=== PATIENT | male | born 1955 | race Two or more races ===

== ENCOUNTER → 2016-09-08 | Outpatient (REF) | payer BC ==
[2016-09-08 14:18] LABS: MEAN CORPUSCULAR HEMOGLOBIN 32.4 pg (27.0-33.0); MEAN CORPUSCULAR HGB CONC 33.7 g/dl (32.0-36.5); MEAN CORPUSCULAR VOLUME 96.1 fl (80.0-96.0); RED CELL DISTRIBUTION WIDTH 12.4 % (11.5-14.5); WHITE BLOOD COUNT 8.4 K/mm3 (4.0-10.0)
[2016-09-08 14:24] LABS: ANION GAP 8 MEQ/L (8-16); BLOOD UREA NITROGEN 20 MG/DL (7-18); CALCIUM LEVEL 9.2 MG/DL (8.8-10.2); CARBON DIOXIDE LEVEL 28 MEQ/L (21-32); CHLORIDE LEVEL 107 MEQ/L (98-107); CREATININE FOR GFR 0.91 MG/DL (0.70-1.30); GLOMERULAR FILTRATION RATE > 60.0 (>49); GLUCOSE, FASTING 69 MG/DL (80-110); INR 1.06; SODIUM LEVEL 143 MEQ/L (136-145)
[2016-09-08 14:33] LABS: POTASSIUM SERUM 5.2 MEQ/L (3.5-5.1)
== END ==
LOC: M SMT 13:07
PROVIDERS: ATTEND Nurse Practitioner Women's Health
DX: Z01.818 Encounter for other preprocedural examination (principal); N20.0 Calculus of kidney

== ENCOUNTER → 2016-09-18 | Day surgery (SDC) | payer BC ==
[~2016-09-18] VITALS: Ht 177.8 cm; Wt 77.1 kg
[~2016-09-18] MED LIST: FLOM5CAP PO; KETAMINE HCL 200 MG/20 ML VIAL As Ordered ONE; LIDOCAINE 2% INJ 100 MG/5 ML SDV (FOR ANES.) As Ordered ONE; LR 1,000 ML IV SCH; MIDAZOLAM INJ 2 MG/2 ML VIAL (J2250) As Ordered ONE; ONDANSETRON 4 MG TAB (S0181) PO ONE; ONDANSETRON 4MG/2ML VIAL (J2405) IV PRN; PERC5TAB6 PO; PERCOCET 5MG/325MG TAB PO PRN; PERCOCET 5MG/325MG TAB PO SCH; PERCOCET PO; PROPOFOL 200 MG/20 ML VIAL As Ordered ONE; TAMSULOSIN 0.4 MG CAP PO SCH; fentaNYL 100 MCG/2 ML INJECTION (J3010) As Ordered ONE
--- NOTE | 2016-09-18 08:23 | REP ---
KUB, ONE VIEW: HISTORY: Renal stone. COMPARISON: CT 08/29/2016. A small amount of air is present in small and large intestine. There are no air fluid levels or dilated loops of intestine. There is no pneumoperitoneum. An 8 mm calcification is present overlying the left kidney. This corresponds to the calcification seen in the left renal pelvis in the recent CT examination. Surgical clips are present in the right abdomen. IMPRESSION: 1. Nonspecific bowel gas pattern. 2. There is an 8 mm calcification overlying the left kidney corresponding to the calcification seen in the left renal pelvis in the recent CT examination. Signed by Michel Bliss MD 09/18/2016 08:30 A
--- NOTE | 2016-09-18 09:13 | ECGEPIP ---
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 No prior tracing for comparison Electronically Signed On 09-18-2016 9:13:32 EST by Vinod Mao
[2016-09-18 10:00] VITALS: BP 121/64
--- NOTE | 2016-09-18 16:43 | RO ---
DATE OF PROCEDURE: 09/18/2016 PREOPERATIVE DIAGNOSIS: Left kidney stone. POSTOPERATIVE DIAGNOSIS: Left kidney stone. FINDINGS: 8 mm left kidney stone. PROCEDURE: Left extracorporeal shock wave lithotripsy. SURGEON: Dr. Lester Light MD CARDIAC MONITOR TECHNICIAN: None. ANESTHESIA: General. COMPLICATIONS: None. ESTIMATED BLOOD LOSS: N/A. HISTORY OF THE PRESENT ILLNESS: A 60-year-old male patient with an 8 mm renal pelvis stone. The patient has consented for a left extracorporeal shock wave lithotripsy. DESCRIPTION OF OPERATION: With the patient in the supine position under general anesthesia, after finding the stone with x-ray and ultrasound, we found a stone of 8 mm in diameter in the upper pole of the left kidney. We gave a total of 2500 shock wave lithotripsies at a power of 1 to 20. The first 100 shock wave lithotripsy was done at a power of 1 to 5, the final 100 shock waves were done at a level of 6 to 10, the following 100 shock waves were done at a level of 11 to 15 and the following 2200 shock waves were done at level of 16 to 20. There were no complications of surgery. The patient tolerated well the procedure. PLAN: The patient will go home today with Flomax and pain medication. He will followup at [facility] in 3 weeks and to assess if the stone has been pulverized or is still persistent. If it is still persistent, we will give a second session or even a third session. There were no complications during the procedure.
== END ==
LOC: M SDC 05:56
PROVIDERS: ATTEND Urology
DX: N20.0 Calculus of kidney (principal); I10 Essential (primary) hypertension; J44.9 Chronic obstructive pulmonary disease, unspecified; R06.83 Snoring; Z79.899 Other long term (current) drug therapy; Z87.891 Personal history of nicotine dependence
CPT/HCPCS: 50590; 74000; 93005; J0690; J2250; J3010

== ENCOUNTER → 2016-10-09 | Outpatient (CLI) | payer BC ==
[~2016-10-09] MED LIST changes: -KETAMINE HCL 200 MG/20 ML VIAL As Ordered ONE; -LIDOCAINE 2% INJ 100 MG/5 ML SDV (FOR ANES.) As Ordered ONE; -LR 1,000 ML IV SCH; -MIDAZOLAM INJ 2 MG/2 ML VIAL (J2250) As Ordered ONE; -ONDANSETRON 4 MG TAB (S0181) PO ONE; -ONDANSETRON 4MG/2ML VIAL (J2405) IV PRN; -PERCOCET 5MG/325MG TAB PO PRN; -PERCOCET 5MG/325MG TAB PO SCH; -PROPOFOL 200 MG/20 ML VIAL As Ordered ONE; -TAMSULOSIN 0.4 MG CAP PO SCH; -fentaNYL 100 MCG/2 ML INJECTION (J3010) As Ordered ONE
--- NOTE | 2016-10-09 12:06 | REP ---
KUB: Single view. History: Kidney stone left-sided. Comparison KUB September 18, 2016. Comparison CT study August 29, 2016. Findings: The calcific opacity previously noted in the intrarenal collecting system of the left kidney is no longer apparent. No ureteral or upper tract calculus is visible today. There is vascular calcification in the pelvis bilaterally. There are clips in the right mid abdomen. Bowel gas pattern is normal. Impression: No urinary tract calculus visible today. Signed by Kurt Lee MD 10/09/2016 01:14 P
== END ==
LOC: M SMT 08:57
PROVIDERS: ATTEND Nurse Practitioner Women's Health
DX: N20.0 Calculus of kidney (principal)

== ENCOUNTER → 2017-01-06 | Outpatient (CLI) | payer BC ==
[~2017-01-06] VITALS: Ht 177.8 cm; Wt 77.1 kg
[~2017-01-06] MED LIST changes: +IBUPOTC PO; +LIDOCAINE 2% INJ 100 MG/5 ML SDV (FOR ANES.) As Ordered ONE; +LR 1,000 ML IV SCH; +PHENYLephrine HCL 500 MCG/5 ML (100MCG/ML) SYRINGE (J2370) As Ordered ONE; +PROPOFOL 200 MG/20 ML VIAL As Ordered ONE
--- NOTE | 2017-01-06 12:02 | ROOR ---
Patient Name: Chance Solis Procedure Date: 01/06/2017 11:13 AM Date of : 1955 Age: 61 [facility] Gender: Male Note Status: Finalized Procedure: Colonoscopy Indications: High risk colon cancer surveillance: Personal history of colonic polyps, Last colonoscopy 5 years or more ago Providers: Edgar Moreno MD Referring MD: Natasha Israel MD Requesting Provider: Medicines: Monitored Anesthesia Care Complications: No immediate complications. Procedure: Pre-Anesthesia Assessment: - Prior to the procedure, a History and Physical was performed, and patient medications and allergies were reviewed. The patient is competent. The risks and benefits of the procedure and the sedation options and risks were discussed with the patient. All questions were answered and informed consent was obtained. Patient identification and proposed procedure were verified by the physician, the nurse and the anesthesiologist in the procedure room. Mental Status Examination: alert and oriented. Airway Examination: normal oropharyngeal airway and neck mobility. CV Examination: regular rate and rhythm. Prophylactic Antibiotics: The patient does not require prophylactic antibiotics. Prior Anticoagulants: The patient has taken no previous anticoagulant or antiplatelet agents. ASA Grade Assessment: I - A normal, healthy patient. After reviewing the risks and benefits, the patient was deemed in satisfactory condition to undergo the procedure. The anesthesia plan was to use monitored anesthesia care (MAC). Immediately prior to administration of medications, the patient was re-assessed for adequacy to receive sedatives. The heart rate, respiratory rate, oxygen saturations, blood pressure, adequacy of pulmonary ventilation, and response to care were monitored throughout the procedure. The physical status of the patient was re-assessed after the procedure. The was introduced through the anus and advanced to the cecum, identified by appendiceal orifice and ileocecal valve. The colonoscopy was performed without difficulty. The patient tolerated the procedure well. The quality of the bowel preparation was excellent. Findings: The perianal and digital rectal examinations were normal. A few small-mouthed diverticula were found in the sigmoid colon. Two sessile polyps were found in the descending colon. The polyps were 4 mm in size. These polyps were removed with a hot snare. Resection and retrieval were complete. A 7 mm polyp was found at 20 cm proximal to the anus. The polyp was sessile. The polyp was removed with a hot snare. Resection and retrieval were complete. There were a few small sessile polyps consistent with hyperplastic polyps. Impression: - Diverticulosis in the sigmoid colon. - Two 4 mm polyps in the descending colon, removed with a hot snare. Resected and retrieved. - One 7 mm polyp at 20 cm proximal to the anus, removed with a hot snare. Resected and retrieved. Recommendation: - Await pathology results. - Telephone endoscopist for pathology results in 10 days. - Discharge patient to home. - Resume previous diet. - Continue present medications. Edgar Moreno MD 01/06/2017 12:01:36 PM Number of Addenda: 0 Note Initiated On: 01/06/2017 11:13 AM Estimated Blood Loss: Estimated blood loss: none.
[2017-01-06 12:29] VITALS: BP 122/66
== END | disposition home or self-care (01) ==
LOC: M OPP 09:47
PROVIDERS: ATTEND Surgery
DX: Z12.11 Encounter for screening for malignant neoplasm of colon (principal); K57.30 Diverticulosis of large intestine without perforation or abscess without bleeding; D12.4 Benign neoplasm of descending colon; K63.5 Polyp of colon; M19.90 Unspecified osteoarthritis, unspecified site; J44.9 Chronic obstructive pulmonary disease, unspecified; Z87.891 Personal history of nicotine dependence
CPT/HCPCS: 45385; 88305; J2370

== ENCOUNTER → 2017-08-25 | Outpatient (CLI) | payer OTHER | LOC: M PLARAD 13:23 | DX: R91.1 Solitary pulmonary nodule (principal) | CPT/HCPCS: 78815 ==

== ENCOUNTER → 2017-09-01 | Outpatient (CLI) | payer OTHER | LOC: M CARPUL 09:41 | DX: R91.1 Solitary pulmonary nodule (principal); J44.9 Chronic obstructive pulmonary disease, unspecified ==

== ENCOUNTER → 2017-09-14 | Outpatient (CLI) | payer OTHER | LOC: M RAD 14:09 | DX: R91.1 Solitary pulmonary nodule (principal); J44.9 Chronic obstructive pulmonary disease, unspecified; J84.9 Interstitial pulmonary disease, unspecified | CPT/HCPCS: 71046 ==

== ENCOUNTER → 2017-09-15 | Outpatient (CLI) | payer OTHER | LOC: M RAD 09:50 | DX: R91.1 Solitary pulmonary nodule (principal) | CPT/HCPCS: 78598 ==

== ENCOUNTER → 2017-09-18 | Outpatient (CLI) | payer OTHER ==
[2017-09-18 11:53] LABS: ABG BASE EXCESS -2.6 (-2.0-2.0); ABG HCO3 20.2 MEQ/L (22.0-26.0); ABG O2 SATURATION 96.8 % (95.0-99.0); ABG PARTIAL PRESSURE CO2 30.7 mmHg (35.0-45.0); ABG PARTIAL PRESSURE O2 80.9 mmHg (75.0-100.0); ABG STANDARD HCO3 22.3 MEQ/L (22.0-26.0); ABG TOTAL CO2 21.2 MEQ/L (23.0-31.0); ABG pH (ARTERIAL) 7.437 UNITS (7.350-7.450)
[2017-09-18 12:39] LABS: HEMATOCRIT 48.3 % (42.0-52.0); HEMOGLOBIN 16.8 g/dl (14.0-18.0); MEAN CORPUSCULAR HEMOGLOBIN 32.8 pg (27.0-33.0); MEAN CORPUSCULAR HGB CONC 34.8 g/dl (32.0-36.5); MEAN CORPUSCULAR VOLUME 94.3 fl (80.0-96.0); PLATELET COUNT, AUTOMATED 237 10^3/uL (150-450); RED BLOOD COUNT 5.12 10^6/uL (4.30-6.10); RED CELL DISTRIBUTION WIDTH 12.6 % (11.5-14.5); WHITE BLOOD COUNT 9.9 10^3/uL (4.0-10.0)
[2017-09-18 12:49] LABS: APPEARANCE, URINE CLEAR (CLEAR); BACTERIA, URINE AUTO NEGATIVE (NEGATIVE); BILIRUBIN, URINE AUTO NEGATIVE (NEGATIVE); BLOOD, URINE BLOOD NEGATIVE (NEGATIVE); COLOR, URINE YELLOW (YELLOW); GLUCOSE, URINE (UA) AUTO NEGATIVE (NEGATIVE); KETONE, URINE AUTO NEGATIVE (NEGATIVE); LEUKOCYTE ESTERASE, URINE AUTO NEGATIVE (NEGATIVE); MUCUS, URINE SMALL (NEGATIVE); NITRITE, URINE AUTO NEGATIVE (NEGATIVE); PROTEIN, URINE AUTO NEGATIVE (NEGATIVE); RBC, URINE AUTO 2 /HPF (0-3); SPECIFIC GRAVITY URINE AUTO 1.012 (1.002-1.035); SQUAMOUS EPITHELIAL CELL UR AU 0 /HPF (0-6); UROBILINOGEN, URINE AUTO 0.2 mg/dL (0.0-2.0); WBC, URINE AUTO 0 /HPF (0-3)
[2017-09-18 13:08] LABS: INR 0.98; PROTHROMBIN TIME 13.1 SECONDS (12.4-14.5)
[2017-09-18 13:09] LABS: PARTIAL THROMBOPLASTIN TIME 31.5 SECONDS (26.8-37.9)
[2017-09-18 13:19] LABS: ANION GAP 5 MEQ/L (8-16); BLOOD UREA NITROGEN 16 MG/DL (7-18); CALCIUM LEVEL 9.3 MG/DL (8.8-10.2); CARBON DIOXIDE LEVEL 28 MEQ/L (21-32); CHLORIDE LEVEL 108 MEQ/L (98-107); CREATININE FOR GFR 0.82 MG/DL (0.70-1.30); GLOMERULAR FILTRATION RATE > 60.0 (>49); GLUCOSE, FASTING 77 MG/DL (70-100); POTASSIUM SERUM 4.6 MEQ/L (3.5-5.1); SODIUM LEVEL 141 MEQ/L (136-145)
== END ==
LOC: M ADMPAT 10:44
DX: Z01.818 Encounter for other preprocedural examination (principal); R91.1 Solitary pulmonary nodule
CPT/HCPCS: 93005

== ENCOUNTER 2017-10-05 07:25 | Inpatient (IN) | payer OTHER ==
[2017-10-05] MEDS: LR 1,000 ML IV ×2 (08:00→13:00)
[2017-10-05] MEDS ORDERED: LIDOCAINE 1% MDV 20ML VIAL SQ (08:00)
[2017-10-05] MEDS ORDERED: MIDAZOLAM INJ 2 MG/2 ML VIAL (J2250) As Ordered ×2 (08:28→09:08)
[2017-10-05] MEDS ORDERED: fentaNYL 100 MCG/2 ML INJECTION (J3010) As Ordered ×3 (08:28→12:41)
[2017-10-05] MEDS: MIDAZOLAM INJ 2 MG/2 ML VIAL (J2250) IV (08:55)
[2017-10-05] MEDS: fentaNYL 100 MCG/2 ML INJECTION (J3010) IV ×3 (08:55→12:55)
[2017-10-05] MEDS: MOM 30ML SUSPENSION UDC PO (09:00)
[2017-10-05] MEDS ORDERED: LIDOCAINE 2% INJ 100 MG/5 ML SDV (FOR ANES.) As Ordered (09:08)
[2017-10-05] MEDS ORDERED: PROPOFOL 200 MG/20 ML VIAL As Ordered (09:08)
[2017-10-05] MEDS ORDERED: ROCURONIUM BROMIDE 50 MG/5 ML VIAL As Ordered ×2 (09:08→10:07)
[2017-10-05] MEDS ORDERED: diphenhydrAMINE INJ 50MG/ML VIAL (J1200) IV (09:30)
[2017-10-05] MEDS ORDERED: NALOXONE INJ 0.4 MG/1 ML VIAL (J2310) IV (09:30)
[2017-10-05] MEDS ORDERED: WALLBOXKEY XX (09:30)
[2017-10-05] MEDS ORDERED: METOCLOPRAMIDE INJ 10MG/2ML VIAL (J2765) IV ×2 (09:30→13:00)
[2017-10-05] MEDS ORDERED: ONDANSETRON 4MG/2ML VIAL (J2405) IV ×3 (09:30→13:00)
[2017-10-05] MEDS ORDERED: EPIDURAL/PCA KEYS XX (09:30)
[2017-10-05] MEDS: CETACAINE SPRAY 5GM As Ordered (09:52)
[2017-10-05] MEDS: MUPIROCIN 2% OINT 22 GM TUBE TOP (10:00)
[2017-10-05] MEDS: BUPIVACAINE LIPOSOME/PF 1.3% 20 ML VIAL (13.3MG/ML)(EXPAREL) As Ordered (10:21)
[2017-10-05] MEDS: BUPIVACAINE HCL 0.5% 10 ML VIAL As Ordered (10:21)
[2017-10-05] MEDS ORDERED: VASOPRESSIN INJ 20 UNITS/ML VIAL As Ordered (10:49)
[2017-10-05] MEDS ORDERED: BUPIVACAINE HCL 0.5% 30 ML VIAL As Ordered (10:54)
[2017-10-05] MEDS ORDERED: ONDANSETRON 4MG/2ML VIAL (J2405) As Ordered (11:11)
[2017-10-05] MEDS ORDERED: NEOSTIGMINE 10 MG/10 ML VIAL (J2710) As Ordered (11:12)
[2017-10-05] MEDS ORDERED: GLYCOPYRROLATE INJ 0.2 MG/ML 2 ML VIAL As Ordered (11:12)
[2017-10-05] MEDS ORDERED: PHENYLephrine HCL 500 MCG/5 ML (100MCG/ML) SYRINGE (J2370) As Ordered (11:36)
[2017-10-05] MEDS ORDERED: ACETAMINOPHEN TAB 650MG DOSE (2X325MG) PO (12:15)
[2017-10-05] MEDS ORDERED: PERCOCET 5MG/325MG TAB PO ×2 (12:15→13:00)
[2017-10-05] MEDS ORDERED: LEVALBUTEROL 1.25 MG/0.5 ML CONCENTRATE NEB NEB (12:15)
[2017-10-05] MEDS ORDERED: NORCO, ANEXSIA 5/325MG TABLET (HYDROcodone/ACETAMINOPHEN) PO (12:15)
[2017-10-05 13:00] LABS: BASO # 0.1 10^3/uL (0.0-0.2); BASO % 0.5 % (0.0-1.0); EOS # 0.1 10^3/uL (0.0-0.50); EOS % 0.3 % (0.0-3.0); HEMATOCRIT 45.9 % (42.0-52.0); IMMATURE GRANULOCYTE % 0.4 % (0-3.0); LYMPH # 1.1 10^3/uL (1.5-4.5); LYMPH % 6.2 % (24.0-44.0); MEAN CORPUSCULAR HEMOGLOBIN 33.5 pg (27.0-33.0); MEAN CORPUSCULAR HGB CONC 34.9 g/dl (32.0-36.5); MEAN CORPUSCULAR VOLUME 96.2 fl (80.0-96.0); MONO # 0.6 10^3/uL (0.0-0.8); MONO % 3.4 % (0.0-5.0); NEUTROPHILS # 16.2 10^3/uL (1.8-7.7); NEUTROPHILS % 89.2 % (36.0-66.0); PLATELET COUNT, AUTOMATED 224 10^3/uL (150-450); RED BLOOD COUNT 4.77 10^6/uL (4.30-6.10); RED CELL DISTRIBUTION WIDTH 12.9 % (11.5-14.5); WHITE BLOOD COUNT 18.1 10^3/uL (4.0-10.0)
[2017-10-05 13:06] LABS: ABG BASE EXCESS -7.4 (-2.0-2.0); ABG O2 SATURATION 98.6 % (95.0-99.0); ABG PARTIAL PRESSURE CO2 41.8 mmHg (35.0-45.0); ABG PARTIAL PRESSURE O2 132.4 mmHg (75.0-100.0); ABG STANDARD HCO3 18.6 MEQ/L (22.0-26.0); ABG TOTAL CO2 20.3 MEQ/L (23.0-31.0); ABG pH (ARTERIAL) 7.276 UNITS (7.350-7.450)
[2017-10-05] MEDS: KCL 20MEQ IN D5/NS 1000ML 1,000 ML IV (13:20)
[2017-10-05] MEDS: KETOROLAC 30 MG/ML VIAL (J1885) IV ×2 (13:22→18:10)
[2017-10-05] MEDS: LEVALBUTEROL 1.25 MG/0.5 ML CONCENTRATE NEB NEB ×2 (13:22→20:43)
[2017-10-05 13:34] LABS: ANION GAP 7 MEQ/L (8-16); BLOOD UREA NITROGEN 19 MG/DL (7-18); CALCIUM LEVEL 8.8 MG/DL (8.8-10.2); CARBON DIOXIDE LEVEL 23 MEQ/L (21-32); CHLORIDE LEVEL 109 MEQ/L (98-107); CREATININE FOR GFR 0.88 MG/DL (0.70-1.30); GLOMERULAR FILTRATION RATE > 60.0 (>49); GLUCOSE, FASTING 123 MG/DL (70-100); POTASSIUM SERUM 4.5 MEQ/L (3.5-5.1); SODIUM LEVEL 139 MEQ/L (136-145)
[2017-10-05] MEDS: SODIUM CHLORIDE 0.9% 1000 ML IV (14:00)
[2017-10-05 14:38] LABS: ABG HCO3 19.8 MEQ/L (22.0-26.0); ABG O2 SATURATION 95.7 % (95.0-99.0); ABG PARTIAL PRESSURE CO2 36.4 mmHg (35.0-45.0); ABG PARTIAL PRESSURE O2 80.6 mmHg (75.0-100.0); ABG STANDARD HCO3 20.3 MEQ/L (22.0-26.0); ABG TOTAL CO2 20.9 MEQ/L (23.0-31.0); ABG pH (ARTERIAL) 7.353 UNITS (7.350-7.450)
[2017-10-05] MEDS: CEFAZOLIN SOD 1 GM in APPROPRIATE DILUENT 1 EA IV (17:19)
[2017-10-05] MEDS: FENTANYL/BUPIVACAINE/NACL BAG 250 ML EPIDURAL (17:27)
[2017-10-05] MEDS: VITAMIN D (CHOLECALCIFEROL) 400 INTERNATIONAL UNITS TAB PO (18:10)
[2017-10-05] MEDS: NS 500 ML IV (20:45)
[2017-10-05] MEDS: DOCUSATE SODIUM 100 MG CAP PO (21:58)
[2017-10-05] MEDS: HEPARIN SOD (PORCINE) 5000 UNITS/ML VIAL SC (21:59)
[2017-10-06] MEDS: KETOROLAC 30 MG/ML VIAL (J1885) IV ×4 (01:04→18:30)
[2017-10-06] MEDS: CEFAZOLIN SOD 1 GM in APPROPRIATE DILUENT 1 EA IV ×3 (01:05→17:32)
[2017-10-06] MEDS: LEVALBUTEROL 1.25 MG/0.5 ML CONCENTRATE NEB NEB ×4 (01:38→20:10)
[2017-10-06] MEDS: KCL 20MEQ IN D5/NS 1000ML 1,000 ML IV (03:12)
[2017-10-06 05:57] LABS: BASO % 0.4 % (0.0-1.0); EOS % 0.3 % (0.0-3.0); HEMATOCRIT 39.4 % (42.0-52.0); IMMATURE GRANULOCYTE % 0.3 % (0-3.0); LYMPH # 1.3 10^3/uL (1.5-4.5); LYMPH % 12.3 % (24.0-44.0); MEAN CORPUSCULAR HEMOGLOBIN 33.3 pg (27.0-33.0); MEAN CORPUSCULAR HGB CONC 34.8 g/dl (32.0-36.5); MEAN CORPUSCULAR VOLUME 95.6 fl (80.0-96.0); MONO % 9.8 % (0.0-5.0); NEUTROPHILS % 76.9 % (36.0-66.0); PLATELET COUNT, AUTOMATED 191 10^3/uL (150-450); RED BLOOD COUNT 4.12 10^6/uL (4.30-6.10); RED CELL DISTRIBUTION WIDTH 12.9 % (11.5-14.5); WHITE BLOOD COUNT 10.5 10^3/uL (4.0-10.0)
[2017-10-06 06:03] LABS: HEMOGLOBIN 13.7 g/dl (14.0-18.0)
[2017-10-06 06:08] LABS: ABG BASE EXCESS -2.1 (-2.0-2.0); ABG HCO3 21.5 MEQ/L (22.0-26.0); ABG O2 SATURATION 96.5 % (95.0-99.0); ABG PARTIAL PRESSURE CO2 33.3 mmHg (35.0-45.0); ABG PARTIAL PRESSURE O2 82.9 mmHg (75.0-100.0); ABG STANDARD HCO3 22.7 MEQ/L (22.0-26.0); ABG TOTAL CO2 22.5 MEQ/L (23.0-31.0); ABG pH (ARTERIAL) 7.427 UNITS (7.350-7.450)
[2017-10-06 06:09] LABS: ANION GAP 5 MEQ/L (8-16); BLOOD UREA NITROGEN 14 MG/DL (7-18); CALCIUM LEVEL 7.7 MG/DL (8.8-10.2); CARBON DIOXIDE LEVEL 24 MEQ/L (21-32); CHLORIDE LEVEL 110 MEQ/L (98-107); CREATININE FOR GFR 0.85 MG/DL (0.70-1.30); GLOMERULAR FILTRATION RATE > 60.0 (>49); GLUCOSE, FASTING 104 MG/DL (70-100); SODIUM LEVEL 139 MEQ/L (136-145)
[2017-10-06] MEDS: TIOTROPIUM INHALER/CAPSULE (SPIRIVA) INH (07:11)
[2017-10-06] MEDS: MOM 30ML SUSPENSION UDC PO (09:00)
[2017-10-06] MEDS: VITAMIN D (CHOLECALCIFEROL) 400 INTERNATIONAL UNITS TAB PO (09:03)
[2017-10-06] MEDS: HEPARIN SOD (PORCINE) 5000 UNITS/ML VIAL SC ×2 (09:04→21:36)
[2017-10-06] MEDS: DOCUSATE SODIUM 100 MG CAP PO ×2 (09:04→21:36)
[2017-10-06] MEDS: PANTOPRAZOLE 40MG TAB (PROTONIX) PO (09:04)
[2017-10-06] MEDS: FENTANYL/BUPIVACAINE/NACL BAG 250 ML EPIDURAL (15:03)
[2017-10-07] MEDS: LEVALBUTEROL 1.25 MG/0.5 ML CONCENTRATE NEB NEB ×4 (01:35→20:01)
[2017-10-07] MEDS: KETOROLAC 30 MG/ML VIAL (J1885) IV ×4 (01:37→18:07)
[2017-10-07] MEDS: CEFAZOLIN SOD 1 GM in APPROPRIATE DILUENT 1 EA IV ×2 (01:37→09:04)
[2017-10-07 05:36] LABS: BASO # 0.1 10^3/uL (0.0-0.2); BASO % 0.7 % (0.0-1.0); EOS # 0.2 10^3/uL (0.0-0.50); EOS % 2.2 % (0.0-3.0); HEMATOCRIT 35.9 % (42.0-52.0); HEMOGLOBIN 12.6 g/dl (14.0-18.0); IMMATURE GRANULOCYTE % 0.4 % (0-3.0); LYMPH # 1.3 10^3/uL (1.5-4.5); LYMPH % 17.9 % (24.0-44.0); MEAN CORPUSCULAR HEMOGLOBIN 33.5 pg (27.0-33.0); MEAN CORPUSCULAR HGB CONC 35.1 g/dl (32.0-36.5); MEAN CORPUSCULAR VOLUME 95.5 fl (80.0-96.0); MONO # 0.9 10^3/uL (0.0-0.8); MONO % 12.5 % (0.0-5.0); NEUTROPHILS # 4.6 10^3/uL (1.8-7.7); NEUTROPHILS % 66.3 % (36.0-66.0); PLATELET COUNT, AUTOMATED 162 10^3/uL (150-450); RED BLOOD COUNT 3.76 10^6/uL (4.30-6.10); RED CELL DISTRIBUTION WIDTH 12.7 % (11.5-14.5)
[2017-10-07 05:54] LABS: ANION GAP 6 MEQ/L (8-16); BLOOD UREA NITROGEN 14 MG/DL (7-18); CALCIUM LEVEL 8.2 MG/DL (8.8-10.2); CARBON DIOXIDE LEVEL 25 MEQ/L (21-32); CHLORIDE LEVEL 110 MEQ/L (98-107); CREATININE FOR GFR 0.79 MG/DL (0.70-1.30); GLOMERULAR FILTRATION RATE > 60.0 (>49); GLUCOSE, FASTING 96 MG/DL (70-100); POTASSIUM SERUM 3.9 MEQ/L (3.5-5.1); SODIUM LEVEL 141 MEQ/L (136-145)
[2017-10-07] MEDS: TIOTROPIUM INHALER/CAPSULE (SPIRIVA) INH (07:23)
[2017-10-07] MEDS: MOM 30ML SUSPENSION UDC PO ×2 (08:20→18:07)
[2017-10-07] MEDS: PANTOPRAZOLE 40MG TAB (PROTONIX) PO (09:04)
[2017-10-07] MEDS: HEPARIN SOD (PORCINE) 5000 UNITS/ML VIAL SC ×2 (09:04→21:03)
[2017-10-07] MEDS: DOCUSATE SODIUM 100 MG CAP PO ×2 (09:04→21:02)
[2017-10-07] MEDS: VITAMIN D (CHOLECALCIFEROL) 400 INTERNATIONAL UNITS TAB PO (11:20)
[2017-10-07] MEDS: FENTANYL/BUPIVACAINE/NACL BAG 250 ML EPIDURAL (15:32)
[2017-10-08] MEDS: KETOROLAC 30 MG/ML VIAL (J1885) IV ×5 (01:13→23:51)
[2017-10-08] MEDS: LEVALBUTEROL 1.25 MG/0.5 ML CONCENTRATE NEB NEB ×4 (01:20→20:23)
[2017-10-08 05:34] LABS: BASO % 0.5 % (0.0-1.0); EOS # 0.3 10^3/uL (0.0-0.50); EOS % 3.9 % (0.0-3.0); HEMATOCRIT 35.4 % (42.0-52.0); HEMOGLOBIN 12.2 g/dl (14.0-18.0); IMMATURE GRANULOCYTE % 0.4 % (0-3.0); LYMPH # 1.2 10^3/uL (1.5-4.5); LYMPH % 15.9 % (24.0-44.0); MEAN CORPUSCULAR HEMOGLOBIN 32.5 pg (27.0-33.0); MEAN CORPUSCULAR HGB CONC 34.5 g/dl (32.0-36.5); MEAN CORPUSCULAR VOLUME 94.4 fl (80.0-96.0); MONO # 0.9 10^3/uL (0.0-0.8); NEUTROPHILS % 67.3 % (36.0-66.0); PLATELET COUNT, AUTOMATED 178 10^3/uL (150-450); RED BLOOD COUNT 3.75 10^6/uL (4.30-6.10); RED CELL DISTRIBUTION WIDTH 12.5 % (11.5-14.5); WHITE BLOOD COUNT 7.4 10^3/uL (4.0-10.0)
[2017-10-08 05:58] LABS: ANION GAP 6 MEQ/L (8-16); BLOOD UREA NITROGEN 15 MG/DL (7-18); CALCIUM LEVEL 7.8 MG/DL (8.8-10.2); CARBON DIOXIDE LEVEL 27 MEQ/L (21-32); CHLORIDE LEVEL 108 MEQ/L (98-107); CREATININE FOR GFR 0.78 MG/DL (0.70-1.30); GLOMERULAR FILTRATION RATE > 60.0 (>49); GLUCOSE, FASTING 89 MG/DL (70-100); POTASSIUM SERUM 3.7 MEQ/L (3.5-5.1); SODIUM LEVEL 141 MEQ/L (136-145)
[2017-10-08] MEDS: TIOTROPIUM INHALER/CAPSULE (SPIRIVA) INH (07:13)
[2017-10-08] MEDS: MOM 30ML SUSPENSION UDC PO (08:53)
[2017-10-08] MEDS: DOCUSATE SODIUM 100 MG CAP PO ×2 (08:53→20:49)
[2017-10-08] MEDS: PANTOPRAZOLE 40MG TAB (PROTONIX) PO (08:53)
[2017-10-08] MEDS: VITAMIN D (CHOLECALCIFEROL) 400 INTERNATIONAL UNITS TAB PO (08:53)
[2017-10-08] MEDS: HEPARIN SOD (PORCINE) 5000 UNITS/ML VIAL SC ×2 (09:29→20:49)
[2017-10-08] MEDS: PERCOCET 5MG/325MG TAB PO ×2 (09:31→17:46)
[2017-10-08] MEDS: BISACODYL 10 MG SUPP PR (10:33)
[2017-10-09] MEDS: LEVALBUTEROL 1.25 MG/0.5 ML CONCENTRATE NEB NEB ×2 (02:00→06:59)
[2017-10-09] MEDS: PERCOCET 5MG/325MG TAB PO ×2 (04:17→12:20)
[2017-10-09 05:15] LABS: BASO # 0.1 10^3/uL (0.0-0.2); BASO % 0.6 % (0.0-1.0); EOS # 0.3 10^3/uL (0.0-0.50); HEMATOCRIT 36.6 % (42.0-52.0); HEMOGLOBIN 12.8 g/dl (14.0-18.0); IMMATURE GRANULOCYTE % 0.4 % (0-3.0); LYMPH # 0.9 10^3/uL (1.5-4.5); LYMPH % 9.9 % (24.0-44.0); MEAN CORPUSCULAR HEMOGLOBIN 33.2 pg (27.0-33.0); MEAN CORPUSCULAR VOLUME 94.8 fl (80.0-96.0); MONO # 1.2 10^3/uL (0.0-0.8); MONO % 13.3 % (0.0-5.0); NEUTROPHILS # 6.6 10^3/uL (1.8-7.7); NEUTROPHILS % 72.8 % (36.0-66.0); PLATELET COUNT, AUTOMATED 208 10^3/uL (150-450); RED BLOOD COUNT 3.86 10^6/uL (4.30-6.10); RED CELL DISTRIBUTION WIDTH 12.6 % (11.5-14.5)
[2017-10-09 05:28] LABS: ANION GAP 3 MEQ/L (8-16); BLOOD UREA NITROGEN 13 MG/DL (7-18); CALCIUM LEVEL 8.5 MG/DL (8.8-10.2); CARBON DIOXIDE LEVEL 28 MEQ/L (21-32); CHLORIDE LEVEL 109 MEQ/L (98-107); CREATININE FOR GFR 0.77 MG/DL (0.70-1.30); GLOMERULAR FILTRATION RATE > 60.0 (>49); GLUCOSE, FASTING 91 MG/DL (70-100); POTASSIUM SERUM 4.1 MEQ/L (3.5-5.1); SODIUM LEVEL 140 MEQ/L (136-145)
[2017-10-09] MEDS: KETOROLAC 30 MG/ML VIAL (J1885) IV (06:15)
[2017-10-09] MEDS: MOM 30ML SUSPENSION UDC PO (06:19)
[2017-10-09] MEDS: TIOTROPIUM INHALER/CAPSULE (SPIRIVA) INH (06:59)
[2017-10-09] MEDS: PANTOPRAZOLE 40MG TAB (PROTONIX) PO (08:42)
[2017-10-09] MEDS: DOCUSATE SODIUM 100 MG CAP PO (08:42)
[2017-10-09] MEDS: VITAMIN D (CHOLECALCIFEROL) 400 INTERNATIONAL UNITS TAB PO (08:42)
[2017-10-09] MEDS: BISACODYL 10 MG SUPP PR (08:42)
[2017-10-09] MEDS: HEPARIN SOD (PORCINE) 5000 UNITS/ML VIAL SC (10:35)
[2017-10-10 00:06] LABS: QUANTIFERON GOLD TB Negative (Negative); TB Test (QFT) Antigen 0.02 IU/mL (.); TB Test (QFT) Mitogen >10.00 IU/mL (.); TB Test (QFT) Nil 0.02 IU/mL (.)
== END 2017-10-09 12:30 | disposition home or self-care (01) | DRG 120 ==
LOC: M OR 07:25 → M PCU 14:59
PROC: 0BBC0ZX Excision of Right Upper Lung Lobe, Open Approach, Diagnostic (ICD-10-PCS; principal; 2017-10-05 09:30)
PROC: 0B948ZZ Drainage of Right Upper Lobe Bronchus, Via Natural or Artificial Opening Endoscopic (ICD-10-PCS; 2017-10-05 09:30)
DX: J84.10 Pulmonary fibrosis, unspecified (principal); J44.9 Chronic obstructive pulmonary disease, unspecified; E78.00 Pure hypercholesterolemia, unspecified; Z87.891 Personal history of nicotine dependence; Z79.1 Long term (current) use of non-steroidal anti-inflammatories (NSAID); Z79.899 Other long term (current) drug therapy

== ENCOUNTER → 2017-10-15 | Outpatient (CLI) | payer OTHER | LOC: M SMT 08:10 | DX: R91.1 Solitary pulmonary nodule (principal) | CPT/HCPCS: 71046 ==

== ENCOUNTER → 2017-11-03 | Outpatient (CLI) | payer OTHER ==
[~2017-11-03] MED LIST changes: -FLOM5CAP PO; -IBUPOTC PO; +ISOVUE-370 76% 100ML VIAL (Q9967) As Ordered; -LIDOCAINE 2% INJ 100 MG/5 ML SDV (FOR ANES.) As Ordered ONE; -LR 1,000 ML IV SCH; -PERC5TAB6 PO; -PERCOCET PO; -PHENYLephrine HCL 500 MCG/5 ML (100MCG/ML) SYRINGE (J2370) As Ordered ONE; -PROPOFOL 200 MG/20 ML VIAL As Ordered ONE
== END ==
LOC: M RAD 10:54
DX: R06.02 Shortness of breath (principal)
CPT/HCPCS: Q9967

== ENCOUNTER → 2017-11-23 | Outpatient (CLI) | payer OTHER | LOC: M SMT 08:16 | DX: R91.1 Solitary pulmonary nodule (principal); Z98.890 Other specified postprocedural states | CPT/HCPCS: 71046 ==

== ENCOUNTER → 2018-03-09 | Outpatient (CLI) | payer OTHER ==
[2018-03-09 12:55] LABS: BASO # 0.1 10^3/uL (0.0-0.2); BASO % 1.2 % (0.0-1.0); EOS # 0.2 10^3/uL (0.0-0.50); EOS % 2.4 % (0.0-3.0); HEMATOCRIT 45.3 % (42.0-52.0); HEMOGLOBIN 16.1 g/dl (13.5-17.5); IMMATURE GRANULOCYTE % 0.3 % (0-3.0); LYMPH # 1.4 10^3/uL (1.5-4.5); LYMPH % 20.7 % (24.0-44.0); MEAN CORPUSCULAR HEMOGLOBIN 32.5 pg (27.0-33.0); MEAN CORPUSCULAR HGB CONC 35.5 g/dl (32.0-36.5); MEAN CORPUSCULAR VOLUME 91.3 fl (80.0-96.0); MONO # 0.7 10^3/uL (0.0-0.8); MONO % 10.2 % (0.0-5.0); NEUTROPHILS # 4.4 10^3/uL (1.8-7.7); NEUTROPHILS % 65.2 % (36.0-66.0); PLATELET COUNT, AUTOMATED 225 10^3/uL (150-450); RED BLOOD COUNT 4.96 10^6/uL (4.30-6.10); RED CELL DISTRIBUTION WIDTH 13.5 % (11.5-14.5); WHITE BLOOD COUNT 6.7 10^3/uL (4.0-10.0)
[2018-03-09 13:33] LABS: ALBUMIN 3.9 GM/DL (3.2-5.2); ALBUMIN/GLOBULIN RATIO 1.11 (1.00-1.93); ALKALINE PHOSPHATASE 94 U/L (45-117); ALT/SGPT 23 U/L (12-78); ANION GAP 8 MEQ/L (8-16); AST/SGOT 16 U/L (7-37); BILIRUBIN,TOTAL 1.3 MG/DL (0.2-1.0); BLOOD UREA NITROGEN 11 MG/DL (7-18); CALCIUM LEVEL 9.2 MG/DL (8.8-10.2); CARBON DIOXIDE LEVEL 25 MEQ/L (21-32); CHLORIDE LEVEL 110 MEQ/L (98-107); CHOLESTEROL LEVEL 169 MG/DL (<200); CHOLESTEROL RISK RATIO 3.017 (<5); CREATININE FOR GFR 1.01 MG/DL (0.70-1.30); GLOMERULAR FILTRATION RATE > 60.0 (>49); GLUCOSE, FASTING 95 MG/DL (70-100); HDL CHOLESTEROL 56 MG/DL (>40); LDL CHOLESTEROL 95.4 MG/DL (<100); NON-HDL-C 113 MG/DL; POTASSIUM SERUM 4.6 MEQ/L (3.5-5.1); SODIUM LEVEL 143 MEQ/L (136-145); TOTAL PROTEIN 7.4 GM/DL (6.4-8.2); TRIGLYCERIDES LEVEL 88 MG/DL (<150)
== END ==
LOC: M WUC 09:33
DX: Z00.00 Encounter for general adult medical examination without abnormal findings (principal)
CPT/HCPCS: 80053

== ENCOUNTER → 2018-07-01 | Outpatient (REF) | payer OTHER | LOC: M LAB REF 17:24 | DX: D22.5 Melanocytic nevi of trunk (principal); L85.8 Other specified epidermal thickening | CPT/HCPCS: 88305 ==

== ENCOUNTER → 2019-05-03 | Outpatient (CLI) | payer MEDICARE ==
[~2019-05-03] MED LIST changes: +ELIQ5TAB PO; +FLOM0.4C39 PO; +IBUPOTC PO; -ISOVUE-370 76% 100ML VIAL (Q9967) As Ordered; +LEVO500T3 PO; +PERC5TAB12 PO; +PERCOCET PO; +PROAAER10 INH; +SPIR12.9 INH; +VITA-110 PO; +VITA-144 PO
--- NOTE | 2019-05-03 13:49 | REP ---
The CT of the chest without IV contrast: Comparisons are the radionuclide PET scan dated 08/25/[address] dated 11/03/2017. On the comparison PET scan there was a hypermetabolic lung nodule medially in the apex of the right upper lobe. On the 11/03/[address] this nodule had been resected and there is a surgical staple line medially in the right upper lobe apex. Additionally there are multiple bilateral pulmonary emboli. The study today is insensitive for evaluation of pulmonary emboli in the absence of IV contrast. There is a surgical staple line medially in the apex of the right upper lobe. There is no evidence of tumor recurrence. In addition, there is linear stranding extending from the lateral pleural surface in the right upper lobe, eight packs inferomedially to the right hilus, not present previously, possibly parenchymal scarring. No nodularity is identified. There are no nodules or masses otherwise. There are no infiltrates or pleural effusions. There are numerous bulla replacing the lung parenchyma bilaterally. There is no mediastinal or axillary lymphadenopathy. The study is insensitive for hilar lymphadenopathy in the absence of IV contrast. The thoracic aorta is unremarkable except for occasional calcified atheroma. Cardiac size is normal. There is no pericardial effusion. Upper abdomen: On the radionuclide PET scan dated 08/25/2088. On the chest CT of 11/03/2017 there was a right adrenal hypodense nodule. This is only partially imaged on the study today. The left adrenal demonstrates "fullness" but is only partially imaged. This fullness was also present on the comparison studies. The visualized areas of the liver, gallbladder, pancreas and spleen are unremarkable. Impression: The there is a surgical staple line in the upper lobe of the right lung medially where a lung nodule had previously been resected. There is no evidence of tumor recurrence. There is now linear stranding extending from the lateral pleura in the right upper lobe toward the right hilus, not present previously, likely parenchymal scarring. No nodularity is associated with this linear stranding. There are no new lung nodules or masses. There are no infiltrates or pleural effusions. There is no adenopathy, however the study is insensitive for evaluation of the becky in the absence of IV contrast. There are numerous bulla replacing the lung parenchyma bilaterally. There is curvilinear parenchymal scarring in the left lower lobe. The patient has a known right adrenal nodule. It is only partially imaged on the current study. There is left adrenal fullness, only partially imaged on the current study. This fullness was also present on prior studies. Electronically Signed by Neal Carpenter MD 05/03/2019 01:41 P
== END ==
LOC: M RAD 10:24
PROVIDERS: ATTEND Internal Medicine Pulmonary Disease
DX: R91.8 Other nonspecific abnormal finding of lung field (principal)

== ENCOUNTER → 2019-07-04 | Outpatient (REF) | payer MEDICARE, OTHER | LOC: M LAB REF 18:55 | PROVIDERS: ATTEND Dermatology | DX: D22.5 Melanocytic nevi of trunk (principal); D22.61 Melanocytic nevi of right upper limb, including shoulder; L57.8 Other skin changes due to chronic exposure to nonionizing radiation ==

== ENCOUNTER → 2020-01-25 | Outpatient (CLI) | payer MEDICARE ==
[2020-01-25 13:41] LABS: ALBUMIN 3.7 GM/DL (3.2-5.2); ALT/SGPT 20 U/L (12-78); BILIRUBIN,TOTAL 0.8 MG/DL (0.2-1.0); BLOOD UREA NITROGEN 19 MG/DL (7-18); CALCIUM LEVEL 8.8 MG/DL (8.8-10.2); CARBON DIOXIDE LEVEL 24 MEQ/L (21-32); CHLORIDE LEVEL 112 MEQ/L (98-107); CHOLESTEROL LEVEL 180 MG/DL (<200); CREATININE FOR GFR 1.04 MG/DL (0.70-1.30); GLOMERULAR FILTRATION RATE > 60.0 (>49); GLUCOSE, FASTING 101 MG/DL (70-100); HDL CHOLESTEROL 44 MG/DL (>40); LDL CHOLESTEROL 121 MG/DL (<100); NON-HDL-C 136 MG/DL; POTASSIUM SERUM 4.1 MEQ/L (3.5-5.1); SODIUM LEVEL 142 MEQ/L (136-145); TOTAL PROTEIN 6.9 GM/DL (6.4-8.2); TRIGLYCERIDES LEVEL 73 MG/DL (<150)
[2020-01-25 13:42] LABS: BASO # 0.1 10^3/uL (0.0-0.2); BASO % 0.9 % (0.0-1.0); EOS # 0.1 10^3/uL (0.0-0.5); EOS % 1.6 % (0.0-3.0); HEMATOCRIT 45.3 % (42.0-52.0); LYMPH # 1.3 10^3/uL (1.5-5.0); LYMPH % 18.1 % (24.0-44.0); MEAN CORPUSCULAR HGB CONC 35.3 g/dl (32.0-36.5); MEAN CORPUSCULAR VOLUME 96.2 fl (80.0-96.0); MONO # 0.8 10^3/uL (0.0-0.8); MONO % 11.1 % (0.0-5.0); NEUTROPHILS # 4.8 10^3/uL (1.5-8.5); PLATELET COUNT, AUTOMATED 219 10^3/uL (150-450); RED BLOOD COUNT 4.71 10^6/uL (4.30-6.10)
== END ==
LOC: M WUC 08:49
PROVIDERS: ATTEND Physician Assistant
DX: Z00.00 Encounter for general adult medical examination without abnormal findings (principal)

== ENCOUNTER → 2020-05-09 | Outpatient (CLI) | payer MEDICARE ==
[~2020-05-09] MED LIST changes: +CEFU50TA PO; +DOXY100T PO
--- NOTE | 2020-05-14 09:59 | REP ---
CT CHEST WITHOUT CONTRAST HISTORY: Other nonspecific abnormal finding of lung field. COMPARISON: Chest CT studies from 05/03/2019 and 11/03/2017. PET CT study 08/25/2017. CT FINDINGS: The patient is status post right thoracotomy and resection of right upper lobe pulmonary nodule. There are fibrotic changes in the right upper lobe and a suture line is seen superiorly and medially. There are fairly advanced emphysematous changes again noted. Bibasilar linear fibrotic changes are visible. There is no evidence of pleural effusion or pericardial effusion. Vascular calcification is noted. No mediastinal mass or adenopathy is seen. No hilar adenopathy is observed. Stable benign adrenal adenoma is noted on the right. Some stable fullness in the left adrenal gland is seen. These are unchanged. There is an area of pleura-based opacity in the right posterior lung gutter 2.3 cm in greatest diameter. This was not apparent on the 05/03/2019 prior study. There is some adjacent infiltrate superior to this and these changes could be inflammatory. There is mild pleural thickening on the right. There is a pleural- based nodule in the left lower lobe 9 mm in diameter. This was present on 05/03/2019, but is a little larger. Previously, it measured 6 mm. No other nodular density is seen. There is a granulomatous calcification in the right upper lobe anteriorly. Stable perifissural nodule is seen in the minor fissure. IMPRESSION: There are two nodular opacities of concern. A new 2.3 cm somewhat nodular peripheral density is seen in the posterior lung gutter on the right question inflammatory change. In addition, there is a posterior pleural-based 9 mm nodule in the left lower lobe, which is somewhat larger than on the 05/03/2019 study. Evidence of advanced chronic obstructive pulmonary disease (COPD). Postoperative changes on the right. MTDD
== END ==
LOC: M RAD 12:41
PROVIDERS: ATTEND Internal Medicine Pulmonary Disease
DX: R91.8 Other nonspecific abnormal finding of lung field (principal)

== ENCOUNTER 2020-05-18 11:02 | Inpatient (IN) | payer MEDICARE ==
[~2020-05-18] VITALS: Ht 177.8 cm; Wt 72.7 kg
[~2020-05-18 11:02] MED LIST changes: -CEFU50TA PO; -DOXY100T PO
[2020-05-18 12:02] LABS: VENOUS BASE EXCESS -1.9 (-2.0-2.0); VENOUS HCO3 20.3 MEQ/L (23.0-27.0); VENOUS O2 SATURATION 98.9 % (60.0-80.0); VENOUS PARTIAL PRESSURE CO2 28.1 mmHg (38.0-50.0); VENOUS PH 7.476 UNITS (7.330-7.430); VENOUS STANDARD HCO3 22.9 MEQ/L; VENOUS TOTAL CO2 21.1 MEQ/L (24.0-28.0)
[2020-05-18 12:15] LABS: BASO # 0.1 10^3/uL (0.0-0.2); BASO % 0.4 % (0.0-1.0); EOS % 0.2 % (0.0-3.0); HEMATOCRIT 37.4 % (42.0-52.0); HEMOGLOBIN 13.1 g/dl (13.5-17.5); LYMPH # 0.3 10^3/uL (1.5-5.0); LYMPH % 2.6 % (24.0-44.0); MEAN CORPUSCULAR HEMOGLOBIN 32.7 pg (27.0-33.0); MEAN CORPUSCULAR VOLUME 93.3 fl (80.0-96.0); MONO # 1.2 10^3/uL (0.0-0.8); MONO % 9.4 % (0.0-5.0); NEUTROPHILS # 11.5 10^3/uL (1.5-8.5); NEUTROPHILS % 86.7 % (36.0-66.0); PLATELET COUNT, AUTOMATED 344 10^3/uL (150-450); RED BLOOD COUNT 4.01 10^6/uL (4.30-6.10); WHITE BLOOD COUNT 13.3 10^3/uL (4.0-10.0)
[2020-05-18 12:28] LABS: INR 1.13; PROTHROMBIN TIME 14.7 SECONDS (12.5-14.3)
--- NOTE | 2020-05-18 12:37 | REPVR ---
PROCEDURE INFORMATION: Exam: XR Chest, 1 View Exam date and time: 05/18/2020 12:18 PM Age: 64 years old Clinical indication: Shortness of breath; Additional info: Dyspnea/cough TECHNIQUE: Imaging protocol: XR of the chest Views: 1 view. COMPARISON: CT Chest without contrast 05/09/2020 12:58 PM FINDINGS: Limitations: Multiple EKG leads are superimposed on the chest. Lungs: The lungs are hyperinflated, consistent with underlying small airways disease. Subsegmental atelectasis is noted at the bases. There are prominent Alix B lines suggesting interstitial edema. Pleural space: There is a small right pleural fluid collection present. Heart/Mediastinum: See "Soft tissues" finding. Bones/joints: Unremarkable. Soft tissues: An opacity of the right chest wall adjacent to the 4th rib shadow is related to chronic scarring and visible on previous box liner image and CT images. There is also evidence of surgery centrally at the right mediastinal margin.There is nonspecific consolidation in the right lung base, consistent with atelectasis or pneumonia. IMPRESSION: 1. There is a small right pleural fluid collection present. 2. There are prominent Alix B lines suggesting interstitial edema. 3. An opacity of the right chest wall adjacent to the 4th rib shadow is related to chronic scarring and visible on previous box liner image and CT images. There is also evidence of surgery centrally at the right mediastinal margin.There is nonspecific consolidation in the right lung base, consistent with atelectasis or pneumonia. Electronically signed by: Gautam Argueta On 05/18/2020 12:37:24 PM
[2020-05-18 12:43] LABS: ALBUMIN 2.3 GM/DL (3.2-5.2); BILIRUBIN,DIRECT 0.9 MG/DL (0.0-0.2); BILIRUBIN,TOTAL 1.5 MG/DL (0.2-1.0); THYROID STIMULATING HORMONE 0.48 uIU/ML (0.358-3.740)
[2020-05-18] MEDS ORDERED: AZITHROMYCIN INJ 500 MG, VIAL MATE ADAPTER 1 EACH in D5W 250 ML IV ONE (13:15)
[2020-05-18] MEDS ORDERED: cefTRIAXone SOD 1 GM in D5W MINI-BAG PLUS 50 ML IV ONE (13:15)
[2020-05-18] MEDS ORDERED: FUROSEMIDE 20MG/2ML VIAL (J1940) IV ONE (13:30)
[2020-05-18] MEDS ORDERED: methylPREDNISolone 125MG 2ML VIAL IV ONE (13:45)
[2020-05-18] MEDS ORDERED: IPRATROPIUM 0.5MG/ALBUTEROL 2.5MG INH SOL UD 3ML (DUONEB) NEB ONE (13:45)
[2020-05-18] MEDS ORDERED: ALBUTEROL 90 MCG/ACT 8GM HFA INHALER INH PRN (14:15)
[2020-05-18] MEDS ORDERED: ACETAMINOPHEN TAB 650MG DOSE (2X325MG) PO PRN (14:15)
[2020-05-18] MEDS: cefTRIAXone SOD 2 GM in D5W MINI-BAG PLUS 50 ML IV SCH (14:15)
[2020-05-18] MEDS: DOXYCYCLINE HYCLATE 100 MG in D5W MINI-BAG PLUS 100 ML IV SCH (15:15)
[2020-05-18 15:45] VITALS: BP 148/96
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
[2020-05-18 22:00] VITALS: BP 107/72
[2020-05-19] MEDS: DOXYCYCLINE HYCLATE 100 MG in D5W MINI-BAG PLUS 100 ML IV SCH ×2 (02:42→14:01)
[2020-05-19 06:00] VITALS: BP 123/66
[2020-05-19] MEDS: TIOTROPIUM INHALER/CAPSULE (SPIRIVA) INH SCH (07:30)
--- NOTE | 2020-05-19 07:45 | ECGEPIP ---
[facility] - ED Test Date: 2020-05-18 Pat Name: MICHAEL VILLAREAL Department: Room: - Gender: Male [employer]: : 1955 Requested By: Susi Han Order Number: [id number] Reading MD: Cliff Rossi Measurements Intervals [place] Rate: 105 P: 75 AL: 167 QRS: 32 QRSD: 85 T: 49 QT: 314 QTc: 417 Interpretive Statements SINUS TACHYCARDIA Low QRS complex voltage in the limb leads Delayed anterior R wave progression Similar to tracing done 09-18-16 Electronically Signed on 05-19-2020 7:45:08 EDT by Cliff Rossi
[2020-05-19 08:02] LABS: BLOOD UREA NITROGEN 30 MG/DL (7-18); CALCIUM LEVEL 9.1 MG/DL (8.8-10.2); CARBON DIOXIDE LEVEL 23 MEQ/L (21-32); CHLORIDE LEVEL 110 MEQ/L (98-107); CREATININE FOR GFR 0.74 MG/DL (0.70-1.30); GLOMERULAR FILTRATION RATE > 60.0 (>49); GLUCOSE, FASTING 151 MG/DL (70-100); MAGNESIUM LEVEL 1.9 MG/DL (1.8-2.4); POTASSIUM SERUM 3.7 MEQ/L (3.5-5.1); SODIUM LEVEL 141 MEQ/L (136-145)
[2020-05-19 08:07] LABS: HEMATOCRIT 38.5 % (42.0-52.0); MEAN CORPUSCULAR HEMOGLOBIN 32.2 pg (27.0-33.0); MEAN CORPUSCULAR HGB CONC 33.8 g/dl (32.0-36.5); MEAN CORPUSCULAR VOLUME 95.3 fl (80.0-96.0); PLATELET COUNT, AUTOMATED 388 10^3/uL (150-450); RED BLOOD COUNT 4.04 10^6/uL (4.30-6.10); WHITE BLOOD COUNT 20.3 10^3/uL (4.0-10.0)
[2020-05-19] MEDS: guaiFENesin ER 600 MG TAB PO SCH ×2 (09:55→21:06)
[2020-05-19] MEDS: FUROSEMIDE 40 MG TAB PO SCH (09:55)
[2020-05-19] MEDS: ENOXAPARIN 40MG/0.4ML SYRINGE (J1650 PER 10MG) SC SCH (09:56)
--- NOTE | 2020-05-19 13:00 | IPNPDOC ---
Text Note Date of Service The patient was seen on 05/19/20. NOTE Subjective: -Cough persists, however now back on room air -Feels better Objective: General: Alert, No Acute Distress Eye: PERRLA, Conjunctiva & lids normal, EOMI, anicteric ENT: Atraumatic, Mucous membr. moist/pink, Pharynx Normal Neck: Supple Chest : Normal air movement, Rhonchi, diminished R base, no lina crackles, no wheezing Heart: Rate Normal, Regular Rhythm, Normal S1, Normal S2, systolic murmur Abdomen: Normal bowel sounds, soft, NTND Extremities: Normal pulses, WWP, no edema Skin: Nl turgor and temperature, no rashes or breakdown Neuro: Normal Speech, Cranial Nerves 3-12 NL, nonfocal grossly Psych: Alert and Oriented x 3 Laboratory Data WBC 20.3 (after steroids in ED) hgb 13 platelets 388 Cr 0.74 Microbiology 05/18/20 Respiratory Virus Panel (PCR) ([facility]) - Final, Complete - negative 05/18/20 Blood Culture, NGTD 05/18/20 Blood Culture, NGTD Assessment: 64 yo man snf smoker who has recently cut down, with COPD, 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 Patel in the outpatient setting who recently presented to clinic with cough and SOB and diagnosed with CAP and Dr. Patel had placed him on a quinolone but did not improve now being admitted for CAP for IV antibiotics having failed outpatient therapy. CAP: SOB, cough, hypoxemia, CXR with RLL opacity and leukocytosis -ceftriaxone/doxy, day 2 -respiratory panel was negative -MRSA negative -sputum cx if he expectorates -incentive spirometry -continue home metered dose inhalers -hold off on steroids after ED's solumedrol -f/u legionella and strep pneumo antigens -supplemental oxygen, with goal saturation >88% -add guaifenesin for cough Hypoxemic respiratory failure: 2/2 ongoing CAP and CHF: resolved. now back on room air Newly noted mild CHF: Elevated proBNP, CXR with interstitial edema, crackles on initial ED examination -EKG was per baseline and non ischemic -Troponin was negative -s/p lasix 20 IV -continue lasix 40 PO daily -strict I/Os -daily weight Nicotine addiction: -has cut down DVT ppx: lovenox Dispo: inpatient, med/surg VS,Fishbone, I+O VS, Fishbone, I+O Laboratory Tests 05/18/20 11:52 05/19/20 07:09 Vital Signs Date Time Temp Pulse Resp B/P (MAP) Pulse Ox O2 Delivery O2 Flow Rate FiO2 05/19/20 06:00 98.4 75 20 123/66 (85) 93 Room Air I&O- Last 24 Hours up to 6 AM 05/19/20 06:00 Intake Total 1585 ml Output Total 700 ml Balance 885 ml DEBBY WATSON MD May 19, 2020 09:11
[2020-05-19 14:00] VITALS: BP 128/62
[2020-05-19] MEDS: cefTRIAXone SOD 2 GM in D5W MINI-BAG PLUS 50 ML IV SCH (14:01)
[2020-05-19 22:00] VITALS: BP 134/71
[2020-05-20] MEDS: DOXYCYCLINE HYCLATE 100 MG in D5W MINI-BAG PLUS 100 ML IV SCH (03:54)
[2020-05-20 06:00] VITALS: BP 138/85
[2020-05-20 07:21] LABS: HEMATOCRIT 39.7 % (42.0-52.0); HEMOGLOBIN 13.5 g/dl (13.5-17.5); MEAN CORPUSCULAR HEMOGLOBIN 32.6 pg (27.0-33.0); MEAN CORPUSCULAR VOLUME 95.9 fl (80.0-96.0); PLATELET COUNT, AUTOMATED 427 10^3/uL (150-450); RED BLOOD COUNT 4.14 10^6/uL (4.30-6.10); WHITE BLOOD COUNT 11.9 10^3/uL (4.0-10.0)
[2020-05-20] MEDS: TIOTROPIUM INHALER/CAPSULE (SPIRIVA) INH SCH (07:24)
[2020-05-20 07:41] LABS: BLOOD UREA NITROGEN 32 MG/DL (7-18); CALCIUM LEVEL 8.7 MG/DL (8.8-10.2); CARBON DIOXIDE LEVEL 24 MEQ/L (21-32); CHLORIDE LEVEL 111 MEQ/L (98-107); CREATININE FOR GFR 0.75 MG/DL (0.70-1.30); GLOMERULAR FILTRATION RATE > 60.0 (>49); GLUCOSE, FASTING 91 MG/DL (70-100); POTASSIUM SERUM 3.7 MEQ/L (3.5-5.1); SODIUM LEVEL 141 MEQ/L (136-145)
[2020-05-20] MEDS ORDERED: FLUBLOK(EGG FREE)(QUAD)INFLUENZA VACC 0.5ML SYRINGE 18YRS & OLDER IM ONE (09:00)
[2020-05-20] MEDS: FUROSEMIDE 40 MG TAB PO SCH (09:05)
[2020-05-20] MEDS: DOXYCYCLINE HYCLATE 100MG TABLET PO SCH ×2 (09:05→20:45)
[2020-05-20] MEDS: guaiFENesin ER 600 MG TAB PO SCH ×2 (09:05→20:45)
[2020-05-20] MEDS: ENOXAPARIN 40MG/0.4ML SYRINGE (J1650 PER 10MG) SC SCH (09:08)
--- NOTE | 2020-05-20 10:33 | IPNPDOC ---
Text Note Date of Service The patient was seen on 05/20/20. NOTE Subjective: -Feels much better, cough is better, remains dry -Now on room air and breathing comfortably Objective: General: Alert, No Acute Distress Eye: PERRLA, Conjunctiva & lids normal, EOMI, anicteric ENT: Atraumatic, Mucous membr. moist/pink, Pharynx Normal Neck: Supple Chest : Normal air movement, Rhonchi, diminished R base, no lina crackles, no wheezing Heart: Rate Normal, Regular Rhythm, Normal S1, Normal S2, systolic murmur Abdomen: Normal bowel sounds, soft, NTND Extremities: Normal pulses, WWP, no edema Skin: Nl turgor and temperature, no rashes or breakdown Neuro: Normal Speech, Cranial Nerves 3-12 NL, nonfocal grossly Psych: Alert and Oriented x 3 Laboratory Data WBC 11.9 hgb 135 platelets 427 Cr 0.75 Microbiology 05/18/20 Respiratory Virus Panel (PCR) ([facility]) - Final, Complete - negative 05/18/20 Blood Culture, NGTD 05/18/20 Blood Culture, NGTD Assessment: 64 yo man jail smoker who has recently cut down, with COPD, 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 Patel in the outpatient setting who recently presented to clinic with cough and SOB and diagnosed with CAP and Dr. Patel had placed him on a quinolone but did not improve now being admitted for CAP for IV antibiotics having failed outpatient therapy. CAP: SOB, cough, hypoxemia, CXR with RLL opacity and leukocytosis -DC IV ceftriaxone/doxy and switch to ceftin/doxy PO. Day 3 of abx -respiratory panel was negative -MRSA negative -sputum cx if he expectorates -incentive spirometry -continue home metered dose inhalers -hold off on steroids after ED's solumedrol -f/u legionella and strep pneumo antigens -supplemental oxygen, with goal saturation >88% -guaifenesin for cough Hypoxemic respiratory failure: 2/2 ongoing CAP and CHF: resolved. now back on room air Newly noted mild CHF: Elevated proBNP, CXR with interstitial edema, crackles on initial ED examination -EKG was per baseline and non ischemic -Troponin was negative -s/p lasix 20 IV -continue lasix 40 PO daily -strict I/Os -daily weight Nicotine addiction: -has cut down DVT ppx: lovenox Dispo: inpatient, med/surg. Likely DC home tomorrow after PT home safety eval and ambulatory saturation. Plan will be to complete a course of ceftin/doxy. VS,Fishbone, I+O VS, Fishbone, I+O Laboratory Tests 05/20/20 06:59 Vital Signs Date Time Temp Pulse Resp B/P (MAP) Pulse Ox O2 Delivery O2 Flow Rate FiO2 05/20/20 06:00 98.1 90 18 138/85 (102) 92 Room Air 05/19/20 06:00 I&O- Last 24 Hours up to 6 AM 05/20/20 06:00 Intake Total 1920 ml Output Total 1100 ml Balance 820 ml DEBBY WATSON MD May 20, 2020 08:38
[2020-05-20] MEDS: CEFUROXIME 500 MG TAB PO SCH ×2 (11:11→20:44)
[2020-05-20 14:00] VITALS: BP 128/67
[2020-05-20 22:00] VITALS: BP 144/73
[2020-05-21 05:52] LABS: HEMATOCRIT 40.5 % (42.0-52.0); HEMOGLOBIN 13.9 g/dl (13.5-17.5); MEAN CORPUSCULAR HEMOGLOBIN 32.8 pg (27.0-33.0); MEAN CORPUSCULAR HGB CONC 34.3 g/dl (32.0-36.5); MEAN CORPUSCULAR VOLUME 95.5 fl (80.0-96.0); PLATELET COUNT, AUTOMATED 434 10^3/uL (150-450); RED BLOOD COUNT 4.24 10^6/uL (4.30-6.10); WHITE BLOOD COUNT 11.2 10^3/uL (4.0-10.0)
[2020-05-21 06:00] VITALS: BP 111/60
[2020-05-21 06:21] LABS: BLOOD UREA NITROGEN 26 MG/DL (7-18); CALCIUM LEVEL 8.5 MG/DL (8.8-10.2); CARBON DIOXIDE LEVEL 25 MEQ/L (21-32); CHLORIDE LEVEL 110 MEQ/L (98-107); CREATININE FOR GFR 0.74 MG/DL (0.70-1.30); GLOMERULAR FILTRATION RATE > 60.0 (>49); GLUCOSE, FASTING 97 MG/DL (70-100); POTASSIUM SERUM 4.2 MEQ/L (3.5-5.1); SODIUM LEVEL 141 MEQ/L (136-145)
[2020-05-21] MEDS: TIOTROPIUM INHALER/CAPSULE (SPIRIVA) INH SCH (07:07)
[2020-05-21] MEDS: ENOXAPARIN 40MG/0.4ML SYRINGE (J1650 PER 10MG) SC SCH (09:16)
[2020-05-21] MEDS: guaiFENesin ER 600 MG TAB PO SCH (09:17)
[2020-05-21] MEDS: FUROSEMIDE 40 MG TAB PO SCH (09:17)
[2020-05-21] MEDS: CEFUROXIME 500 MG TAB PO SCH (09:18)
[2020-05-21] MEDS: DOXYCYCLINE HYCLATE 100MG TABLET PO SCH (09:18)
[2020-05-21] MEDS ORDERED: DOXY100T PO (09:56)
[2020-05-21] MEDS ORDERED: CEFU50TA PO (09:56)
--- NOTE | 2020-05-21 13:02 | DS ---
DATE OF ADMISSION: 05/18/2020 DATE OF DISCHARGE: 05/21/2020 PRINCIPAL DIAGNOSIS: Community-acquired pneumonia. SECONDARY DIAGNOSES: * Mild congestive heart failure. * Hypoxemic respiratory failure requiring supplemental oxygen. * Nicotine abuse. PRIMARY CARE PROVIDER: Dr. Natasha Israel. HISTORY OF PRESENT ILLNESS: Chance Solis was admitted with acute community- acquired pneumonia. Details are in the History and Physical from admission. HOSPITAL COURSE: The patient was admitted to a medical bed, treated with intravenous (IV) Rocephin and doxycycline, and he responded well to this. He had some Alix B lines on his chest x-ray for which he was given oral diuresis with furosemide 40 mg daily. On the day of discharge, he feels ready to go home. He denies any chest pain or shortness of breath. He has walked in the hallway without any difficulty. His O2 saturation on room air is 93% at rest. I am still waiting to hear back what with exertional it was, and I will dictate an addendum if it was 88% or lower; essentially, he would require some exertional supplemental oxygen. DISCHARGE PHYSICAL EXAMINATION: GENERAL APPEARANCE: On the day of discharge, he is resting comfortably in no distress. Alert, conversant, and in no distress. VITAL SIGNS: Blood pressure 112/62, pulse 86, respiratory rate 18, O2 saturation 93%, afebrile 97.9 degrees. NECK: No jugular venous distention (JVD). LUNGS: Entirely clear. HEART: Regular rhythm. ABDOMEN: Soft and nontender. EXTREMITIES: No peripheral edema. LABORATORY DATA: Sodium 141, potassium 4.2, BUN 26, creatinine 0.7, glucose 97. White count 11.2, hemoglobin 13.9, platelets 434,000. The rapid urine for Legionella and strep pneumo that was ordered three days ago is still pending. Sputum cultures were negative. Blood cultures were negative. Respiratory panel was negative. DISPOSITION: The patient is discharged home in improved and stable condition. He will follow-up with Dr. Natasha Israel in a week. His activity is as tolerated. DISCHARGE MEDICATIONS: * Albuterol 2 puffs q. 4 hours p.r.n. * Spiriva 1 inhalation daily. * Ceftin 500 mg b.i.d. for 5 days. * Doxycycline 100 mg b.i.d. for 5 days. Stopping the furosemide as it does not look like he is in much congestive heart failure and there are no signs of this on exam. KARELY
[2020-05-21 14:08] LABS: BODY FLUID CULTURE Not indicated. (.); LEGIONELLA ANTIGEN URINE Negative (Negative); ORGANISM ID Not indicated. (.); SPECIMEN SOURCE Urine (.); URINE STREP PNEUMONIAE ANTIGEN Negative (Negative)
== END 2020-05-21 14:20 | disposition home or self-care (01) | DRG 193 ==
LOC: EDBD 11:02 → M ED 11:02 → M ED INP 14:09 → ENRESERV 14:28 → M MS5PR 15:41
PROVIDERS: ADMIT Internal Medicine; ATTEND Family Medicine
DX: J18.9 Pneumonia, unspecified organism (principal); J96.91 Respiratory failure, unspecified with hypoxia; J44.0 Chronic obstructive pulmonary disease with (acute) lower respiratory infection; J90 Pleural effusion, not elsewhere classified; I50.9 Heart failure, unspecified; F17.200 Nicotine dependence, unspecified, uncomplicated; Z90.2 Acquired absence of lung [part of]; Z86.711 Personal history of pulmonary embolism; Z98.49 Cataract extraction status, unspecified eye; Z90.49 Acquired absence of other specified parts of digestive tract; Z79.899 Other long term (current) drug therapy; Z20.828 Contact with and (suspected) exposure to other viral communicable diseases

== ENCOUNTER → 2020-07-18 | Outpatient (CLI) | payer MEDICARE ==
[~2020-07-18] MED LIST changes: +CEFU50TA PO; +DOXY100T PO
--- NOTE | 2020-07-18 14:08 | REP ---
INDICATION: ABNORMAL FINDING OF LUNG FIELD. COMPARISON: Comparison CT studies May 09, 2020 and May 03, 2019.. TECHNIQUE: Helical scanning is acquired. 3 mm axial images are generated. Coronal and sagittal MPR and coronal MIP images are generated. FINDINGS: The previously noted pleural-based nodular opacity in the left lower lobe is again seen measuring 7 mm today and, 8.6 mm previously. This is essentially unchanged from most recent study of May 09, 2020. There is now a large opacity in the posterior aspect of the right lower lobe consistent with an area of consolidation. There are inspissated endobronchial secretions in the right lower lobe and some bilateral lower lobe bronchiectasis is present. There is a small amount of right pleural fluid and there is visceral and parietal pleural thickening adjacent to the fluid in the right base consistent with proteinaceous etiology. There are emphysematous changes as before. There is right apical pleuroparenchymal fibrosis which is unchanged. No new pulmonary nodule is seen. Vascular calcification is noted. No hilar or mediastinal adenopathy is appreciated. Low-density thickening of both adrenal glands is seen unchanged from remote prior CT study of November 03, 2017 and consistent with adrenal hyperplasia. There are granulomatous calcifications in the liver. There are stable lymph nodes in the epicardial fat anterior to the cardiac silhouette. IMPRESSION: Progressive infiltrate like opacity right lower lobe with adjacent pleural effusion. There is somewhat nodular visceral and parietal pleural thickening in the pleural fluid collection indicating a proteinaceous see etiology. Stable left lower lobe pulmonary nodule. Evidence of COPD unchanged. <Electronically signed by Jesse Lee > 07/18/20 [id number]
== END ==
LOC: M RAD 10:56
PROVIDERS: ATTEND Internal Medicine Pulmonary Disease
DX: R91.8 Other nonspecific abnormal finding of lung field (principal); J44.9 Chronic obstructive pulmonary disease, unspecified

== ENCOUNTER → 2020-07-26 | Outpatient (REF) | payer MEDICARE ==
[2020-07-26 14:03] LABS: PLATELET COUNT, AUTOMATED 342 10^3/uL (150-450)
[2020-07-26 14:13] LABS: INR 0.95; PROTHROMBIN TIME 12.9 SECONDS (12.5-14.3)
[2020-07-26 14:14] LABS: PARTIAL THROMBOPLASTIN TIME 32.8 SECONDS (24.2-38.5)
== END ==
LOC: M LAB REF 13:27
PROVIDERS: ATTEND Internal Medicine Pulmonary Disease
DX: R91.8 Other nonspecific abnormal finding of lung field (principal)

== ENCOUNTER → 2020-08-20 | Outpatient (CLI) | payer MEDICARE ==
[~2020-08-20] MED LIST changes: +AMOX500T2 PO; +D31000TA2 PO; +SODIUM BICARBONATE 8.4% INJ 50MEQ 50 ML VIAL As Ordered ONE
[2020-08-20 10:15] VITALS: BP 139/66
[2020-08-20 10:52] LABS: BASO # 0.1 10^3/uL (0.0-0.2); BASO % 0.7 % (0.0-1.0); EOS # 0.1 10^3/uL (0.0-0.5); EOS % 0.5 % (0.0-3.0); HEMATOCRIT 43.3 % (42.0-52.0); HEMOGLOBIN 14.9 g/dl (13.5-17.5); LYMPH # 0.8 10^3/uL (1.5-5.0); LYMPH % 8.1 % (24.0-44.0); MEAN CORPUSCULAR HEMOGLOBIN 32.4 pg (27.0-33.0); MEAN CORPUSCULAR HGB CONC 34.4 g/dl (32.0-36.5); MEAN CORPUSCULAR VOLUME 94.1 fl (80.0-96.0); MONO % 9.7 % (0.0-5.0); NEUTROPHILS # 8.2 10^3/uL (1.5-8.5); NEUTROPHILS % 80.3 % (36.0-66.0); PLATELET COUNT, AUTOMATED 285 10^3/uL (150-450); WHITE BLOOD COUNT 10.2 10^3/uL (4.0-10.0)
[2020-08-20 11:20] LABS: ALBUMIN 3.1 GM/DL (3.2-5.2); ALT/SGPT 31 U/L (12-78); BILIRUBIN,TOTAL 0.6 MG/DL (0.2-1.0); BLOOD UREA NITROGEN 17 MG/DL (7-18); CALCIUM LEVEL 9.7 MG/DL (8.8-10.2); CARBON DIOXIDE LEVEL 23 MEQ/L (21-32); CHLORIDE LEVEL 109 MEQ/L (98-107); CREATININE FOR GFR 0.85 MG/DL (0.70-1.30); GLOMERULAR FILTRATION RATE > 60.0 (>49); GLUCOSE, FASTING 103 MG/DL (70-100); LDH LACTATE DEHYDROGENASE 107 U/L (87-241); POTASSIUM SERUM 4.1 MEQ/L (3.5-5.1); SODIUM LEVEL 139 MEQ/L (136-145); TOTAL PROTEIN 7.3 GM/DL (6.4-8.2)
--- NOTE | 2020-08-21 09:27 | REP ---
INDICATION: PLEURAL EFFUSION. COMPARISON: CT chest 07/18/2020. TECHNIQUE: Real-time sonographic evaluation of posteroinferior right pleural space performed prior to a scheduled ultrasound-guided drainage of pleural fluid collection. FINDINGS: An oval area of complex fluid is identified which is measuring smaller than the CT exam, 3.1 x 0.9 x 0.9 cm. Measurements on the CT exam were 6.7 x 2.2 cm and therefore the fluid collection appears to have decreased in size. IMPRESSION: Decreased size of complex fluid collection in the right posteroinferior pleural space, as discussed above. We consulted with Dr. Patel. Ultrasound-guided drainage is canceled at this time. <Electronically signed by Neal De La Cruz > 08/21/20 0918
== END ==
LOC: M IRPRO 09:31
PROVIDERS: ATTEND Internal Medicine Pulmonary Disease
DX: J90 Pleural effusion, not elsewhere classified (principal); Z53.8 Procedure and treatment not carried out for other reasons

== ENCOUNTER → 2020-08-23 | Outpatient (CLI) | payer MEDICARE ==
[~2020-08-23] MED LIST changes: -SODIUM BICARBONATE 8.4% INJ 50MEQ 50 ML VIAL As Ordered ONE
--- NOTE | 2020-08-23 18:11 | REP ---
INDICATION: ABN FINDINGS OF LUNG FEILD PLEURAL EFFUSION EMPH. Panlobular emphysema. COMPARISON: Comparison is made with prior CT studies from July 18, 2020 and May 09, 2020. Chest CT from May 03, 2019 also reviewed. [address] study is also reviewed.. TECHNIQUE: Helical scanning is acquired. 3 mm axial images are generated. Coronal and sagittal MPR and coronal MIP images are generated. FINDINGS: The previously noted pleural based left lower lobe nodule is again seen 7 mm in greatest diameter unchanged from prior studies. It measured 7 mm on the November 03, 2017 study. The previously noted oval-shaped pleural-based masslike opacity in the right lower lobe is again seen. This is new compared to the May 09, 2020 study. Its morphologic appearance suggests the possibility of rounded atelectasis. There is adjacent visceral and parietal pleural thickening and irregularly shaped low-density fluid collection apparently in the pleural space. The thickness of the parenchymal density component of the right lower lobe lesion has increased 2 2.9 cm in anteroposterior span from 1.7 cm July 18, 2020. The pleural fluid component is felt to be unchanged in overall size. The parenchymal component as a more oval rounded configuration. No hilar or mediastinal mass or adenopathy is observed. I note that CT study from November 03, 2017 was positive for pulmonary embolism. No other new pulmonary nodule or mass lesion is apparent. There are extensive emphysematous changes. Pleuroparenchymal scarring is seen in the right lung apex unchanged. IMPRESSION: Evolving a pleural based masslike area of consolidation in the right lower lobe with adjacent loculated complex thick-walled pleural fluid collection. Differential possibilities include spiral atelectasis, pulmonary infarction (Alvarado's hump), pneumonia with parapneumonic pleural fluid collection, and neoplasm. There is a stable pleural based 7 mm nodule in the left lower lobe. Bronchiectasis and inspissated endobronchial secretions are again noted in the lower lobes. <Electronically signed by Jesse Lee > 08/23/20 [id number]
== END ==
LOC: M RAD 17:30
PROVIDERS: ATTEND Internal Medicine Pulmonary Disease
DX: J90 Pleural effusion, not elsewhere classified (principal); R91.8 Other nonspecific abnormal finding of lung field; J43.1 Panlobular emphysema

== ENCOUNTER → 2020-09-03 | Outpatient (REF) | payer MEDICARE ==
[~2020-09-03] MED LIST changes: -AMOX500T2 PO; -D31000TA2 PO
[2020-09-03 18:09] LABS: PLATELET COUNT, AUTOMATED 312 10^3/uL (150-450)
[2020-09-03 18:21] LABS: INR 0.97; PARTIAL THROMBOPLASTIN TIME 34.6 SECONDS (24.2-38.5); PROTHROMBIN TIME 13.1 SECONDS (12.5-14.3)
== END ==
LOC: M LAB REF 16:48
PROVIDERS: ATTEND Internal Medicine Pulmonary Disease
DX: R91.8 Other nonspecific abnormal finding of lung field (principal); Z79.01 Long term (current) use of anticoagulants

== ENCOUNTER → 2020-09-06 | Outpatient (CLI) | payer MEDICARE ==
[~2020-09-06] MED LIST changes: +AMOX500T2 PO; +CALC200T15 PO; +D31000TA2 PO; +LIDOCAINE 1% MDV 20ML VIAL As Ordered ONE; +PANT40TA29 PO; +PRED10TA2 PO
[2020-09-06 11:33] LABS: BASO # 0.1 10^3/uL (0.0-0.2); BASO % 0.6 % (0.0-1.0); EOS % 0.3 % (0.0-3.0); HEMATOCRIT 46.4 % (42.0-52.0); HEMOGLOBIN 15.4 g/dl (13.5-17.5); LYMPH # 1.1 10^3/uL (1.5-5.0); LYMPH % 10.6 % (24.0-44.0); MEAN CORPUSCULAR HEMOGLOBIN 32.2 pg (27.0-33.0); MEAN CORPUSCULAR HGB CONC 33.2 g/dl (32.0-36.5); MEAN CORPUSCULAR VOLUME 97.1 fl (80.0-96.0); MONO # 1.3 10^3/uL (0.0-0.8); MONO % 12.9 % (0.0-5.0); NEUTROPHILS # 7.6 10^3/uL (1.5-8.5); NEUTROPHILS % 75.3 % (36.0-66.0); PLATELET COUNT, AUTOMATED 237 10^3/uL (150-450); RED BLOOD COUNT 4.78 10^6/uL (4.30-6.10)
[2020-09-06 11:53] LABS: WHITE BLOOD COUNT 10.2 10^3/uL (4.0-10.0)
[2020-09-06 12:08] LABS: ALBUMIN 3.5 GM/DL (3.2-5.2); ALT/SGPT 19 U/L (12-78); BILIRUBIN,TOTAL 0.8 MG/DL (0.2-1.0); BLOOD UREA NITROGEN 21 MG/DL (7-18); CARBON DIOXIDE LEVEL 24 MEQ/L (21-32); CHLORIDE LEVEL 110 MEQ/L (98-107); CREATININE FOR GFR 0.95 MG/DL (0.70-1.30); GLOMERULAR FILTRATION RATE > 60.0 (>49); GLUCOSE, FASTING 96 MG/DL (70-100); LDH LACTATE DEHYDROGENASE 120 U/L (87-241); SODIUM LEVEL 142 MEQ/L (136-145); TOTAL PROTEIN 7.6 GM/DL (6.4-8.2)
[2020-09-06 12:28] LABS: APPEARANCE, BODY FLUID CLOTTED (CLEAR); PLEURAL FL COLOR RED (COLORLESS); SOURCE, BODY FLUID PLEURAL
[2020-09-06 12:29] LABS: SOURCE, BODY FLUID pH PLEURAL
--- NOTE | 2020-09-06 12:44 | REP ---
INDICATION: POST RIGHT THORA, 2 VIEW. COMPARISON: Comparison chest x-ray May 18, 2020.. TECHNIQUE: PA and lateral views of the chest. FINDINGS: There is slight blunting of the right lateral pleural angle and there is blunting and increased density in the posterior aspect of the right chest on lateral radiograph. This was the target of today's CT guided biopsy. There is no evidence of pneumothorax. There is a healing fracture of the right posterolateral 6th rib. Heart is not enlarged. Left lung is unchanged and clear. IMPRESSION: There is no evidence of pneumothorax or other complication. <Electronically signed by Jesse Lee > 09/06/20 [id number]
[2020-09-06 14:04] LABS: AMYLASE, BODY FLUID 42 U/L (NOT ESTABLISHED); LDH, BODY FLUID 40415 U/L (NOT ESTABLISHED); SOURCE, BODY FLUID AMYLASE PLEURAL; SOURCE, BODY FLUID GLUCOSE PLEURAL; SOURCE, BODY FLUID LDH PLEURAL; SOURCE, BODY FLUID TOT PROTEIN PLEURAL; TOTAL PROTEIN, BODY FLUID 5.2 G/DL (NOT ESTABLISHED)
[2020-09-06 14:25] VITALS: BP 112/55
--- NOTE | 2020-09-06 16:57 | REP ---
INDICATION: OTHER NON SPECIFIC ABNORMAL FINDINGS OF LUNG FIELD. COMPARISON: None. TECHNIQUE: The procedure was performed under the direct supervision of Dr. Lee. The patient has a history of an evolving pleural base mass like area of consolidation in the right lower lobe with adjacent loculated complex thick-walled pleural fluid collection seen on a previous CT scan dated 08/23/2020. The risks and benefits of the procedure were explained to the patient and informed consent was obtained. The right lower lobe lung mass was localized using CT guidance. The skin was prepped and draped in a sterile fashion. 1% lidocaine was used as a local anesthetic. Using CT guidance a 19/20 gauge coaxial needle biopsy system was inserted and advanced into the mass. Five core biopsy samples were obtained. 15 cc of thick red colored fluid was also withdrawn. All samples were sent to the lab for analysis. The patient tolerated the procedure well and there were no immediate complications. After the appropriate amount to monitor convalescence the patient was discharged from the department. FINDINGS: None IMPRESSION: Technically successful CT-guided right lower lobe lung biopsy. <Electronically signed by Ant Overton > 09/06/20 1602 <Electronically signed by Jesse Lee > 09/06/20 [id number]
== END ==
LOC: M IRPRO 10:21
PROVIDERS: ATTEND Internal Medicine Pulmonary Disease
DX: J90 Pleural effusion, not elsewhere classified (principal); R91.8 Other nonspecific abnormal finding of lung field

== ENCOUNTER → 2020-09-10 | Outpatient (CLI) | payer MEDICARE ==
[~2020-09-10] MED LIST changes: -CALC200T15 PO; -LIDOCAINE 1% MDV 20ML VIAL As Ordered ONE; -PANT40TA29 PO; -PRED10TA2 PO
--- NOTE | 2020-09-10 13:49 | REP ---
INDICATION: PANLOBULAR EMPHYSEMA COMPARISON: 05/18/2020 TECHNIQUE: PA and lateral. FINDINGS: Right hilar and right lower lobe opacity noted. Underlying COPD/emphysematous changes are appreciated. The cardiac silhouette is normal. No effusion. No pneumothorax. Skeletal structures intact. IMPRESSION: Right perihilar/right lower lobe opacity suggesting consolidation and/or mass. <Electronically signed by Izaiah Bassett > 09/10/20 [id number]
== END ==
LOC: M RAD 13:16
PROVIDERS: ATTEND Nurse Practitioner Family
DX: R91.8 Other nonspecific abnormal finding of lung field (principal); J43.1 Panlobular emphysema

== ENCOUNTER 2020-09-12 14:31 | Inpatient (IN) | payer MEDICARE ==
[~2020-09-12] VITALS: Ht 177.8 cm; Wt 65.2 kg
[~2020-09-12 14:31] MED LIST changes: -AMOX500T2 PO; -D31000TA2 PO
[2020-09-12] MEDS ORDERED: AMOX500T2 PO (14:42)
--- OUTSIDE RECORDS SUMMARY | 2020-09-12 16:21 | CCD | Continuity of Care Document ---
Author Organization Unknown Address Unknown Phone Unavailable Care Team Providers Care Parole Director Name Role Phone [facility] - Dermatology AUTM [phone] [facility] [place] - Urology [facility] [phone] Chaitanya Suárez MD [facility] [phone] [facility] [phone] Problems Active Problems Provider Date Benign essential hypertension Natasha Israel M.D. Onset : 01/15/2012 Social History Type Date Description Comments Sex Unknown Tobacco Use Start: Unknown End: Unknown Current Cigarette Sm oker Packs Daily 1 Tobacco Use Start: Unknown Never Smoked Cigars Tobacco Use Start: Unknown Never Smoked A Pipe Tobacco Use Start: Unknown Never Used Smokeless Tobacco ETOH Use Denies alcohol use Recreational Drug Use Denies Drug Use Tobacco Use Start: Unknown End: Patient is a former smoker Smoking Status Reviewed: 07/25/20 Patient is a former smoker Exercise Type/Frequency Exercises sporadically Seat Belt/Car Seat Always uses seat belt Allergies, Adverse Reactions, Alerts Active Allergies Reaction Severity Comments Date Bactrim 04/04/2015 Inactive Allergies NKDA 12/04/2003 Medications Active Medications SIG Qnty Indications Ordering Provide r Date Spiriva Respimat 2.5mcg/Act Aeroso l inhale 2 spray(s) by mouth once daily 4units Natasha Israel M.D. 07/28/2018 Proair HFA 108(90Base) mcg/Act Aer osol 2 puffs every 4 hours as needed as needed for cough or sob 8.500gm Natasha Israel M.D. Vitamin D-3 1000Unit Capsules 1 by mouth every day Unknown History Medications Ceftin 500mg Tablets 1 by mouth twice a day x 5 days Unknown 05/21/2020 - Doxycycline Hyclate 100mg Tablets 1 tab by mouth twice a day for 5 days Unknown - 05/26/2020 Immunizations CPT Code Status Date Vaccine Lot # [id number] Given 05/20/2020 Influenza Virus Vaccine, Quadrivalent,age 3 and up,multidose vial [id number] Given 10/25/2019 Pneumococcal Vaccine [id number] 75916 Given 05/11/2019 Influenza Virus Vaccine, Quadrivalent,age 3 and up,multidose vial 05764 Given 10/06/2018 Prevnar 13 For Adults [id number] 04945 Given 06/22/2018 Influenza Virus, quadravalent, preservative free,age 3 and up [id number] 62763 Given 08/30/2017 Influenza Virus Vaccine, Quadrivalent,age 3 and up,multidose vial 47825 Given 04/30/2015 Influenza Vaccination 40697 Given 04/30/2015 Influenza Vaccination [id number] 04321 Given 03/28/2015 Adacel 11 Yrs or older [id number] Vital Signs Date Vital Result Comment 07/25/2020 11:53am BP Systolic 153 mmHg BP Diastolic 85 mmHg BP Systolic Recheck 149 mmHg recheck BP Diastolic Recheck 85 mmHg recheck Heart Rate 88 /min Body Temperature 97.3 F Respiratory Rate 18 /min Height 70 inches 5'10" Weight 153.38 lb O2 % BldC Oximetry 98 % Peak Expiratory Flow Rate 505 Estimated Peak Flow Rate [place] Body Weight 166 lb BMI (Body Mass Index) 22.0 kg/m2 05/29/2020 9:01am BP Systolic 150 mmHg BP Diastolic 82 mmHg BP Systolic Recheck 124 mmHg BP Diastolic Recheck 81 mmHg Heart Rate 111 /min Body Temperature 96.6 F Respiratory Rate 20 /min Height 70 inches 5'10" Weight 150.12 lb O2 % BldC Oximetry 97 % Peak Expiratory Flow Rate 505 Estimated Peak Flow Rate [place] Body Weight 166 lb BMI (Body Mass Index) 21.5 kg/m2 Results Test Acquired Date Facility Test Result H/L Range Note Cell Count Pleural Fluid 09/06/2020 [facility] [place] [address] [phone] Source, Body Fluid PLEURAL Normal Pleural FL Color RED Normal Colorless Appearance, Body Fluid CLOTTED Normal Clear WBC Body Fluid TNP /uL Normal 0-10 1 RBC Body Fluid TNP 10 Normal <2 2 TP Body Fluid 09/06/2020 [place] [address] [phone] Total Protein, Body Fluid 5.2 g/dL Normal Not Es tablished Source, Body Fluid Tot Protein PLEURAL Normal LDH Body Fluid 09/06/2020 Patient Service [place] [id number] [phone] LDH, Body Fluid 51390 U/L Normal Not Established Source, Body Fluid LDH PLEURAL Normal Glucose Body Fluid 09/06/2020 [place] [address] [phone] Glucose, Body Fluid 18 mg/dL Normal Not Establis hed Source, Body Fluid Glucose PLEURAL Normal Amylase Body Fluid 09/06/2020 [place] [address] [phone] Amylase, Body Fluid 42 U/L Normal Not Establis hed Source, Body Fluid Amylase PLEURAL Normal PH, Body Fluid 09/06/2020 Patient Service [place] [id number] [phone] PH Body Fluid TNP units Normal Not Established 3 Source, Body Fluid pH PLEURAL Normal Laboratory test finding 09/06/2020 [place] [address] [phone] Amylase Body Fluid <pending> Body Fluid Culture And GS (SEE NOTE) Normal 4 Anaerobic Culture (SEE NOTE) 5 CBC With Differential 09/06/2020 [place] [address] [phone] White Blood Count 10.2 10 High 4.0-10.0 6 Red Blood Count 4.78 10 Normal 4.30-6.10 Hemoglobin 15.4 g/dL Normal 13.5-17.5 Hematocrit 46.4 % Normal 42.0-52.0 Mean Corpuscular Volume 97.1 fl High 80.0-96.0 Mean Corpuscular Hemoglobin 32.2 pg Normal 27.0-33.0 Mean Corpuscular HGB Conc 33.2 g/dL Normal 32.0-36.5 Red Cell Distribution Width 13.0 % Normal 11.5-14.5 Platelet Count, Automated 237 10 Normal 150-450 Neutrophils % 75.3 % High 36.0-66.0 Lymph % 10.6 % Low 24.0-44.0 [place] % 12.9 % High 0.0-5.0 Eos % 0.3 % Normal 0.0-3.0 Baso % 0.6 % Normal 0.0-1.0 Immature Granulocyte % 0.3 % Normal 0-3.0 Nucleated Red Blood Cell % 0.0 % Normal 0-0 Neutrophils # 7.6 10 Normal 1.5-8.5 Lymph # 1.1 10 Low 1.5-5.0 [place] # 1.3 10 High 0.0-0.8 Eos # 0.0 10 Normal 0.0-0.5 Baso # 0.1 10 Normal 0.0-0.2 Comprehensive Metabolic Profil 09/06/2020 Patient [place] [id number] [phone] Glucose, Fasting 96 mg/dL Normal 70-100 Blood Urea Nitrogen 21 mg/dL High 7-18 Creatinine For GFR 0.95 mg/dL Normal 0.70-1.30 Glomerular Filtration Rate > 60.0 Normal >49 7 Sodium Level 142 mEq/L Normal 136-145 Potassium Serum 4.0 mEq/L Normal 3.5-5.1 Chloride Level 110 mEq/L High 98-107 Carbon Dioxide Level 24 mEq/L Normal 21-32 Anion Gap 8 mEq/L Normal 8-16 Calcium Level 10.0 mg/dL Normal 8.8-10.2 Ast/Sgot 7 U/L Normal 7-37 Alt/SGPT 19 U/L Normal 12-78 Alkaline Phosphatase 78 U/L Normal 45-117 Bilirubin,Total 0.8 mg/dL Normal 0.2-1.0 Total Protein 7.6 GM/DL Normal 6.4-8.2 Albumin 3.5 GM/DL Normal 3.2-5.2 Albumin/Globulin Ratio 0.9 Normal Laboratory test finding 09/06/2020 [place] [address] [phone] LDH Lactate Dehydrogenase 120 U/L Normal 87-241 8 Laboratory test finding 08/20/2020 [place] [address] [phone] LDH Lactate Dehydrogenase 107 U/L Normal 87-241 9 Comprehensive Metabolic Profil 08/20/2020 [place] [address] [phone] Glucose, Fasting 103 mg/dL High 70-100 Blood Urea Nitrogen 17 mg/dL Normal 7-18 Creatinine For GFR 0.85 mg/dL Normal 0.70-1.30 Glomerular Filtration Rate > 60.0 Normal >49 1 0 Sodium Level 139 mEq/L Normal 136-145 Potassium Serum 4.1 mEq/L Normal 3.5-5.1 Chloride Level 109 mEq/L High 98-107 Carbon Dioxide Level 23 mEq/L Normal 21-32 Anion Gap 7 mEq/L Low 8-16 Calcium Level 9.7 mg/dL Normal 8.8-10.2 Ast/Sgot 11 U/L Normal 7-37 Alt/SGPT 31 U/L Normal 12-78 Alkaline Phosphatase 78 U/L Normal 45-117 Bilirubin,Total 0.6 mg/dL Normal 0.2-1.0 Total Protein 7.3 GM/DL Normal 6.4-8.2 Albumin 3.1 GM/DL Low 3.2-5.2 Albumin/Globulin Ratio 0.7 Normal CBC With Differential 08/20/2020 [place] [address] [phone] White Blood Count 10.2 10 High 4.0-10.0 Red Blood Count 4.60 10 Normal 4.30-6.10 Hemoglobin 14.9 g/dL Normal 13.5-17.5 Hematocrit 43.3 % Normal 42.0-52.0 Mean Corpuscular Volume 94.1 fl Normal 80.0-96.0 Mean Corpuscular Hemoglobin 32.4 pg Normal 27.0-33.0 Mean Corpuscular HGB Conc 34.4 g/dL Normal 32.0-36.5 Red Cell Distribution Width 12.7 % Normal 11.5-14.5 Platelet Count, Automated 285 10 Normal 150-450 Neutrophils % 80.3 % High 36.0-66.0 Lymph % 8.1 % Low 24.0-44.0 [place] % 9.7 % High 0.0-5.0 Eos % 0.5 % Normal 0.0-3.0 Baso % 0.7 % Normal 0.0-1.0 Immature Granulocyte % 0.7 % Normal 0-3.0 Nucleated Red Blood Cell % 0.0 % Normal 0-0 Neutrophils # 8.2 10 Normal 1.5-8.5 Lymph # 0.8 10 Low 1.5-5.0 [place] # 1.0 10 High 0.0-0.8 Eos # 0.1 10 Normal 0.0-0.5 Baso # 0.1 10 Normal 0.0-0.2 Istat Chem8+ Panel 05/18/2020 [place] [address] [phone] iSTAT HCT 65.0 % High 38.0-51.0 iSTAT Glucose 154 mg/dL High 70-105 iSTAT Sodium 140 mEq/L Normal 136-145 iSTAT Potassium 3.4 mEq/L Low 3.5-5.1 iSTAT CA++ 5.0 mg/dL Normal 4.5-5.3 iSTAT Chloride 104 mEq/L Normal 98-109 iSTAT Co2 19.0 MM/L Low 23.0-27.0 iSTAT BUN 24 mg/dL Normal 8-26 iSTAT Creatinine 0.6 mg/dL Normal 0.6-1.3 Laboratory test finding 05/18/2020 [place] [address] [phone] iSTAT Troponin 0.00 NG/ML Normal 0.00-0.08 Laboratory test finding 05/18/2020 [place] [address] [phone] iSTAT Lactate 1.04 Normal 0.4-2.0 Venous Blood Gas 05/18/2020 [place] [address] [phone] Venous PH 7.476 units High 7.330-7.430 Venous Partial Pressure Co2 28.1 mmHg Low 38.0-50.0 Venous Partial Pressure O2 140.0 mmHg High 30.0-50.0 Venous Total Co2 21.1 mEq/L Low 24.0-28.0 Venous Hco3 20.3 mEq/L Low 23.0-27.0 Venous Base Excess -1.9 Normal -2.0-2.0 Venous Standard Hco3 22.9 mEq/L Normal Venous O2 Saturation 98.9 % High 60.0-80.0 CBC With Differential 05/18/2020 [place] [address] [phone] White Blood Count 13.3 10 High 4.0-10.0 Red Blood Count 4.01 10 Low 4.30-6.10 Hemoglobin 13.1 g/dL Low 13.5-17.5 Hematocrit 37.4 % Low 42.0-52.0 Mean Corpuscular Volume 93.3 fl Normal 80.0-96.0 Mean Corpuscular Hemoglobin 32.7 pg Normal 27.0-33.0 Mean Corpuscular HGB Conc 35.0 g/dL Normal 32.0-36.5 Red Cell Distribution Width 12.4 % Normal 11.5-14.5 Platelet Count, Automated 344 10 Normal 150-450 Neutrophils % 86.7 % High 36.0-66.0 Lymph % 2.6 % Low 24.0-44.0 [place] % 9.4 % High 0.0-5.0 Eos % 0.2 % Normal 0.0-3.0 Baso % 0.4 % Normal 0.0-1.0 Immature Granulocyte % 0.7 % Normal 0-3.0 Nucleated Red Blood Cell % 0.0 % Normal 0-0 Neutrophils # 11.5 10 High 1.5-8.5 Lymph # 0.3 10 Low 1.5-5.0 [place] # 1.2 10 High 0.0-0.8 Eos # 0.0 10 Normal 0.0-0.5 Baso # 0.1 10 Normal 0.0-0.2 Prothrombin Time/Inr 05/18/[address] [facility] [place] [address] [phone] Prothrombin Time 14.7 seconds High 12.5-14.3 Inr 1.13 Normal 11 Liver Profile 05/18/2020 Patient Service [facility] [place] [address] [phone] Ast/Sgot 24 U/L Normal 7-37 Alt/SGPT 35 U/L Normal 12-78 Alkaline Phosphatase 105 U/L Normal 45-117 Bilirubin,Total 1.5 mg/dL High 0.2-1.0 Bilirubin,Direct 0.9 mg/dL High 0.0-0.2 Total Protein 6.0 GM/DL Low 6.4-8.2 Albumin 2.3 GM/DL Low 3.2-5.2 Albumin/Globulin Ratio 0.6 Normal Laboratory test finding 05/18/2020 Patient Service [place], [place] [id number] [phone] NT-Pro BNP 612 pg/mL High <125 Thyroid Stimulating Hormone 0.480 uIU/ML Normal 0.358-3.740 Venous Blood Gas 05/18/2020 [place] [address] [phone] Venous PH 7.476 units High 7.330-7.430 Venous Partial Pressure Co2 28.1 mmHg Low 38.0-50.0 Venous Partial Pressure O2 140.0 mmHg High 30.0-50.0 Venous Total Co2 21.1 mEq/L Low 24.0-28.0 Venous Hco3 20.3 mEq/L Low 23.0-27.0 Venous Base Excess -1.9 Normal -2.0-2.0 Venous Standard Hco3 22.9 mEq/L Normal Venous O2 Saturation 98.9 % High 60.0-80.0 1 CLOTTED, UNABLE TO PERFORM T ESTING 2 CLOTTED, UNABLE TO PERFORM T ESTING 3 CLOTTED, UNABLE TO PERFORM T ESTING 4 MANY WBCS MANY RBCS FEW GRAM POSITIVE COCCI IN PAIRS AND CHAINS 5 Comments: RIGHT PLEURAL EFFU SILVIANO By: RENETTA DOE Time: 1047 Description if other: RIGHT PLEURAL EFFUSION By: RENETTA DOE Time: 1046 6 A Pathologist review of this differential can help in the evaluation of a differential diagnosis. Please order a Pathologist Review (PERISM) if deemed necessary. Results are subject to change if a Pathologist Review is performed. 7 Units are mL/min/1.73 m2 Chronic Kidney Disease Staging per NKF: Stage I & II GFR >=60 Normal to Mildly Decreased Stage III GFR 30-59 Moderately Decreased Stage IV GFR 15-29 Severely Decreased Stage V GFR <15 Very Little GFR Left ESRD GFR <15 on MAPPING TECHNICIAN 8 By: BRISA Cintron Time: 1037 By: BRISA S Time: 1038 By: BRISA Cintron Time: 1037 By: BRISA S Time: 1038 9 By: CINDY Yang Time: 853 By: CINDY Yang Time: 853 10 Units are mL/min/1.73 m2 Chronic Kidney Disease Staging per NKF: Stage I & II GFR >=60 Normal to Mildly Decreased Stage III GFR 30-59 Moderately Decreased Stage IV GFR 15-29 Severely Decreased Stage V GFR <15 Very Little GFR Left ESRD GFR <15 on MAPPING TECHNICIAN 11 THERAPUTIC HUMAN INR VALUES INDICATIONS NORMAL RANGES PROPHYLAXIS/TREATMENT OF: VENOUS THROMBOSIS 2.0-3.0 PULMONARY EMBOLISM 2.0-3.0 PREVENTION OF SYSTEMIC EMBOLISM FROM: TISSUE HEART VALVES 2.0-3.0 ACUTE MYOCARDIAL INFARCTION 2.0-3.0 VALVULAR HEART DISEASE 2.0-3.0 ATRIAL FIBRILLATION 2.0-3.0 MECHANICAL VALVES(HIGH RISK) 2.5-3.5 RECURRENT MYOCARDIAL INFARCTION 2.5-3.5 Procedures Description No Information Available Medical Devices Description No Information Available Encounters Type Date Location Provider Dx Diagnosis Office Visit 07/25/2020 11:45a Main Office Natasha Israel M.D. R 03.0 Elevated blood-pressure reading, w/o diagnosis of htn J44.9 Chronic obstructive pulmonar y disease, unspecified Z13.89 Encounter for screening for other disorder Office Visit 05/29/2020 9:00a Main Office Natasha Israel M.D. J 44.9 Chronic obstructive pulmonary disease, unspecified J18.9 Pneumonia, unspecified organ ism Assessments Date Code Description Provider 07/25/2020 R03.0 Elevated blood-pressure reading, without diagnosis of hypert Natasha Israel M.D. 07/25/2020 J44.9 Chronic obstructive pulmonary di sease, unspecified Natasha Israel M.D. 07/25/2020 Z13.89 Encounter for screening for othe r disorder Natasha Israel M.D. 05/29/2020 J44.9 Chronic obstructive pulmonary di sease, unspecified Natasha Israel M.D. 05/29/2020 J18.9 Pneumonia, unspecified organism Natasha Israel M.D. Plan of Treatment Future Appointment(s):* 10/23/2020 11:00 am - Natasha Israel M.D. at Main Office 07/25/2020 - Natasha Israel M.D.* R03.0 Elevated blood-pressure reading, without diagnosis of hypert * J44.9 Chronic obstructive pulmonary disease, unspecified* Comments:* I spoke with patients automobile damage appraiser, Dr. Patel. He is going to make sure an f/u appt is arranged. Right now no changes. * Follow up:* 3-4 months * Z13.89 Encounter for screening for other disorder Goals 07/25/2020 - Natasha Israel M.D.* R03.0 Elevated blood-pressure reading, without diagnosis of hypert* Your blood pressure is elevated. Focus on a reduced calorie, lower sodium diet as well as increased exercise and weight loss to improve blood pressure readings. Functional Status Functional Condition Comment Date Status Bifocal glasses Active Independent with all ADL's Activ e Independent with all IADL's Acti ve Hearing Aid in both ears Active Mental Status Mental Condition Comment Date Status None Active Referrals Description No Information Available
--- OUTSIDE RECORDS SUMMARY | 2020-09-12 16:21 | CCD | Continuity of Care Document ---
Author Author Chance PATEL MD Organization Unknown Address [address] [address] Phone [phone] Care Team Providers Care Roof Fixer Name Role Phone Natasha Israel M.D. AUTM [phone] Radiology/Procedure AUTM Unavailable Problems Active Problems Provider Date Screening for malignant neoplasm of colon SHIRA Bonilla Onset: 12/11/2016 Dyspnea Luz Asher, A.N.P. Onset: 11/03/2017 Social History Type Date Description Comments Sex Unknown Cigarette Use Pack Years - 38 ETOH Use Denies alcohol use Recreational Drug Use Denies Drug Use Tobacco Use Start: Unknown End: Unknown Patient is a former smoker QUIT 2015 hx: [id number] started at age 16 Smoking Status Reviewed: 08/29/20 Patient is a former smoker QU IT 2015 hx: [id number] started at age 16 Allergies, Adverse Reactions, Alerts Description No Known Drug Allergies Medications Active Medications SIG Qnty Indications Ordering Provide r Date Proair HFA 108(90Base) mcg/Act Aer osol 2 puffs four times a day as needed 8.500units R06.02 Luz Asher, A. N.P. 11/03/2017 Spiriva Respimat 2.5mcg/Act Aeroso l 2 puffs every day 4units Lucio Patel MD 01/07/2017 Vitamin D (Cholecalciferol) 1000Unit Capsules 1tab po qd Unknown History Medications Cefuroxime Axetil 500mg Tablets 1 by mouth twice a day 20tabs Lucio Patel MD 08/15/2020 - 08/25/2020 Cefuroxime Axetil 500mg Tablets 1 by mouth twice a day 20tabs Lucio Patel MD 07/26/2020 - 08/05/2020 Levofloxacin 500mg Tablets 1 by mouth every day 10tabs Lucio Patel MD 05/14/2020 - 06/26/2020 Immunizations CPT Code Status Date Vaccine Lot # [id number] Given 05/11/2019 Afluria, Quadrivalent, 0.5ml , [facility]# [id number] Vital Signs Date Vital Result Comment 08/29/2020 11:25am BP Systolic 140 mmHg BP Diastolic 80 mmHg Heart Rate 80 /min O2 % BldC Oximetry 97 % Room Air Height 70 inches 5'10" Weight 151.00 lb BMI (Body Mass Index) 21.7 kg/m2 [place] Body Weight 166 lb Weight 68.494 kg BSA (Body Surface Area) 1.85 m2 07/26/2020 10:56am BP Systolic 140 mmHg BP Diastolic 90 mmHg Heart Rate 111 /min O2 % BldC Oximetry 96 % Body Temperature 96.0 F Height 70 inches 5'10" Weight 152.00 lb BMI (Body Mass Index) 21.8 kg/m2 [place] Body Weight 166 lb Weight 68.947 kg BSA (Body Surface Area) 1.86 m2 Results Test Acquired Date Facility Test Result H/L Range Note CBC With Differential 09/06/2020 [facility] Main Lab [address] [place] [address] [phone] White Blood Count 10.2 10 High 4.0-10.0 1 Red Blood Count 4.78 10 Normal 4.30-6.10 [...] 36.0-66.0 Lymph % 10.6 % Low 24.0-44.0 [place] % 12.9 % High 0.0-5.0 Eos % 0.3 % Normal 0.0-3.0 Baso % 0.6 % Normal 0.0-1.0 Immature Granulocyte % 0.3 % Normal 0-3.0 Nucleated Red Blood Cell % 0.0 % Normal 0-0 Neutrophils # 7.6 10 Normal 1.5-8.5 Lymph # 1.1 10 Low 1.5-5.0 [place] # 1.3 10 High 0.0-0.8 Eos # 0.0 10 Normal 0.0-0.5 Baso # 0.1 10 Normal 0.0-0.2 Comprehensive Metabolic Profil 09/06/2020 [facility] Main Lab [address] [place], [place] [id number] [phone] Glucose, Fasting 96 mg/dL Normal 70-100 Blood Urea Nitrogen 21 mg/dL High 7-18 Creatinine For GFR 0.95 mg/dL Normal 0.70-1.30 Glomerular Filtration Rate > 60.0 Normal >49 2 Sodium Level 142 mEq/L Normal 136-145 Potassium [...] Ratio 0.9 Normal Laboratory test finding 09/06/2020 [facility] Main Lab [address] [place], [place] [id number] [phone] LDH Lactate Dehydrogenase 120 U/L Normal 87-241 3 Coag Panel For Procedures 09/03/2020 [facility] Main Lab [address] [place] [address] [phone] Platelet Count, Automated 312 10 Normal 150-45 0 Prothrombin Time/Inr 09/03/2020 [facility] enter Main Lab [address] [place] [address] [phone] Prothrombin Time 13.1 seconds Normal 12.5-14.3 Inr 0.97 Normal 4 Partial Thromboplastin Time 34.6 seconds Normal 24.2-38.5 CBC With Differential 08/20/2020 [facility] Main Lab [address] [place] [address] [phone] White Blood Count 10.2 10 High 4.0-10.0 [...] 36.0-66.0 Lymph % 8.1 % Low 24.0-44.0 [place] % 9.7 % High 0.0-5.0 Eos % 0.5 % Normal 0.0-3.0 Baso % 0.7 % Normal 0.0-1.0 Immature Granulocyte % 0.7 % Normal 0-3.0 Nucleated Red Blood Cell % 0.0 % Normal 0-0 Neutrophils # 8.2 10 Normal 1.5-8.5 Lymph # 0.8 10 Low 1.5-5.0 [place] # 1.0 10 High 0.0-0.8 Eos # 0.1 10 Normal 0.0-0.5 Baso # 0.1 10 Normal 0.0-0.2 Comprehensive Metabolic Profil 08/20/2020 [facility] Main Lab [address] [place] [address] [phone] Glucose, Fasting 103 mg/dL High 70-100 Blood Urea Nitrogen 17 mg/dL Normal 7-18 Creatinine For GFR 0.85 mg/dL Normal 0.70-1.30 Glomerular Filtration Rate > 60.0 Normal >49 5 Sodium Level 139 mEq/L Normal 136-145 Potassium [...] GM/DL Low 3.2-5.2 Albumin/Globulin Ratio 0.7 Normal Laboratory test finding 08/20/2020 [facility] Main Lab [address] [place], [place] [id number] [phone] LDH Lactate Dehydrogenase 107 U/L Normal 87-241 6 Coag Panel For Procedures 07/26/2020 [facility] Main Lab [address] [place] [address] [phone] Platelet Count, Automated 342 10 Normal 150-45 0 Partial Thromboplastin Time <pending> Prothrombin Time/Inr 07/26/2020 [facility] enter Main Lab [address] [place] [address] [phone] Prothrombin Time 12.9 seconds Normal 12.5-14.3 Inr 0.95 Normal 7 Partial Thromboplastin Time 32.8 seconds Normal 24.2-38.5 1 A Pathologist review of this differential can help in the evaluation of a differential diagnosis. Please order a Pathologist Review (PERISM) if deemed necessary. Results are subject to change if a Pathologist Review is performed. 2 Units are mL/min/1.73 m2 Chronic Kidney Disease Staging per NKF: Stage I & II GFR >=60 Normal to Mildly Decreased Stage III GFR 30-59 Moderately Decreased Stage IV GFR 15-29 Severely Decreased Stage V GFR <15 Very Little GFR Left ESRD GFR <15 on DROP FORGER 3 By: BRISA Cintron Time: 1037 By: BRISA S Time: 1038 By: BRISA S Time: 1037 By: BRISA S Time: 1038 4 THERAPUTIC HUMAN INR VALUES INDICATIONS NORMAL RANGES PROPHYLAXIS/TREATMENT OF: VENOUS THROMBOSIS 2.0-3.0 PULMONARY EMBOLISM 2.0-3.0 PREVENTION OF SYSTEMIC EMBOLISM FROM: TISSUE HEART VALVES 2.0-3.0 ACUTE MYOCARDIAL INFARCTION 2.0-3.0 VALVULAR HEART DISEASE 2.0-3.0 ATRIAL FIBRILLATION 2.0-3.0 MECHANICAL VALVES(HIGH RISK) 2.5-3.5 RECURRENT MYOCARDIAL INFARCTION 2.5-3.5 5 Units are mL/min/1.73 m2 Chronic Kidney Disease Staging per NKF: Stage I & II GFR >=60 Normal to Mildly Decreased Stage III GFR 30-59 Moderately Decreased Stage IV GFR 15-29 Severely Decreased Stage V GFR <15 Very Little GFR Left ESRD GFR <15 on DROP FORGER 6 By: CINDY Yang Time: 853 By: CINDY Yang Time: 853 7 THERAPUTIC HUMAN INR VALUES INDICATIONS NORMAL RANGES PROPHYLAXIS/TREATMENT OF: VENOUS THROMBOSIS 2.0-3.0 PULMONARY EMBOLISM 2.0-3.0 PREVENTION OF SYSTEMIC EMBOLISM FROM: TISSUE HEART VALVES 2.0-3.0 ACUTE MYOCARDIAL INFARCTION 2.0-3.0 VALVULAR HEART DISEASE 2.0-3.0 ATRIAL FIBRILLATION 2.0-3.0 MECHANICAL VALVES(HIGH RISK) 2.5-3.5 RECURRENT MYOCARDIAL INFARCTION 2.5-3.5 Procedures Date Code Description Status 07/26/2020 94573 Inhaler Teaching Completed 06/26/2020 03427 Spirometry Completed Medical Devices Description No Information Available Encounters Type Date Location Provider Dx Diagnosis Office Visit 08/29/2020 11:30a [facility] Kelly Patel MD R91.8 Other nonspecific abnormal finding of aba coyle J43.1 Panlobular emphysema Z87.891 Personal history of nicotine dependence Office Visit 07/26/2020 11:30a [facility] Kelly Patel MD R91.8 Other nonspecific abnormal finding of aba coyle J43.1 Panlobular emphysema Z87.891 Personal history of nicotine dependence J90 Pleural effusion, not elsewh ere classified Office Visit 06/26/2020 1:45p [facility] Kelly Patel MD R91.8 Other nonspecific abnormal finding of aba ng J43.1 Panlobular emphysema Z87.891 Personal history of nicotine dependence Assessments Date Code Description Provider 09/03/2020 J43.1 Panlobular emphysema Lucio lawrence MD 09/03/2020 R91.8 Other nonspecific abnormal findi ng of lung field Lucio Patel MD 08/29/2020 R91.8 Other nonspecific abnormal findi ng of lung field Lucio Patel MD 08/29/2020 J43.1 Panlobular emphysema Lucio lawrence MD 08/29/2020 Z87.891 Personal history of nicotine dep endence Lucio Patel MD 07/26/2020 R91.8 Other nonspecific abnormal findi ng of lung field Lucio Patel MD 07/26/2020 J43.1 Panlobular emphysema Lucio lawrence MD 07/26/2020 Z87.891 Personal history of nicotine dep endence Lucio Patel MD 07/26/2020 J90 Pleural effusion, not elsewhere classified Lucio Patel MD 06/26/2020 R91.8 Other nonspecific abnormal findi ng of lung field Lucio Patel MD 06/26/2020 J43.1 Panlobular emphysema Lucio lawrence MD 06/26/2020 Z87.891 Personal history of nicotine dep alvina Patel MD 05/18/2020 J43.1 Panlobular emphysema Lucio lawrence MD 05/18/2020 R91.8 Other nonspecific abnormal findi ng of lung field Lucio Patel MD 05/18/2020 R09.02 Hypoxemia Lucio Patel MD Plan of Treatment Future Appointment(s):* 09/12/2020 2:00 pm - Lucio Patel MD at [facility] * 10/24/2020 1:30 pm - Lucio Patel MD at [facility] 06/26/2020 - Lucio Patel MD* R91.8 Other nonspecific abnormal finding of lung field * J43.1 Panlobular emphysema * Z87.891 Personal history of nicotine dependence * * New Labs:* FVL/[place], Scheduled: 10/24/20 * Comments:* ~ In view of the above, he is to continue current regimen. He is up to date on medications. He is up to date on immunizations. ~ We should repeat his CT scan in mid-July, as he will be, at least, 8 weeks out with palliated treatment. I will call the results of it.~ If he is doing well and has no other new issues, I will see him in return in a minimum of 4 months from now with spirometry, oximetry and flow volume loop for his emphysema. We await his return. * Follow up:* CT mid Jul....will call results 4 months with fvl Functional Status Description No Information Available Mental Status Description No Information Available Referrals Refer to Dr Reason for Referral Status Appt Date Radiology/Procedure 24598 Created Radiology/Procedure 82391 Closed Radiology/Procedure 26500 Closed Radiology/Procedure no site selection required approved [id number] C losed Radiology/Procedure 59216 CHT CHEST NO CONTRAST- [id number] VALID 04/30/20-10/27/20 Closed
--- OUTSIDE RECORDS SUMMARY | 2020-09-12 16:21 | CCD | Continuity of Care Document ---
Author Author Chance PATEL MD Organization Unknown Address [address] [address] Phone [phone] Care Team Providers Care Garnett Room Worker Name Role Phone Natasha Israel M.D. AUTM [phone] Radiology/Procedure AUTM Unavailable Problems Active Problems Provider Date Screening for malignant neoplasm of colon SHIRA Bonilla Onset: 12/11/2016 Dyspnea Luz Asher, A.N.P. Onset: 11/03/2017 Social History Type Date Description Comments Sex Unknown Cigarette Use Pack Years - 38 ETOH Use Denies alcohol use Recreational Drug Use Denies Drug Use Tobacco Use Start: Unknown End: Unknown Patient is a former smoker QUIT 2015 hx: [id number] started at age 16 Smoking Status Reviewed: 08/29/20 Patient is a former smoker QU IT 2015 hx: [id number] started at age 16 Allergies, Adverse Reactions, [...] CPT Code Status Date Vaccine Lot # [id number] Given 05/11/2019 Afluria, Quadrivalent, 0.5ml , [facility]# [id number] Vital Signs Date Vital Result Comment 08/29/2020 11:25am BP Systolic 140 mmHg BP Diastolic 80 mmHg Heart Rate 80 /min O2 % BldC Oximetry 97 % Room Air Height 70 inches 5'10" Weight 151.00 lb BMI (Body Mass Index) 21.7 kg/m2 [place] Body Weight 166 lb Weight 68.494 kg BSA (Body Surface Area) 1.85 m2 07/26/2020 10:56am BP Systolic 140 mmHg BP Diastolic 90 mmHg Heart Rate 111 /min O2 % BldC Oximetry 96 % Body Temperature 96.0 F Height 70 inches 5'10" Weight 152.00 lb BMI (Body Mass Index) 21.8 kg/m2 [place] Body Weight 166 lb Weight 68.947 kg BSA (Body Surface Area) 1.86 m2 Results Test Acquired Date Facility Test Result H/L Range Note Coag Panel For Procedures 09/03/2020 [facility] Main Lab [address] [place] [address] [phone] Platelet Count, Automated <pending> Partial Thromboplastin Time <pending> CBC With Differential 08/20/2020 [facility] Main Lab [address] [place], [place] [address] [phone] White Blood Count 10.2 10 High 4.0-10.0 [...] 36.0-66.0 Lymph % 8.1 % Low 24.0-44.0 [place] % 9.7 % High 0.0-5.0 Eos % 0.5 % Normal 0.0-3.0 Baso % 0.7 % Normal 0.0-1.0 Immature Granulocyte % 0.7 % Normal 0-3.0 Nucleated Red Blood Cell % 0.0 % Normal 0-0 Neutrophils # 8.2 10 Normal 1.5-8.5 Lymph # 0.8 10 Low 1.5-5.0 [place] # 1.0 10 High 0.0-0.8 Eos # 0.1 10 Normal 0.0-0.5 Baso # 0.1 10 Normal 0.0-0.2 Comprehensive Metabolic Profil 08/20/2020 [facility] Main Lab [address] [place] [address] [phone] Glucose, Fasting 103 mg/dL High 70-100 Blood Urea Nitrogen 17 mg/dL Normal 7-18 Creatinine For GFR 0.85 mg/dL Normal 0.70-1.30 Glomerular Filtration Rate > 60.0 Normal >49 1 Sodium Level 139 mEq/L Normal 136-145 Potassium [...] Ratio 0.7 Normal Laboratory test finding 08/20/2020 [facility] Main Lab [address] [place] [address] [phone] LDH Lactate Dehydrogenase 107 U/L Normal 87-241 2 Coag Panel For Procedures 07/26/2020 [facility] Main Lab [address] [place] [address] [phone] Platelet Count, Automated 342 10 Normal 150-45 0 Partial Thromboplastin Time <pending> Prothrombin Time/Inr 07/26/2020 [facility] Lab [address] [place] [address] [phone] Prothrombin Time 12.9 seconds Normal 12.5-14.3 Inr 0.95 Normal 3 Partial Thromboplastin Time 32.8 seconds Normal 24.2-38.5 1 Units are mL/min/1.73 m2 Chronic Kidney Disease Staging per NKF: Stage I & II GFR >=60 Normal to Mildly Decreased Stage III GFR 30-59 Moderately Decreased Stage IV GFR 15-29 Severely Decreased Stage V GFR <15 Very Little GFR Left ESRD GFR <15 on REFRIGERATOR CRATER 2 By: CINDY Yang Time: 853 By: CINDY Yang Time: 853 3 THERAPUTIC HUMAN INR VALUES INDICATIONS NORMAL RANGES PROPHYLAXIS/TREATMENT OF: VENOUS THROMBOSIS 2.0-3.0 PULMONARY EMBOLISM 2.0-3.0 PREVENTION OF SYSTEMIC EMBOLISM FROM: TISSUE HEART VALVES 2.0-3.0 ACUTE MYOCARDIAL INFARCTION 2.0-3.0 VALVULAR HEART DISEASE 2.0-3.0 ATRIAL FIBRILLATION 2.0-3.0 MECHANICAL VALVES(HIGH RISK) 2.5-3.5 RECURRENT MYOCARDIAL INFARCTION 2.5-3.5 Procedures Date Code Description Status 08/29/2020 30941 Computed Tomography Radiological Supervision And Interpretation Completed 07/26/2020 81938 Inhaler Teaching Completed 06/26/2020 08735 Spirometry Completed Medical Devices Description No Information Available Encounters Type Date Location Provider Dx Diagnosis Office Visit 08/29/2020 11:30a [facility] Kelly Patel MD R91.8 Other nonspecific abnormal finding of aba juani field J43.1 Panlobular emphysema Z87.891 Personal history of nicotine dependence Office Visit 07/26/2020 11:30a [facility] Kelly Patel MD R91.8 Other nonspecific abnormal finding of aba ng field J43.1 Panlobular emphysema Z87.891 Personal history of nicotine dependence J90 Pleural effusion, not elsewh ere classified Office Visit 06/26/2020 1:45p [facility] Kelly Patel MD R91.8 Other nonspecific abnormal finding of aba ng J43.1 Panlobular emphysema Z87.891 Personal history of nicotine dependence Assessments Date Code Description Provider 08/29/2020 R91.8 Other nonspecific abnormal findi ng [...] 06/26/2020 Z87.891 Personal history of nicotine dep endence Lucio Patel MD 05/18/2020 J43.1 Panlobular emphysema Lucio lawrence MD 05/18/2020 R91.8 Other nonspecific abnormal findi ng of lung field Lucio Patel MD 05/18/2020 R09.02 Hypoxemia Lucio Patel MD Plan of Treatment Future Appointment(s):* 09/06/2020 11:30 am - Lucio Patel MD at [facility] * 10/24/2020 1:30 pm - Lucio Patel MD at [facility]Th[facility]acic 06/26/2020 - Lucio Patel MD* R91.8 Other nonspecific abnormal finding of lung field * J43.1 Panlobular emphysema * Z87.891 Personal history of nicotine dependence * * New Labs:* FVL/[place], Scheduled: 10/24/20 * Comments:* ~ In view [...] Description No Information Available Referrals Refer to Reason for Referral Status Appt Date Radiology/Procedure 52296 Created Radiology/Procedure 09663 Closed Radiology/Procedure 81375 Closed Radiology/Procedure no site selection required approved [id number] C losed Radiology/Procedure 06212 CHT CHEST NO CONTRAST- [id number] VALID 04/30/20-10/27/20 Closed
--- OUTSIDE RECORDS SUMMARY | 2020-09-12 16:21 | CCD | Continuity of Care Document ---
Author Organization Unknown Address Unknown Phone Unavailable Care Team Providers Care Ware Finisher Name Role Phone [facility] - Dermatology AUTM [phone] [facility] [place] - Urology AUTM [phone] Chaitanya Suárez MD AUTM [phone] [facility] AUTM [phone] Problems Active Problems Provider Date Benign essential [...] CPT Code Status Date Vaccine Lot # [id number] Given 05/20/2020 Influenza Virus Vaccine, Quadrivalent,age 3 and up,multidose vial 38323 Given 10/25/2019 Pneumococcal Vaccine [id number] 65605 Given 05/11/2019 Influenza Virus Vaccine, Quadrivalent,age 3 and up,multidose vial 79035 Given 10/06/2018 Prevnar 13 For Adults [id number] 01613 Given 06/22/2018 Influenza Virus, quadravalent, preservative free,age 3 and up [id number] 92845 Given 08/30/2017 Influenza Virus Vaccine, Quadrivalent,age 3 and up,multidose vial 20302 Given 04/30/2015 Influenza Vaccination 49745 Given 04/30/2015 Influenza Vaccination [id number] 85498 Given 03/28/2015 Adacel 11 Yrs or older [...] Flow Rate 505 Estimated Peak Flow Rate [place] Body Weight 166 lb BMI (Body Mass [...] Flow Rate 505 Estimated Peak Flow Rate [place] Body Weight 166 lb BMI (Body Mass Index) 21.5 kg/m2 Results Test Acquired Date Facility Test Result H/L Range Note CBC With Differential 08/20/2020 [facility] [place] [address] [phone] White Blood Count 10.2 10 High 4.0-10.0 [...] 36.0-66.0 Lymph % 8.1 % Low 24.0-44.0 [place] % 9.7 % High 0.0-5.0 Eos % 0.5 % Normal 0.0-3.0 Baso % 0.7 % Normal 0.0-1.0 Immature Granulocyte % 0.7 % Normal 0-3.0 Nucleated Red Blood Cell % 0.0 % Normal 0-0 Neutrophils # 8.2 10 Normal 1.5-8.5 Lymph # 0.8 10 Low 1.5-5.0 [place] # 1.0 10 High 0.0-0.8 Eos # 0.1 10 Normal 0.0-0.5 Baso # 0.1 10 Normal 0.0-0.2 Comprehensive Metabolic Profil 08/20/2020 [address] [place] [id number] [phone] Glucose, Fasting 103 mg/dL High 70-100 Blood [...] Ratio 0.7 Normal Laboratory test finding 08/20/2020 [facility] [place] [address] [phone] LDH Lactate Dehydrogenase 107 U/L Normal 87-241 2 Istat Chem8+ Panel 05/18/2020 [place] [address] [phone] iSTAT HCT 65.0 % High 38.0-51.0 iSTAT Glucose 154 mg/dL High 70-105 iSTAT Sodium 140 mEq/L Normal 136-145 iSTAT Potassium 3.4 mEq/L Low 3.5-5.1 iSTAT CA++ 5.0 mg/dL Normal 4.5-5.3 iSTAT Chloride 104 mEq/L Normal 98-109 iSTAT Co2 19.0 MM/L Low 23.0-27.0 iSTAT BUN 24 mg/dL Normal 8-26 iSTAT Creatinine 0.6 mg/dL Normal 0.6-1.3 Laboratory test finding 05/18/2020 [facility] [place] [address] [phone] iSTAT Troponin 0.00 NG/ML Normal 0.00-0.08 Laboratory test finding 05/18/2020 [place] [address] [phone] iSTAT Lactate 1.04 Normal 0.4-2.0 Venous Blood Gas 05/18/2020 [place] [address] [phone] Venous PH 7.476 units High 7.330-7.430 Venous Partial Pressure Co2 28.1 mmHg Low 38.0-50.0 Venous Partial Pressure O2 140.0 mmHg High 30.0-50.0 Venous Total Co2 21.1 mEq/L Low 24.0-28.0 Venous Hco3 20.3 mEq/L Low 23.0-27.0 Venous Base Excess -1.9 Normal -2.0-2.0 Venous Standard Hco3 22.9 mEq/L Normal Venous O2 Saturation 98.9 % High 60.0-80.0 CBC With Differential 05/18/2020 [facility] [place] [address] [phone] White Blood Count 13.3 10 High 4.0-10.0 [...] 36.0-66.0 Lymph % 2.6 % Low 24.0-44.0 [place] % 9.4 % High 0.0-5.0 Eos % 0.2 % Normal 0.0-3.0 Baso % 0.4 % Normal 0.0-1.0 Immature Granulocyte % 0.7 % Normal 0-3.0 Nucleated Red Blood Cell % 0.0 % Normal 0-0 Neutrophils # 11.5 10 High 1.5-8.5 Lymph # 0.3 10 Low 1.5-5.0 [place] # 1.2 10 High 0.0-0.8 Eos # 0.0 10 Normal 0.0-0.5 Baso # 0.1 10 Normal 0.0-0.2 Prothrombin Time/Inr 05/18/[address] [facility] [place] [address] [phone] Prothrombin Time 14.7 seconds High 12.5-14.3 Inr 1.13 Normal 3 Liver Profile 05/18/2020 Patient [facility] [place] [address] [phone] Ast/Sgot 24 U/L Normal 7-37 Alt/SGPT 35 U/L Normal 12-78 Alkaline Phosphatase 105 U/L Normal 45-117 Bilirubin,Total 1.5 mg/dL High 0.2-1.0 Bilirubin,Direct 0.9 mg/dL High 0.0-0.2 Total Protein 6.0 GM/DL Low 6.4-8.2 Albumin 2.3 GM/DL Low 3.2-5.2 Albumin/Globulin Ratio 0.6 Normal Laboratory test finding 05/18/2020 [facility] [place], [place] [id number] [phone] NT-Pro BNP 612 pg/mL High <125 Thyroid Stimulating Hormone 0.480 uIU/ML Normal 0.358-3.740 Venous Blood Gas 05/18/2020 [place] [address] [phone] Venous PH 7.476 units High 7.330-7.430 Venous Partial Pressure Co2 28.1 mmHg Low 38.0-50.0 Venous Partial Pressure O2 140.0 mmHg High 30.0-50.0 Venous Total Co2 21.1 mEq/L Low 24.0-28.0 Venous Hco3 20.3 mEq/L Low 23.0-27.0 Venous Base Excess -1.9 Normal -2.0-2.0 Venous Standard Hco3 22.9 mEq/L Normal Venous O2 Saturation 98.9 % High 60.0-80.0 1 Units are mL/min/1.73 m2 Chronic Kidney Disease Staging per NKF: Stage I & II GFR >=60 Normal to Mildly Decreased Stage III GFR 30-59 Moderately Decreased Stage IV GFR 15-29 Severely Decreased Stage V GFR <15 Very Little GFR Left ESRD GFR <15 on ONLINE ADVERTISING DIRECTOR 2 By: CINDY Yang Time: 08 By: CINDY Yang Time: 853 3 THERAPUTIC [...] Chronic obstructive pulmonary di sease, unspecified Natasha Isarel M.D. 05/29/2020 J18.9 Pneumonia, unspecified organism Natasha Israel M.D. Plan of Treatment Future Appointment(s):* 10/23/2020 11:00 am - Natasha Israel M.D. at Main Office 07/25/2020 - Natasha Israel M.D.* R03.0 Elevated blood-pressure reading, without diagnosis of hypert * J44.9 Chronic obstructive pulmonary disease, unspecified* Comments:* I spoke with patients correctional case records supervisor, Dr. Patel. He is going to make [...]
--- OUTSIDE RECORDS SUMMARY | 2020-09-12 16:21 | CCD | Continuity of Care Document ---
Author Author Chance PATEL MD Organization Unknown Address [address] [address] Phone [phone] Care Team Providers Care Golf Starter And Ranger Name Role Phone Natasha Israel M.D. AUTM [phone] Radiology/Procedure AUTM Unavailable Problems Active Problems Provider Date Screening for malignant neoplasm of colon SHIRA Bonilla Onset: 12/11/2016 Dyspnea Luz Asher, A.N.P. Onset: 11/03/2017 Social History Type Date Description Comments Sex Unknown Cigarette Use Pack Years - 38 ETOH Use Denies alcohol use Recreational Drug Use Denies Drug Use Tobacco Use Start: Unknown End: Unknown Patient is a former smoker QUIT 2015 hx: [id number] started at age 16 Smoking Status Reviewed: 08/29/20 Patient is a former smoker QU IT 2015 hx: [id number] started at age 16 Allergies, Adverse Reactions, [...] CPT Code Status Date Vaccine Lot # [id number] Given 05/11/2019 Afluria, Quadrivalent, 0.5ml , [facility]# [id number] Vital Signs Date Vital Result Comment 08/29/2020 11:25am BP Systolic 140 mmHg BP Diastolic 80 mmHg Heart Rate 80 /min O2 % BldC Oximetry 97 % Room Air Height 70 inches 5'10" Weight 151.00 lb BMI (Body Mass Index) 21.7 kg/m2 [place] Body Weight 166 lb Weight 68.494 kg BSA (Body Surface Area) 1.85 m2 07/26/2020 10:56am BP Systolic 140 mmHg BP Diastolic 90 mmHg Heart Rate 111 /min O2 % BldC Oximetry 96 % Body Temperature 96.0 F Height 70 inches 5'10" Weight 152.00 lb BMI (Body Mass Index) 21.8 kg/m2 [place] Body Weight 166 lb Weight 68.947 kg BSA (Body Surface Area) 1.86 m2 Results Test Acquired Date Facility Test Result H/L Range Note Coag Panel For Procedures 09/03/2020 [facility] Main Lab [address] [place], [place] [id number] [phone] Platelet Count, Automated 312 10 Normal 150-45 0 Prothrombin Time/Inr 09/03/2020 [facility] enter Main Lab [address] [place], [place] [id number] [phone] Prothrombin Time 13.1 seconds Normal 12.5-14.3 Inr 0.97 Normal 1 Partial Thromboplastin Time 34.6 seconds Normal 24.2-38.5 CBC With Differential 08/20/2020 [facility] Main Lab [address] [place], [place] [id number] [phone] White Blood Count 10.2 10 High 4.0-10.0 [...] 36.0-66.0 Lymph % 8.1 % Low 24.0-44.0 [place] % 9.7 % High 0.0-5.0 Eos % 0.5 % Normal 0.0-3.0 Baso % 0.7 % Normal 0.0-1.0 Immature Granulocyte % 0.7 % Normal 0-3.0 Nucleated Red Blood Cell % 0.0 % Normal 0-0 Neutrophils # 8.2 10 Normal 1.5-8.5 Lymph # 0.8 10 Low 1.5-5.0 [place] # 1.0 10 High 0.0-0.8 Eos # 0.1 10 Normal 0.0-0.5 Baso # 0.1 10 Normal 0.0-0.2 Comprehensive Metabolic Profil 08/20/2020 [facility] Main Lab [address] [place] [id number] [phone] Glucose, Fasting 103 mg/dL High 70-100 Blood Urea Nitrogen 17 mg/dL Normal 7-18 Creatinine For GFR 0.85 mg/dL Normal 0.70-1.30 Glomerular Filtration Rate > 60.0 Normal >49 2 Sodium Level 139 mEq/L Normal 136-145 Potassium [...] Ratio 0.7 Normal Laboratory test finding 08/20/2020 [facility] Main Lab [address] [place] [address] [phone] LDH Lactate Dehydrogenase 107 U/L Normal 87-241 3 Coag Panel For Procedures 07/26/2020 [facility] Main Lab [address] [place] [address] [phone] Platelet Count, Automated 342 10 Normal 150-45 0 Partial Thromboplastin Time <pending> Prothrombin Time/Inr 07/26/2020 [facility] enter Main Lab [address] [place] [address] [phone] Prothrombin Time 12.9 seconds Normal 12.5-14.3 Inr 0.95 Normal 4 Partial Thromboplastin Time 32.8 seconds Normal 24.2-38.5 1 THERAPUTIC HUMAN INR VALUES INDICATIONS NORMAL RANGES PROPHYLAXIS/TREATMENT OF: VENOUS THROMBOSIS 2.0-3.0 PULMONARY EMBOLISM 2.0-3.0 PREVENTION OF SYSTEMIC EMBOLISM FROM: TISSUE HEART VALVES 2.0-3.0 ACUTE MYOCARDIAL INFARCTION 2.0-3.0 VALVULAR HEART DISEASE 2.0-3.0 ATRIAL FIBRILLATION 2.0-3.0 MECHANICAL VALVES(HIGH RISK) 2.5-3.5 RECURRENT MYOCARDIAL INFARCTION 2.5-3.5 2 Units are mL/min/1.73 m2 Chronic Kidney Disease Staging per NKF: Stage I & II GFR >=60 Normal to Mildly Decreased Stage III GFR 30-59 Moderately Decreased Stage IV GFR 15-29 Severely Decreased Stage V GFR <15 Very Little GFR Left ESRD GFR <15 on SANDWICH HAND 3 By: CINDY Yang Time: 0854 By: CINDY Yang Time: 0854 4 THERAPUTIC HUMAN INR VALUES INDICATIONS NORMAL RANGES PROPHYLAXIS/TREATMENT OF: VENOUS THROMBOSIS 2.0-3.0 PULMONARY EMBOLISM 2.0-3.0 PREVENTION OF SYSTEMIC EMBOLISM FROM: TISSUE HEART VALVES 2.0-3.0 ACUTE MYOCARDIAL INFARCTION 2.0-3.0 VALVULAR HEART DISEASE 2.0-3.0 ATRIAL FIBRILLATION 2.0-3.0 MECHANICAL VALVES(HIGH RISK) 2.5-3.5 RECURRENT MYOCARDIAL INFARCTION 2.5-3.5 Procedures Date Code Description Status 07/26/2020 04812 Inhaler Teaching Completed 06/26/2020 13655 Spirometry Completed Medical Devices Description No Information Available Encounters Type Date Location Provider Dx Diagnosis Office Visit 08/29/2020 11:30a [facility] Kelly Patel MD R91.8 Other nonspecific abnormal finding of aba ng field J43.1 Panlobular emphysema Z87.891 Personal history of nicotine dependence Office Visit 07/26/2020 11:30a [facility] Kelly Patel MD R91.8 Other nonspecific abnormal finding of aba ng field J43.1 Panlobular emphysema Z87.891 Personal history of nicotine dependence J90 Pleural effusion, not elsewh ere classified Office Visit 06/26/2020 1:45p [facility] Kelly Patel MD R91.8 Other nonspecific [...] 2:00 pm - Lucio Patel MD at [facility] * 09/06/2020 11:30 am - Lucio Patel MD at [facility] * 10/24/2020 1:30 pm - Lucio Patel MD at [facility] 06/26/2020 - Lucio Patel MD* R91.8 Other nonspecific abnormal finding of lung field * J43.1 Panlobular emphysema * Z87.891 Personal history of nicotine dependence * * New Labs:* FVL/[place] Level, Scheduled: 10/24/20 * Comments:* ~ In view [...] Reason for Referral Status Appt Date Radiology/Procedure 25016 Created Radiology/Procedure 42839 Closed Radiology/Procedure 04376 Closed Radiology/Procedure no site selection required approved [id number] C losed Radiology/Procedure 79900 CHT CHEST NO CONTRAST- [id number] VALID 04/30/20-10/27/20 Closed
--- OUTSIDE RECORDS SUMMARY | 2020-09-12 16:21 | CCD | Continuity of Care Document ---
Author Organization Unknown Address Unknown Phone Unavailable Care Team Providers Care Etcher [employer]ed [employer]ards Name Role Phone [facility] - Dermatology AUTM [phone] [facility] Urology AUTM Chaitanya Suárez MD AUTM [phone] [facility] AUTM [phone] Problems Active Problems Provider Date Benign essential [...] CPT Code Status Date Vaccine Lot # [id number] Given 05/20/2020 Influenza Virus Vaccine, Quadrivalent,age 3 and up,multidose vial 36797 Given 10/25/2019 Pneumococcal Vaccine [id number] 97231 Given 05/11/2019 Influenza Virus Vaccine, Quadrivalent,age 3 and up,multidose vial 59960 Given 10/06/2018 Prevnar 13 For Adults [id number] 13743 Given 06/22/2018 Influenza Virus, quadravalent, preservative free,age 3 and up [id number] 48144 Given 08/30/2017 Influenza Virus Vaccine, Quadrivalent,age 3 and up,multidose vial 43064 Given 04/30/2015 Influenza Vaccination 24576 Given 04/30/2015 Influenza Vaccination [id number] 21262 Given 03/28/2015 Adacel 11 Yrs or older [...] Flow Rate 505 Estimated Peak Flow Rate [place] Body Weight 166 lb BMI (Body Mass [...] Flow Rate 505 Estimated Peak Flow Rate [place] Body Weight 166 lb BMI (Body Mass Index) 21.5 kg/m2 Results Test Acquired Date Facility Test Result H/L Range Note Cell Count Pleural Fluid 09/06/2020 [place] [address] [phone] Source, Body Fluid PLEURAL Normal Pleural FL Color RED Normal Colorless Appearance, Body Fluid CLOTTED Normal Clear WBC Body Fluid TNP /uL Normal 0-10 1 RBC Body Fluid TNP 10 Normal <2 2 TP Body Fluid 09/06/2020 [place] [address] [phone] Total Protein, Body Fluid 5.2 g/dL Normal Not Es tablished Source, Body Fluid Tot Protein PLEURAL Normal LDH Body Fluid 09/06/2020 Patient Service [place] [id number] [phone] LDH, Body Fluid 34876 U/L Normal Not Established Source, Body Fluid LDH PLEURAL Normal Glucose Body Fluid 09/06/2020 [place] [address] [phone] Glucose, Body Fluid 18 mg/dL Normal Not Establis hed Source, Body Fluid Glucose PLEURAL Normal Amylase Body Fluid 09/06/2020 [place] [address] [phone] Amylase, Body Fluid 42 U/L Normal Not Establis hed Source, Body Fluid Amylase PLEURAL Normal PH, Body Fluid 09/06/2020 Patient Service [place] [id number] [phone] PH Body Fluid TNP units Normal Not Established 3 Source, Body Fluid pH PLEURAL Normal Body Fluid Culture And GS 09/06/2020 [place] [address] [phone] Gram Stain (SEE NOTE) Normal 4 Body Fluid Culture FULL REPORT IN L <SEE NOTE> Normal 5 Laboratory test finding 09/06/2020 [place] [address] [phone] Anaerobic Culture <SEE NOTE> 6 CBC With Differential 09/06/2020 [place] [address] [phone] White Blood Count 10.2 10 High 4.0-10.0 7 Red Blood Count 4.78 10 Normal 4.30-6.10 [...] 36.0-66.0 Lymph % 10.6 % Low 24.0-44.0 [place] % 12.9 % High 0.0-5.0 Eos % 0.3 % Normal 0.0-3.0 Baso % 0.6 % Normal 0.0-1.0 Immature Granulocyte % 0.3 % Normal 0-3.0 Nucleated Red Blood Cell % 0.0 % Normal 0-0 Neutrophils # 7.6 10 Normal 1.5-8.5 Lymph # 1.1 10 Low 1.5-5.0 [place] # 1.3 10 High 0.0-0.8 Eos # 0.0 10 Normal 0.0-0.5 Baso # 0.1 10 Normal 0.0-0.2 Comprehensive Metabolic Profil 09/06/2020 [address] [place] [id number] [phone] Glucose, Fasting 96 mg/dL Normal 70-100 Blood Urea Nitrogen 21 mg/dL High 7-18 Creatinine For GFR 0.95 mg/dL Normal 0.70-1.30 Glomerular Filtration Rate > 60.0 Normal >49 8 Sodium Level 142 mEq/L Normal 136-145 Potassium [...] Normal Laboratory test finding 09/06/2020 [place] [address] [phone] LDH Lactate Dehydrogenase 120 U/L Normal 87-241 9 Laboratory test finding 08/20/2020 [place] [address] [phone] LDH Lactate Dehydrogenase 107 U/L Normal 87-241 10 Comprehensive Metabolic Profil 08/20/2020 [place] [address] [phone] Glucose, Fasting 103 mg/dL High 70-100 Blood Urea Nitrogen 17 mg/dL Normal 7-18 Creatinine For GFR 0.85 mg/dL Normal 0.70-1.30 Glomerular Filtration Rate > 60.0 Normal >49 1 1 Sodium Level 139 mEq/L Normal 136-145 [...] Normal CBC With Differential 08/20/2020 [place] [address] [phone] White Blood Count 10.2 10 High 4.0-10.0 [...] 36.0-66.0 Lymph % 8.1 % Low 24.0-44.0 [place] % 9.7 % High 0.0-5.0 Eos % 0.5 % Normal 0.0-3.0 Baso % 0.7 % Normal 0.0-1.0 Immature Granulocyte % 0.7 % Normal 0-3.0 Nucleated Red Blood Cell % 0.0 % Normal 0-0 Neutrophils # 8.2 10 Normal 1.5-8.5 Lymph # 0.8 10 Low 1.5-5.0 [place] # 1.0 10 High 0.0-0.8 Eos # 0.1 10 Normal 0.0-0.5 Baso # 0.1 10 Normal 0.0-0.2 Istat Chem8+ Panel 05/18/2020 [place] [address] [phone] iSTAT HCT 65.0 % High 38.0-51.0 iSTAT Glucose 154 mg/dL High 70-105 iSTAT Sodium 140 mEq/L Normal 136-145 iSTAT Potassium 3.4 mEq/L Low 3.5-5.1 iSTAT CA++ 5.0 mg/dL Normal 4.5-5.3 iSTAT Chloride 104 mEq/L Normal 98-109 iSTAT Co2 19.0 MM/L Low 23.0-27.0 iSTAT BUN 24 mg/dL Normal 8-26 iSTAT Creatinine 0.6 mg/dL Normal 0.6-1.3 Laboratory test finding 05/18/2020 [place] [address] [phone] iSTAT Troponin 0.00 NG/ML Normal 0.00-0.08 Laboratory test finding 05/18/2020 [place] [address] [phone] iSTAT Lactate 1.04 Normal 0.4-2.0 Venous Blood Gas 05/18/2020 [place] [address] [phone] Venous PH 7.476 units High 7.330-7.430 Venous Partial Pressure Co2 28.1 mmHg Low 38.0-50.0 Venous Partial Pressure O2 140.0 mmHg High 30.0-50.0 Venous Total Co2 21.1 mEq/L Low 24.0-28.0 Venous Hco3 20.3 mEq/L Low 23.0-27.0 Venous Base Excess -1.9 Normal -2.0-2.0 Venous Standard Hco3 22.9 mEq/L Normal Venous O2 Saturation 98.9 % High 60.0-80.0 CBC With Differential 05/18/2020 Patient Service Ce [facility]ter [facility] [place] [address] [phone] White Blood Count 13.3 10 High 4.0-10.0 [...] 36.0-66.0 Lymph % 2.6 % Low 24.0-44.0 [place] % 9.4 % High 0.0-5.0 Eos % 0.2 % Normal 0.0-3.0 Baso % 0.4 % Normal 0.0-1.0 Immature Granulocyte % 0.7 % Normal 0-3.0 Nucleated Red Blood Cell % 0.0 % Normal 0-0 Neutrophils # 11.5 10 High 1.5-8.5 Lymph # 0.3 10 Low 1.5-5.0 [place] # 1.2 10 High 0.0-0.8 Eos # 0.0 10 Normal 0.0-0.5 Baso # 0.1 10 Normal 0.0-0.2 Prothrombin Time/Inr 05/18/[address] [place] [address] [phone] Prothrombin Time 14.7 seconds High 12.5-14.3 Inr 1.13 Normal 12 Liver Profile 05/18/2020 Patient Service [place], [place] [id number] [phone] Ast/Sgot 24 U/L Normal 7-37 Alt/SGPT 35 U/L Normal 12-78 Alkaline Phosphatase 105 U/L Normal 45-117 Bilirubin,Total 1.5 mg/dL High 0.2-1.0 Bilirubin,Direct 0.9 mg/dL High 0.0-0.2 Total Protein 6.0 GM/DL Low 6.4-8.2 Albumin 2.3 GM/DL Low 3.2-5.2 Albumin/Globulin Ratio 0.6 Normal Laboratory test finding 05/18/2020 Patient Service [place], [place] [id number] [phone] NT-Pro BNP 612 pg/mL High <125 Thyroid Stimulating Hormone 0.480 uIU/ML Normal 0.358-3.740 Venous Blood Gas 05/18/2020 Patient Service [place], [place] [address] [phone] Venous PH 7.476 units High 7.330-7.430 Venous [...] POSITIVE COCCI IN PAIRS AND CHAINS 5 FULL REPORT IN LAB NOTES (eC W and Medent). ORGANISM 1: STREP CONSTELLATUS SPP PHARYNG QUANTITY OF GROWTH HEAVY ORGANISM 1: STREP CONSTELLATUS SPP PHARYNG STREP CONSTELLATUS SPP PHARYNG: REACTION TETRACYCLINE PO 250 mg qid 0.5 S PENICILLIN G IV 1 mu q6H 0.5 I PENICILLIN G IV 1 mu q6h 0.5 I PENICILLIN G PO 250mg q6h fasting 0.5 I AMPICILLIN IV 500mg q6h <=0.25 S AMPICILLIN PO 500mg q6h fasting <=0.25 S ERYTHROMYCIN IV 500mg q6h <=0.12 S ERYTHROMYCIN PO 500mg q6h <=0.12 S CLINDAMYCIN IV 600mg q6h 0.5 I CLINDAMYCIN PO 150mg q6h 0.5 I LEVOFLOXACIN IV 500mg qd 0.5 S LEVOFLOXACIN PO 250mg qd 0.5 S LEVOFLOXACIN PO 500mg qd 0.5 S VANCOMYCIN IV 500mg q8h 0.5 S MOXIFLOXACIN (AVELOX) IV 400MG QD 0.12 S MOXIFLOXACIN (AVELOX) PO 400MG QD 0.12 S CEFTRIAXONE IV 1gm q24h <=0.12 S CEFOTAXIME IV 1gm q8h <=0.12 S 6 If anaerobic or aerobic growth is detected within the next 7-21 days, an addendum will follow. . . FULL REPORT IN LAB NOTES (eCW and [facility]). NO GROWTH ANAEROBICALLY 7 A Pathologist review of this differential can help in the evaluation of a differential diagnosis. Please order a Pathologist Review (PERISM) if deemed necessary. Results are subject to change if a Pathologist Review is performed. 8 Units are mL/min/1.73 m2 Chronic Kidney Disease Staging per NKF: Stage I & II GFR >=60 Normal to Mildly Decreased Stage III GFR 30-59 Moderately Decreased Stage IV GFR 15-29 Severely Decreased Stage V GFR <15 Very Little GFR Left ESRD GFR <15 on MEDICAL DIRECTOR/HEAD TEAM PHYSICIAN 9 By: BRISA Cintron Time: 1037 By: BRISA Cintron Time: 1037 By: BRISA Cintron Time: 1036 By: BRISA Cintron Time: 1037 10 By: CINDY Yang Time: 853 By: CINDY Yang Time: 853 11 Units are mL/min/1.73 m2 Chronic Kidney Disease Staging per NKF: Stage I & II GFR >=60 Normal to Mildly Decreased Stage III GFR 30-59 Moderately Decreased Stage IV GFR 15-29 Severely Decreased Stage V GFR <15 Very Little GFR Left ESRD GFR <15 on MEDICAL DIRECTOR/HEAD TEAM PHYSICIAN 12 THERAPUTIC HUMAN INR VALUES INDICATIONS NORMAL RANGES [...] disease, unspecified* Comments:* I spoke with patients chief operating engineer, Dr. Patel. He is going to make [...]
--- OUTSIDE RECORDS SUMMARY | 2020-09-12 16:22 | CCD ---
Author Author [facility] Organization [facility] Address Unknown Phone Unavailable Care Team Providers Care Cooking Casing And Drying Supervisor Name Role Phone Ruthy Israel MD Unavailable Unavailable Jhonatan, Ruthy Kaur MD Unavailable Unavailable Jhonatan, Ruthy Kaur MD Unavailable Unavailable Jhonatan, Ruthy Kaur MD Unavailable Unavailable Jhonatan, Ruthy Kaur MD Unavailable Unavailable Jhonatan, Ruthy Kaur MD Unavailable Unavailable Jhonatan, Ruthy Kaur MD Unavailable Unavailable Jhonatan, Ruthy Kaur MD Unavailable Unavailable Jhonatan, Ruthy Kaur MD Unavailable Unavailable Jhonatan, Ruthy Kaur MD Unavailable Unavailable Jhonatan, Ruthy Kaur MD Unavailable Unavailable Jhonatan, Ruthy Kaur MD Unavailable Unavailable Jhonatan, Ruthy Kaur MD Unavailable Unavailable Jhonatan, Ruthy Kaur MD Unavailable Unavailable Jhonatan, Ruthy Kaur MD Unavailable Unavailable Jhonatan, Ruthy Kaur MD Unavailable Unavailable Jhonatan, Ruthy Kaur MD Unavailable Unavailable Jhonatan, Ruthy Kaur MD Unavailable Unavailable Jhonatan, Ruthy Kaur MD Unavailable Unavailable Jhonatan, Ruthy Kaur MD Unavailable Unavailable Jhonatan, Ruthy Kaur MD Unavailable Unavailable Jhonatan, Ruthy Kaur MD Unavailable Unavailable Jhonatan, Ruthy Kaur MD Unavailable Unavailable Jhonatan, Ruthy Kaur MD Unavailable Unavailable Jhonatan, Ruthy Kaur MD Unavailable Unavailable Jhonatan, Ruthy Kaur MD Unavailable Unavailable Jhonatan, Ruthy Kaur MD Unavailable Unavailable Jhonatan, Ruthy Kaur MD Unavailable Unavailable Jhonatan, Ruthy Kaur MD Unavailable Unavailable Jhonatan, Ruthy Kaur MD Unavailable Unavailable Jhonatan, Ruthy Kaur MD Unavailable Unavailable Jhonatan, Ruthy Kaur MD Unavailable Unavailable Jhonatan, Ruthy Kaur MD Unavailable Unavailable Jhonatan, Ruthy Kaur MD Unavailable Unavailable Jhonatan, Ruthy Kaur MD Unavailable Unavailable Jhonatan, Ruthy Kaur MD Unavailable Unavailable Jhonatan, Ruthy Kaur MD Unavailable Unavailable Jhonatan, Ruthy Kaur MD Unavailable Unavailable Jhonatan, Ruthy Kaur MD Unavailable Unavailable Jhonatan, Ruthy Kaur MD Unavailable Unavailable Jhonatan, Ruthy Kaur MD Unavailable Unavailable Jhonatan, Ruthy Kaur MD Unavailable Unavailable Jhonatan, Ruthy Kaur MD Unavailable Unavailable Jhonatan, Ruthy Kaur MD Unavailable Unavailable Jhonatan, Ruthy Kaur MD Unavailable Unavailable Jhonatan, Ruthy Kaur MD Unavailable Unavailable Jhonatan, Ruthy Kaur MD Unavailable Unavailable Jhonatan, Ruthy Kaur MD Unavailable Unavailable Jhonatan, Ruthy Kaur MD Unavailable Unavailable Jhonatan, Ruthy Kaur MD Unavailable Unavailable Jhonatan, Ruthy Kaur MD Unavailable Unavailable Jhonatan, Ruthy Kaur MD Unavailable Unavailable Jhonatan, Ruthy Kaur MD Unavailable Unavailable Jhonatan, Ruthy Kaur MD Unavailable Unavailable Jhonatan, Ruthy Kaur MD Unavailable Unavailable Jhonatan, Ruthy Kaur MD Unavailable Unavailable Jhonatan, Ruthy Kaur MD Unavailable Unavailable Jhonatan, Ruthy Kaur MD Unavailable Unavailable Jhonatan, Ruthy Kaur MD Unavailable Unavailable Jhonatan, Ruthy Kaur MD Unavailable Unavailable Jhonatan, Ruthy Kaur MD Unavailable Unavailable Jhonatan, Ruthy Kaur MD Unavailable Unavailable Jhonatan, Ruthy Kaur MD Unavailable Unavailable Jhonatan, Ruthy Kaur MD Unavailable Unavailable Jhonatan, Ruthy Kaur MD Unavailable Unavailable Jhonatan, Ruthy Kaur MD Unavailable Unavailable Jhonatan, Ruthy Kaur MD Unavailable Unavailable Jhonatan, Ruthy Kaur MD Unavailable Unavailable Jhonatan, Ruthy Kaur MD Unavailable Unavailable Jhonatan, Ruthy Kaur MD Unavailable Unavailable Jhonatan, Ruthy Kaur MD Unavailable Unavailable Jhonatan, Ruthy Kaur MD Unavailable Unavailable Jhonatan, Ruthy Kaur MD Unavailable Unavailable Jhonatan, Ruthy Kaur MD Unavailable Unavailable Jhonatan, Ruthy Kaur MD Unavailable Unavailable Scordo, M Tiffany PA Unavailable Unavailable Scordo, M Tiffany PA Unavailable Unavailable Scordo, M Tiffany PA Unavailable Unavailable Scordo, M Tiffany PA Unavailable Unavailable Scordo, M Tiffany PA Unavailable Unavailable Scordo, M Tiffany PA Unavailable Unavailable Scordo, M Tiffany PA Unavailable Unavailable Scordo, M Tiffany PA Unavailable Unavailable Scordo, M Tiffany PA Unavailable Unavailable Scordo, M Tiffany PA Unavailable Unavailable Scordo, M Tiffany PA Unavailable Unavailable Scordo, M Tiffany PA Unavailable Unavailable Scordo, M Tiffany PA Unavailable Unavailable Scordo, M Tiffany PA Unavailable Unavailable Scordo, M Tiffany PA Unavailable Unavailable Scordo, M Tiffany PA Unavailable Unavailable Scordo, M Tiffany PA Unavailable Unavailable Scordo, M Tiffany PA Unavailable Unavailable Scordo, M Tiffany PA Unavailable Unavailable Scordo, M Tiffany PA Unavailable Unavailable Scordo, M Tiffany PA Unavailable Unavailable Scordo, M Tiffany PA Unavailable Unavailable Scordo, M Tiffany PA Unavailable Unavailable Scordo, M Tiffany PA Unavailable Unavailable Scordo, M Tiffany PA Unavailable Unavailable Scordo, M Tiffany PA Unavailable Unavailable Scordo, M Tiffany PA Unavailable Unavailable Scordo, M Tiffany PA Unavailable Unavailable Scordo, M Tiffany PA Unavailable Unavailable Scordo, M Tiffany PA Unavailable Unavailable Scordo, M Tiffany PA Unavailable Unavailable Scordo, M Tiffany PA Unavailable Unavailable Scordo, M Tiffany PA Unavailable Unavailable Scordo, M Tiffany PA Unavailable Unavailable Scordo, M Tiffany PA Unavailable Unavailable Scordo, M Tiffany PA Unavailable Unavailable Scordo, M Tiffany PA Unavailable Unavailable Scordo, M Tiffany PA Unavailable Unavailable Scordo, M Tiffany PA Unavailable Unavailable Scordo, M Tiffany PA Unavailable Unavailable Scordo, M Tiffany PA Unavailable Unavailable Scordo, M Tiffany PA Unavailable Unavailable Steven Rosales Unavailable Unavailable Chance Patel MD Unavailable Unavailable Chance Patel MD Unavailable Unavailable Chance Patel MD Unavailable Unavailable Chance Patel MD Unavailable Unavailable Chance Patel MD Unavailable Unavailable Chance Patel MD Unavailable Unavailable Chance Patel MD Unavailable Unavailable Chance Patel MD Unavailable Unavailable Chance Patel MD Unavailable Unavailable Chance Patel MD Unavailable Unavailable Chance Patel MD Unavailable Unavailable Chance Patel MD Unavailable Unavailable Chance Patel MD Unavailable Unavailable Chance Patel MD Unavailable Unavailable Chance Patel MD Unavailable Unavailable Chance Patel MD Unavailable Unavailable Chance Patel MD Unavailable Unavailable Chance Patel MD Unavailable Unavailable Chance Patel MD Unavailable Unavailable Chance Patel MD Unavailable Unavailable Chance Patel MD Unavailable Unavailable Chance Patel MD Unavailable Unavailable Chance Patel MD Unavailable Unavailable Chance Patel MD Unavailable Unavailable Chance Patel MD Unavailable Unavailable Chance Patel MD Unavailable Unavailable Chance Patel MD Unavailable Unavailable Chance Patel MD Unavailable Unavailable Chance Patel MD Unavailable Unavailable Chance Patel MD Unavailable Unavailable Chance Patel MD Unavailable Unavailable Chance Patel MD Unavailable Unavailable Chance Patel MD Unavailable Unavailable Chance Patel MD Unavailable Unavailable Patel, Chance Valdes MD Unavailable Unavailable Patel, Chance Valdes MD Unavailable Unavailable Patel, Chance Valdes MD Unavailable Unavailable Patel, Chance Valdes MD Unavailable Unavailable Patel, Chance Valdes MD Unavailable Unavailable Patel, Chance Valdes MD Unavailable Unavailable Patel, Chance Valdes MD Unavailable Unavailable Patel, Chance Valdes MD Unavailable Unavailable Patel, Chance Valdes MD Unavailable Unavailable Patel, Chance Valdes MD Unavailable Unavailable Patel, Chance Valdes MD Unavailable Unavailable Patel, Chance Valdes MD Unavailable Unavailable Patel, Chance Valdes MD Unavailable Unavailable Patel, Chance Valdes MD Unavailable Unavailable Patel, Chance Valdes MD Unavailable Unavailable Patel, Chance Valdes MD Unavailable Unavailable Patel, Chance Valdes MD Unavailable Unavailable Re-disclosure Warning The records that you are about to access may contain information from federally-assisted alcohol or drug abuse programs. If such information is present, then the following federally mandated warning applies: This information has been disclosed to you from records protected by federal confidentiality rules (42 CFR part 2). The federal rules prohibit you from making any further disclosure of this information unless further disclosure is expressly permitted by the written consent of the person to whom it pertains or as otherwise permitted by 42 CFR part 2. A general authorization for the release of medical or other information is NOT sufficient for this purpose. The Federal rules restrict any use of the information to criminally investigate or prosecute any alcohol or drug abuse patient.The records that you are about to access may contain highly sensitive health information, the redisclosure of which is protected by Article 27-F of the [facility] Public Health law. If you continue you may have access to information: Regarding HIV / AIDS; Provided by facilities licensed or operated by the [facility] Office of Mental Health; or Provided by the [facility] Office for People With Developmental Disabilities. If such information is present, then the following [facility] mandated warning applies: This information has been disclosed to you from confidential records which are protected by state law. State law prohibits you from making any further disclosure of this information without the specific written consent of the person to whom it pertains, or as otherwise permitted by law. Any unauthorized further disclosure in violation of state law may result in a fine or residential sentence or both. A general authorization for the release of medical or other information is NOT sufficient authorization for further disc losure. Family History Family Member Name Family Member Gender Family Member Status Date o f Status Description Data Source(s) Unknown Unknown Problem [facility] ([facility]) Unknown Unknown Problem [facility] ([facility] Unknown Male Problem [facility] ([facility] Unknown Unknown Encounters Encounter Providers Location Date Indications Data Source(s ) Outpatient Referrer: Jose A Rosales 09/11/2020 08:51:0 0 AM EST Solitary pulmonary nodule [facility] Solitary pulmonary nodule Office Visit Attender: Lucio Dawkins/[place]/Curt/R eindl 08/29/2020 10:30:00 AM EST [facility] Outpatient Attender: Lucio Dawkins/Basil/Curt/R eindl 07/26/2020 10:30:00 AM EST [facility] Outpatient Attender: Natasha Israel MD Main Office 07/25/2020 10:45:0 0 AM EST [facility] ([facility] [address] [place] [address] 07/04/2020 12:00:00 AM EST eCW1 ([facility]) Office Visit Attender: Lucio Dawkins/Basil/Curt/R eindl 06/26/2020 12:45:00 PM EST MED[facility] ([facility], ) Outpatient Attender: Natasha Israel MD Main Office 05/29/2020 09:00:0 0 AM EDT [facility] ([facility] Outpatient Attender: Tiffany AGUIRRE Main Office 01/24/2020 09:40:00 AM EDT [facility] ([facility] Immunizations Vaccine Date Status Description Data Source(s) New in 2012. IIV4 05/20/2020 09:00:00 AM EDT completed [facility] ([facility] pneumococcal polysaccharide PPV23 10/25/2019 07:16:00 AM EDT comple robert [facility] ([facility] Medications Medication Brand Name Start Date Product Form Dose Route Admi nistrative Instructions Pharmacy Instructions Status Indications Reaction Description Data Source(s) Cefuroxime 500 MG Oral Tablet Cefuroxime Axetil 08/15/2020 12:00:00 A M EST ORAL completed [facility] ([facility]) Cefuroxime 500 MG Oral Tablet Cefuroxime Axetil 07/26/2020 12:00:00 A M EST ORAL completed [facility] ([facility]) doxycycline hyclate 100 MG Oral Tablet Doxycycline Hyclate 1 12:00:00 AM EDT ORAL completed [facility] ([facility] Cefuroxime 500 MG Oral Tablet [Ceftin] Ceftin 05/21/2020 12:00:00 AM EDT ORAL completed [facility] ([facility] Levofloxacin 500 MG Oral Tablet Levofloxacin 05/14/2020 12:00:00 AM E DT ORAL completed [facility] ([facility]) Insurance Providers Payer name Policy type / Coverage type Policy ID Covered alliance party ID Covered alliance party's relationship to cruz Policy Cruz Plan Information MEDICARE BLUE PPO 306 [id number] SP [id number] [employer] MEDICARE BLUE PPO G [id number] Self [id number] [employer] MEDICARE BLUE PPO G [id number] Self [id number] [employer] BS B [id number] S [id number] MEDICARE [id number] SP [id number] [facility] [id number] SP [id number] MEDICARE BLUE PPO 306 [id number] SP [id number] MEDICARE BLUE PPO [id number] SP [id number] BCBS Medicare Commercial [id number] Self [id number] [facility] Health Maintenance Organization (HMO) [id number] Self [id number] Medicare Blue Ppo Commercial [id number] Self [id number] BCBS Medicare Commercial [id number] Self [id number] ANSI-Commercial [id number] ANSI-Not a Secondary Insurance [id number] ANSI-Commercial [id number] ANSI-Not a Secondary Insurance [id number] [facility] [id number] SP [id number] ANSI-Commercial [id number] ANSI-Not a Secondary Insurance [id number] [facility] Health Care Commercial [id number] Self [id number] [facility] Health Care Commercial [id number] Self [id number] [facility] Health Care Commercial [id number] Self [id number] [facility] Health Maintenance Organization (HMO) [id number] Self [id number] [facility] C[facility] [id number] SP [id number] [facility] O [id number] S [id number] [facility] Health Care Commercial [id number] Self [id number] [facility] HE[facility] CARE [id number] SP [id number] [facility] Health Care Commercial [id number] Self [id number] [facility] [id number] Self [id number] [facility] Health Maintenance Organization (HMO) [id number] Self [id number] [facility] [id number] SP [id number] [facility] [id number] SP [id number] [employer]BS [place] PPO [id number] [id number] SP [id number] [facility] HE[facility] CARE O [id number] S [id number] BLUE CROSS [id number] S [id number] [employer] BCBS B [id number] S [id number] [employer] BS Of [facility] Health Maintenance Organization ([facility]) Self [employer] EXCELLUS BCBS B [id number] S [id number] BCBS [place] PPO 302/307 [id number] SP [id number] [employer] BS Of [facility] ([facility] Self [employer] O UNAVAILABLE UNAVAILA BLE [employer] BC/BS Of [place] [facility] Part B Self BC/[employer] [place] Commercial Self [place]BS [place] PPO 302/[phone] [id number] SP [id number] Problems, Conditions, and Diagnoses Code Display Name Description Problem Type Effective Dates Data Source(s) L57.0 [id number] Actinic keratoses Problem 07/25/2019 12:00:0 0 AM EST eCW1 ([facility]) R91.1 Solitary pulmonary nodule Solitary pulmonary nodule Di agnosis 09/11/2020 08:51:00 AM EST [facility] Surgeries/Procedures Procedure Description Date Indications Data Source(s) CT GUIDANCE NEEDLE PLACEMENT 08/29/2020 12:00:00 AM ES T [facility] ([facility], ) DEMO&/EVAL OF PT UTILIZ AERSL GEN/NEB/INHLR/IPPB 07/26 12:00:00 AM EST [facility] ([facility], ) Spirometry 06/26/2020 12:00:00 AM EST M EDENT ([facility], ) Results ID Date Data Source [id number] 09/06/2020 11:50:00 AM EST [facility] ([facility] Name Value Range Interpretation Code Description Data Aydee rce(s) Supporting Document(s) Bacteria identified in Unspecified specimen by Anaerob e culture Laboratory test result [facility] ([facility] If anaerobic or aerobic growth is detected within the next 7-21 days, an addendum will follow. . . FULL REPORT IN LAB NOTES (eCW and Medent). NO GROWTH ANAEROBICALLY ID Date Data Source [id number] 09/06/2020 11:50:00 AM EST [facility] ([facility] Name Value Range Interpretation Code Description Data Aydee rce(s) Supporting Document(s) Gram Stain Laboratory test result [facility] ([facility] MANY WBCS MANY RBCS FEW GRAM POSITIVE COCCI IN PAIRS AND CHAINS Body Fluid Culture Laboratory test result [facility] ([facility] <content>FULL REPORT IN LAB NOTES (eCW a nd Medent).</content>
<content></content>
<content>ORGANISM 1: STREP CONSTELLATUS SPP PHARYNG</content>
<content></content>
<content>QUANTITY OF GROWTH HEAVY</content>
<content></content>
<content></content>
<content>ORG ANISM 1: STREP CONSTELLATUS SPP PHARYNG</content>
<content></content>
<content>STREP CONSTELLATUS SPP PHARYNG: REACTION</content>
<content>TETRACYCLINE PO 250 mg qid 0.5 S</content>
<content> PENICILLIN G IV 1 mu q6H 0.5 I</content>
<content>PENICILLIN G IV 1 mu q6h 0.5 I</content>
<content>PENICILLIN G PO 250mg q6h fasting 0.5 I</content>
<content>AMPICILLIN IV 500mg q6h <=0.25 S</content>
<content>AMPICILLIN PO 500mg q6h fasting <=0.25 S</content>
<content>ERYTHROMYCIN IV 500mg q6h <=0.12 S</content>
<content>ERYTHROMYCIN PO 500mg q6h <=0.12 S</content>
<content>CLINDAMYCIN IV 600mg q6h 0.5 I</content>
<content>CLINDAMYCIN PO 150mg q6h 0.5 I</content>
<content>LEVOFLOXACIN IV 500mg qd 0.5 S</content>
<content>LEVOFLOXACIN PO 250mg qd 0.5 S</content>
<content>LEVOFLOXACIN PO 500mg qd 0.5 S</content>
<content>VANCOMYCIN IV 500mg q8h 0.5 S</content>
<content>MOXIFLOXACIN (AVELOX) IV 400MG QD 0.12 S</content>
<content> MOXIFLOXACIN (AVELOX) PO 400MG QD 0.12 S</content>
<content>CEFTRIAXONE IV 1gm q24h <=0.12 S</content>
<content>CEFOTAXIME IV 1gm q8h <=0.12 S</content>
<content></content> ID Date Data Source [id number] 09/06/2020 11:50:00 AM EST [facility] ([facility] Name Value Range Interpretation Code Description Data Aydee rce(s) Supporting Document(s) PH Body Fluid Laboratory test result [facility] ([facility] CLOTTED, UNABLE TO PERFORM TESTING Source, Body Fluid pH Laboratory test result [facility] ([facility] ID Date Data Source [id number] 09/06/2020 11:50:00 AM EST [facility] ([facility] Name Value Range Interpretation Code Description Data Aydee rce(s) Supporting Document(s) Amylase, Body Fluid 42 U/L [facility] ([facility] Source, Body Fluid Amylase Laboratory test result [facility] ([facility] ID Date Data Source [id number] 09/06/2020 11:50:00 AM EST [facility] ([facility] Name Value Range Interpretation Code Description Data Aydee rce(s) Supporting Document(s) Source, Body Fluid Glucose Laboratory test result [facility] ([facility] Glucose, Body Fluid 18 mg/dL [facility] ([facility] ID Date Data Source [id number] 09/06/2020 11:50:00 AM EST [facility] ([facility] Name Value Range Interpretation Code Description Data Aydee rce(s) Supporting Document(s) Source, Body Fluid LDH Laboratory test result [facility] ([facility] LDH, Body Fluid 79953 U/L [facility] ([facility] ID Date Data Source [id number] 09/06/2020 11:50:00 AM EST [facility] ([facility] Name Value Range Interpretation Code Description [facility] Document([facility] Source, Body Fluid Tot Protein Laboratory test result [facility] ([facility] Total Protein, Body Fluid 5.2 g/dL MEDE NT ([facility] ID Date Data Source [id number] 09/06/2020 11:50:00 AM EST [facility] ([facility] Name Value Range Interpretation Code Description Data [facility] Supporting Document(s) Source, Body Fluid Laboratory test result [facility] ([facility] Appearance, Body Fluid Laboratory test result [facility] ([facility] Pleural FL Color Laboratory test result [facility] ([facility] WBC Body Fluid Laboratory test result 0-10 [facility] ([facility] CLOTTED, UNABLE TO PERFORM TESTING RBC Body Fluid Laboratory test result [facility] ([facility] CLOTTED, UNABLE TO PERFORM TESTING ID Date Data Source [id number] 09/06/2020 11:50:00 AM EST [facility] ([facility] Name Value Range Interpretation Code Description Data [facility] Supporting Document(s) Amylase [Enzymatic activity/volume] in Body fluid Laboratory test res ult [facility] ([facility] Laboratory test finding (navigational concept) Laboratory test result [facility] ([facility] MANY WBCS MANY RBCS FEW GRAM POSITIVE COCCI IN PAIRS AND CHAINS Bacteria identified in Unspecified specimen by Anaerob e culture Laboratory test result [facility] ([facility] Comments: RIGHT PLEURAL EFFUSION By: RENETTA DOE Time: 1047 Description if other: RIGHT PLEURAL EFFUSION By: RENETTA DOE Time: 1046 ID Date Data Source [id number] 09/06/2020 11:10:00 AM EST [facility] ([facility] Name Value Range Interpretation Code Description Data Aydee rce(s) Supporting Document(s) Lactate dehydrogenase [Enzymatic activit y/volume] in Serum or Plasma by Lactate to pyruvate reaction 120 U/L 87-241 [facility] ([facility] By: BRISA Cintron Time: 1037 By: BRISA Cintron Time: 1038 By: BRISA Cintron Time: 1037 By: BRISA Cintron Time: 1038 ID Date Data Source [id number] 09/06/2020 11:10:00 AM EST [facility] ([facility] Name Value Range Interpretation Code Description Data Aydee rce(s) Supporting Document(s) Blood Urea Nitrogen 21 mg/dL 7-18 [facility] ([facility] Glucose, Fasting 96 mg/dL 70-100 [facility] ([facility] Creatinine For GFR 0.95 mg/dL 0.70-1.30 [facility] ([facility] Glomerular Filtration Rate Laboratory test result [facility] ([facility] <content>Units are mL/min/1.73 m2</content>
<content></content>
<content>Chronic Kidney Disease Staging per NKF:</content>
<content></content>
<content>Stage I & II GFR >=60 Normal to Mildly Decreased</content>
<content>Stage III GFR 30-59 Moderately Decreased</content>
<content>Stage IV GFR 15-29 Severely Decreased</content>
<content>Stage V GFR <15 Very Little GFR Left</content>
<content>ESRD GFR <15 on LENS MAKER</content>
<content></content> Chloride Level 110 meq/L 98-107 [facility] ([facility] Sodium Level 142 meq/L 136-145 [facility] ([facility] Potassium Serum 4.0 meq/L 3.5-5.1 [facility] ([facility] Anion Gap 8 meq/L 8-16 [facility] ([facility] Calcium Level 10.0 mg/dL 8.8-10.2 [facility] ([facility] Carbon Dioxide Level 24 meq/L 21-32 [facility] ([facility] Ast/Sgot 7 U/L 7-37 [facility] ([facility] Alt/SGPT 19 U/L 12-78 [facility] ([facility] Bilirubin,Total 0.8 mg/dL 0.2-1.0 [facility] ([facility] Alkaline Phosphatase 78 U/L 45-117 [facility] ([facility] Albumin/Globulin Ratio 0.9 [facility] ([facility] Albumin 3.5 GM/DL 3.2-5.2 [facility] ([facility] Total Protein 7.6 GM/DL 6.4-8.2 [facility] ([facility] ID Date Data Source [id number] 09/06/2020 11:10:00 AM EST [facility] ([facility] Name Value Range Interpretation Code Description Data Aydee rce(s) Supporting Document(s) White Blood Count 10.2 10 4.0-10.0 [facility] ([facility] A Pathologist review of this differentia l can help in the evaluation of a differential diagnosis. Please order a Pathologist Review (PERISM) if deemed necessary. Results are subject to change if a Pathologist Review is performed. Red Blood Count 4.78 10 4.30-6.10 [facility] ([facility] Hemoglobin 15.4 g/dL 13.5-17.5 [facility] ([facility] Mean Corpuscular Volume 97.1 fl 80.0-96.0 M [facility] ([facility] Hematocrit 46.4 % 42.0-52.0 [facility] ([facility] Mean Corpuscular Hemoglobin 32.2 pg 27.0-33.0 [facility] ([facility] Red Cell Distribution Width 13.0 % 11.5-14.5 [facility] ([facility] Mean Corpuscular HGB Conc 33.2 g/dL 32.0-36.5 [facility] ([facility] Platelet Count, Automated 237 10 150-450 [facility] ([facility] Lymph % 10.6 % 24.0-44.0 [facility] ([facility] Neutrophils % 75.3 % 36.0-66.0 [facility] ([facility] Wise % 12.9 % 0.0-5.0 [facility] ([facility] Eos % 0.3 % 0.0-3.0 [facility] ([facility] Immature Granulocyte % 0.3 % 0-3.0 [facility] ([facility] Baso % 0.6 % 0.0-1.0 [facility] ([facility] Neutrophils # 7.6 10 1.5-8.5 [facility] ([facility] Nucleated Red Blood Cell % 0.0 % 0-0 [facility] ([facility] Lymph # 1.1 10 1.5-5.0 [facility] ([facility] Eos # 0.0 10 0.0-0.5 [facility] ([facility] Wise # 1.3 10 0.0-0.8 [facility] ([facility] Baso # 0.1 10 0.0-0.2 [facility] ([facility] ID Date Data Source [id number] 09/06/2020 11:10:00 AM EST [facility] ([facility]) Name Value Range Interpretation Code Description Data Aydee rce(s) Supporting Document(s) Lactate dehydrogenase [Enzymatic activity/volume] in Serum o r Plasma 120 U/L 87-241 Normal (applies to non-numeric results) [facility] ([facility]) By: BRISA Cintron Time: 1037 By: BRISA Cintron Time: 1038 By: BRISA Cintron Time: 1037 By: BRISA Cintron Time: 1038 ID Date Data Source [id number] 09/06/2020 11:10:00 AM EST [facility] ([facility]) Name Value Range Interpretation Code Description Data Aydee rce(s) Supporting Document(s) Glucose, Fasting 96 mg/dL 70-100 Normal (applies to non-numeric results) [facility] ([facility]) Blood Urea Nitrogen 21 mg/dL 7-18 Above high normal [facility] ([facility], ) Glomerular Filtration Rate Laboratory test result Normal (applies to non- numeric results) [facility]) <content>Units are mL/min/1.73 m2</content>
<content></content>
<content>Chronic Kidney Disease Staging per [facility]:</content>
<content></content>
<content>Stage I & II GFR >=60 Normal to Mildly Decreased</content>
<content>Stage III GFR 30-59 Moderately Decreased</content>
<content>Stage IV GFR 15-29 Severely Decreased</content>
<content>Stage V GFR <15 Very Little GFR Left</content>
<content>ESRD GFR <15 on LENS MAKER</content>
<content></content> Creatinine For GFR 0.95 mg/dL 0.70-1.30 Normal (applies to non -numeric results) [facility] ([facility], ) Sodium Level 142 meq/L 136-145 Normal (applies to non-numeric res ults) [facility] ([facility]) Chloride Level 110 meq/L 98-107 Above high normal [facility] ([facility], ) Potassium Serum 4.0 meq/L 3.5-5.1 Normal (applies to non-numeric results) [facility] ([facility]) Calcium Level 10.0 mg/dL 8.8-10.2 Normal (applies to non-numeric re sults) [facility] ([facility]) Anion Gap 8 meq/L 8-16 Normal (applies to non-numeric resul ts) [facility] ([facility]) Carbon Dioxide Level 24 meq/L 21-32 Normal (applies to non-num arlene results) [facility] ([facility]) Ast/Sgot 7 U/L 7-37 Normal (applies to non-numeric resul ts) [facility]) Alkaline Phosphatase 78 U/L 45-117 Normal (applies to non-num arlene results) [facility] ([facility]) Alt/SGPT 19 U/L 12-78 Normal (applies to non-numeric resul ts) [facility] ([facility], ) Bilirubin,Total 0.8 mg/dL 0.2-1.0 Normal (applies to non-numeric results) [facility]) Total Protein 7.6 GM/DL 6.4-8.2 Normal (applies to non-numeric re sults) [facility]) Albumin/Globulin Ratio 0.9 Normal (applies to non-n umeric results) [facility]) Albumin 3.5 GM/DL 3.2-5.2 Normal (applies to non-numeric resul ts) [facility]) ID Date Data Source [id number] 09/06/2020 11:10:00 AM EST [facility] ([facility]) Name Value Range Interpretation Code Description Data Aydee rce(s) Supporting Document(s) Red Blood Count 4.78 10 4.30-6.10 Normal (applies to non-numeric results) [facility] ([facility], ) White Blood Count 10.2 10 4.0-10.0 Above high normal [facility] ([facility]) A Pathologist review of this differentia l can help in the evaluation of a differential diagnosis. Please order a Pathologist Review (PERISM) if deemed necessary. Results are subject to change if a Pathologist Review is performed. Hemoglobin 15.4 g/dL 13.5-17.5 Normal (applies to non-numeric resul ts) [facility] ([facility], ) Hematocrit 46.4 % 42.0-52.0 Normal (applies to non-numeric resul ts) [facility]) Mean Corpuscular Volume 97.1 fl 80.0-96.0 Above high normal [facility]) Mean Corpuscular HGB Conc 33.2 g/dL 32.0-36.5 Normal (applies to non-numeric results) [facility]) Mean Corpuscular Hemoglobin 32.2 pg 27.0-33.0 Norm al (applies to non-numeric results) [facility]) Red Cell Distribution Width 13.0 % 11.5-14.5 Norm al (applies to non-numeric results) [facility] ([facility]) Platelet Count, Automated 237 10 150-450 Normal (applies to non-numeric results) [facility] ([facility]) Neutrophils % 75.3 % 36.0-66.0 Above high normal [facility] ([facility]) Lymph % 10.6 % 24.0-44.0 Below low normal [facility] ( [facility]) Wise % 12.9 % 0.0-5.0 Above high normal [facility] ([facility]) Eos % 0.3 % 0.0-3.0 Normal (applies to non-numeric resul ts) [facility] ([facility]) Baso % 0.6 % 0.0-1.0 Normal (applies to non-numeric resul ts) [facility] ([facility]) Immature Granulocyte % 0.3 % 0-3.0 Normal (applies to non-n umeric results) [facility] ([facility]) Nucleated Red Blood Cell % 0.0 % 0-0 Normal (applies to n on-numeric results) [facility] ([facility]) Neutrophils # 7.6 10 1.5-8.5 Normal (applies to non-numeric re sults) [facility] ([facility]) Lymph # 1.1 10 1.5-5.0 Below low normal [facility] ( [facility]) Eos # 0.0 10 0.0-0.5 Normal (applies to non-numeric resul ts) [facility] ([facility]) Wise # 1.3 10 0.0-0.8 Above high normal [facility] ([facility]) Baso # 0.1 10 0.0-0.2 Normal (applies to non-numeric resul ts) [facility] ([facility]) ID Date Data Source [id number] 09/03/2020 09:29:00 AM EST [facility] ([facility]) Name Value Range Interpretation Code Description Data Aydee rce(s) Supporting Document(s) Prothrombin Time 13.1 s 12.5-14.3 Normal (applies to non-numeric results) [facility] ([facility]) Partial Thromboplastin Time 34.6 s 24.2-38.5 Norm al (applies to non-numeric results) [facility] ([facility]) Inr 0.97 Normal (applies to non-numeric resul ts) [facility] ([facility]) THERAPUTIC HUMAN INR VALUES INDICATIONS NORMAL RANGES PROPHYLAXIS/TREATMENT OF: VENOUS THROMBOSIS 2.0-3.0 PULMONARY EMBOLISM 2.0-3.0 PREVENTION OF SYSTEMIC EMBOLISM FROM: TISSUE HEART VALVES 2.0-3.0 ACUTE MYOCARDIAL INFARCTION 2.0-3.0 VALVULAR HEART DISEASE 2.0-3.0 ATRIAL FIBRILLATION 2.0-3.0 MECHANICAL VALVES(HIGH RISK) 2.5-3.5 RECURRENT MYOCARDIAL INFARCTION 2.5-3.5 ID Date Data Source [id number] 09/03/2020 09:29:00 AM EST [facility] ([facility]) Name Value Range Interpretation Code Description Data Aydee rce(s) Supporting Document(s) aPTT in Platelet poor plasma by Coagulation assay Laboratory test res ult [facility] ([facility]) Platelets [#/volume] in Blood by Automated count 312 10 150-450 Normal (applies to non-numeric results) [facility] ([facility]) ID Date Data Source [id number] 08/20/2020 10:35:00 AM EST [facility] ([facility] Name Value Range Interpretation Code Description Data Aydee rce(s) Supporting Document(s) Red Blood Count 4.60 10 4.30-6.10 [facility] ([facility] Hemoglobin 14.9 g/dL 13.5-17.5 [facility] ([facility] White Blood Count 10.2 10 4.0-10.0 [facility] ([facility] Mean Corpuscular Volume 94.1 fl 80.0-96.0 M [facility] ([facility] Hematocrit 43.3 % 42.0-52.0 [facility] ([facility] Mean Corpuscular Hemoglobin 32.4 pg 27.0-33.0 [facility] ([facility] Red Cell Distribution Width 12.7 % 11.5-14.5 [facility] ([facility] Platelet Count, Automated 285 10 150-450 [facility] ([facility] Mean Corpuscular HGB Conc 34.4 g/dL 32.0-36.5 [facility] ([facility] Lymph % 8.1 % 24.0-44.0 [facility] ([facility] Neutrophils % 80.3 % 36.0-66.0 [facility] ([facility] Wise % 9.7 % 0.0-5.0 [facility] ([facility] Eos % 0.5 % 0.0-3.0 [facility] ([facility] Baso % 0.7 % 0.0-1.0 [facility] ([facility] Immature Granulocyte % 0.7 % 0-3.0 [facility] ([facility] Neutrophils # 8.2 10 1.5-8.5 [facility] ([facility] Nucleated Red Blood Cell % 0.0 % 0-0 [facility] ([facility] Lymph # 0.8 10 1.5-5.0 [facility] ([facility] Wise # 1.0 10 0.0-0.8 [facility] ([facility] Eos # 0.1 10 0.0-0.5 [facility] ([facility] Baso # 0.1 10 0.0-0.2 [facility] ([facility] ID Date Data Source [id number] 08/20/2020 10:35:00 AM EST [facility] ([facility] Name Value Range Interpretation Code Description Data Aydee rce(s) Supporting Document(s) Creatinine For GFR 0.85 mg/dL 0.70-1.30 [facility] ([facility] Blood Urea Nitrogen 17 mg/dL 7-18 [facility] ([facility] Glucose, Fasting 103 mg/dL 70-100 [facility] ([facility] Sodium Level 139 meq/L 136-145 [facility] ([facility] Glomerular Filtration Rate Laboratory test result [facility] ([facility] <content>Units are mL/min/1.73 m2</content>
<content></content>
<content>Chronic Kidney Disease Staging per [facility]:</content>
<content></content>
<content>Stage I & II GFR >=60 Normal to Mildly Decreased</content>
<content>Stage III GFR 30- 59 Moderately Decreased</content>
<content>Stage IV GFR 15-29 Severely Decreased</content>
<content>Stage V GFR <15 Very Little GFR Left</content>
<content>ESRD GFR <15 on LENS MAKER</content>
<content></content> Carbon Dioxide Level 23 meq/L 21-32 [facility] ([facility] Anion Gap 7 meq/L 8-16 [facility] ([facility] Chloride Level 109 meq/L 98-107 [facility] ([facility] Potassium Serum 4.1 meq/L 3.5-5.1 [facility] ([facility] Calcium Level 9.7 mg/dL 8.8-10.2 [facility] ([facility] Ast/Sgot 11 U/L 7-37 [facility] ([facility] Alkaline Phosphatase 78 U/L 45-117 [facility] ([facility] Bilirubin,Total 0.6 mg/dL 0.2-1.0 [facility] ([facility] Alt/SGPT 31 U/L 12-78 [facility] ([facility] Total Protein 7.3 GM/DL 6.4-8.2 [facility] ([facility] Albumin/Globulin Ratio 0.7 [facility] ([facility] Albumin 3.1 GM/DL 3.2-5.2 [facility] ([facility] ID Date Data Source [id number] 08/20/2020 10:35:00 AM EST [facility] ([facility] Name Value Range Interpretation Code Description Data Aydee rce(s) Supporting Document(s) Lactate dehydrogenase [Enzymatic activit y/volume] in Serum or Plasma by Lactate to pyruvate reaction 107 U/L 87-241 [facility] ([facility] By: CINDY Yang Time: 0854 By: CINDY Yang Time: 08 ID Date Data Source [id number] 08/20/2020 10:35:00 AM EST [facility] ([facility], ) Name Value Range Interpretation Code Description Data Aydee rce(s) Supporting Document(s) Lactate dehydrogenase [Enzymatic activity/volume] in Serum o r Plasma 107 U/L 87-241 Normal (applies to non-numeric results) [facility]) By: CINDY Yang Time: 853 By: CINDY Yang Time: 853 ID Date Data Source [id number] 08/20/2020 10:35:00 AM EST [facility] ([facility]) Name Value Range Interpretation Code Description Data Aydee rce(s) Supporting Document(s) Glucose, Fasting 103 mg/dL 70-100 Above high normal [facility] Blood Urea Nitrogen 17 mg/dL 7-18 Normal (applies to non-nume rama results) [facility] ([facility]) Sodium Level 139 meq/L 136-145 Normal (applies to non-numeric res ults) [facility]) Creatinine For GFR 0.85 mg/dL 0.70-1.30 Normal (applies to non -numeric results) [facility] ([facility]) Glomerular Filtration Rate Laboratory test result Normal (applies to non- numeric results) [facility]) <content>Units are mL/min/1.73 m2</content>
<content></content>
<content>Chronic Kidney Disease Staging per [facility]:</content>
<content></content>
<content>Stage I & II GFR >=60 Normal to Mildly Decreased</content>
<content>Stage III GFR 30-59 Moderately Decreased</content>
<content>Stage IV GFR 15-29 Severely Decreased</content>
<content>Stage V GFR <15 Very Little GFR Left</content>
<content>ESRD GFR <15 on LENS MAKER</content>
<content></content> Potassium Serum 4.1 meq/L 3.5-5.1 Normal (applies to non-numeric results) [facility] ([facility]) Chloride Level 109 meq/L 98-107 Above high normal [facility] ([facility]) Carbon Dioxide Level 23 meq/L 21-32 Normal (applies to non-num arlene results) [facility] ([facility]) Calcium Level 9.7 mg/dL 8.8-10.2 Normal (applies to non-numeric re sults) [facility] ([facility]) Anion Gap 7 meq/L 8-16 Below low normal [facility] ( [facility]) Alt/SGPT 31 U/L 12-78 Normal (applies to non-numeric resul ts) [facility] Ast/Sgot 11 U/L 7-37 Normal (applies to non-numeric resul ts) [facility] ([facility]) Alkaline Phosphatase 78 U/L 45-117 Normal (applies to non-num arlene results) [facility] ([facility]) Bilirubin,Total 0.6 mg/dL 0.2-1.0 Normal (applies to non-numeric results) [facility]) Total Protein 7.3 GM/DL 6.4-8.2 Normal (applies to non-numeric re sults) [facility] ([facility]) Albumin 3.1 GM/DL 3.2-5.2 Below low normal [facility] ( [facility]) Albumin/Globulin Ratio 0.7 Normal (applies to non-n umeric results) [facility]) ID Date Data Source [id number] 08/20/2020 10:35:00 AM EST [facility] ([facility]) Name Value Range Interpretation Code Description Data Aydee rce(s) Supporting Document(s) White Blood Count 10.2 10 4.0-10.0 Above high normal [facility] ([facility]) Hemoglobin 14.9 g/dL 13.5-17.5 Normal (applies to non-numeric resul ts) [facility] ([facility]) Hematocrit 43.3 % 42.0-52.0 Normal (applies to non-numeric resul ts) [facility]) Red Blood Count 4.60 10 4.30-6.10 Normal (applies to non-numeric results) [facility]) Mean Corpuscular Volume 94.1 fl 80.0-96.0 Normal ( applies to non-numeric results) [facility]) Mean Corpuscular Hemoglobin 32.4 pg 27.0-33.0 Norm al (applies to non-numeric results) [facility] ([facility]) Red Cell Distribution Width 12.7 % 11.5-14.5 Norm al (applies to non-numeric results) [facility] ([facility]) Mean Corpuscular HGB Conc 34.4 g/dL 32.0-36.5 Normal (applies to non-numeric results) [facility] ([facility]) Platelet Count, Automated 285 10 150-450 Normal (applies to non-numeric results) [facility] ([facility]) Lymph % 8.1 % 24.0-44.0 Below low normal [facility] ( [facility]) Neutrophils % 80.3 % 36.0-66.0 Above high normal [facility] ([facility]) Eos % 0.5 % 0.0-3.0 Normal (applies to non-numeric resul ts) [facility] ([facility]) Wise % 9.7 % 0.0-5.0 Above high normal [facility] ([facility]) Baso % 0.7 % 0.0-1.0 Normal (applies to non-numeric resul ts) [facility] Immature Granulocyte % 0.7 % 0-3.0 Normal (applies to non-n umeric results) [facility] ([facility]) Lymph # 0.8 10 1.5-5.0 Below low normal [facility] ( [facility]) Nucleated Red Blood Cell % 0.0 % 0-0 Normal (applies to n on-numeric results) [facility] Neutrophils # 8.2 10 1.5-8.5 Normal (applies to non-numeric re sults) [facility] ([facility]) Baso # 0.1 10 0.0-0.2 Normal (applies to non-numeric resul ts) [facility]) Eos # 0.1 10 0.0-0.5 Normal (applies to non-numeric resul ts) [facility]) Wise # 1.0 10 0.0-0.8 Above high normal [facility] ([facility]) ID Date Data Source [id number] 07/26/2020 11:25:00 AM EST [facility] ([facility]) Name Value Range Interpretation Code Description Data Aydee rce(s) Supporting Document(s) Prothrombin Time 12.9 s 12.5-14.3 Normal (applies to non-numeric results) [facility] ([facility]) Inr 0.95 Normal (applies to non-numeric resul ts) [facility] ([facility]) THERAPUTIC HUMAN INR VALUES INDICATIONS NORMAL RANGES PROPHYLAXIS/TREATMENT OF: VENOUS THROMBOSIS 2.0-3.0 PULMONARY EMBOLISM 2.0-3.0 PREVENTION OF SYSTEMIC EMBOLISM FROM: TISSUE HEART VALVES 2.0-3.0 ACUTE MYOCARDIAL INFARCTION 2.0-3.0 VALVULAR HEART DISEASE 2.0-3.0 ATRIAL FIBRILLATION 2.0-3.0 MECHANICAL VALVES(HIGH RISK) 2.5-3.5 RECURRENT MYOCARDIAL INFARCTION 2.5-3.5 Partial Thromboplastin Time 32.8 s 24.2-38.5 Norm al (applies to non-numeric results) [facility] ([facility]) ID Date Data Source [id number] 07/26/2020 11:25:00 AM EST [facility] ([facility]) Name Value Range Interpretation Code Description Data Aydee rce(s) Supporting Document(s) Platelets [#/volume] in Blood by Automated count 342 10 150-450 Normal (applies to non-numeric results) [facility] ([facility]) aPTT in Platelet poor plasma by Coagulation assay Laboratory test res ult [facility]) ID Date Data Source [id number] 05/18/2020 12:19:00 PM EDT [facility] Name Value Range Interpretation Code Description Data Aydee rce(s) Supporting Document(s) Laboratory test finding (navigational concept) 154 mg/dL 70-105 [facility] ([facility] Laboratory test finding (navigational concept) 140 meq/L 136-145 [facility] ([facility] Laboratory test finding (navigational concept) 65.0 % 38.0-51.0 [facility] ([facility] Laboratory test finding (navigational concept) 104 meq/L 98-109 [facility] ([facility] Laboratory test finding (navigational concept) 3.4 meq/L 3.5-5.1 [facility] ([facility] Laboratory test finding (navigational concept) 5.0 mg/dL 4.5-5.3 [facility] ([facility] Laboratory test finding (navigational concept) 19.0 MM/L 23.0-27.0 [facility] ([facility] Laboratory test finding (navigational concept) 0.6 mg/dL 0.6-1.3 [facility] ([facility] Laboratory test finding (navigational concept) 24 mg/dL 8-26 [facility] ([facility] ID Date Data Source [id number] 05/18/2020 12:05:00 PM EDT [facility] ([facility] Name Value Range Interpretation Code Description Data Aydee rce(s) Supporting Document(s) Troponin I.cardiac [Mass/volume] in Serum or Plasma 0.00 ng/mL 0.00-0 .08 [facility] ([facility] ID Date Data Source [id number] 05/18/2020 11:55:00 AM EDT [facility] ([facility] Name Value Range Interpretation Code Description Data Aydee rce(s) Supporting Document(s) Laboratory test finding (navigational concept) 1.04 0.4-2.0 [facility] ([facility] ID Date Data Source [id number] 05/18/2020 11:52:00 AM EDT [facility] ([facility] Name Value Range Interpretation Code Description Data Aydee rce(s) Supporting Document(s) Thyrotropin [Units/volume] in Serum or Plasma 0.480 uIU/ML 0.358-3.74 0 [facility] ([facility] Natriuretic peptide.B prohormone N-Terminal [Mass/volu me] in Serum or Plasma 612 pg/mL [facility] ID Date Data Source [id number] 05/18/2020 11:52:00 AM EDT [facility] ([facility] Name Value Range Interpretation Code Description Data Aydee rce(s) Supporting Document(s) Ast/Sgot 24 U/L 7-37 [facility] ([facility] Bilirubin,Total 1.5 mg/dL 0.2-1.0 [facility] ([facility] Alkaline Phosphatase 105 U/L 45-117 [facility] ([facility] Alt/SGPT 35 U/L 12-78 [facility] ([facility] Total Protein 6.0 GM/DL 6.4-8.2 [facility] ([facility] Bilirubin,Direct 0.9 mg/dL 0.0-0.2 [facility] ([facility] Albumin 2.3 GM/DL 3.2-5.2 [facility] ([facility] Albumin/Globulin Ratio 0.6 [facility] ([facility] ID Date Data Source [id number] 05/18/2020 11:52:00 AM EDT [facility] ([facility] Name Value Range Interpretation Code Description Data Aydee rce(s) Supporting Document(s) Inr 1.13 [facility] ([facility] THERAPUTIC HUMAN INR VALUES INDICATIONS NORMAL RANGES PROPHYLAXIS/TREATMENT OF: VENOUS THROMBOSIS 2.0-3.0 PULMONARY EMBOLISM 2.0-3.0 PREVENTION OF SYSTEMIC EMBOLISM FROM: TISSUE HEART VALVES 2.0-3.0 ACUTE MYOCARDIAL INFARCTION 2.0-3.0 VALVULAR HEART DISEASE 2.0-3.0 ATRIAL FIBRILLATION 2.0-3.0 MECHANICAL VALVES(HIGH RISK) 2.5-3.5 RECURRENT MYOCARDIAL INFARCTION 2.5-3.5 Prothrombin Time 14.7 s 12.5-14.3 [facility] ([facility] M[facility] ID Date Data Source [id number] 05/18/2020 11:52:00 AM EDT [facility] ([facility] Name Value Range Interpretation Code Description Data Aydee rce(s) Supporting Document(s) White Blood Count 13.3 10 4.0-10.0 [facility] ([facility]ureen Israel [facility] Red Blood Count 4.01 10 4.30-6.10 [facility] ([facility] Hematocrit 37.4 % 42.0-52.0 [facility] (Natasha pritchard [facility] Mean Corpuscular Hemoglobin 32.7 pg 27.0-33.0 [facility] ([facility] Mean Corpuscular Volume 93.3 fl 80.0-96.0 M EDENT ([facility] Hemoglobin 13.1 g/dL 13.5-17.5 [facility] (Natasha pritchard [facility] Mean Corpuscular HGB Conc 35.0 g/dL 32.0-36.5 [facility] ([facility] Red Cell Distribution Width 12.4 % 11.5-14.5 [facility] ([facility] Lymph % 2.6 % 24.0-44.0 [facility] (Natasha hodges [facility] Platelet Count, Automated 344 10 150-450 [facility] ([facility] Neutrophils % 86.7 % 36.0-66.0 [facility] ([facility] Wise % 9.4 % 0.0-5.0 [facility] (Natasha hodges [facility] Immature Granulocyte % 0.7 % 0-3.0 [facility] ([facility] Eos % 0.2 % 0.0-3.0 [facility] ([facility]odges [facility] Baso % 0.4 % 0.0-1.0 [facility] (Natasha hodges [facility] Nucleated Red Blood Cell % 0.0 % 0-0 MED ENT ([facility] Neutrophils # 11.5 10 1.5-8.5 [facility] ([facility] Lymph # 0.3 10 1.5-5.0 [facility] (Natasha hodges [facility] Wise # 1.2 10 0.0-0.8 [facility] (Nat[facility] hodges [facility] Baso # 0.1 10 0.0-0.2 [facility] (Nat[facility] hodges [facility] Eos # 0.0 10 0.0-0.5 [facility] ([facility]odges [facility] ID Date Data Source [id number] 05/18/2020 11:52:00 AM EDT [facility] ([facility] Name Value Range Interpretation Code Description Data Aydee rce(s) Supporting Document(s) Venous Partial Pressure Co2 28.1 mmHg 38.0-50.0 [facility] ([facility] Venous PH 7.476 units 7.330-7.430 [facility] ([facility] Venous Hco3 20.3 meq/L 23.0-27.0 [facility] ([facility] Venous Total Co2 21.1 meq/L 24.0-28.0 [facility] ( [facility] Venous Partial Pressure O2 140.0 mmHg 30.0-50.0 [facility] ([facility] Venous O2 Saturation 98.9 % 60.0-80.0 MEDE NT ([facility] Venous Standard Hco3 22.9 meq/L [facility] ( [facility] Venous Base Excess -1.9 [facility] (Bryan [facility] ID Date Data Source [id number] 05/18/2020 11:37:00 AM EDT [facility] ([facility] Name Value Range Interpretation Code Description Data Aydee rce(s) Supporting Document(s) Venous PH 7.476 units 7.330-7.430 [facility] ([facility] Venous Partial Pressure Co2 28.1 mmHg 38.0-50.0 [facility] ([facility] Venous Partial Pressure O2 140.0 mmHg 30.0-50.0 [facility] ([facility] Venous Total Co2 21.1 meq/L 24.0-28.0 [facility] ( [facility] Venous Base Excess -1.9 [facility] (Bryan [facility] Venous Standard Hco3 22.9 meq/L [facility] ( [facility] Venous Hco3 20.3 meq/L 23.0-27.0 [facility] ([facility] Venous O2 Saturation 98.9 % 60.0-80.0 MEDE NT ([facility] ID Date Data Source [id number] 01/25/2020 08:51:00 AM EDT [facility] ([facility] Name Value Range Interpretation Code Description Data Aydee rce(s) Supporting Document(s) HDL Cholesterol 44 mg/dL [facility] ([facility] Cholesterol Level 180 mg/dL [facility] ([facility]ureen [facility] Triglycerides Level 73 mg/dL [facility] (Jhony [facility] Non-HDL-C 136 mg/dL [facility] (Natasha hodges [facility] LDL Cholesterol 121 mg/dL [facility] ([facility] Cholesterol Risk Ratio 4.090 [facility] ([facility] ID Date Data Source [id number] 01/25/2020 08:51:00 AM EDT [facility] ([facility] Name Value Range Interpretation Code Description Data Aydee e(s) Supporting Document(s) Glucose, Fasting 101 mg/dL 70-100 [facility] ([facility] Creatinine For GFR 1.04 mg/dL 0.70-1.30 [facility] ([facility] Blood Urea Nitrogen 19 mg/dL 7-18 [facility] (Jhony [facility] Glomerular Filtration Rate Laboratory test result [facility] ([facility] <content>Units are mL/min/1.73 m2</content>
<content></content>
<content>Chronic Kidney Disease Staging per NK[facility]:</content>
<content></content>
<content>Stage I & II GFR >=60 Normal to Mildly Decreased</content>
<content>Stage III GFR 30- 59 Moderately Decreased</content>
<content>Stage IV GFR 15-29 Severely Decreased</content>
<content>Stage V GFR <15 Very Little GFR Left</content>
<content>ESRD GFR <15 on LENS MAKER</content>
<content></content> Sodium Level 142 meq/L 136-145 [facility] ([facility] Carbon Dioxide Level 24 meq/L 21-32 [facility] (Charla [facility] Chloride Level 112 meq/L 98-107 [facility] ([facility] Potassium Serum 4.1 meq/L 3.5-5.1 [facility] ([facility] Ast/Sgot 12 U/L 7-37 [facility] (Natasha hodges [facility] Calcium Level 8.8 mg/dL 8.8-10.2 [facility] ([facility] Anion Gap 6 meq/L 8-16 [facility] (Natasha hodges [facility] Alkaline Phosphatase 72 U/L 45-117 [facility] (Charla Israel [facility] Alt/SGPT 20 U/L 12-78 [facility] (Natasha hodges [facility] Albumin 3.7 GM/DL 3.2-5.2 [facility] (Natasha hodges [facility] Bilirubin,Total 0.8 mg/dL 0.2-1.0 [facility] ([facility] Total Protein 6.9 GM/DL 6.4-8.2 [facility] ([facility] Albumin/Globulin Ratio 1.2 [facility] ([facility] ID Date Data Source [id number] 01/25/2020 08:51:00 AM EDT [facility] ([facility] Name Value Range Interpretation Code Description Data Aydee rce(s) Supporting Document(s) White Blood Count 7.0 10 4.0-10.0 [facility] ([facility]ureen Israel [facility] Hemoglobin 16.0 g/dL 13.5-17.5 [facility] (Natasha pritchard [facility] Red Blood Count 4.71 10 4.30-6.10 [facility] ([facility] Hematocrit 45.3 % 42.0-52.0 [facility] (Natasha pritchard [facility] Mean Corpuscular Hemoglobin 34.0 pg 27.0-33.0 [facility] ([facility] Mean Corpuscular Volume 96.2 fl 80.0-96.0 M EDENT (Nat[facility] Israel [facility] Red Cell Distribution Width 12.7 % 11.5-14.5 [facility] ([facility] Mean Corpuscular HGB Conc 35.3 g/dL 32.0-36.5 [facility] ([facility] Lymph % 18.1 % 24.0-44.0 [facility] (Natasha hodges [facility] Platelet Count, Automated 219 10 150-450 [facility] ([facility] Neutrophils % 68.0 % 36.0-66.0 [facility] ([facility] Baso % 0.9 % 0.0-1.0 [facility] (Natasha hodges [facility] Eos % 1.6 % 0.0-3.0 [facility] (Natasha hodges [facility] Wise % 11.1 % 0.0-5.0 [facility] (Natasha hodges [facility] Nucleated Red Blood Cell % 0.0 % 0-0 MED ENT ([facility] Immature Granulocyte % 0.3 % 0-3.0 [facility] ([facility] Wise # 0.8 10 0.0-0.8 [facility] (Natasha hodges [facility] Neutrophils # 4.8 10 1.5-8.5 [facility] ([facility] Lymph # 1.3 10 1.5-5.0 [facility] (Natasha hodges [facility] Eos # 0.1 10 0.0-0.5 [facility] (Natasha hodges [facility] Baso # 0.1 10 0.0-0.2 [facility] (Natasha hodges [facility] Procedure Social History Code Duration Value Status Description Data Source(s ) Smoking 08/29/2020 12:00:00 AM EST Patient is a former smoker completed Patient is a former smoker [facility] ([facility]) Smoking 07/25/2020 12:00:00 AM EST - 05/03/2016 12:00:00 AM EDT Patient is a former smoker completed Patient is a former smoker [facility] ([facility] Vital Signs ID Date Data Source UNK Name Value Range Interpretation Code Description Data Source(s) Body surface area Derived from formula 1.85 m2 1.85 m2 [facility] ([facility]) Body weight 68.494 kg 68.494 kg [facility] ([facility]) [place] body weight 166 [lb_av] 166 [lb_av] [facility] T ([facility]) Body mass index (BMI) [Ratio] 21.7 kg/m2 21.7 k g/m2 [facility] ([facility]) Body weight 151.00 [lb_av] 151.00 [lb_av] [facility] T ([facility]) Body height 70 [in_i] 70 [in_i] [facility] ([facility]) 5'10" Oxygen saturation in Arterial blood by Pulse oximetry 97 % 97 % [facility] ([facility]) Room Air Heart rate 80 /min 80 /min [facility] ([facility]) Diastolic blood pressure 80 mm[Hg] 80 mm[Hg] [facility] ([facility]) Systolic blood pressure 140 mm[Hg] 140 mm[Hg] [facility] ([facility]) Body surface area Derived from formula 1.86 m2 1.86 m2 [facility] ([facility]) Body weight 68.947 kg 68.947 kg [facility] ([facility]) [place] body weight 166 [lb_av] 166 [lb_av] [facility] Body mass index (BMI) [Ratio] 21.8 kg/m2 21.8 k g/m2 [facility] ([facility]) Body weight 152.00 [lb_av] 152.00 [lb_av] [facility] Body height 70 [in_i] 70 [in_i] [facility] ([facility]) 5'10" Body temperature 96.0 [degF] 96.0 [degF] [facility] ([facility]) Oxygen saturation in Arterial blood by Pulse oximetry 96 % 96 % [facility] ([facility]) Heart rate 111 /min 111 /min [facility] ([facility]) Diastolic blood pressure 90 mm[Hg] 90 mm[Hg] [facility] ([facility]) Systolic blood pressure 140 mm[Hg] 140 mm[Hg] [facility] ([facility]) Body mass index (BMI) [Ratio] 22.0 kg/m2 22.0 k g/m2 [facility] ([facility] [place] body weight 166 [lb_av] 166 [lb_av] [facility] T ([facility] Oxygen saturation in Arterial blood by Pulse oximetry 98 % 98 % [facility] ([facility] Body weight 153.38 [lb_av] 153.38 [lb_av] [facility] T ([facility] Body height 70 [in_i] 70 [in_i] [facility] ([facility] 5'10" Respiratory rate 18 /min 18 /min [facility] ( [facility] Body temperature 97.3 [degF] 97.3 [degF] [facility] ([facility] Heart rate 88 /min 88 /min [facility] ([facility] Diastolic blood pressure 85 mm[Hg] 85 mm[Hg] [facility] ([facility] recheck Systolic blood pressure 149 mm[Hg] 149 mm[Hg] M EDENT ([facility] recheck Diastolic blood pressure 85 mm[Hg] 85 mm[Hg] [facility] ([facility] Systolic blood pressure 153 mm[Hg] 153 mm[Hg] M EDENT ([facility] Body surface area Derived from formula 1.86 m2 1.86 m2 [facility] Body weight 68.947 kg 68.947 kg [facility] ([facility]) [place] body weight 166 [lb_av] 166 [lb_av] [facility] T ([facility]) Body mass index (BMI) [Ratio] 21.8 kg/m2 21.8 k g/m2 [facility] ([facility]) Body weight 152.00 [lb_av] 152.00 [lb_av] MED[facility] T ([facility]) Body height 70 [in_i] 70 [in_i] [facility] ([facility], ) 5'10" Oxygen saturation in Arterial blood by Pulse oximetry 94 % 94 % [facility] ([facility], ) Room Air Heart rate 94 /min 94 /min [facility] ([facility]) Diastolic blood pressure 80 mm[Hg] 80 mm[Hg] [facility] Systolic blood pressure 136 mm[Hg] 136 mm[Hg] [facility] Body mass index (BMI) [Ratio] 21.5 kg/m2 21.5 k g/m2 [facility] ([facility] [place] body weight 166 [lb_av] 166 [lb_av] [facility] Oxygen saturation in Arterial blood by Pulse oximetry 97 % 97 % [facility] ([facility] Body weight 150.12 [lb_av] 150.12 [lb_av] MED[facility] T ([facility] Body height 70 [in_i] 70 [in_i] [facility] ([facility] 5'10" Respiratory rate 20 /min 20 /min [facility] ( [facility] Body temperature 96.6 [degF] 96.6 [degF] [facility] ([facility] Heart rate 111 /min 111 /min [facility] ([facility] Diastolic blood pressure 81 mm[Hg] 81 mm[Hg] [facility] Systolic blood pressure 124 mm[Hg] 124 mm[Hg] [facility] ([facility] Diastolic blood pressure 82 mm[Hg] 82 mm[Hg] [facility] ([facility] Systolic blood pressure 150 mm[Hg] 150 mm[Hg] [facility] ([facility] Oxygen saturation in Arterial blood by Pulse oximetry 97 % 97 % [facility] ([facility] Body weight 159.19 [lb_av] 159.19 [lb_av] [facility] T ([facility] Respiratory rate 16 /min 16 /min [facility] ( [facility] Body temperature 95.5 [degF] 95.5 [degF] [facility] ([facility] Heart rate 81 /min 81 /min [facility] ([facility] Diastolic blood pressure 89 mm[Hg] 89 mm[Hg] [facility] ([facility] Systolic blood pressure 149 mm[Hg] 149 mm[Hg] M EDENT ([facility] Diastolic blood pressure 82 mm[Hg] 82 mm[Hg] [facility] ([facility] Systolic blood pressure 143 mm[Hg] 143 mm[Hg] M EDENT ([facility] Body temperature 97.6 [degF] 97.6 [degF] [facility] ([facility]
--- OUTSIDE RECORDS SUMMARY | 2020-09-12 16:22 | CCD | Continuity of Care Document ---
Author Author Chance HAYWOOD M.D. Organization Unknown Address [address] [place] [address] Phone [phone] Care Team Providers Care Base Loader Name Role Phone [facility] - Dermatology AUTM [phone] [facility] [place] - Urology AUTM Chaitanya Suárez MD AUTM [phone] [facility]monary Disease [facility] [phone] Problems Active Problems Provider Date Benign essential hypertension Natasha Haywood M.D. Onset : 01/15/2012 Social History Type [...] spray(s) by mouth once daily 4units Natasha Haywood M.D. 07/28/2018 Proair HFA 108(90Base) mcg/Act Aer osol 2 puffs every 4 hours as needed as needed for cough or sob 8.500gm Natasha Haywood M.D. Vitamin D-3 1000Unit Capsules 1 by mouth every day Unknown History Medications Ceftin 500mg Tablets 1 by mouth twice a day x 5 days Unknown 05/21/2020 - Doxycycline Hyclate 100mg Tablets 1 tab by mouth twice a day for 5 days Unknown - 05/26/2020 Immunizations CPT Code Status Date Vaccine Lot # [id number] Given 05/20/2020 Influenza Virus Vaccine, Quadrivalent,age 3 and up,multidose vial 23087 Given 10/25/2019 Pneumococcal Vaccine [id number] 13840 Given 05/11/2019 Influenza Virus Vaccine, Quadrivalent,age 3 and up,multidose vial 19380 Given 10/06/2018 Prevnar 13 For Adults [id number] 35340 Given 06/22/2018 Influenza Virus, quadravalent, preservative free,age 3 and up [id number] [id number] Given 08/30/2017 Influenza Virus Vaccine, Quadrivalent,age 3 and up,multidose vial 05974 Given 04/30/2015 Influenza Vaccination 94041 Given 04/30/2015 Influenza Vaccination [id number] 85227 Given 03/28/2015 Adacel 11 Yrs or older [...] Flow Rate 505 Estimated Peak Flow Rate [place] Body Weight 166 lb BMI (Body Mass [...] Flow Rate 505 Estimated Peak Flow Rate [place] Body Weight 166 lb BMI (Body Mass Index) 21.5 kg/m2 Results Test Acquired Date Facility Test Result H/L Range Note Istat Chem8+ Panel 05/18/[facility] [place], [place] [id number] [phone] iSTAT HCT 65.0 % High 38.0-51.0 iSTAT Glucose 154 mg/dL High 70-105 i[facility] Sodium 140 mEq/L Normal 136-145 [facility] Potassium 3.4 mEq/L Low 3.5-5.1 iSTAT CA++ 5.0 mg/dL Normal 4.5-5.3 [facility] Chloride 104 mEq/L Normal 98-109 i[facility] Co2 19.0 MM/L Low 23.0-27.0 iSTAT BUN 24 mg/dL Normal 8-26 iSTAT Creatinine 0.6 mg/dL Normal 0.6-1.3 Laboratory test finding 05/18/2020 [place] [address] [phone] iSTAT Troponin 0.00 NG/ML Normal 0.00-0.08 Laboratory test finding 05/18/2020 [place] [address] [phone] iSTAT Lactate 1.04 Normal 0.4-2.0 Venous Blood Gas 05/18/2020 [place] [address] [phone] Venous PH 7.476 units High 7.330-7.430 Venous Partial Pressure Co2 28.1 mmHg Low 38.0-50.0 Venous Partial Pressure O2 140.0 mmHg High 30.0-50.0 Venous Total Co2 21.1 mEq/L Low 24.0-28.0 Venous Hco3 20.3 mEq/L Low 23.0-27.0 Venous Base Excess -1.9 Normal -2.0-2.0 Venous Standard Hco3 22.9 mEq/L Normal Venous O2 Saturation 98.9 % High 60.0-80.0 CBC With Differential 05/18/2020 [place] [address] [phone] White Blood Count 13.3 10 High 4.0-10.0 [...] 36.0-66.0 Lymph % 2.6 % Low 24.0-44.0 [place] % 9.4 % High 0.0-5.0 Eos % 0.2 % Normal 0.0-3.0 Baso % 0.4 % Normal 0.0-1.0 Immature Granulocyte % 0.7 % Normal 0-3.0 Nucleated Red Blood Cell % 0.0 % Normal 0-0 Neutrophils # 11.5 10 High 1.5-8.5 Lymph # 0.3 10 Low 1.5-5.0 [place] # 1.2 10 High 0.0-0.8 Eos # 0.0 10 Normal 0.0-0.5 Baso # 0.1 10 Normal 0.0-0.2 Prothrombin Time/Inr 05/18/2020 [place] [address] [phone] Prothrombin Time 14.7 seconds High 12.5-14.3 Inr 1.13 Normal 1 Liver Profile 05/18/2020 Patient Service [facility] [place] [address] [phone] Ast/Sgot 24 U/L Normal 7-37 Alt/SGPT 35 U/L Normal 12-78 Alkaline Phosphatase 105 U/L Normal 45-117 Bilirubin,Total 1.5 mg/dL High 0.2-1.0 Bilirubin,Direct 0.9 mg/dL High 0.0-0.2 Total Protein 6.0 GM/DL Low 6.4-8.2 Albumin 2.3 GM/DL Low 3.2-5.2 Albumin/Globulin Ratio 0.6 Normal Laboratory test finding 05/18/2020 [place] [address] [phone] NT-Pro BNP 612 pg/mL High <125 Thyroid Stimulating Hormone 0.480 uIU/ML Normal 0.358-3.740 Venous Blood Gas 05/18/2020 [facility] [place] [id number] [phone] Venous PH 7.476 units High 7.330-7.430 Venous Partial Pressure Co2 28.1 mmHg Low 38.0-50.0 Venous Partial Pressure O2 140.0 mmHg High 30.0-50.0 Venous Total Co2 21.1 mEq/L Low 24.0-28.0 Venous Hco3 20.3 mEq/L Low 23.0-27.0 Venous Base Excess -1.9 Normal -2.0-2.0 Venous Standard Hco3 22.9 mEq/L Normal Venous O2 Saturation 98.9 % High 60.0-80.0 1 THERAPUTIC HUMAN INR VALUES INDICATIONS NORMAL [...] Office Visit 07/25/2020 11:45a Main Office Natasha Haywood M.D. R 03.0 Elevated blood-pressure reading, w/o diagnosis of htn J44.9 Chronic obstructive pulmonar y disease, unspecified Z13.89 Encounter for screening for other disorder Office Visit 05/29/2020 9:00a Main Office Natasha Haywood M.D. J 44.9 Chronic obstructive pulmonary disease, unspecified J18.9 Pneumonia, unspecified organ ism Assessments Date Code Description Provider 07/25/2020 R03.0 Elevated blood-pressure reading, without diagnosis of hypert Natasha Haywood M.D. 07/25/2020 J44.9 Chronic obstructive pulmonary di sease, unspecified Natasha Haywood M.D. 07/25/2020 Z13.89 Encounter for screening for othe r disorder Natasha Haywood M.D. 05/29/2020 J44.9 Chronic obstructive pulmonary di sease, unspecified Natasha Haywood M.D. 05/29/2020 J18.9 Pneumonia, unspecified organism Natasha Haywood M.D. Plan of Treatment Future Appointment(s):* 10/23/2020 11:00 am - Natasha Haywood M.D. at Main Office 07/25/2020 - Natasha Haywood M.D.* R03.0 Elevated blood-pressure reading, without diagnosis of hypert * J44.9 Chronic obstructive pulmonary disease, unspecified* Comments:* I spoke with patients training and development manager, Dr. Patel. He is going to make sure an f/u appt is arranged. Right now no changes. * Follow up:* 3-4 months * Z13.89 Encounter for screening for other disorder Goals 07/25/2020 - Natasha Haywood M.D.* R03.0 Elevated blood-pressure reading, without diagnosis [...]
--- OUTSIDE RECORDS SUMMARY | 2020-09-12 16:22 | CCD | Continuity of Care Document ---
Author Author Chance PATEL MD Organization Unknown Address [address] [address] Phone [phone] Care Team Providers Care Customer Servicer Name Role Phone Natasha Israel M.D. AUTM [phone] Radiology/Procedure AUTM Unavailable Problems Active Problems Provider Date Screening for malignant neoplasm of colon SHIRA Bonilla Onset: 12/11/2016 Dyspnea Luz Asher, A.N.P. Onset: 11/03/2017 Social History Type Date Description Comments Sex Unknown Cigarette Use Pack Years - 38 ETOH Use Denies alcohol use Recreational Drug Use Denies Drug Use Tobacco Use Start: Unknown End: Unknown Patient is a former smoker QUIT 2015 hx: [id number] started at age 16 Smoking Status Reviewed: 07/26/20 Patient is a former smoker QU IT 2015 hx: [id number] started at age 16 Allergies, Adverse Reactions, Alerts Description No Known Drug Allergies Medications Active Medications SIG Qnty Indications Ordering Provide r Date Cefuroxime Axetil 500mg Tablets 1 by mouth twice a day 20tabs Lucio Patel MD 07/26/2020 Proair HFA 108(90Base) mcg/Act Aer osol 2 puffs four times a day as needed 8.500units R06.02 Luz Asher, A. N.P. 11/03/2017 Spiriva Respimat 2.5mcg/Act Aeroso l 2 puffs every day 4units Lucio Patel MD 01/07/2017 Vitamin D (Cholecalciferol) 1000Unit Capsules 1tab po qd Unknown History Medications Levofloxacin 500mg Tablets 1 by mouth every day 10tabs Lucio Patel MD 05/14/2020 - 06/26/2020 Immunizations CPT Code Status Date Vaccine Lot # [id number] Given 05/11/2019 Afluria, Quadrivalent, 0.5ml , [facility]# [id number] Vital Signs Date Vital Result Comment 07/26/2020 10:56am BP Systolic 140 mmHg BP Diastolic 90 mmHg Heart Rate 111 /min O2 % BldC Oximetry 96 % Body Temperature 96.0 F Height 70 inches 5'10" Weight 152.00 lb BMI (Body Mass Index) 21.8 kg/m2 [place] Body Weight 166 lb Weight 68.947 kg BSA (Body Surface Area) 1.86 m2 06/26/2020 1:50pm BP Systolic 136 mmHg BP Diastolic 80 mmHg Heart Rate 94 /min O2 % BldC Oximetry 94 % Room Air Height 70 inches 5'10" Weight 152.00 lb BMI (Body Mass Index) 21.8 kg/m2 [place] Body Weight 166 lb Weight 68.947 kg BSA (Body Surface Area) 1.86 m2 Results Description No Information Available Procedures Date Code Description Status 06/26/2020 79089 Spirometry Completed Medical Devices Description No Information Available Encounters Description No Information Available Assessments Date Code Description Provider 07/26/2020 R91.8 Other nonspecific abnormal findi ng [...] Patel MD Plan of Treatment Future Appointment(s):* 10/24/2020 1:30 pm - Lucio Patel MD at [facility] Pulmonary/Thoracic 07/26/2020 - Lucio Patel MD* R91.8 Other nonspecific abnormal finding of lung field * J43.1 Panlobular emphysema * Z87.891 Personal history of nicotine dependence * J90 Pleural effusion, not elsewhere classified * * New Labs:* Coag Panel For Procedures, Ordered: 07/26/20 * Follow up:* f/u after results available Functional Status Description No Information Available Mental Status Description No Information Available Referrals Refer to Reason for Referral Status Appt Date Radiology/Procedure no site selection required approved [id number] C losed Radiology/Procedure 61674 CHT CHEST NO CONTRAST- [id number] VALID 04/30/20-10/27/20 Closed
--- OUTSIDE RECORDS SUMMARY | 2020-09-12 16:22 | CCD | Continuity of Care Document ---
Author Author Chance ISRAEL M.D. Organization Unknown Address [address] [place] [address] Phone [phone] Care Team Providers Care Fire Control Officer Name Role Phone [facility] - Dermatology AUTM [phone] [facility] - Urology AUTM Chaitanya Suárez MD [facility] [phone] [facility] - Pulmonary Disease [facility] [phone] Problems Active Problems Provider Date Benign essential [...] CPT Code Status Date Vaccine Lot # [id number] Given 05/20/2020 Influenza Virus Vaccine, Quadrivalent,age 3 and up,multidose vial [id number] Given 10/25/2019 Pneumococcal Vaccine [id number] 33716 Given 05/11/2019 Influenza Virus Vaccine, Quadrivalent,age 3 and up,multidose vial 97528 Given 10/06/2018 Prevnar 13 For Adults [id number] 46096 Given 06/22/2018 Influenza Virus, quadravalent, preservative free,age 3 and up [id number] 84515 Given 08/30/2017 Influenza Virus Vaccine, Quadrivalent,age 3 and up,multidose vial 02581 Given 04/30/2015 Influenza Vaccination [id number] Given 04/30/2015 Influenza Vaccination [id number] 99950 Given 03/28/2015 Adacel 11 Yrs or older [...] Flow Rate 505 Estimated Peak Flow Rate [place] Body Weight 166 lb BMI (Body Mass [...] Flow Rate 505 Estimated Peak Flow Rate [place] Body Weight 166 lb BMI (Body Mass Index) 21.5 kg/m2 Results Test Acquired Date Facility Test Result H/L Range Note Istat Chem8+ Panel 05/18/[facility] [place] [id number] [phone] iSTAT HCT 65.0 % High 38.0-51.0 iSTAT Glucose 154 mg/dL High 70-105 iSTAT Sodium 140 mEq/L Normal 136-145 iSTAT Potassium 3.4 mEq/L Low 3.5-5.1 iSTAT CA++ 5.0 mg/dL Normal 4.5-5.3 i[facility] Chloride 104 mEq/L Normal 98-109 iSTAT Co2 19.0 MM/L Low 23.0-27.0 iSTAT BUN 24 mg/dL Normal 8-26 iSTAT Creatinine 0.6 mg/dL Normal 0.6-1.3 Laboratory test finding 05/18/2020 [place] [address] [phone] iSTAT Troponin 0.00 NG/ML Normal 0.00-0.08 Laboratory test finding 05/18/2020 [facility] [place] [address] [phone] iSTAT Lactate 1.04 Normal 0.4-2.0 Venous Blood Gas 05/18/2020 [place] [address] [phone] Venous PH 7.476 units High 7.330-7.430 Venous Partial Pressure Co2 28.1 mmHg Low 38.0-50.0 Venous Partial Pressure O2 140.0 mmHg High 30.0-50.0 Venous Total Co2 21.1 mEq/L Low 24.0-28.0 Venous Hco3 20.3 mEq/L Low 23.0-27.0 Venous Base Excess -1.9 Normal -2.0-2.0 Venous Standard Hco3 22.9 mEq/L Normal Venous O2 Saturation 98.9 % High 60.0-80.0 CBC With Differential 05/18/2020 [place] [address] [phone] White Blood Count 13.3 10 High 4.0-10.0 [...] 36.0-66.0 Lymph % 2.6 % Low 24.0-44.0 [place] % 9.4 % High 0.0-5.0 Eos % 0.2 % Normal 0.0-3.0 Baso % 0.4 % Normal 0.0-1.0 Immature Granulocyte % 0.7 % Normal 0-3.0 Nucleated Red Blood Cell % 0.0 % Normal 0-0 Neutrophils # 11.5 10 High 1.5-8.5 Lymph # 0.3 10 Low 1.5-5.0 [place] # 1.2 10 High 0.0-0.8 Eos # 0.0 10 Normal 0.0-0.5 Baso # 0.1 10 Normal 0.0-0.2 Prothrombin Time/Inr 05/18/2020 [place] [address] [phone] Prothrombin Time 14.7 seconds High 12.5-14.3 Inr 1.13 Normal 1 Liver Profile 05/18/2020 [place] [address] [phone] Ast/Sgot 24 U/L Normal 7-37 Alt/SGPT 35 U/L Normal 12-78 Alkaline Phosphatase 105 U/L Normal 45-117 Bilirubin,Total 1.5 mg/dL High 0.2-1.0 Bilirubin,Direct 0.9 mg/dL High 0.0-0.2 Total Protein 6.0 GM/DL Low 6.4-8.2 Albumin 2.3 GM/DL Low 3.2-5.2 Albumin/Globulin Ratio 0.6 Normal Laboratory test finding 05/18/2020 [place] [address] [phone] NT-Pro BNP 612 pg/mL High <125 Thyroid Stimulating Hormone 0.480 uIU/ML Normal 0.358-3.740 Venous Blood Gas 05/18/2020 [facility] [address] [phone] Venous PH 7.476 units High 7.330-7.430 Venous Partial Pressure Co2 28.1 mmHg Low 38.0-50.0 Venous Partial Pressure O2 140.0 mmHg High 30.0-50.0 Venous Total Co2 21.1 mEq/L Low 24.0-28.0 Venous Hco3 20.3 mEq/L Low 23.0-27.0 Venous Base Excess -1.9 Normal -2.0-2.0 Venous Standard Hco3 22.9 mEq/L Normal Venous O2 Saturation 98.9 % High 60.0-80.0 CBC With Differential 01/25/2020 [facility] [phone] White Blood Count 7.0 10 Normal 4.0-10.0 Red Blood Count 4.71 10 Normal 4.30-6.10 Hemoglobin 16.0 g/dL Normal 13.5-17.5 Hematocrit 45.3 % Normal 42.0-52.0 Mean Corpuscular Volume 96.2 fl High 80.0-96.0 Mean Corpuscular Hemoglobin 34.0 pg High 27.0-33.0 Mean Corpuscular HGB Conc 35.3 g/dL Normal 32.0-36.5 Red Cell Distribution Width 12.7 % Normal 11.5-14.5 Platelet Count, Automated 219 10 Normal 150-450 Neutrophils % 68.0 % High 36.0-66.0 Lymph % 18.1 % Low 24.0-44.0 [place] % 11.1 % High 0.0-5.0 Eos % 1.6 % Normal 0.0-3.0 Baso % 0.9 % Normal 0.0-1.0 Immature Granulocyte % 0.3 % Normal 0-3.0 Nucleated Red Blood Cell % 0.0 % Normal 0-0 Neutrophils # 4.8 10 Normal 1.5-8.5 Lymph # 1.3 10 Low 1.5-5.0 [place] # 0.8 10 Normal 0.0-0.8 Eos # 0.1 10 Normal 0.0-0.5 Baso # 0.1 10 Normal 0.0-0.2 Comprehensive Metabolic Profil 01/25/2020 [facility] [phone] Glucose, Fasting 101 mg/dL High 70-100 Blood Urea Nitrogen 19 mg/dL High 7-18 Creatinine For GFR 1.04 mg/dL Normal 0.70-1.30 Glomerular Filtration Rate > 60.0 Normal >49 2 Sodium Level 142 mEq/L Normal 136-145 Potassium Serum 4.1 mEq/L Normal 3.5-5.1 Chloride Level 112 mEq/L High 98-107 Carbon Dioxide Level 24 mEq/L Normal 21-32 Anion Gap 6 mEq/L Low 8-16 Calcium Level 8.8 mg/dL Normal 8.8-10.2 Ast/Sgot 12 U/L Normal 7-37 Alt/SGPT 20 U/L Normal 12-78 Alkaline Phosphatase 72 U/L Normal 45-117 Bilirubin,Total 0.8 mg/dL Normal 0.2-1.0 Total Protein 6.9 GM/DL Normal 6.4-8.2 Albumin 3.7 GM/DL Normal 3.2-5.2 Albumin/Globulin Ratio 1.2 Normal Lipid Panel 01/25/2020 [facility]ter [phone] Triglycerides Level 73 mg/dL Normal <150 Cholesterol Level 180 mg/dL Normal <200 HDL Cholesterol 44 mg/dL Normal >40 LDL Cholesterol 121 mg/dL High <100 Non-HDL-C 136 mg/dL Normal Cholesterol Risk Ratio 4.090 Normal <5 1 THERAPUTIC HUMAN INR VALUES INDICATIONS NORMAL [...] Little GFR Left ESRD GFR <15 on LINE TENDER [employer] Procedures Description No Information Available Medical Devices Description No Information Available Encounters Type Date Location Provider Dx Diagnosis Office Visit 05/29/2020 9:00a Main Office Natasha Israel M.D. J 44.9 Chronic obstructive pulmonary disease, unspecified J18.9 Pneumonia, unspecified organ ism Assessments Date Code Description Provider 07/25/2020 R03.0 Elevated blood-pressure reading, without diagnosis of hypert Natasha Israel M.D. 07/25/2020 J44.9 Chronic obstructive pulmonary di sease, unspecified Natasha Israel M.D. 05/29/2020 J44.9 Chronic obstructive pulmonary di sease, unspecified Natasha Israel M.D. 05/29/2020 J18.9 Pneumonia, unspecified organism Natasha Israel M.D. Plan of Treatment 07/25/2020 - Natasha Israel M.D.* R03.0 Elevated blood-pressure reading, without diagnosis of hypert * J44.9 Chronic obstructive pulmonary disease, unspecified* Follow up:* 3-4 months Functional Status Functional Condition Comment Date Status Bifocal glasses Active Independent with all ADL's Activ e Independent with all IADL's Acti ve Hearing Aid in both ears Active Mental Status Mental Condition Comment Date Status None Active Referrals Description No Information Available
--- OUTSIDE RECORDS SUMMARY | 2020-09-12 16:25 | CCD ---
Author Author [facility] Organization [facility] Address Unknown Phone Unavailable Care Team Providers Care Doctor Chiropractic Name Role Phone Ruthy Israel MD Unavailable [...] Unavailable Jhonatan, Ruthy Kaur MD Unavailable Unavailable Jhoantan, Ruthy Kaur MD Unavailable Unavailable Jhonatan, Ruthy [...] Unavailable Jhonatan, Ruthy Kaur MD Unavailable Unavailable Johnatan, Ruthy Kaur MD Unavailable Unavailable Jhonatan, Ruthy [...] Ruthy Kaur MD Unavailable Unavailable Jhonatan, Ruthy Karu MD Unavailable Unavailable Jhonatan, Ruthy Kaur MD [...] Unavailable Chance Patel MD Unavailable Unavailable Chance Patle MD Unavailable Unavailable Chance Patel MD Unavailable [...] is protected by Article 27-F of the [facility] Public Health law. If you continue you may have access to information: Regarding HIV / AIDS; Provided by facilities licensed or operated by the [facility] Office of Mental Health; or Provided by the [facility] Office for People With Developmental Disabilities. If such information is present, then the following [facility] mandated warning applies: This information has been [...] law may result in a fine or senior living sentence or both. A general authorization for the release of medical or other information is NOT sufficient authorization for further disc losure. Family History Family Member Name Family Member Gender Family Member Status Date o f Status Description Data Source(s) Unknown Unknown Problem [facility] ([facility]) Unknown Unknown Problem [facility] ([facility] Unknown Male Problem [facility] ([facility] Unknown Unknown Encounters Encounter Providers Location Date Indications Data Source(s ) Outpatient Referrer: Jose A Rosales 09/11/2020 08:51:0 0 AM EST Solitary pulmonary nodule [facility] Solitary pulmonary nodule Office Visit Attender: Lucio Dawkins/[place]/Curt/R eindl 08/29/2020 10:30:00 AM EST [facility] ([facility] Outpatient Attender: Lucio Dawkins/[place]/Curt/R eindl 07/26/2020 10:30:00 AM EST [facility] ([facility] Outpatient Attender: Natasha Israel MD Main Office 07/25/2020 10:45:0 0 AM EST [facility] ([facility] [address] [place] [address] 07/04/2020 12:00:00 AM EST eCW1 ([facility]) Office Visit Attender: Lucio Dawkins/[place]/Curt/R eindl 06/26/2020 12:45:00 PM EST MEDENT ([facility], ) Outpatient Attender: Natasha Israel [...] 12:00:00 A M EST ORAL completed MEDENT ([facility]) Cefuroxime 500 MG Oral Tablet Cefuroxime Axetil 07/26/2020 12:00:00 A M EST ORAL completed MED[facility] ([facility]) doxycycline hyclate 100 MG Oral Tablet Doxycycline Hyclate 1 12:00:00 AM EDT ORAL completed [facility] ([facility] Cefuroxime 500 MG Oral Tablet [Ceftin] Ceftin 05/21/2020 12:00:00 AM EDT ORAL completed [facility] ([facility] Levofloxacin 500 MG Oral Tablet Levofloxacin 05/14/2020 12:00:00 AM E DT ORAL completed MEDENT ([facility]) Insurance Providers Payer name Policy type / Coverage type Policy ID Covered democrat ID Covered democrat's relationship to cruz Policy Cruz Plan Information MEDICARE BLUE PPO [id number] SP [id number] [employer] MEDICARE BLUE PPO G [id number] Self [id number] [employer] MEDICARE BLUE PPO G [id number] Self [id number] EXCELLUS BS B [id number] S [id number] MEDICARE [id number] SP [id number] [facility] [id number] SP [id number] MEDICARE BLUE PPO 306 [id number] SP [id number] MEDICARE BLUE PPO 306 [id number] SP [id number] BCBS Medicare Commercial [id number] Self [id number] [facility] Health Maintenance Organization (HMO) [id number] Self [id number] Medicare Blue Ppo Commercial [id number] Self [id number] BCBS Medicare Commercial [id number] Self [id number] ANSI-Commercial [id number] ANSI-Not a Secondary Insurance [id number] ANSI-Commercial [id number] ANSI-Not a Secondary Insurance [id number] [facility] [id number] SP [id number] ANSI-Commercial [id number] ANSI-Not a Secondary Insurance [id number] [facility] Health Care Commercial [id number] Self [id number] [facility] Health Care Commercial [id number] Self [id number] [facility] Health Care Commercial [id number] Self [id number] [facility] Health Maintenance Organization (HMO) [id number] Self [id number] [facility] HE[facility] CARE [id number] SP [id number] [facility] O [id number] S [id number] [facility] Health Care Commercial [id number] Self [id number] [facility] [id number] SP [id number] [facility] Health Care Commercial [id number] Self [id number] [facility] [id number] Self [id number] [facility] Health Maintenance Organization (HMO) [id number] Self [id number] [facility] [id number] SP [id number] [facility] [id number] SP [id number] BCBS [place] PPO 302/307 [id number] SP [id number] [facility] O [id number] S [id number] BLUE CROSS [id number] S [id number] [employer] BCBS B [id number] S [id number] [employer] BS Of [facility] Health Maintenance Organization ([facility] Self [employer] EXCELLUS BCBS B [id number] S [id number] BCBS [place] PPO 302/307 [id number] SP [id number] [employer] Se l[employer] BS Of [facility] ([facility] Self [employer] [place] [employer] [place] [employer] [place] [employer] [place] [employer] [place] [employer] [place] [employer] O UNAVAILABLE UNAVAILA BLE [employer] l[employer] BC/BS Of [place] [facility] Part B Self BC/BS Of [place] Commercial Self BCBS [place] PPO 302/307 [id number] SP [id number] Problems, Conditions, and Diagnoses Code Display Name Description Problem Type Effective Dates Data Source(s) L57.0 [id number] Actinic keratoses Problem 07/25/2019 12:00:0 0 AM EST eCW1 ([facility]) R91.1 Solitary pulmonary nodule Solitary pulmonary nodule Di agnosis 09/11/2020 08:51:00 AM EST [facility] Surgeries/Procedures Procedure Description Date Indications Data Source(s) CT GUIDANCE NEEDLE PLACEMENT 08/29/2020 12:00:00 AM ES T MEDENT ([facility], ) DEMO&/EVAL OF PT UTILIZ AERSL GEN/NEB/INHLR/IPPB 07/26 12:00:00 AM EST MED[facility] ([facility], ) Spirometry 06/26/2020 12:00:00 AM EST M EDENT ([facility], ) Results ID Date Data Source [id number] 09/06/2020 11:50:00 AM EST MEDENT (Natasha Israel [...] NO GROWTH ANAEROBICALLY ID Date Data Source [id number] 09/06/2020 11:50:00 AM EST MEDENT (Natasha Israel [...] <=0.12 S</content>
<content></content> ID Date Data Source [id number] 09/06/2020 11:50:00 AM EST [facility] ([facility] Name Value Range Interpretation Code Description Data Aydee rce(s) Supporting Document(s) PH Body Fluid Laboratory test result [facility] ([facility] CLOTTED, UNABLE TO PERFORM TESTING Source, Body Fluid pH Laboratory test result [facility] ([facility] ID Date Data Source [id number] 09/06/2020 11:50:00 AM EST [facility] ([facility] Name Value Range Interpretation Code Description Data Aydee rce(s) Supporting Document(s) Amylase, Body Fluid 42 U/L [facility] ([facility] Source, Body Fluid Amylase Laboratory test result [facility] ([facility] ID Date Data Source [id number] 09/06/2020 11:50:00 AM EST [facility] ([facility] Name Value Range Interpretation Code Description Data Aydee rce(s) Supporting Document(s) Source, Body Fluid Glucose Laboratory test result [facility] ([facility] Glucose, Body Fluid 18 mg/dL [facility] ([facility] ID Date Data Source [id number] 09/06/2020 11:50:00 AM EST [facility] ([facility] Name Value Range Interpretation Code Description Data Aydee rce(s) Supporting Document(s) Source, Body Fluid LDH Laboratory test result [facility] ([facility] LDH, Body Fluid 54273 U/L [facility] ([facility] ID Date Data Source [id number] 09/06/2020 11:50:00 AM EST [facility] ([facility] Name Value Range Interpretation Code Description Data [facility] Supporting Document(s) Source, Body Fluid Tot Protein Laboratory test result [facility] ([facility] Total Protein, Body Fluid 5.2 g/dL MEDE NT ([facility] ID Date Data Source [id number] 09/06/2020 11:50:00 AM EST [facility] ([facility] Name Value Range Interpretation Code Description Data [facility] Supporting Document(s) Source, Body Fluid Laboratory [...] TO PERFORM TESTING ID Date Data Source [id number] 09/06/2020 11:50:00 AM EST [facility] ([facility] Name Value Range Interpretation Code Description Data [facility] Supporting Document(s) Amylase [Enzymatic activity/volume] in [...] DOE Time: 1046 ID Date Data Source [id number] 09/06/2020 11:10:00 AM EST MEDENT (Natasha Israel [...] Cintron Time: 1038 ID Date Data Source [id number] 09/06/2020 11:10:00 AM EST MEDENT (Natasha Israel [...] Little GFR Left</content>
<content>ESRD GFR <15 on PRINT GRAPHIC DESIGNER</content>
<content></content> Chloride Level 110 meq/L 98-107 MEDENT [...] [facility] ID Date Data Source [id number] 09/06/2020 11:10:00 AM EST MEDENT (Natasha Israel [...] % 36.0-66.0 [facility] ([facility] Loíza % 12.9 % 0.0-5.0 MEDENT (Natasha hodges [...] 10 0.0-0.5 [facility] ([facility] Lo[place]za # 1.3 10 0.0-0.8 [facility] ([facility] Baso # 0.1 10 0.0-0.2 [facility] ([facility] ID Date Data Source [id number] 09/06/2020 11:10:00 AM EST MEDENT ([facility]) Name Value Range Interpretation Code Description Data Aydee rce(s) Supporting Document(s) Lactate dehydrogenase [Enzymatic activity/volume] in Serum o r Plasma 120 U/L 87-241 Normal (applies to non-numeric results) MED[facility] ([facility]) By: BRISA Cintron Time: 1037 By: BRISA Cintron Time: 1038 By: BRISA Cintron Time: 1037 By: BRISA Cintron Time: 1038 ID Date Data Source [id number] 09/06/2020 11:10:00 AM EST MEDENT ([facility]) Name Value Range Interpretation Code Description Data Aydee rce(s) Supporting Document(s) Glucose, Fasting 96 mg/dL 70-100 Normal (applies to non-numeric results) [facility] ([facility]) Blood Urea Nitrogen 21 mg/dL 7-18 Above high normal MED[facility] ([facility], ) Glomerular Filtration Rate Laboratory test result Normal (applies to non- numeric results) [facility]) <content>Units are mL/min/1.73 m2</content>
<content></content>
<content>Chronic Kidney Disease Staging per NKF:</content>
<content></content>
<content>Stage I & II GFR >=60 Normal to Mildly Decreased</content>
<content>Stage III GFR 30-59 Moderately Decreased</content>
<content>Stage IV GFR 15-29 Severely Decreased</content>
<content>Stage V GFR <15 Very Little GFR Left</content>
<content>ESRD GFR <15 on PRINT GRAPHIC DESIGNER</content>
<content></content> Creatinine For GFR 0.95 mg/dL 0.70-1.30 Normal (applies to non -numeric results) [facility] ([facility], ) Sodium Level 142 meq/L 136-145 Normal (applies to non-numeric res ults) [facility] ([facility]) Chloride Level 110 meq/L 98-107 Above high normal MED ENT ([facility], ) Potassium Serum 4.0 meq/L 3.5-5.1 Normal (applies to non-numeric results) [facility] ([facility]) Calcium Level 10.0 mg/dL 8.8-10.2 Normal (applies to non-numeric re sults) [facility] ([facility]) Anion Gap 8 meq/L 8-16 Normal (applies to non-numeric resul ts) [facility] ([facility]) Carbon Dioxide Level 24 meq/L 21-32 Normal (applies to non-num arlene results) [facility] ([facility]) Ast/Sgot 7 U/L 7-37 Normal (applies to non-numeric resul ts) [facility]) Alkaline Phosphatase 78 U/L 45-117 Normal (applies to non-num arlene results) [facility] ([facility]) Alt/SGPT 19 U/L 12-78 Normal (applies to non-numeric resul ts) [facility] ([facility], ) Bilirubin,Total 0.8 mg/dL 0.2-1.0 Normal (applies to non-numeric results) [facility]) Total Protein 7.6 GM/DL 6.4-8.2 Normal (applies to non-numeric re sults) [facility]) Albumin/Globulin Ratio 0.9 Normal (applies to non-n umeric results) [facility]) Albumin 3.5 GM/DL 3.2-5.2 Normal (applies to non-numeric resul ts) [facility]) ID Date Data Source [id number] 09/06/2020 11:10:00 AM EST [facility] ([facility]) Name Value Range Interpretation Code Description Data Aydee rce(s) Supporting Document(s) Red Blood Count 4.78 10 4.30-6.10 Normal (applies to non-numeric results) [facility] ([facility], ) White Blood Count 10.2 10 4.0-10.0 Above high normal [facility] ([facility]) A Pathologist review of this differentia l can help in the evaluation of a differential diagnosis. Please order a Pathologist Review (PERISM) if deemed necessary. Results are subject to change if a Pathologist Review is performed. Hemoglobin 15.4 g/dL 13.5-17.5 Normal (applies to non-numeric resul ts) [facility] ([facility], ) Hematocrit 46.4 % 42.0-52.0 Normal (applies to non-numeric resul ts) [facility]) Mean Corpuscular Volume 97.1 fl 80.0-96.0 Above high normal [facility]) Mean Corpuscular HGB Conc 33.2 g/dL 32.0-36.5 Normal (applies to non-numeric results) [facility]) Mean Corpuscular Hemoglobin 32.2 pg 27.0-33.0 Norm al (applies to non-numeric results) [facility]) Red Cell Distribution Width 13.0 % 11.5-14.5 Norm al (applies to non-numeric results) [facility] ([facility]) Platelet Count, Automated 237 10 150-450 Normal (applies to non-numeric results) [facility] ([facility]) Neutrophils % 75.3 % 36.0-66.0 Above high normal MEDE NT ([facility]) Lymph % 10.6 % 24.0-44.0 Below low normal [facility] ( [facility]) Loíza % 12.9 % 0.0-5.0 Above high normal [facility] ([facility]) Eos % 0.3 % 0.0-3.0 Normal (applies to non-numeric resul ts) [facility] ([facility]) Baso % 0.6 % 0.0-1.0 Normal (applies to non-numeric resul ts) [facility] ([facility]) Immature Granulocyte % 0.3 % 0-3.0 Normal (applies to non-n umeric results) [facility] ([facility]) Nucleated Red Blood Cell % 0.0 % 0-0 Normal (applies to n on-numeric results) [facility] ([facility]) Neutrophils # 7.6 10 1.5-8.5 Normal (applies to non-numeric re sults) [facility] ([facility]) Lymph # 1.1 10 1.5-5.0 Below low normal [facility] ( [facility]) Eos # 0.0 10 0.0-0.5 Normal (applies to non-numeric resul ts) [facility] ([facility]) Loíza # 1.3 10 0.0-0.8 Above high normal [facility] ([facility]) Baso # 0.1 10 0.0-0.2 Normal (applies to non-numeric resul ts) [facility] ([facility]) ID Date Data Source [id number] 09/03/2020 09:29:00 AM EST MEDENT ([facility]) Name Value Range Interpretation Code Description Data Aydee rce(s) Supporting Document(s) Prothrombin Time 13.1 s 12.5-14.3 Normal (applies to non-numeric results) [facility] ([facility]) Partial Thromboplastin Time 34.6 s 24.2-38.5 Norm al (applies to non-numeric results) [facility] ([facility]) Inr 0.97 Normal (applies to non-numeric resul ts) [facility] ([facility]) THERAPUTIC HUMAN INR VALUES INDICATIONS NORMAL RANGES PROPHYLAXIS/TREATMENT OF: VENOUS THROMBOSIS 2.0-3.0 PULMONARY EMBOLISM 2.0-3.0 PREVENTION OF SYSTEMIC EMBOLISM FROM: TISSUE HEART VALVES 2.0-3.0 ACUTE MYOCARDIAL INFARCTION 2.0-3.0 VALVULAR HEART DISEASE 2.0-3.0 ATRIAL FIBRILLATION 2.0-3.0 MECHANICAL VALVES(HIGH RISK) 2.5-3.5 RECURRENT MYOCARDIAL INFARCTION 2.5-3.5 ID Date Data Source [id number] 09/03/2020 09:29:00 AM EST [facility] ([facility]) Name Value Range Interpretation Code Description Data Aydee rce(s) Supporting Document(s) aPTT in Platelet poor plasma by Coagulation assay Laboratory test res ult [facility] ([facility]) Platelets [#/volume] in Blood by Automated count 312 10 150-450 Normal (applies to non-numeric results) [facility] ([facility]) ID Date Data Source [id number] 08/20/2020 10:35:00 AM EST MEDENT (Natasha Israel [...] % 36.0-66.0 [facility] ([facility] Lo[place]za % 9.7 % 0.0-5.0 MEDENT (Natasha hodges [...] 10 1.5-5.0 [facility] ([facility] Loíza # 1.0 10 0.0-0.8 [facility] ([facility] Eos # 0.1 10 0.0-0.5 [facility] ([facility] Baso # 0.1 10 0.0-0.2 [facility] ([facility] ID Date Data Source [id number] 08/20/2020 10:35:00 AM EST MEDENT (Natasha Israel [...] Little GFR Left</content>
<content>ESRD GFR <15 on PRINT GRAPHIC DESIGNER</content>
<content></content> Carbon Dioxide Level 23 meq/L 21-32 [facility] ([facility] Anion Gap 7 meq/L 8-16 [facility] ([facility] Chloride Level 109 meq/L 98-107 [facility] ([facility] Potassium Serum 4.1 meq/L [...] [facility] ID Date Data Source [id number] 08/20/2020 10:35:00 AM EST [facility] ([facility] Name Value Range Interpretation Code Description Data Aydee rce(s) Supporting Document(s) Lactate dehydrogenase [Enzymatic activit y/volume] in Serum or Plasma by Lactate to pyruvate reaction 107 U/L 87-241 [facility] ([facility] By: CINDY Yang Time: 0854 By: CINDY Yang Time: 08 ID Date Data Source [id number] 08/20/2020 10:35:00 AM EST MEDENT ([facility], ) Name Value Range Interpretation Code Description Data Aydee rce(s) Supporting Document(s) Lactate dehydrogenase [Enzymatic activity/volume] in Serum o r Plasma 107 U/L 87-241 Normal (applies to non-numeric results) [facility]) By: CINDY Yang Time: 853 By: CINDY Yang Time: 853 ID Date Data Source [id number] 08/20/2020 10:35:00 AM EST [facility] ([facility]) Name Value Range Interpretation Code Description Data Aydee rce(s) Supporting Document(s) Glucose, Fasting 103 mg/dL 70-100 Above high normal [facility] Blood Urea Nitrogen 17 mg/dL 7-18 Normal (applies to non-nume rama results) [facility] ([facility]) Sodium Level 139 meq/L 136-145 Normal (applies to non-numeric res ults) [facility]) Creatinine For GFR 0.85 mg/dL 0.70-1.30 Normal (applies to non -numeric results) [facility] ([facility]) Glomerular Filtration Rate Laboratory test result Normal (applies to non- numeric results) [facility]) <content>Units are mL/min/1.73 m2</content>
<content></content>
<content>Chronic Kidney Disease Staging per NKF:</content>
<content></content>
<content>Stage I & II GFR >=60 Normal to Mildly Decreased</content>
<content>Stage III GFR 30-59 Moderately Decreased</content>
<content>Stage IV GFR 15-29 Severely Decreased</content>
<content>Stage V GFR <15 Very Little GFR Left</content>
<content>ESRD GFR <15 on PRINT GRAPHIC DESIGNER</content>
<content></content> Potassium Serum 4.1 meq/L 3.5-5.1 Normal (applies to non-numeric results) [facility] ([facility]) Chloride Level 109 meq/L 98-107 Above high normal MED E[facility] ([facility]) Carbon Dioxide Level 23 meq/L 21-32 Normal (applies to non-num arlene results) [facility] ([facility]) Calcium Level 9.7 mg/dL 8.8-10.2 Normal (applies to non-numeric re sults) [facility] ([facility]) Anion Gap 7 meq/L 8-16 Below low normal [facility] ( [facility]) Alt/SGPT 31 U/L 12-78 Normal (applies to non-numeric resul ts) [facility] Ast/Sgot 11 U/L 7-37 Normal (applies to non-numeric resul ts) [facility] ([facility]) Alkaline Phosphatase 78 U/L 45-117 Normal (applies to non-num arlene results) [facility] ([facility]) Bilirubin,Total 0.6 mg/dL 0.2-1.0 Normal (applies to non-numeric results) [facility]) Total Protein 7.3 GM/DL 6.4-8.2 Normal (applies to non-numeric re sults) [facility] ([facility]) Albumin 3.1 GM/DL 3.2-5.2 Below low normal [facility] ( [facility]) Albumin/Globulin Ratio 0.7 Normal (applies to non-n umeric results) [facility]) ID Date Data Source [id number] 08/20/2020 10:35:00 AM EST [facility] ([facility]) Name Value Range Interpretation Code Description Data Aydee rce(s) Supporting Document(s) White Blood Count 10.2 10 4.0-10.0 Above high normal [facility] ([facility]) Hemoglobin 14.9 g/dL 13.5-17.5 Normal (applies to non-numeric resul ts) [facility] ([facility]) Hematocrit 43.3 % 42.0-52.0 Normal (applies to non-numeric resul ts) [facility]) Red Blood Count 4.60 10 4.30-6.10 Normal (applies to non-numeric results) [facility]) Mean Corpuscular Volume 94.1 fl 80.0-96.0 Normal ( applies to non-numeric results) [facility]) Mean Corpuscular Hemoglobin 32.4 pg 27.0-33.0 Norm al (applies to non-numeric results) [facility] ([facility]) Red Cell Distribution Width 12.7 % 11.5-14.5 Norm al (applies to non-numeric results) [facility] [facility] Mean Corpuscular HGB Conc 34.4 g/dL 32.0-36.5 Normal (applies to non-numeric results) [facility] ([facility]) Platelet Count, Automated 285 10 150-450 Normal (applies to non-numeric results) [facility] ([facility]) Lymph % 8.1 % 24.0-44.0 Below low normal [facility] ( [facility]) Neutrophils % 80.3 % 36.0-66.0 Above high normal [facility] ([facility]) Eos % 0.5 % 0.0-3.0 Normal (applies to non-numeric resul ts) [facility] ([facility]) [place] % 9.7 % 0.0-5.0 Above high normal [facility] ([facility]) Baso % 0.7 % 0.0-1.0 Normal (applies to non-numeric resul ts) [facility] Immature Granulocyte % 0.7 % 0-3.0 Normal (applies to non-n umeric results) [facility] ([facility]) Lymph # 0.8 10 1.5-5.0 Below low normal [facility] ( [facility]) Nucleated Red Blood Cell % 0.0 % 0-0 Normal (applies to n on-numeric results) [facility] Neutrophils # 8.2 10 1.5-8.5 Normal (applies to non-numeric re sults) [facility] ([facility]) Baso # 0.1 10 0.0-0.2 Normal (applies to non-numeric resul ts) [facility]) Eos # 0.1 10 0.0-0.5 Normal (applies to non-numeric resul ts) [facility]) Loí[place] # 1.0 10 0.0-0.8 Above high normal [facility] ([facility]) ID Date Data Source [id number] 07/26/2020 11:25:00 AM EST [facility] ([facility]) Name Value Range Interpretation Code Description Data Aydee rce(s) Supporting Document(s) Prothrombin Time 12.9 s 12.5-14.3 Normal (applies to non-numeric results) [facility] ([facility]) Inr 0.95 Normal (applies to non-numeric resul ts) [facility] ([facility]) THERAPUTIC HUMAN INR VALUES INDICATIONS NORMAL RANGES PROPHYLAXIS/TREATMENT OF: VENOUS THROMBOSIS 2.0-3.0 PULMONARY EMBOLISM 2.0-3.0 PREVENTION OF SYSTEMIC EMBOLISM FROM: TISSUE HEART VALVES 2.0-3.0 ACUTE MYOCARDIAL INFARCTION 2.0-3.0 VALVULAR HEART DISEASE 2.0-3.0 ATRIAL FIBRILLATION 2.0-3.0 MECHANICAL VALVES(HIGH RISK) 2.5-3.5 RECURRENT MYOCARDIAL INFARCTION 2.5-3.5 Partial Thromboplastin Time 32.8 s 24.2-38.5 Norm al (applies to non-numeric results) [facility] ([facility]) ID Date Data Source [id number] 07/26/2020 11:25:00 AM EST [facility] ([facility]) Name Value Range Interpretation Code Description Data Aydee rce(s) Supporting Document(s) Platelets [#/volume] in Blood by Automated count 342 10 150-450 Normal (applies to non-numeric results) [facility] ([facility]) aPTT in Platelet poor plasma by Coagulation assay Laboratory test res [facility]) ID Date Data Source [id number] 05/18/2020 12:19:00 PM EDT [facility] ID Date Data Source [id number] 05/18/2020 12:05:00 PM EDT [facility] ([facility] Name Value Range Interpretation Code Description Data Aydee rce(s) Supporting Document(s) Troponin I.cardiac [Mass/volume] in Serum or Plasma 0.00 ng/mL 0.00-0 .08 [facility] ([facility] ID Date Data Source [id number] 05/18/2020 11:55:00 AM EDT [facility] ([facility] Name Value Range Interpretation Code Description Data Aydee rce(s) Supporting Document(s) Laboratory test finding (navigational concept) 1.04 0.4-2.0 [facility] ([facility] ID Date Data Source [id number] 05/18/2020 11:52:00 AM EDT [facility] ([facility] Name Value Range Interpretation Code Description Data Aydee rce(s) Supporting Document(s) Thyrotropin [Units/volume] in Serum or Plasma 0.480 uIU/ML 0.358-3.74 0 [facility] ([facility] Natriuretic peptide.B prohormone N-Terminal [Mass/volu me] in Serum or Plasma 612 pg/mL [facility] ID Date Data Source [id number] 05/18/2020 11:52:00 AM EDT [facility] ([facility] [...] [facility] ID Date Data Source [id number] 05/18/2020 11:52:00 AM EDT [facility] ([facility] [...] [facility] ID Date Data Source [id number] 05/18/2020 11:52:00 AM EDT [facility] ([facility] [...] % 36.0-66.0 [facility] ([facility] [place] % 9.4 % 0.0-5.0 [facility] ([facility] [...] 10 1.5-5.0 [facility] ([facility] Loíza # 1.2 10 0.0-0.8 [facility] ([facility] Baso # 0.1 10 0.0-0.2 [facility] ([facility] Eos # 0.0 10 0.0-0.5 [facility] ([facility] ID Date Data Source [id number] 05/18/2020 11:52:00 AM EDT [facility] ([facility] [...] [facility] ID Date Data Source [id number] 05/18/2020 11:37:00 AM EDT [facility] ([facility] [...] [facility] ID Date Data Source [id number] 01/25/2020 08:51:00 AM EDT [facility] ([facility] [...] [facility] ID Date Data Source [id number] 01/25/2020 08:51:00 AM EDT [facility] ([facility] [...] Little GFR Left</content>
<content>ESRD GFR <15 on [employer]</content>
<content></content> Sodium Level 142 meq/L 136-145 [facility] [...] [facility] ID Date Data Source [id number] 01/25/2020 08:51:00 AM EDT [facility] ([facility] [...] % 0.0-3.0 [facility] ([facility] Lo[place] % 11.1 % 0.0-5.0 [facility] ([facility] Nucleated Red Blood Cell % 0.0 % 0-0 [facility] ([facility] Immature Granulocyte % 0.3 % 0-3.0 [facility] ([facility] Loíza # 0.8 10 0.0-0.8 [facility] ([facility] [...] completed Patient is a former smoker [facility] ([facility]) Smoking 07/25/2020 12:00:00 AM EST - 05/03/2016 12:00:00 AM EDT Patient is a former smoker completed Patient is a former smoker [facility] ([facility] Vital Signs ID Date Data Source [id number] Name Value Range Interpretation Code Description Data Source(s) Body surface area Derived from formula 1.85 m2 1.85 m2 [facility] ([facility]) Body weight 68.494 kg 68.494 kg [facility] ([facility]) [place] body weight 166 [lb_av] 166 [lb_av] [facility] ([facility]) Body mass index (BMI) [Ratio] 21.7 kg/m2 21.7 k g/m2 [facility] ([facility]) Body weight 151.00 [lb_av] 151.00 [lb_av] [facility] ([facility]) Body height 70 [in_i] 70 [in_i] [facility] ([facility]) 5'10" Oxygen saturation in Arterial blood by Pulse oximetry 97 % 97 % [facility] ([facility]) Room Air Heart rate 80 /min 80 /min [facility] ([facility]) Diastolic blood pressure 80 mm[Hg] 80 mm[Hg] [facility] ([facility]) Systolic blood pressure 140 mm[Hg] 140 mm[Hg] [facility] ([facility]) Body surface area Derived from formula 1.86 m2 1.86 m2 [facility] ([facility]) Body weight 68.947 kg 68.947 kg [facility] ([facility]) [place] body weight 166 [lb_av] 166 [lb_av] [facility] Body mass index (BMI) [Ratio] 21.8 kg/m2 21.8 k g/m2 [facility] ([facility]) Body weight 152.00 [lb_av] 152.00 [lb_av] [facility] Body height 70 [in_i] 70 [in_i] [facility] ([facility]) 5'10" Body temperature 96.0 [degF] 96.0 [degF] [facility] ([facility]) Oxygen saturation in Arterial blood by Pulse oximetry 96 % 96 % [facility] ([facility]) Heart rate 111 /min 111 /min [facility] ([facility]) Diastolic blood pressure 90 mm[Hg] 90 mm[Hg] [facility] ([facility]) Systolic blood pressure 140 mm[Hg] 140 mm[Hg] [facility] ([facility]) Body mass index (BMI) [Ratio] 22.0 kg/m2 22.0 k g/m2 [facility] ([facility] [place] body weight 166 [lb_av] 166 [lb_av] [facility] [...] m2 1.86 m2 [facility] ) Body weight 68.947 kg 68.947 kg [facility] ([facility]) [place] body weight 166 [lb_av] 166 [lb_av] [facility] ([facility]) Body mass index (BMI) [Ratio] 21.8 kg/m2 21.8 k g/m2 [facility] ([facility]) Body weight 152.00 [lb_av] 152.00 [lb_av] [facility] ([facility]) Body height 70 [in_i] 70 [in_i] [facility] ([facility], ) 5'10" Oxygen saturation in Arterial blood by Pulse oximetry 94 % 94 % [facility] ([facility], ) Room Air Heart rate 94 /min 94 /min [facility] ([facility]) Diastolic blood pressure 80 mm[Hg] 80 mm[Hg] [facility] Systolic blood pressure 136 mm[Hg] 136 mm[Hg] [facility] Body mass index (BMI) [Ratio] 21.5 kg/m2 21.5 k g/m2 [facility] ([facility] [place] body weight 166 [lb_av] 166 [lb_av] [facility] ([facility] [...] Systolic blood pressure 124 mm[Hg] 124 mm[Hg] [facility] ([facility] Diastolic blood pressure 82 mm[Hg] 82 mm[Hg] [facility] ([facility] Systolic blood pressure 150 mm[Hg] 150 mm[Hg] [facility] ([facility] Oxygen saturation in [...]
--- NOTE | 2020-09-12 17:13 | REP ---
INDICATION: DYSPNEA/COUGH/ do not delay for respiratory panel COMPARISON: Chest x-ray dated 09/10/2020. CT dated 08/23/2020 TECHNIQUE: Axial noncontrast images from the thoracic inlet to the upper abdomen with coronal and sagittal reformations. This CT examination was performed using the following dose reduction techniques: Automated exposure control, adjustment of mA and/or kv according to the patient's size, and use of iterative reconstruction technique. FINDINGS: There is a multilobulated area of masslike consolidation extending from the right infrahilar region into the right lower lobe with the largest areas measuring roughly 5.2 x 3.3 cm (new) and 6.7 x 3.4 cm (stable) along with diffuse right lower lobe interstitial prominence and thickening as well as small associated right pleural effusion. Associated endobronchial obstruction to the right lower lobe is also identified as well as mediastinal lymph nodes measuring up to approximately 13 mm short axis diameter. Diffuse underlying advanced COPD and emphysematous changes with bronchiectasis and scattered scarring noted. Tracheobronchial tree is patent. Atherosclerotic changes to the thoracic aorta and coronary arteries noted without aortic aneurysm or cardiomegaly. IMPRESSION: Increasing multilobulated masslike consolidation involving the right lower lobe now extending towards the hilum with small pleural effusion and increased interstitial thickening. Findings are most compatible with malignancy and require further investigation. <Electronically signed by Izaiah Bassett > 09/12/20 [id number]
[2020-09-12 17:33] LABS: ALBUMIN 2.5 GM/DL (3.2-5.2); ALT/SGPT 43 U/L (12-78); BILIRUBIN,DIRECT 0.1 MG/DL (0.0-0.2); BILIRUBIN,TOTAL 0.4 MG/DL (0.2-1.0); BLOOD UREA NITROGEN 30 MG/DL (7-18); CALCIUM LEVEL 8.6 MG/DL (8.8-10.2); CARBON DIOXIDE LEVEL 21 MEQ/L (21-32); CHLORIDE LEVEL 106 MEQ/L (98-107); CK-MB VALUE MASS 1.2 NG/ML (<3.6); CPK CREATINE PHOSPHOKINASE 53 U/L (39-308); CREATININE FOR GFR 0.96 MG/DL (0.70-1.30); GLOMERULAR FILTRATION RATE > 60.0 (>49); GLUCOSE, FASTING 94 MG/DL (70-100); MB/CK RELATIVE INDEX 2.26 (< OR =4); NT-PRO BNP 223 PG/ML (<125); POTASSIUM SERUM 4.2 MEQ/L (3.5-5.1); SODIUM LEVEL 136 MEQ/L (136-145); THYROID STIMULATING HORMONE 0.496 uIU/ML (0.358-3.740); THYROXINE (T4) 8.5 UG/DL (4.5-12.0); TOTAL PROTEIN 6.2 GM/DL (6.4-8.2); TROPONIN I < 0.02 NG/ML (< 0.10)
[2020-09-12 17:35] LABS: INR 1.03; PROTHROMBIN TIME 13.7 SECONDS (12.5-14.3)
[2020-09-12] MEDS ORDERED: PIPERACILLIN/TAZOBACTAM SOD 3.375 GM in D5W MINI-BAG PLUS 50 ML IV ONE (18:00)
[2020-09-12] MEDS ORDERED: D31000TA2 PO (18:05)
[2020-09-12 18:37] LABS: BASO % 0.4 % (0.0-1.0); EOS # 0.1 10^3/uL (0.0-0.5); EOS % 1.4 % (0.0-3.0); HEMATOCRIT 39.5 % (42.0-52.0); HEMOGLOBIN 13.5 g/dl (13.5-17.5); LYMPH # 0.9 10^3/uL (1.5-5.0); MEAN CORPUSCULAR HEMOGLOBIN 31.8 pg (27.0-33.0); MEAN CORPUSCULAR HGB CONC 34.2 g/dl (32.0-36.5); MEAN CORPUSCULAR VOLUME 92.9 fl (80.0-96.0); MONO # 1.2 10^3/uL (0.0-0.8); MONO % 14.4 % (0.0-5.0); NEUTROPHILS # 5.8 10^3/uL (1.5-8.5); NEUTROPHILS % 72.1 % (36.0-66.0); PLATELET COUNT, AUTOMATED 254 10^3/uL (150-450); RED BLOOD COUNT 4.25 10^6/uL (4.30-6.10)
[2020-09-12 18:53] LABS: WHITE BLOOD COUNT 8.1 10^3/uL (4.0-10.0)
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
[2020-09-12] MEDS ORDERED: ONDANSETRON 4MG/2ML VIAL IV PRN (19:30)
[2020-09-12] MEDS ORDERED: ALBUTEROL 90 MCG/ACT 8GM HFA INHALER INH PRN (19:30)
--- OUTSIDE RECORDS SUMMARY | 2020-09-12 19:35 | CCD ---
Author Author [facility] Organization [facility] Address Unknown Phone Unavailable Care Team Providers Care Asl Interpreter Name Role Phone Ruthy Israel MD Unavailable Unavailable Jhonatan, Ruthy Kaur MD Unavailable Unavailable Jhonatan, Ruthy Kaur MD Unavailable Unavailable Jhonatan, Ruthy Kaur MD Unavailable Unavailable Jhonatan, Ruthy Kaur MD Unavailable Unavailable Jhonatan, Ruthy Kaur MD Unavailable Unavailable Jhonatan, Ruthy Kaur MD Unavailable Unavailable Jhonatan, Ruthy Kaur MD Unavailable Unavailable Jhonatan, Ruthy Kaur MD Unavailable Unavailable Jhonatan, Ruthy Kaur MD Unavailable Unavailable Jhnoatan, Ruthy Kaur MD Unavailable Unavailable Jhonatan, Ruthy [...] Jhonatan, Ruthy Kaur MD Unavailable Unavailable Jhonatan, Rtuhy Kaur MD Unavailable Unavailable Jhonatan, Ruthy Kaur [...] Unavailable Chance Patel MD Unavailable Unavailable Chance aPtel MD Unavailable Unavailable Chance Patel MD Unavailable [...] is protected by Article 27-F of the [facility] Public Health law. If you continue you may have access to information: Regarding HIV / AIDS; Provided by facilities licensed or operated by the [facility] Office of Mental Health; or Provided by the [facility] Office for People With Developmental Disabilities. If such information is present, then the following [facility] mandated warning applies: This information has been [...] law may result in a fine or snf sentence or both. A general authorization for the release of medical or other information is NOT sufficient authorization for further disc losure. Family History Family Member Name Family Member Gender Family Member Status Date o f Status Description Data Source(s) Unknown Unknown Problem MED[facility] ([facility]) Unknown Unknown Problem [facility] ([facility] Unknown Male Problem [facility] ([facility] Unknown Unknown Encounters Encounter Providers Location Date Indications Data Source(s ) Outpatient Referrer: Jose A Rosales 09/11/2020 08:51:0 0 AM EST Solitary pulmonary nodule [facility] Solitary pulmonary nodule Office Visit Attender: Lucio Dawkins/[place]/Curt/R eindl 08/29/2020 10:30:00 AM EST [facility] Outpatient Attender: Lucio Dawkins/[place]/Curt/R eindl 07/26/2020 10:30:00 AM EST [facility] ([facility] Outpatient Attender: Natasha Israel MD Main Office 07/25/2020 10:45:0 0 AM EST [facility] ([facility] [address] [place] [address] 07/04/2020 12:00:00 AM EST eCW1 ([facility]) Office Visit Attender: Lucio Dawkins/[place]/Curt/R eindl 06/26/2020 12:45:00 PM EST MEDENT ([facility], ) Outpatient Attender: Natasha Israel MD [...] 12:00:00 A M EST ORAL completed MEDENT ([facility]) Cefuroxime 500 MG Oral Tablet Cefuroxime Axetil 07/26/2020 12:00:00 A M EST ORAL completed MED[facility] ([facility]) doxycycline hyclate 100 MG Oral Tablet Doxycycline Hyclate 1 12:00:00 AM EDT ORAL completed [facility] ([facility] Cefuroxime 500 MG Oral Tablet [Ceftin] Ceftin 05/21/2020 12:00:00 AM EDT ORAL completed [facility] ([facility] Levofloxacin 500 MG Oral Tablet Levofloxacin 05/14/2020 12:00:00 AM E DT ORAL completed MEDENT ([facility]) Insurance Providers Payer name Policy type / Coverage type Policy ID Covered green party ID Covered green party's relationship to cruz Policy Cruz Plan Information MEDICARE BLUE PPO 306 [id number] SP [id number] [employer]LLUS MEDICARE BLUE PPO G [id number] Self [id number] [employer]LL[employer] MEDICARE BLUE PPO G [id number] Self [id number] EXCELLUS BS B [id number] S [id number] [id number] MEDICARE [id number] SP [id number] [facility] [id number] SP [id number] MEDICARE BLUE PPO [id number] SP [id number] MEDICARE BLUE PPO 306 [id number] SP [id number] BCBS Medicare Commercial [id number] Self [id number] [facility] Health Maintenance Organization (HMO) [id number] Self [id number] Medicare Blue Ppo Commercial [id number] Self [id number] BCBS Medicare Commercial [id number] Self [id number] ANSI-Commercial [id number] ANSI-Not a Secondary Insurance [id number] ANSI-Commercial [id number] ANSI-Not a Secondary Insurance [id number] [facility] [id number] SP [id number] ANSI-Commercial [id number] ANSI-Not a Secondary Insurance [id number] [facility] Health Care Commercial [id number] Self [id number] [facility] Health Care Commercial [id number] Self [id number] [facility] Health Care Commercial [id number] Self [id number] [facility] Health Maintenance Organization (HMO) [id number] Self [id number] [facility] [id number] SP [id number] [facility] O [id number] S [id number] [facility] Health Care Commercial [id number] Self [id number] [facility] [id number] SP [id number] [facility] Health Care Commercial [id number] Self [id number] [facility] [id number] Self [id number] [facility] Health Maintenance Organization (HMO) [id number] Self [id number] [facility] [id number] SP [id number] [facility] [id number] SP [id number] [employer]BS [place] PPO 302/307 [id number] SP [id number] [facility] O [id number] S [id number] BLUE CROSS [id number] S [id number] [employer] BCBS B [id number] S [id number] [employer] BS Of [facility] Health Maintenance Organization ([facility]) Self [employer]. [employer] EXCELLUS BCBS B [id number] S [id number] [employer]BS [place] PPO 302/307 [id number] SP [id number] [employer] Compensation [employer] l[employer] BS Of [facility] ([facility]) Self [employer]. [employer] Compensation [employer] O UNAVAILABLE UNAVAILA BLE [employer] Compensation [employer] Compensation [employer] lf BC/[employer] [place] [facility] Part B Self BC/[employer] [place] Commercial Self BCBS [place] PPO 302/307 [id number] SP [id number] Problems, Conditions, and Diagnoses Code Display Name Description Problem Type Effective Dates Data Source(s) L57.0 [id number] Actinic keratoses Problem 07/25/2019 12:00:0 0 AM EST eCW1 ([facility]) R91.1 Solitary pulmonary nodule Solitary pulmonary nodule Di agnosis 09/11/2020 08:51:00 AM EST [facility] Surgeries/Procedures Procedure Description Date Indications Data Source(s) CT GUIDANCE NEEDLE PLACEMENT 08/29/2020 12:00:00 AM ES T MEDENT ([facility], ) DEMO&/EVAL OF PT UTILIZ AERSL GEN/NEB/INHLR/IPPB 07/26 12:00:00 AM EST MEDENT ([facility], ) Spirometry 06/26/2020 12:00:00 AM EST M EDENT ([facility], ) Results ID Date Data Source [id number] 09/06/2020 11:50:00 AM EST MEDENT (Natasha Israel [...] NO GROWTH ANAEROBICALLY ID Date Data Source [id number] 09/06/2020 11:50:00 AM EST [facility] ([facility] Name Value Range Interpretation Code Description Data Aydee rce(s) Supporting Document(s) Gram Stain Laboratory test result [facility] ([facility] MANY WBCS MANY RBCS FEW GRAM POSITIVE COCCI IN PAIRS AND CHAINS Body Fluid Culture Laboratory test result [facility] ([facility] <content>FULL REPORT IN LAB [...] <=0.12 S</content>
<content></content> ID Date Data Source [id number] 09/06/2020 11:50:00 AM EST [facility] ([facility] Name Value Range Interpretation Code Description Data Aydee rce(s) Supporting Document(s) PH Body Fluid Laboratory test result [facility] ([facility] CLOTTED, UNABLE TO PERFORM TESTING Source, Body Fluid pH Laboratory test result [facility] ([facility] ID Date Data Source [id number] 09/06/2020 11:50:00 AM EST [facility] ([facility] Name Value Range Interpretation Code Description Data Aydee rce(s) Supporting Document(s) Amylase, Body Fluid 42 U/L [facility] ([facility] Source, Body Fluid Amylase Laboratory test result [facility] ([facility] ID Date Data Source [id number] 09/06/2020 11:50:00 AM EST [facility] ([facility] Name Value Range Interpretation Code Description Data Aydee rce(s) Supporting Document(s) Source, Body Fluid Glucose Laboratory test result [facility] ([facility] Glucose, Body Fluid 18 mg/dL [facility] ([facility] ID Date Data Source [id number] 09/06/2020 11:50:00 AM EST [facility] ([facility] Name Value Range Interpretation Code Description Data Aydee rce(s) Supporting Document(s) Source, Body Fluid LDH Laboratory test result [facility] ([facility] LDH, Body Fluid 16628 U/L MED[facility] ([facility] ID Date Data Source [id number] 09/06/2020 11:50:00 AM EST [facility] ([facility] Name Value Range Interpretation Code Description [facility] Supporting Document(s) Source, Body Fluid Tot Protein Laboratory test result [facility] ([facility] Total Protein, Body Fluid 5.2 g/dL MEDE NT ([facility] ID Date Data Source [id number] 09/06/2020 11:50:00 AM EST [facility] ([facility] Name Value Range Interpretation Code Description Data [facility] Supporting Document(s) Source, Body Fluid Laboratory test [...] TO PERFORM TESTING ID Date Data Source [id number] 09/06/2020 11:50:00 AM EST [facility] ([facility] Name Value Range Interpretation Code Description Data [facility] Supporting Document(s) Amylase [Enzymatic activity/volume] in Body [...] DOE Time: 1046 ID Date Data Source [id number] 09/06/2020 11:10:00 AM EST MEDENT (Natasha Israel [...] Cintron Time: 1038 ID Date Data Source [id number] 09/06/2020 11:10:00 AM EST MEDENT (Natasha Israel [...] Little GFR Left</content>
<content>ESRD GFR <15 on MERCHANDISING SPECIALIST</content>
<content></content> Chloride Level 110 meq/L 98-107 MEDENT [...] [facility] ID Date Data Source [id number] 09/06/2020 11:10:00 AM EST MEDENT (Natasha Israel [...] % 36.0-66.0 [facility] ([facility] Douglas % 12.9 % 0.0-5.0 MEDENT (Natasha hodges [...] 10 0.0-0.5 [facility] ([facility] [place] # 1.3 10 0.0-0.8 [facility] ([facility] Baso # 0.1 10 0.0-0.2 MED[facility] ([facility] ID Date Data Source [id number] 09/06/2020 11:10:00 AM EST MEDENT ([facility]) Name Value Range Interpretation Code Description Data Aydee rce(s) Supporting Document(s) Lactate dehydrogenase [Enzymatic activity/volume] in Serum o r Plasma 120 U/L 87-241 Normal (applies to non-numeric results) MEDENT ([facility]) By: BRISA Cintron Time: 1037 By: BRISA Cintron Time: 1038 By: BRISA Cintron Time: 1037 By: BRISA Cintron Time: 1038 ID Date Data Source [id number] 09/06/2020 11:10:00 AM EST MEDENT ([facility]) Name Value Range Interpretation Code Description Data Aydee rce(s) Supporting Document(s) Glucose, Fasting 96 mg/dL 70-100 Normal (applies to non-numeric results) MED[facility] ([facility]) Blood Urea Nitrogen 21 mg/dL 7-18 Above high normal MEDENT ([facility], ) Glomerular Filtration Rate Laboratory test result Normal (applies to non- numeric results) [facility]) <content>Units are mL/min/1.73 m2</content>
<content></content>
<content>Chronic Kidney Disease Staging per NKF:</content>
<content></content>
<content>Stage I & II GFR >=60 Normal to Mildly Decreased</content>
<content>Stage III GFR 30-59 Moderately Decreased</content>
<content>Stage IV GFR 15-29 Severely Decreased</content>
<content>Stage V GFR <15 Very Little GFR Left</content>
<content>ESRD GFR <15 on MERCHANDISING SPECIALIST</content>
<content></content> Creatinine For GFR 0.95 mg/dL 0.70-1.30 Normal (applies to non -numeric results) [facility] ([facility], ) Sodium Level 142 meq/L 136-145 Normal (applies to non-numeric res ults) [facility] ([facility]) Chloride Level 110 meq/L 98-107 Above high normal MED ENT ([facility], ) Potassium Serum 4.0 meq/L 3.5-5.1 Normal (applies to non-numeric results) [facility] ([facility]) Calcium Level 10.0 mg/dL 8.8-10.2 Normal (applies to non-numeric re sults) [facility] ([facility]) Anion Gap 8 meq/L 8-16 Normal (applies to non-numeric resul ts) [facility] ([facility]) Carbon Dioxide Level 24 meq/L 21-32 Normal (applies to non-num arlene results) [facility] ([facility]) Ast/Sgot 7 U/L 7-37 Normal (applies to non-numeric resul ts) [facility]) Alkaline Phosphatase 78 U/L 45-117 Normal (applies to non-num arlene results) [facility] ([facility]) Alt/SGPT 19 U/L 12-78 Normal (applies to non-numeric resul ts) [facility] ([facility], ) Bilirubin,Total 0.8 mg/dL 0.2-1.0 Normal (applies to non-numeric results) [facility]) Total Protein 7.6 GM/DL 6.4-8.2 Normal (applies to non-numeric re sults) [facility]) Albumin/Globulin Ratio 0.9 Normal (applies to non-n umeric results) [facility]) Albumin 3.5 GM/DL 3.2-5.2 Normal (applies to non-numeric resul ts) [facility]) ID Date Data Source [id number] 09/06/2020 11:10:00 AM EST [facility] ([facility]) Name Value Range Interpretation Code Description Data Aydee rce(s) Supporting Document(s) Red Blood Count 4.78 10 4.30-6.10 Normal (applies to non-numeric results) [facility] ([facility], ) White Blood Count 10.2 10 4.0-10.0 Above high normal [facility] ([facility]) A Pathologist review of this differentia l can help in the evaluation of a differential diagnosis. Please order a Pathologist Review (PERISM) if deemed necessary. Results are subject to change if a Pathologist Review is performed. Hemoglobin 15.4 g/dL 13.5-17.5 Normal (applies to non-numeric resul ts) [facility] ([facility], ) Hematocrit 46.4 % 42.0-52.0 Normal (applies to non-numeric resul ts) [facility]) Mean Corpuscular Volume 97.1 fl 80.0-96.0 Above high normal [facility]) Mean Corpuscular HGB Conc 33.2 g/dL 32.0-36.5 Normal (applies to non-numeric results) [facility]) Mean Corpuscular Hemoglobin 32.2 pg 27.0-33.0 Norm al (applies to non-numeric results) [facility]) Red Cell Distribution Width 13.0 % 11.5-14.5 Norm al (applies to non-numeric results) MED[facility] ([facility]) Platelet Count, Automated 237 10 150-450 Normal (applies to non-numeric results) [facility] ([facility]) Neutrophils % 75.3 % 36.0-66.0 Above high normal MEDE NT ([facility]) Lymph % 10.6 % 24.0-44.0 Below low normal MED[facility] ( [facility]) Douglas % 12.9 % 0.0-5.0 Above high normal MED[facility] ([facility]) Eos % 0.3 % 0.0-3.0 Normal (applies to non-numeric resul ts) [facility] ([facility]) Baso % 0.6 % 0.0-1.0 Normal (applies to non-numeric resul ts) [facility] ([facility]) Immature Granulocyte % 0.3 % 0-3.0 Normal (applies to non-n umeric results) [facility] ([facility]) Nucleated Red Blood Cell % 0.0 % 0-0 Normal (applies to n on-numeric results) [facility] ([facility]) Neutrophils # 7.6 10 1.5-8.5 Normal (applies to non-numeric re sults) [facility] ([facility]) Lymph # 1.1 10 1.5-5.0 Below low normal MED[facility] ( [facility]) Eos # 0.0 10 0.0-0.5 Normal (applies to non-numeric resul ts) [facility] ([facility]) Douglas # 1.3 10 0.0-0.8 Above high normal MED[facility] ([facility]) Baso # 0.1 10 0.0-0.2 Normal (applies to non-numeric resul ts) [facility] ([facility]) ID Date Data Source [id number] 09/03/2020 09:29:00 AM EST MEDENT ([facility]) Name Value Range Interpretation Code Description Data Aydee rce(s) Supporting Document(s) Prothrombin Time 13.1 s 12.5-14.3 Normal (applies to non-numeric results) [facility] ([facility]) Partial Thromboplastin Time 34.6 s 24.2-38.5 Norm al (applies to non-numeric results) [facility] ([facility]) Inr 0.97 Normal (applies to non-numeric resul ts) [facility] ([facility]) THERAPUTIC HUMAN INR VALUES INDICATIONS NORMAL RANGES PROPHYLAXIS/TREATMENT OF: VENOUS THROMBOSIS 2.0-3.0 PULMONARY EMBOLISM 2.0-3.0 PREVENTION OF SYSTEMIC EMBOLISM FROM: TISSUE HEART VALVES 2.0-3.0 ACUTE MYOCARDIAL INFARCTION 2.0-3.0 VALVULAR HEART DISEASE 2.0-3.0 ATRIAL FIBRILLATION 2.0-3.0 MECHANICAL VALVES(HIGH RISK) 2.5-3.5 RECURRENT MYOCARDIAL INFARCTION 2.5-3.5 ID Date Data Source [id number] 09/03/2020 09:29:00 AM EST [facility] ([facility]) Name Value Range Interpretation Code Description Data Aydee rce(s) Supporting Document(s) aPTT in Platelet poor plasma by Coagulation assay Laboratory test res ult [facility] ([facility]) Platelets [#/volume] in Blood by Automated count 312 10 150-450 Normal (applies to non-numeric results) [facility] ([facility]) ID Date Data Source [id number] 08/20/2020 10:35:00 AM EST MEDENT (Natasha Israel [...] % 36.0-66.0 [facility] ([facility] Douglas % 9.7 % 0.0-5.0 MEDENT (Natasha hodges [...] 10 1.5-5.0 [facility] ([facility] [place] # 1.0 10 0.0-0.8 [facility] ([facility] Eos # 0.1 10 0.0-0.5 [facility] ([facility] Baso # 0.1 10 0.0-0.2 [facility] ([facility] ID Date Data Source [id number] 08/20/2020 10:35:00 AM EST MEDENT (Natasha Israel [...] Little GFR Left</content>
<content>ESRD GFR <15 on MERCHANDISING SPECIALIST</content>
<content></content> Carbon Dioxide Level 23 meq/L 21-32 [...] [facility] ID Date Data Source [id number] 08/20/2020 10:35:00 AM EST [facility] ([facility] Name Value Range Interpretation Code Description Data Aydee rce(s) Supporting Document(s) Lactate dehydrogenase [Enzymatic activit y/volume] in Serum or Plasma by Lactate to pyruvate reaction 107 U/L 87-241 [facility] ([facility] By: CINDY Yang Time: 0854 By: CINDY Yang Time: 08 ID Date Data Source [id number] 08/20/2020 10:35:00 AM EST MEDENT ([facility], ) Name Value Range Interpretation Code Description Data Aydee rce(s) Supporting Document(s) Lactate dehydrogenase [Enzymatic activity/volume] in Serum o r Plasma 107 U/L 87-241 Normal (applies to non-numeric results) [facility]) By: CINDY Yang Time: 853 By: CINDY Yang Time: 853 ID Date Data Source [id number] 08/20/2020 10:35:00 AM EST [facility] ([facility]) Name Value Range Interpretation Code Description Data Aydee rce(s) Supporting Document(s) Glucose, Fasting 103 mg/dL 70-100 Above high normal [facility] Blood Urea Nitrogen 17 mg/dL 7-18 Normal (applies to non-nume rama results) [facility] ([facility]) Sodium Level 139 meq/L 136-145 Normal (applies to non-numeric res ults) [facility]) Creatinine For GFR 0.85 mg/dL 0.70-1.30 Normal (applies to non -numeric results) [facility] ([facility]) Glomerular Filtration Rate Laboratory test result Normal (applies to non- numeric results) [facility]) <content>Units are mL/min/1.73 m2</content>
<content></content>
<content>Chronic Kidney Disease Staging per NKF:</content>
<content></content>
<content>Stage I & II GFR >=60 Normal to Mildly Decreased</content>
<content>Stage III GFR 30-59 Moderately Decreased</content>
<content>Stage IV GFR 15-29 Severely Decreased</content>
<content>Stage V GFR <15 Very Little GFR Left</content>
<content>ESRD GFR <15 on MERCHANDISING SPECIALIST</content>
<content></content> Potassium Serum 4.1 meq/L 3.5-5.1 Normal (applies to non-numeric results) [facility] ([facility]) Chloride Level 109 meq/L 98-107 Above high normal [facility] ([facility]) Carbon Dioxide Level 23 meq/L 21-32 Normal (applies to non-num arlene results) [facility] ([facility]) Calcium Level 9.7 mg/dL 8.8-10.2 Normal (applies to non-numeric re sults) [facility] ([facility]) Anion Gap 7 meq/L 8-16 Below low normal [facility] ( [facility]) Alt/SGPT 31 U/L 12-78 Normal (applies to non-numeric resul ts) [facility] Ast/Sgot 11 U/L 7-37 Normal (applies to non-numeric resul ts) [facility] ([facility]) Alkaline Phosphatase 78 U/L 45-117 Normal (applies to non-num arlene results) [facility] ([facility]) Bilirubin,Total 0.6 mg/dL 0.2-1.0 Normal (applies to non-numeric results) [facility]) Total Protein 7.3 GM/DL 6.4-8.2 Normal (applies to non-numeric re sults) [facility] ([facility]) Albumin 3.1 GM/DL 3.2-5.2 Below low normal [facility] ( [facility]) Albumin/Globulin Ratio 0.7 Normal (applies to non-n umeric results) [facility]) ID Date Data Source [id number] 08/20/2020 10:35:00 AM EST [facility] ([facility]) Name Value Range Interpretation Code Description Data Aydee rce(s) Supporting Document(s) White Blood Count 10.2 10 4.0-10.0 Above high normal [facility] ([facility]) Hemoglobin 14.9 g/dL 13.5-17.5 Normal (applies to non-numeric resul ts) [facility] ([facility]) Hematocrit 43.3 % 42.0-52.0 Normal (applies to non-numeric resul ts) [facility]) Red Blood Count 4.60 10 4.30-6.10 Normal (applies to non-numeric results) [facility]) Mean Corpuscular Volume 94.1 fl 80.0-96.0 Normal ( applies to non-numeric results) [facility]) Mean Corpuscular Hemoglobin 32.4 pg 27.0-33.0 Norm al (applies to non-numeric results) [facility] ([facility]) Red Cell Distribution Width 12.7 % 11.5-14.5 Norm al (applies to non-numeric results) [facility] ([facility]) Mean Corpuscular HGB Conc 34.4 g/dL 32.0-36.5 Normal (applies to non-numeric results) [facility] ([facility]) Platelet Count, Automated 285 10 150-450 Normal (applies to non-numeric results) [facility] ([facility]) Lymph % 8.1 % 24.0-44.0 Below low normal [facility] ( [facility]) Neutrophils % 80.3 % 36.0-66.0 Above high normal [facility] ([facility]) Eos % 0.5 % 0.0-3.0 Normal (applies to non-numeric resul ts) [facility] ([facility]) Douglas % 9.7 % 0.0-5.0 Above high normal [facility] ([facility]) Baso % 0.7 % 0.0-1.0 Normal (applies to non-numeric resul ts) [facility] Immature Granulocyte % 0.7 % 0-3.0 Normal (applies to non-n umeric results) [facility] ([facility]) Lymph # 0.8 10 1.5-5.0 Below low normal [facility] ( [facility]) Nucleated Red Blood Cell % 0.0 % 0-0 Normal (applies to n on-numeric results) [facility] Neutrophils # 8.2 10 1.5-8.5 Normal (applies to non-numeric re sults) [facility] ([facility]) Baso # 0.1 10 0.0-0.2 Normal (applies to non-numeric resul ts) [facility]) Eos # 0.1 10 0.0-0.5 Normal (applies to non-numeric resul ts) [facility]) Douglas # 1.0 10 0.0-0.8 Above high normal [facility] ([facility]) ID Date Data Source [id number] 07/26/2020 11:25:00 AM EST [facility] ([facility]) Name Value Range Interpretation Code Description Data Aydee rce(s) Supporting Document(s) Prothrombin Time 12.9 s 12.5-14.3 Normal (applies to non-numeric results) [facility] ([facility]) Inr 0.95 Normal (applies to non-numeric resul ts) [facility] ([facility]) THERAPUTIC HUMAN INR VALUES INDICATIONS NORMAL RANGES PROPHYLAXIS/TREATMENT OF: VENOUS THROMBOSIS 2.0-3.0 PULMONARY EMBOLISM 2.0-3.0 PREVENTION OF SYSTEMIC EMBOLISM FROM: TISSUE HEART VALVES 2.0-3.0 ACUTE MYOCARDIAL INFARCTION 2.0-3.0 VALVULAR HEART DISEASE 2.0-3.0 ATRIAL FIBRILLATION 2.0-3.0 MECHANICAL VALVES(HIGH RISK) 2.5-3.5 RECURRENT MYOCARDIAL INFARCTION 2.5-3.5 Partial Thromboplastin Time 32.8 s 24.2-38.5 Norm al (applies to non-numeric results) [facility] ([facility]) ID Date Data Source [id number] 07/26/2020 11:25:00 AM EST [facility] ([facility]) Name Value Range Interpretation Code Description Data Aydee rce(s) Supporting Document(s) Platelets [#/volume] in Blood by Automated count 342 10 150-450 Normal (applies to non-numeric results) [facility] ([facility]) aPTT in Platelet poor plasma by Coagulation assay Laboratory test res ult [facility]) ID Date Data Source [id number] 05/18/2020 12:19:00 PM EDT [facility] Name Value Range [...] [facility] ID Date Data Source [id number] 05/18/2020 12:05:00 PM EDT [facility] ([facility] Name Value Range Interpretation Code Description Data Aydee rce(s) Supporting Document(s) Troponin I.cardiac [Mass/volume] in Serum or Plasma 0.00 ng/mL 0.00-0 .08 [facility] ([facility] ID Date Data Source [id number] 05/18/2020 11:55:00 AM EDT [facility] ([facility] Name Value Range Interpretation Code Description Data Aydee rce(s) Supporting Document(s) Laboratory test finding (navigational concept) 1.04 0.4-2.0 [facility] ([facility] ID Date Data Source [id number] 05/18/2020 11:52:00 AM EDT [facility] ([facility] Name Value Range Interpretation Code Description Data Aydee rce(s) Supporting Document(s) Thyrotropin [Units/volume] in Serum or Plasma 0.480 uIU/ML 0.358-3.74 0 [facility] ([facility] Natriuretic peptide.B prohormone N-Terminal [Mass/volu me] in Serum or Plasma 612 pg/mL [facility] ID Date Data Source [id number] 05/18/2020 11:52:00 AM EDT [facility] ([facility] [...] [facility] ID Date Data Source [id number] 05/18/2020 11:52:00 AM EDT [facility] ([facility] [...] [facility] ID Date Data Source [id number] 05/18/2020 11:52:00 AM EDT [facility] ([facility] [...] % 36.0-66.0 [facility] ([facility] Douglas % 9.4 % 0.0-5.0 [facility] ([facility] [...] 10 1.5-5.0 [facility] ([facility] Douglas # 1.2 10 0.0-0.8 [facility] ([facility] Baso # 0.1 10 0.0-0.2 [facility] ([facility] Eos # 0.0 10 0.0-0.5 [facility] ([facility] ID Date Data Source [id number] 05/18/2020 11:52:00 AM EDT [facility] ([facility] [...] [facility] ID Date Data Source [id number] 05/18/2020 11:37:00 AM EDT [facility] ([facility] [...] [facility] ID Date Data Source [id number] 01/25/2020 08:51:00 AM EDT [facility] ([facility] [...] [facility] ID Date Data Source [id number] 01/25/2020 08:51:00 AM EDT [facility] ([facility] [...] Little GFR Left</content>
<content>ESRD GFR <15 on MERCHANDISING SPECIALIST</content>
<content></content> Sodium Level 142 meq/L 136-145 [facility] [...] [facility] ID Date Data Source [id number] 01/25/2020 08:51:00 AM EDT [facility] ([facility] [...] % 0.0-3.0 [facility] ([facility] Douglas % 11.1 % 0.0-5.0 [facility] ([facility] Nucleated Red Blood Cell % 0.0 % 0-0 [facility] ([facility] Immature Granulocyte % 0.3 % 0-3.0 [facility] ([facility] Douglas # 0.8 10 0.0-0.8 [facility] ([facility] [...] completed Patient is a former smoker [facility] ([facility]) Smoking 07/25/2020 12:00:00 AM EST - 05/03/2016 12:00:00 AM EDT Patient is a former smoker completed Patient is a former smoker [facility] ([facility] Vital Signs ID Date Data Source [id number] Name Value Range Interpretation Code Description Data Source(s) Body surface area Derived from formula 1.85 m2 1.85 m2 [facility] ([facility]) Body weight 68.494 kg 68.494 kg [facility] ([facility]) Dobson body weight 166 [lb_av] 166 [lb_av] [facility] ([facility]) Body mass index (BMI) [Ratio] 21.7 kg/m2 21.7 k g/m2 [facility] ([facility]) Body weight 151.00 [lb_av] 151.00 [lb_av] [facility] ([facility]) Body height 70 [in_i] 70 [in_i] [facility] ([facility]) 5'10" Oxygen saturation in Arterial blood by Pulse oximetry 97 % 97 % [facility] ([facility]) Room Air Heart rate 80 /min 80 /min [facility] ([facility]) Diastolic blood pressure 80 mm[Hg] 80 mm[Hg] [facility] ([facility]) Systolic blood pressure 140 mm[Hg] 140 mm[Hg] [facility] ([facility]) Body surface area Derived from formula 1.86 m2 1.86 m2 [facility] ([facility]) Body weight 68.947 kg 68.947 kg [facility] ([facility]) Dobson body weight 166 [lb_av] 166 [lb_av] [facility] Body mass index (BMI) [Ratio] 21.8 kg/m2 21.8 k g/m2 [facility] ([facility]) Body weight 152.00 [lb_av] 152.00 [lb_av] [facility] Body height 70 [in_i] 70 [in_i] [facility] ([facility]) 5'10" Body temperature 96.0 [degF] 96.0 [degF] [facility] ([facility]) Oxygen saturation in Arterial blood by Pulse oximetry 96 % 96 % [facility] ([facility]) Heart rate 111 /min 111 /min [facility] ([facility]) Diastolic blood pressure 90 mm[Hg] 90 mm[Hg] [facility] ([facility]) Systolic blood pressure 140 mm[Hg] 140 mm[Hg] [facility] ([facility]) Body mass index (BMI) [Ratio] 22.0 kg/m2 22.0 k g/m2 [facility] ([facility] Dobson body weight 166 [lb_av] 166 [lb_av] [facility] ([facility] Oxygen saturation in Arterial blood by Pulse oximetry 98 % 98 % [facility] ([facility] Body weight 153.38 [lb_av] 153.38 [lb_av] [facility] ([facility] Body height 70 [in_i] 70 [in_i] [facility] ([facility] 5'10" Respiratory rate 18 /min 18 /min [facility] ( [facility] Body temperature 97.3 [degF] [...] Derived from formula 1.86 m2 1.86 m2 [facility] Body weight 68.947 kg 68.947 kg [facility] ([facility]) Dobson body weight 166 [lb_av] 166 [lb_av] [facility] ([facility]) Body mass index (BMI) [Ratio] 21.8 kg/m2 21.8 k g/m2 [facility] ([facility]) Body weight 152.00 [lb_av] 152.00 [lb_av] [facility] ([facility]) Body height 70 [in_i] 70 [in_i] [facility] ([facility], ) 5'10" Oxygen saturation in Arterial blood by Pulse oximetry 94 % 94 % [facility] ([facility], ) Room Air Heart rate 94 /min 94 /min [facility] ([facility]) Diastolic blood pressure 80 mm[Hg] 80 mm[Hg] [facility] Systolic blood pressure 136 mm[Hg] 136 mm[Hg] [facility] Body mass index (BMI) [Ratio] 21.5 kg/m2 21.5 k g/m2 [facility] ([facility] Dobson body weight 166 [lb_av] 166 [lb_av] [facility] Oxygen saturation [...] Diastolic blood pressure 81 mm[Hg] 81 mm[Hg] [facility] Systolic blood pressure 124 mm[Hg] 124 mm[Hg] [facility] ([facility] Diastolic blood pressure 82 mm[Hg] 82 mm[Hg] [facility] ([facility] Systolic blood pressure 150 mm[Hg] 150 mm[Hg] [facility] ([facility] Oxygen [...]
--- NOTE | 2020-09-12 19:58 | ECGEPIP ---
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
[2020-09-12 20:00] VITALS: BP 136/79
[2020-09-12] MEDS: PIPERACILLIN/TAZOBACTAM SOD 3.375 GM in D5W MINI-BAG PLUS 50 ML IV SCH (23:20)
[2020-09-13] MEDS: PIPERACILLIN/TAZOBACTAM SOD 3.375 GM in D5W MINI-BAG PLUS 50 ML IV SCH ×3 (05:36→18:25)
[2020-09-13 06:00] VITALS: BP 123/61
[2020-09-13 06:29] LABS: BASO % 0.5 % (0.0-1.0); EOS # 0.3 10^3/uL (0.0-0.5); EOS % 3.2 % (0.0-3.0); HEMATOCRIT 40.8 % (42.0-52.0); HEMOGLOBIN 13.6 g/dl (13.5-17.5); LYMPH # 0.9 10^3/uL (1.5-5.0); LYMPH % 11.4 % (24.0-44.0); MEAN CORPUSCULAR HEMOGLOBIN 31.1 pg (27.0-33.0); MEAN CORPUSCULAR HGB CONC 33.3 g/dl (32.0-36.5); MEAN CORPUSCULAR VOLUME 93.4 fl (80.0-96.0); MONO # 1.2 10^3/uL (0.0-0.8); MONO % 15.3 % (0.0-5.0); NEUTROPHILS # 5.4 10^3/uL (1.5-8.5); NEUTROPHILS % 68.8 % (36.0-66.0); PLATELET COUNT, AUTOMATED 247 10^3/uL (150-450); RED BLOOD COUNT 4.37 10^6/uL (4.30-6.10)
[2020-09-13 06:30] LABS: WHITE BLOOD COUNT 7.8 10^3/uL (4.0-10.0)
[2020-09-13 06:53] LABS: BLOOD UREA NITROGEN 26 MG/DL (7-18); CALCIUM LEVEL 8.7 MG/DL (8.8-10.2); CARBON DIOXIDE LEVEL 24 MEQ/L (21-32); CHLORIDE LEVEL 108 MEQ/L (98-107); CREATININE FOR GFR 0.94 MG/DL (0.70-1.30); GLOMERULAR FILTRATION RATE > 60.0 (>49); GLUCOSE, FASTING 93 MG/DL (70-100); POTASSIUM SERUM 3.9 MEQ/L (3.5-5.1); SODIUM LEVEL 139 MEQ/L (136-145)
[2020-09-13] MEDS: TIOTROPIUM INHALER/CAPSULE (SPIRIVA) INH SCH (07:21)
[2020-09-13] MEDS: ENOXAPARIN 40MG/0.4ML SYRINGE (J1650 PER 10MG) SC SCH (08:53)
[2020-09-13] MEDS: IPRATROPIUM 0.5MG/ALBUTEROL 2.5MG INH SOL UD 3ML (DUONEB) NEB SCH ×3 (11:25→19:54)
--- NOTE | 2020-09-13 11:42 | IPN ---
PROGRESS NOTE DATE: 09/13/2020 SUBJECTIVE: I again attended Chance Solis today on the medical/surgical floor. He was seen in my office yesterday for worsening symptoms of pneumonia and was admitted. Maximum temperature (T-max) overnight 97.4, blood pressure in the 120s, heart rate in the 80s, respiratory rate 16-20 without accessory muscle use. White blood cell count 7.8, hemoglobin 13.6, platelet count 247,000, 16% segs, no bands. Sodium 139, potassium 2.9, chloride 108, CO2 24, BUN 26, creatinine 0.94. Cultures negative to date. Respiratory panel negative. He was able to eat this morning. He still had some diarrhea. CT scan done yesterday shows marked progression compared to a film done 10 days ago, which shows progressive lower lobe rounded infiltrates. His pleural based density mildly enlarged as well. PHYSICAL EXAMINATION: He is awake, alert and appropriate. VITAL SIGNS: Unremarkable and have been reviewed. SKIN: Normal turgor. No rashes. HEENT: Otherwise normocephalic, atraumatic. Pupils react. Neck is supple without convincing thyromegaly or adenopathy. No obvious jugular venous distention (JVD). Mucous membranes of the mouth are moist. Dentition in good repair. CHEST: Well-healed right thoracotomy scar. Hyperresonance on percussion throughout, but decreased breath sound intensity at the right base. No obvious rub today. There are some basal crackles with some egophony in the right base posteriorly. CARDIAC: Regular rate and rhythm. No murmur or gallop. Peripheral pulses palpable with no edema. ABDOMEN: Soft, nontender. Normoactive bowel sounds. No convincing palpable masses. EXTREMITIES: No cyanosis or clubbing. NEUROLOGIC: Awake, alert, and appropriate. PSYCHIATRIC: Normal affect. IMPRESSION: 1. Right lower lobe pneumonia with progression. 2. Streptococcus from pleural fluid. 3. Recent right lower lobe biopsy suggesting an inflammatory process. 4. Emphysema with advanced obstructive lung disease. 5. Previous tobacco history. 6. Resection of right upper lobe granuloma. RECOMMENDATIONS: At this point, given the progression on CT scan, it would favor an inflammatory process, but certainly, malignancy must always be entertained. We will add intravenous (IV) steroids and will increase his pulmonary toilet. I have a low threshold for repeating his CT scan and considering fiberoptic bronchoscopy and I did discuss this with him. At this point, we will proceed as outlined above. Further recommendations will be made in the progress record as new information becomes available.
--- NOTE | 2020-09-13 11:48 | IPNPDOC ---
Subjective Date Seen The patient was seen on 09/13/20. Subjective Chief Complaint/HPI Reports that he had 2 episodes of diarrhea last night, brown liquid stools. Complains of grumbling noises in the stomach, no pain or cramps. No fever or chills. SOB is unchanged. Objective Physical Examination General Exam: Positive: Alert, Cooperative, No Acute Distress, Other (cachexia. ) Eye Exam: Positive: PERRLA, Conjunctiva & lids normal, EOMI; Negative: Sclera icteric ENT Exam: Positive: Atraumatic, Mucous membr. 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 Right lower lobe empyema/ lobulated pneumonia. ?aspirations and inspissated secretions. Started on aggressive pulmonary toileting with nebs, EZ pap, chest PT, acapella. culture from fluid 09/06/20 grew Strep constallatus spp phary ; He was started on oral antibiotics but he could not tolerate it blood cultures sent started on Zosyn Appreciate pulmonary consultation Right lower lobe mass vs loculated pneumonia with parapneumonic effusion lobulated growing mass of the right lower lobe with some effusion, likely malignancy Has biopsy ans aspiration done on 09/06 Path pending COPD with emphysema with exacerbation due to large right lower lobe pneumonia/ mass spiriva, duonebs, methyl pred Diarrhea likely antibiotic related if continues will send c diff. Protein calorie malnutrition albumin of 2.5, Loss of 12 lbs over the past 3 months bitemporal wasting. Plan/VTE VTE Prophylaxis Ordered?: Yes VS, I&O, 24H, Fishbone Vital Signs/I&O Vital Signs Date Time Temp Pulse Resp B/P (MAP) Pulse Ox O2 Delivery O2 Flow Rate FiO2 09/13/20 06:00 97.4 86 20 123/61 (81) 96 09/12/20 20:00 Room Air I&O- Last 24 Hours up to 6 AM 09/13/20 06:00 Intake Total 410 ml Output Total 300 ml Balance 110 ml Laboratory Data 24H LABS Laboratory Tests 2 09/12/20 16:36: Lactic Acid Level 1.0 09/12/20 16:37: Immature Granulocyte % (Auto) 0.7, Neutrophils (%) (Auto) 72.1H, Lymphocytes (%) (Auto) 11.0L, Monocytes (%) (Auto) 14.4H, Eosinophils (%) (Auto) 1.4, Basophils (%) (Auto) 0.4, Neutrophils # (Auto) 5.8, Lymphocytes # (Auto) 0.9L, Monocytes # (Auto) 1.2H, Eosinophils # (Auto) 0.1, Basophils # (Auto) 0.0, Nucleated Red Blood Cells % (auto) 0.0, Prothrombin Time 13.7, Prothromb Time International Ratio 1.03, Anion Gap 9, Glomerular Filtration Rate > 60.0, Calcium Level 8.6L, Total Bilirubin 0.4, Direct Bilirubin 0.1, Aspartate Amino Transf (AST/SGOT) 48H, Alanine Aminotransferase (ALT/SGPT) 43, Alkaline Phosphatase 79, Total Creatine Kinase 53, Creatine Kinase MB 1.2, Creatine Kinase MB Relative Index 2.26, Troponin I < 0.02, OL-Nqb-H-Type Natriuretic Peptide 223H, Total Protein 6.2L, Albumin 2.5L, Albumin/Globulin Ratio 0.7, Thyroid Stimulating Hormone (TSH) 0.496, Thyroxine (T4) 8.5 09/13/20 05:48: Immature Granulocyte % (Auto) 0.8, Neutrophils (%) (Auto) 68.8H, Lymphocytes (%) (Auto) 11.4L, Monocytes (%) (Auto) 15.3H, Eosinophils (%) (Auto) 3.2H, Basophils (%) (Auto) 0.5, Neutrophils # (Auto) 5.4, Lymphocytes # (Auto) 0.9L, Monocytes # (Auto) 1.2H, Eosinophils # (Auto) 0.3, Basophils # (Auto) 0.0, Nucleated Red Blood Cells % (auto) 0.0, Anion Gap 7L, Glomerular Filtration Rate > 60.0, Calcium Level 8.7L CBC/BMP Laboratory Tests 09/12/20 16:37 09/13/20 05:48 Microbiology Microbiology 09/12/20 Blood Culture, Received Pending 09/12/20 Blood Culture, Received Pending 09/12/20 Respiratory Virus Panel (PCR) ([facility]) - Final, Complete YNES WARD MD Sep 13, 2020 11:48
[2020-09-13] MEDS: methylPREDNISolone 40MG 1ML VIAL IV SCH ×2 (11:52→18:25)
[2020-09-13 14:00] VITALS: BP 130/79
[2020-09-13 21:56] LABS: CLOSTRIDIUM DIFFICILE PCR NEGATIVE (NEGATIVE)
[2020-09-13 22:00] VITALS: BP 121/65
[2020-09-14] MEDS: IPRATROPIUM 0.5MG/ALBUTEROL 2.5MG INH SOL UD 3ML (DUONEB) NEB SCH ×7 (00:09→23:24)
[2020-09-14] MEDS: PIPERACILLIN/TAZOBACTAM SOD 3.375 GM in D5W MINI-BAG PLUS 50 ML IV SCH ×2 (00:26→05:15)
[2020-09-14] MEDS: methylPREDNISolone 40MG 1ML VIAL IV SCH (03:45)
[2020-09-14 06:00] VITALS: BP 122/67
[2020-09-14 06:19] LABS: BASO % 0.3 % (0.0-1.0); HEMATOCRIT 40.2 % (42.0-52.0); HEMOGLOBIN 13.5 g/dl (13.5-17.5); LYMPH # 0.5 10^3/uL (1.5-5.0); LYMPH % 6.8 % (24.0-44.0); MEAN CORPUSCULAR HEMOGLOBIN 31.5 pg (27.0-33.0); MEAN CORPUSCULAR HGB CONC 33.6 g/dl (32.0-36.5); MEAN CORPUSCULAR VOLUME 93.9 fl (80.0-96.0); MONO # 0.3 10^3/uL (0.0-0.8); MONO % 3.3 % (0.0-5.0); NEUTROPHILS # 7.1 10^3/uL (1.5-8.5); PLATELET COUNT, AUTOMATED 266 10^3/uL (150-450); RED BLOOD COUNT 4.28 10^6/uL (4.30-6.10); WHITE BLOOD COUNT 7.9 10^3/uL (4.0-10.0)
[2020-09-14 06:45] LABS: BLOOD UREA NITROGEN 30 MG/DL (7-18); CALCIUM LEVEL 8.7 MG/DL (8.8-10.2); CARBON DIOXIDE LEVEL 22 MEQ/L (21-32); CHLORIDE LEVEL 110 MEQ/L (98-107); CREATININE FOR GFR 1.13 MG/DL (0.70-1.30); GLOMERULAR FILTRATION RATE > 60.0 (>49); GLUCOSE, FASTING 181 MG/DL (70-100); POTASSIUM SERUM 3.5 MEQ/L (3.5-5.1); SODIUM LEVEL 144 MEQ/L (136-145)
[2020-09-14] MEDS: TIOTROPIUM INHALER/CAPSULE (SPIRIVA) INH SCH (07:03)
[2020-09-14] MEDS: ENOXAPARIN 40MG/0.4ML SYRINGE (J1650 PER 10MG) SC SCH (08:33)
[2020-09-14 11:24] LABS: C REACTIVE PROTEIN QUANTITATIV 7.27 MG/DL (0.00-0.30)
--- NOTE | 2020-09-14 11:34 | IPNPDOC ---
Subjective Date Seen The patient was seen on 09/14/20. Subjective Chief Complaint/HPI Patient reports he is eating better, no more vomiting, Diarrhea has slowed down though still has liquid stools, no abdominal pain or cramps. No fever. Objective Physical Examination General Exam: Positive: Alert, Cooperative, No Acute Distress, Other (cachexia. ) Eye Exam: Positive: PERRLA, Conjunctiva & lids normal, EOMI; Negative: Sclera icteric ENT Exam: Positive: Atraumatic, Mucous membr. 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 Right lower lobe Abscess S/P CT guided biopsy: culture from fluid 09/06/20 grew Strep constallatus spp phary Pathology pending. As per pulmonary it grew in size in 1 month no most likely it is infectious rather than malignant. Started on aggressive pulmonary toileting with nebs, EZ pap, chest PT, acapella. Ceftriaxone with need long course. PICC line ID has been consulted. Appreciate pulmonary consultation COPD with emphysema with exacerbation due to large right lower lobe pneumonia/ mass spiriva, duonebs, methyl pred Diarrhea likely antibiotic related c diff negative. Protein calorie malnutrition albumin of 2.5, Loss of 12 lbs over the past 3 months bitemporal wasting. Plan/VTE VTE Prophylaxis Ordered?: Yes VS, I&O, 24H, Fishbone Vital Signs/I&O Vital Signs Date Time Temp Pulse Resp B/P (MAP) Pulse Ox O2 Delivery O2 Flow Rate FiO2 09/14/20 06:00 98.1 91 20 122/67 (85) 93 09/12/20 20:00 Room Air I&O- Last 24 Hours up to 6 AM 09/14/20 06:00 Intake Total 1720 ml Output Total 600 ml Balance 1120 ml Laboratory Data 24H LABS Laboratory Tests 2 09/13/20 20:58: Clostridium difficile [id number] PRESUMPTIVE NEGATIVE, Clostridium difficile Toxin (PCR) NEGATIVE 09/14/20 05:30: Immature Granulocyte % (Auto) 0.6, Neutrophils (%) (Auto) 89.0H, Lymphocytes (%) (Auto) 6.8L, Monocytes (%) (Auto) 3.3, Eosinophils (%) (Auto) 0.0, Basophils (%) (Auto) 0.3, Neutrophils # (Auto) 7.1, Lymphocytes # (Auto) 0.5L, Monocytes # (Auto) 0.3, Eosinophils # (Auto) 0.0, Basophils # (Auto) 0.0, Nucleated Red Bl ood Cells % (auto) 0.0, Anion Gap 12, Glomerular Filtration Rate > 60.0, Calcium Level 8.7L, C-Reactive Protein, Quantitative 7.27H CBC/BMP Laboratory Tests 09/14/20 05:30 Microbiology Microbiology 09/12/20 Blood Culture - Preliminary, Resulted No growth after 24 hours . All specim... 09/12/20 Blood Culture - Preliminary, Resulted No growth after 24 hours . All specim... 09/12/20 Respiratory Virus Panel (PCR) ([facility]) - Final, Complete YNES WARD MD Sep 14, 2020 11:34
--- NOTE | 2020-09-14 11:58 | IPN ---
PULMONARY PROGRESS NOTE DATE: 09/14/2020 SUBJECTIVE: The patient states he feels significant improvement likely from the IV steroids, he has been ambulating with less shortness of breath. At home he is on Spiriva as far as inhaled therapy. He has not been on any LABA or inhaled steroids. He says he prefers to be on a single agent and does not want the risk of inhaled steroids. It does not appear that he chronically requires prednisone. It does not appear that he has bronchospastic issues. His main underlying disease is emphysema and therefore Spiriva seems adequate. On going back through his history, he has had some remote tooth abscess issues. He has had multiple fractured teeth. On review of his prior pleural fluid on 09/06/2020, showed Strep constellatus which had intermittent sensitivities to penicillin and Clindamycin but was sensitive to Levofloxacin, Vancomycin and Ceftriaxone. Since the time he has been in the hospital he has been on Zosyn and on 80 mg of Solu-Medrol. He has had no recurrent diarrhea. He is having a bowel movement once a day that is still a little bit loose. He had some diarrhea and augmented at home. PHYSICAL EXAMINATION: VITAL SIGNS: Temperature is 98, pulse is 91, respiratory rate is 20, blood pressure is 122/67, oxygen saturation is 93% on room air. GENERAL: Awake, alert and oriented. Affect and mood are appropriate. Speech is clear and non-tangential. He is able to speak full sentences without shortness of breath. HEENT: Sclera clear, nonicteric. Pupils equal and reactive to light. Mucous membranes are moist without lesions. Oropharynx is without erythema or exudate. He does have multiple tooth fractures, one missing tooth, a molar. Tongue is midline without lesion. No evidence of thrush. NECK: Supple. No tracheal deviation or mass. Trachea is midline. LYMPH: No cervical, supraclavicular or axillary adenopathy. CARDIAC: Distant S1 and S2 without audible murmur, rub or gallop. No elevated JVP. No peripheral edema. PULMONARY: Decreased breath sounds at the right base. There is some faint associated rales. No rhonchi. There is increased tactile fremitus at the right lower base. There is no dullness to percussion. ABDOMEN: Scaphoid, soft, nontender, nondistended. No discernible hepatosplenomegaly or masses. EXTREMITIES: No cyanosis, clubbing or edema. SKIN: No rashes, jaundice or bruising. MUSCULOSKELETAL: Some muscle wasting without obvious joint effusion or fracture. LABORATORY DATA: White blood cell count of 7.9, hemoglobin 13.5 with a platelet count of 266,000 with 89% neutrophilia on differential. Sodium is 144, potassium is 3.5, chloride is 110, bicarbonate of 22, BUN of 30, creatinine of 1.13 with a glucose of 181. There is no new imaging. Pleural fluid as mentioned above. IMPRESSION: 1. Right lower lobe abscess from Strep constellatus with intermittent coverage to penicillin may be why he failed Augmentin therapy. At this point in time do not think bronchoscopy is necessary. This is likely infection. Will likely need prolonged antibiotic therapy in a patient who is going to be on steroids for quinolones may not be the ideal therapy and given the fact that he had failed outpatient Augmentin would recommend placement of PICC line and switching to Ceftriaxone. I have consulted ID to help facilitate antibiotics at home. He will require follow up with chest ct to ensure resolution. 2. Emphysema, on Spiriva, will taper steroids slowly as he likely has pleuritis from the infection. 3. Hyperglycemia, mild in nature, continue to monitor while on steroids. 4. Protein malnourishment, encourage protein intake. MTDD
[2020-09-14] MEDS: methylPREDNISolone 125MG 2ML VIAL IV SCH ×2 (12:54→20:21)
[2020-09-14] MEDS: cefTRIAXone SOD 2 GM in D5W MINI-BAG PLUS 50 ML IV SCH (12:54)
[2020-09-14 14:00] VITALS: BP 141/79
[2020-09-14] MEDS ORDERED: LIDOCAINE 1% MDV 20ML VIAL As Ordered ONE (14:18)
--- NOTE | 2020-09-14 17:33 | REP ---
INDICATION: lung abscess. COMPARISON: None. TECHNIQUE: The procedure was performed under the direct supervision of Dr. Lee. The risks and benefits of the procedure were explained to the patient and informed consent was obtained. The right basilic vein was localized using ultrasound guidance. The skin was prepped and draped in a sterile fashion. 2% lidocaine was used as a local anesthetic. Using ultrasound guidance the basilic vein was cannulated and a 0.018 guidewire was inserted and advanced to the SVC using fluoroscopic guidance. The needle was removed and a 5.5 Cuban dilator and peel-away sheath was inserted over the guide wire. A 5.5 Cuban dual lumen catheter was cut to length of 43 cm. The dilator was removed and the catheter was inserted over the guide wire with the tip ending in the SVC. The peel-away sheath was removed and the catheter was flushed with heparinized saline as per Hospital protocol. The catheter was affixed to the skin and a sterile dressing was applied. The patient tolerated the procedure well and there were no immediate complications. 0.1 minute of fluoro time was utilized for this procedure. FINDINGS: None IMPRESSION: PICC line insertion right basilic vein. <Electronically signed by Ant Overton > 09/14/20 1701 <Electronically signed by Jesse Lee > 09/14/20 [id number]
[2020-09-14 22:00] VITALS: BP 137/66
[2020-09-15] MEDS: IPRATROPIUM 0.5MG/ALBUTEROL 2.5MG INH SOL UD 3ML (DUONEB) NEB SCH ×6 (03:01→23:54)
[2020-09-15] MEDS: methylPREDNISolone 125MG 2ML VIAL IV SCH ×3 (04:12→20:23)
[2020-09-15] MEDS: SODIUM CHLORIDE 0.9% INJ 10 ML SYR IV SCH ×2 (04:27→18:41)
[2020-09-15] MEDS: SODIUM CHLORIDE 0.9% INJ 10 ML SYR IV PRN ×2 (04:28→12:28)
[2020-09-15 06:00] VITALS: BP 120/73
[2020-09-15 06:15] LABS: BASO % 0.2 % (0.0-1.0); HEMATOCRIT 38.3 % (42.0-52.0); HEMOGLOBIN 12.8 g/dl (13.5-17.5); LYMPH # 0.7 10^3/uL (1.5-5.0); LYMPH % 4.3 % (24.0-44.0); MEAN CORPUSCULAR HEMOGLOBIN 31.4 pg (27.0-33.0); MEAN CORPUSCULAR HGB CONC 33.4 g/dl (32.0-36.5); MEAN CORPUSCULAR VOLUME 93.9 fl (80.0-96.0); MONO # 0.8 10^3/uL (0.0-0.8); MONO % 4.6 % (2.0-8.0); NEUTROPHILS # 15.1 10^3/uL (1.5-8.5); NEUTROPHILS % 89.6 % (36.0-66.0); PLATELET COUNT, AUTOMATED 297 10^3/uL (150-450); RED BLOOD COUNT 4.08 10^6/uL (4.30-6.10); WHITE BLOOD COUNT 16.9 10^3/uL (4.0-10.0)
[2020-09-15 06:37] LABS: BLOOD UREA NITROGEN 35 MG/DL (7-18); CALCIUM LEVEL 9.1 MG/DL (8.8-10.2); CARBON DIOXIDE LEVEL 26 MEQ/L (21-32); CHLORIDE LEVEL 109 MEQ/L (98-107); CREATININE FOR GFR 0.91 MG/DL (0.70-1.30); GLOMERULAR FILTRATION RATE > 60.0 (>49); GLUCOSE, FASTING 142 MG/DL (70-100); SODIUM LEVEL 143 MEQ/L (136-145)
[2020-09-15] MEDS: TIOTROPIUM INHALER/CAPSULE (SPIRIVA) INH SCH (07:26)
--- NOTE | 2020-09-15 10:08 | IPNPDOC ---
Subjective Date Seen The patient was seen on 09/15/20. Subjective Chief Complaint/HPI Feeling better. He reports that he walked int eh hallway the full [place]. He is eating better, his diarrhea has stopped. He has a PICC line. Objective Physical Examination General Exam: Positive: Alert, Cooperative, No Acute Distress, Other (cachexia. ) Eye Exam: Positive: PERRLA, Conjunctiva & lids normal, EOMI; Negative: Sclera icteric ENT Exam: Positive: Atraumatic, Mucous membr. 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 Right lower lobe Abscess S/P CT guided biopsy: culture from fluid 09/06/20 grew Strep constallatus spp phary Pathology pending. As per pulmonary it grew in size in 1 month no most likely it is infectious rather than malignant. Started on aggressive pulmonary toileting with nebs, EZ pap, chest PT, acapella. Ceftriaxone with need long course. PICC line ID has been consulted. Appreciate pulmonary consultation COPD with emphysema with exacerbation due to large right lower lobe pneumonia/ mass spiriva, duonebs, methyl pred Diarrhea likely antibiotic related c diff negative. Protein calorie malnutrition albumin of 2.5, Loss of 12 lbs over the past 3 months bitemporal wasting. Plan/VTE VTE Prophylaxis Ordered?: Yes VS, I&O, 24H, Fishbone Vital Signs/I&O Vital Signs Date Time Temp Pulse Resp B/P (MAP) Pulse Ox O2 Delivery O2 Flow Rate FiO2 09/15/20 06:00 97.6 102 17 120/73 (89) 94 Room Air I&O- Last 24 Hours up to 6 AM 09/15/20 05:59 Intake Total 1450 ml Output Total 700 ml Balance 750 ml Laboratory Data 24H LABS Laboratory Tests 2 09/15/20 05:34: Immature Granulocyte % (Auto) 1.3, Neutrophils (%) (Auto) 89.6H, Lymphocytes (%) (Auto) 4.3L, Monocytes (%) (Auto) 4.6, Eosinophils (%) (Auto) 0.0, Basophils (%) (Auto) 0.2, Neutrophils # (Auto) 15.1H, Lymphocytes # (Auto) 0.7L, Monocytes # (Auto) 0.8, Eosinophils # (Auto) 0.0, Basophils # (Auto) 0.0, Nucleated Red Blood Cells % (auto) 0.0, Anion Gap 8, Glomerular Filtration Rate > 60.0, Calcium Level 9.1 CBC/BMP Laboratory Tests 09/15/20 05:34 Microbiology Microbiology 09/12/20 Blood Culture - Preliminary, Resulted No Growth after 48 hours. All Specime... 09/12/20 Blood Culture - Preliminary, Resulted No Growth after 48 hours. All Specime... 09/12/20 Respiratory Virus Panel (PCR) ([facility]) - Final, Complete YNES WARD MD Sep 15, 2020 10:08
[2020-09-15] MEDS: ENOXAPARIN 40MG/0.4ML SYRINGE (J1650 PER 10MG) SC SCH (10:28)
--- NOTE | 2020-09-15 12:14 | CR ---
CONSULTATION DATE: 09/14/2020 Asked to consult by Dr. Pinon for evaluation of right lung empyema and need for outpatient intravenous (IV) antibiotics. HISTORY OF PRESENT ILLNESS: Mr. Solis is a pleasant 64-year-old gentleman with a history of chronic obstructive pulmonary disease (COPD) and tobacco abuse who was admitted on September 12 with a complaint of weakness and worsening right lung effusion with empyema. The patient has a history of pneumonia diagnosed May 18, hospitalized for 3 days, treated with doxycycline and cefuroxime. The patient was followed up closely by Dr. Patel and had multiple courses of outpatient antibiotic, mostly oral. Repeat chest CT done in July 2020 showed progressive infiltrate opacity of the right lower lobe with adjacent pleural effusion. August 20 there was a loculated fluid that was 6.7 cm. Had decreased to 3.1 cm, but on September 06 the patient had a CT-guided aspiration of his right lung that was positive for Streptococcus constellatus that was treated with Augmentin. The patient was having increasing diarrhea and vomiting on antibiotics, and he stated that he was more short of breathing with minimal exertion. He stated that in the summer he was able to garden, and now he cannot go upstairs in his house to go to the bathroom. He had intermittent fevers, especially when he was off antibiotics. He denied any pleuritic chest pain. He had a 15-pound weight loss in the past 6 months since May. The patient was admitted for thoracentesis and intravenous (IV) antibiotic. ADMISSION MEDICATIONS: - Augmentin started on September for 21 days, one tablet twice a day - vitamin D3 at 1000 units daily - Spiriva 2.5 mcg two puffs inhaled daily - albuterol as needed - ibuprofen as needed Currently patient is on: - Zosyn 3.375 grams IV every 6 hours - methylprednisolone 80 mg IV every 8 hours - albuterol Atrovent nebulizers - Spiriva one inhalation daily. ALLERGIES: No known drug allergies. LABORATORY DATA: White count 7.9, hemoglobin 13.5, hematocrit 40.2, platelets 266, 89% neutrophils, 7% lymphocytes, 3% monocytes. Sodium 144, potassium 3.5, chloride 110, bicarbonate 22, BUN 30, creatinine 1.13, glucose 181, calcium 8.7, CRP 7.27. BNP 223. Total protein 6.2, albumin 2.5. PT 13.7, INR 1.03. Clostridium (C) difficile toxin was negative on September 10. Blood cultures, two sets, on September 12 were negative. Respiratory panel was negative by multiplex [employer]. Pleural fluid culture on lung biopsy had Streptococcus constellatus species pharyngitis, intermediate to clindamycin and pencilling with [facility] of 0.5. Fine needle aspiration cell block from September 06 is still pending for cytology. Acid-fast bacillus (AFB) fungal smear and culture are all pending from pleural fluid as well. PHYSICAL EXAMINATION: He is a pleasant, thin-looking gentleman in no acute distress. Temperature is 96.5, pulse 100, respirations 20, blood pressure 141/79, oxygen saturation 96% on room air. Oropharynx is clear with no obvious abscesses or swelling. No lesions. HEART: Normal S1, S2, distant. No murmurs appreciated. LUNGS: Diminished breath sounds at the right lung fdc. Left lung: Good air entry. No wheezes, rales, or rhonchi. ABDOMEN: Soft, nontender. NO hepatosplenomegaly. BACK: No costovertebral angle (CVA) or lumbosacral tenderness. EXTREMITIES: No clubbing, cyanosis, or edema. No calf tenderness. SKIN: No rashes. No petechia. MUSCULOSKELETAL: Knees/hips: Normal range of motion. IMPRESSION: This is a 64-year-old gentleman with a history of tobacco abuse who has not done well since May 2020 with pneumonia that has developed into a lung abscess empyema. He also recalls having a dental abscess somewhere in the spring that healed spontaneously, and he has not made it to a dental office. That could have a source of infection. Case has been discussed with Dr. Pinon, who agrees on the peripherally inserted central catheter (PICC) line for home IV antibiotic, which has been ordered for today. Discontinue IV Zosyn. Switch to Rocephin 2 grams IV daily to cover for Streptococcus constellatus, which is susceptible to ceftriaxone. Consult patient and family services (PFS) for home IV antibiotic to teach patient and on administration. Monitor complete blood count (CBC), C-reactive protein (CRP), comprehensive metabolic profile (CMP), erythrocyte sedimentation rate (ESR) weekly with antibiotic.
[2020-09-15] MEDS: cefTRIAXone SOD 2 GM in D5W MINI-BAG PLUS 50 ML IV SCH (12:27)
[2020-09-15 14:00] VITALS: BP 137/76
[2020-09-15] MEDS: CALCIUM CARBONATE 500 MG CHEW U/D PO PRN (19:44)
[2020-09-15 22:00] VITALS: BP 141/67
[2020-09-16] MEDS: IPRATROPIUM 0.5MG/ALBUTEROL 2.5MG INH SOL UD 3ML (DUONEB) NEB SCH ×5 (03:56→19:20)
[2020-09-16] MEDS: methylPREDNISolone 125MG 2ML VIAL IV SCH ×3 (04:55→20:19)
[2020-09-16] MEDS: SODIUM CHLORIDE 0.9% INJ 10 ML SYR IV SCH ×2 (04:56→18:35)
[2020-09-16 06:00] VITALS: BP 144/69
[2020-09-16 06:41] LABS: BASO % 0.2 % (0.0-1.0); HEMATOCRIT 37.8 % (42.0-52.0); HEMOGLOBIN 12.9 g/dl (13.5-17.5); LYMPH # 0.5 10^3/uL (1.5-5.0); LYMPH % 4.1 % (24.0-44.0); MEAN CORPUSCULAR HEMOGLOBIN 32.4 pg (27.0-33.0); MEAN CORPUSCULAR HGB CONC 34.1 g/dl (32.0-36.5); MONO # 0.6 10^3/uL (0.0-0.8); MONO % 4.6 % (2.0-8.0); NEUTROPHILS # 11.7 10^3/uL (1.5-8.5); NEUTROPHILS % 89.9 % (36.0-66.0); PLATELET COUNT, AUTOMATED 297 10^3/uL (150-450); RED BLOOD COUNT 3.98 10^6/uL (4.30-6.10)
[2020-09-16 06:55] LABS: BLOOD UREA NITROGEN 38 MG/DL (7-18); CALCIUM LEVEL 8.7 MG/DL (8.8-10.2); CARBON DIOXIDE LEVEL 24 MEQ/L (21-32); CHLORIDE LEVEL 111 MEQ/L (98-107); CREATININE FOR GFR 0.88 MG/DL (0.70-1.30); GLOMERULAR FILTRATION RATE > 60.0 (>49); GLUCOSE, FASTING 161 MG/DL (70-100); POTASSIUM SERUM 4.4 MEQ/L (3.5-5.1); SODIUM LEVEL 143 MEQ/L (136-145)
[2020-09-16] MEDS: TIOTROPIUM INHALER/CAPSULE (SPIRIVA) INH SCH (07:15)
--- NOTE | 2020-09-16 08:50 | IPNPDOC ---
Subjective Date Seen The patient was seen on 09/16/20. Subjective Chief Complaint/HPI Patient appears cheerful. Reports diarrhea has stopped. He is eating better and feeling stronger. He reported that he walked 6 times the [place] yesterday. Objective Physical Examination General Exam: Positive: Alert, Cooperative, No Acute Distress, Other (cachexia. ) Eye Exam: Positive: PERRLA, Conjunctiva & lids normal, EOMI; Negative: Sclera icteric ENT Exam: Positive: Atraumatic, Mucous membr. 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 Right lower lobe Abscess S/P CT guided biopsy: culture from fluid 09/06/20 grew Strep constallatus spp phary Pathology pending. As per pulmonary it grew in size in 1 month no most likely it is infectious rather than malignant. Started on aggressive pulmonary toileting with nebs, EZ pap, chest PT, acapella. Ceftriaxone with need long course. PICC line Appreciate pulmonary consultation Appreciate ID consultation. COPD with emphysema with exacerbation due to large right lower lobe pneumonia/ mass spiriva, duonebs, methyl pred Diarrhea likely antibiotic related c diff negative. resolved Protein calorie malnutrition albumin of 2.5, Loss of 12 lbs over the past 3 months bitemporal wasting. Plan/VTE VTE Prophylaxis Ordered?: Yes VS, I&O, 24H, Fishbone Vital Signs/I&O Vital Signs Date Time Temp Pulse Resp B/P (MAP) Pulse Ox O2 Delivery O2 Flow Rate FiO2 09/16/20 06:00 97.1 100 19 144/69 (94) 95 Room Air I&O- Last 24 Hours up to 6 AM 09/16/20 06:00 Intake Total 2125 ml Output Total 0 ml Balance 2125 ml Laboratory Data 24H LABS Laboratory Tests 2 09/16/20 06:04: Immature Granulocyte % (Auto) 1.2, Neutrophils (%) (Auto) 89.9H, Lymphocytes (%) (Auto) 4.1L, Monocytes (%) (Auto) 4.6, Eosinophils (%) (Auto) 0.0, Basophils (%) (Auto) 0.2, Neutrophils # (Auto) 11.7H, Lymphocytes # (Auto) 0.5L, Monocytes # (Auto) 0.6, Eosinophils # (Auto) 0.0, Basophils # (Auto) 0.0, Nucleated Red Blood Cells % (auto) 0.0, Anion Gap 8, Glomerular Filtration Rate > 60.0, Calcium Level 8.7L CBC/BMP Laboratory Tests 09/16/20 06:04 Microbiology Microbiology 09/12/20 Blood Culture - Preliminary, Resulted No Growth after 72 hours. All specime... 09/12/20 Blood Culture - Preliminary, Resulted No Growth after 72 hours. All specime... 09/12/20 Respiratory Virus Panel (PCR) ([facility]) - Final, Complete YNES WARD MD Sep 16, 2020 08:50
[2020-09-16] MEDS: ENOXAPARIN 40MG/0.4ML SYRINGE (J1650 PER 10MG) SC SCH (09:13)
[2020-09-16] MEDS: cefTRIAXone SOD 2 GM in D5W MINI-BAG PLUS 50 ML IV SCH (12:08)
[2020-09-16] MEDS: SODIUM CHLORIDE 0.9% INJ 10 ML SYR IV PRN ×2 (12:09→20:19)
[2020-09-16 14:00] VITALS: BP 149/81
[2020-09-16] MEDS: CALCIUM CARBONATE 500 MG CHEW U/D PO PRN (17:13)
[2020-09-16 22:00] VITALS: BP 148/82
[2020-09-17] MEDS: methylPREDNISolone 125MG 2ML VIAL IV SCH (03:10)
[2020-09-17] MEDS: SODIUM CHLORIDE 0.9% INJ 10 ML SYR IV PRN ×2 (03:10→12:30)
[2020-09-17] MEDS: IPRATROPIUM 0.5MG/ALBUTEROL 2.5MG INH SOL UD 3ML (DUONEB) NEB SCH ×5 (03:53→15:16)
[2020-09-17] MEDS: SODIUM CHLORIDE 0.9% INJ 10 ML SYR IV SCH (05:20)
[2020-09-17 06:00] VITALS: BP 148/82
[2020-09-17 06:03] LABS: BASO % 0.3 % (0.0-1.0); HEMATOCRIT 38.9 % (42.0-52.0); LYMPH # 0.4 10^3/uL (1.5-5.0); LYMPH % 3.4 % (24.0-44.0); MEAN CORPUSCULAR HEMOGLOBIN 31.7 pg (27.0-33.0); MEAN CORPUSCULAR HGB CONC 33.4 g/dl (32.0-36.5); MEAN CORPUSCULAR VOLUME 94.9 fl (80.0-96.0); MONO # 0.4 10^3/uL (0.0-0.8); MONO % 4.2 % (2.0-8.0); NEUTROPHILS # 9.4 10^3/uL (1.5-8.5); NEUTROPHILS % 90.2 % (36.0-66.0); PLATELET COUNT, AUTOMATED 303 10^3/uL (150-450); WHITE BLOOD COUNT 10.5 10^3/uL (4.0-10.0)
[2020-09-17 06:26] LABS: BLOOD UREA NITROGEN 35 MG/DL (7-18); CARBON DIOXIDE LEVEL 24 MEQ/L (21-32); CHLORIDE LEVEL 109 MEQ/L (98-107); CREATININE FOR GFR 0.85 MG/DL (0.70-1.30); GLOMERULAR FILTRATION RATE > 60.0 (>49); GLUCOSE, FASTING 189 MG/DL (70-100); POTASSIUM SERUM 4.2 MEQ/L (3.5-5.1); SODIUM LEVEL 140 MEQ/L (136-145)
[2020-09-17] MEDS: TIOTROPIUM INHALER/CAPSULE (SPIRIVA) INH SCH (07:22)
[2020-09-17] MEDS: CALCIUM CARBONATE 500 MG CHEW U/D PO PRN (07:59)
[2020-09-17 08:00] VITALS: BP 149/83
[2020-09-17] MEDS: ENOXAPARIN 40MG/0.4ML SYRINGE (J1650 PER 10MG) SC SCH (08:58)
[2020-09-17] MEDS ORDERED: PANTOPRAZOLE 40MG TAB (PROTONIX) PO SCH (09:00)
[2020-09-17] MEDS ORDERED: CALC200T15 PO (11:32)
[2020-09-17] MEDS ORDERED: PANT40TA29 PO (11:32)
[2020-09-17] MEDS ORDERED: PRED10TA2 PO (11:32)
[2020-09-17] MEDS: cefTRIAXone SOD 2 GM in D5W MINI-BAG PLUS 50 ML IV SCH (11:37)
--- NOTE | 2020-09-17 13:03 | DS.PDOC ---
Discharge Summary General Date of Admission Sep 12, 2020 at 19:12 Date of Discharge 09/17/20 Discharge Summary PROCEDURES PERFORMED DURING STAY: PICC line insertion DISCHARGE DIAGNOSES: Right lower lobe Abscess by streptococcus COPD with Emphysema Oral antibiotic induced diarrhea Protein Calorie malnutrition COMPLICATIONS/CHIEF COMPLAINT: Copd,Rll Pneumonia. 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 Right lower lobe Abscess S/P CT guided biopsy: culture from fluid 09/06/20 grew Strep constallatus spp phary Pathology pending. As per pulmonary it grew in size in 1 month no most likely it is infectious rath er than malignant. Started on aggressive pulmonary toileting with nebs, EZ pap, chest PT, acapella. Ceftriaxone with need long course. PICC line in place. Appreciate pulmonary consultation Appreciate ID consultation. COPD with emphysema with exacerbation due to large right lower lobe pneumonia/ mass spiriva, duonebs, prednisone taper. Diarrhea likely antibiotic related c diff negative. resolved Protein calorie malnutrition albumin of 2.5, Loss of 12 lbs over the past 3 months bitemporal wasting. DISCHARGE MEDICATIONS: Please see below. ALLERGIES: Please see below. PHYSICAL EXAMINATION ON DISCHARGE: VITAL SIGNS: Please see below. General Exam: Positive: Alert, Cooperative, No Acute Distress, Other (cachexia. ) Eye Exam: Positive: PERRLA, Conjunctiva & lids normal, EOMI; Negative: Sclera icteric ENT Exam: Positive: Atraumatic, Mucous membr. moist/pink, Pharynx Normal, Other ENT (bitemporal wasting) Neck Exam: Positive: Supple; Negative: JVD, thyromegaly Chest Exam: Positive: Wheezing (present), Diminished (at the right base) Heart Exam: Positive: Rate Normal, Regular Rhythm, Normal S1, Normal S2; Negative: Murmurs, Rubs Abdomen Exam: Positive: BS Hyperactive, Soft; Negative: Tenderness, Hepatosplenomegaly Extremity Exam: Negative: Clubbing, Cyanosis, Edema LABORATORY DATA: Please see below. IMAGING: CT chest: Increasing multilobulated masslike consolidation involving the right lower lobe now extending towards the hilum with small pleural effusion and increased interstitial thickening. Findings are most compatible with malignancy and require further investigation. ACTIVITY: [As tolerated]. DIET: As tolerated DISPOSITION: Home with IV antibiotics DISCHARGE INSTRUCTIONS: Follow up Dr Patel in 2 weeks, Dr Ruano in 1 month ITEMS TO FOLLOWUP ON ON OUTPATIENT: CBC, CMP, ESR, CRP every week while on antibiotics. DISCHARGE CONDITION: [Stable]. TIME SPENT ON DISCHARGE: 35 minutes. Vital Signs/I&Os Vital Signs Date Time Temp Pulse Resp B/P (MAP) Pulse Ox O2 Delivery O2 Flow Rate FiO2 09/17/20 08:00 97.6 104 20 149/83 (105) 92 Room Air I&O- Last 24 Hours up to 6 AM 09/17/20 06:00 Intake Total 1800 ml Output Total 1150 ml Balance 650 ml Laboratory Data Labs 24H Laboratory Tests 2 09/17/20 05:36: Immature Granulocyte % (Auto) 1.9, Neutrophils (%) (Auto) 90.2H, Lymphocytes (%) (Auto) 3.4L, Monocytes (%) (Auto) 4.2, Eosinophils (%) (Auto) 0.0, Basophils (%) (Auto) 0.3, Neutrophils # (Auto) 9.4H, Lymphocytes # (Auto) 0.4L, Monocytes # (Auto) 0.4, Eosinophils # (Auto) 0.0, Basophils # (Auto) 0.0, Nucleated Red Blood Cells % (auto) 0.0, Anion Gap 7L, Glomerular Filtration Rate > 60.0, Calcium Level 9.0 CBC/BMP Laboratory Tests 09/17/20 05:36 Microbiology Microbiology 09/12/20 Blood Culture - Preliminary, Resulted No Growth after 72 hours. All specime... 09/12/20 Blood Culture - Preliminary, Resulted No Growth after 72 hours. All specime... 09/12/20 Respiratory Virus Panel (PCR) ([facility]) - Final, Complete Discharge Medications Scheduled Cholecalciferol (Vitamin D3) (Vitamin D3) 1,000 Unit Tablet, 1,000 UNITS PO QHS, (Reported) Pantoprazole Sodium (Pantoprazole Sodium) 40 Mg Tablet., 40 MG PO DAILY Prednisone (Prednisone) 10 Mg Tablet, 10 MG PO TAPER Take 4 tabs daily x 3 days, then 3 tabs daily x 3 days, then 2 tabs daily x 3 days, then 1 tab daily x 3 days and stop Tiotropium [place] (Spiriva Respimat) 2.5 Mcg/Act Spr, 2 PUFFS INH DAILY, (Reported) Scheduled PRN Albuterol Sulfate (Proair Hfa) 108 Mcg/Act Aer, 2 PUFF INH QID PRN for SHORTNESS OF BREATH, (Reported) Calcium Carbonate (Calcium Carbonate) 200 Mg Tab.chew, 1,000 MG PO Q6HP PRN for HEARTBURN Ibuprofen (Ibuprofen) 200 Mg Tab, 400 MG PO QID PRN for PAIN, (Reported) Allergies Coded Allergies: No Known Allergies (Verified , 12/30/16) YNES WARD MD Sep 17, 2020 13:03
[2020-09-17 14:00] VITALS: BP 152/84
[2020-09-17 15:49] LABS: C REACTIVE PROTEIN QUANTITATIV 0.91 MG/DL (0.00-0.30)
[2020-09-17] MEDS ORDERED: methylPREDNISolone 125MG 2ML VIAL IV SCH (16:00)
== END 2020-09-17 16:34 | disposition home or self-care (01) | DRG 178 ==
LOC: M ED 14:31 → M ED INP 19:12 → M MSPAV 19:56
PROVIDERS: ADMIT Internal Medicine Nephrology; ATTEND Internal Medicine Nephrology
PROC: 02HV33Z Insertion of Infusion Device into Superior Vena Cava, Percutaneous Approach (ICD-10-PCS; principal; 2020-09-14 14:30)
DX: J85.1 Abscess of lung with pneumonia (principal); K52.1 Toxic gastroenteritis and colitis; E46 Unspecified protein-calorie malnutrition; J96.11 Chronic respiratory failure with hypoxia; R91.8 Other nonspecific abnormal finding of lung field; J43.9 Emphysema, unspecified; T36.0X5A Adverse effect of penicillins, initial encounter; F17.200 Nicotine dependence, unspecified, uncomplicated; B95.5 Unspecified streptococcus as the cause of diseases classified elsewhere; I50.9 Heart failure, unspecified; Z98.49 Cataract extraction status, unspecified eye; Z90.2 Acquired absence of lung [part of]; Z90.49 Acquired absence of other specified parts of digestive tract; Z87.442 Personal history of urinary calculi; Z86.711 Personal history of pulmonary embolism

== ENCOUNTER → 2020-09-25 | Outpatient (REF) | payer MEDICARE ==
[~2020-09-25] MED LIST changes: +AMOX500T2 PO; +CALC200T15 PO; +D31000TA2 PO; +PANT40TA29 PO; +PRED10TA2 PO
[2020-09-25 20:21] LABS: HEMATOCRIT 44.6 % (42.0-52.0); HEMOGLOBIN 14.7 g/dl (13.5-17.5); MEAN CORPUSCULAR HEMOGLOBIN 31.5 pg (27.0-33.0); MEAN CORPUSCULAR VOLUME 95.7 fl (80.0-96.0); PLATELET COUNT, AUTOMATED 227 10^3/uL (150-450); RED BLOOD COUNT 4.66 10^6/uL (4.30-6.10); WHITE BLOOD COUNT 13.5 10^3/uL (4.0-10.0)
[2020-09-25 20:43] LABS: ALBUMIN 3.2 GM/DL (3.2-5.2); ALT/SGPT 39 U/L (12-78); BILIRUBIN,TOTAL 0.3 MG/DL (0.2-1.0); BLOOD UREA NITROGEN 27 MG/DL (7-18); C REACTIVE PROTEIN QUANTITATIV 0.53 MG/DL (0.00-0.30); CARBON DIOXIDE LEVEL 26 MEQ/L (21-32); CHLORIDE LEVEL 105 MEQ/L (98-107); CREATININE FOR GFR 0.96 MG/DL (0.70-1.30); ERYTHROCYTE SEDIMENTATION RATE 4 mm/hr (0-20); GLOMERULAR FILTRATION RATE > 60.0 (>49); GLUCOSE, FASTING 104 MG/DL (70-100); POTASSIUM SERUM 4.2 MEQ/L (3.5-5.1); SODIUM LEVEL 140 MEQ/L (136-145); TOTAL PROTEIN 6.4 GM/DL (6.4-8.2)
== END ==
LOC: M LAB REF 08:25
PROVIDERS: ATTEND Internal Medicine Nephrology
DX: J85.1 Abscess of lung with pneumonia (principal); J44.9 Chronic obstructive pulmonary disease, unspecified

== ENCOUNTER → 2020-10-02 | Outpatient (REF) | payer MEDICARE ==
[2020-10-02 19:24] LABS: HEMATOCRIT 45.3 % (42.0-52.0); HEMOGLOBIN 14.5 g/dl (13.5-17.5); MEAN CORPUSCULAR VOLUME 96.8 fl (80.0-96.0); PLATELET COUNT, AUTOMATED 139 10^3/uL (150-450); RED BLOOD COUNT 4.68 10^6/uL (4.30-6.10); WHITE BLOOD COUNT 6.6 10^3/uL (4.0-10.0)
[2020-10-02 19:46] LABS: ALBUMIN 3.1 GM/DL (3.2-5.2); ALT/SGPT 26 U/L (12-78); BILIRUBIN,TOTAL 0.4 MG/DL (0.2-1.0); BLOOD UREA NITROGEN 22 MG/DL (7-18); CALCIUM LEVEL 8.5 MG/DL (8.8-10.2); CARBON DIOXIDE LEVEL 27 MEQ/L (21-32); CHLORIDE LEVEL 107 MEQ/L (98-107); CREATININE FOR GFR 0.98 MG/DL (0.70-1.30); GLOMERULAR FILTRATION RATE > 60.0 (>49); GLUCOSE, FASTING 128 MG/DL (70-100); POTASSIUM SERUM 4.3 MEQ/L (3.5-5.1); SODIUM LEVEL 139 MEQ/L (136-145); TOTAL PROTEIN 6.3 GM/DL (6.4-8.2)
[2020-10-02 20:30] LABS: ERYTHROCYTE SEDIMENTATION RATE 16 mm/hr (0-20)
== END ==
LOC: M LAB REF 18:28
PROVIDERS: ATTEND Internal Medicine Nephrology
DX: J85.1 Abscess of lung with pneumonia (principal); J44.9 Chronic obstructive pulmonary disease, unspecified

== ENCOUNTER → 2020-10-09 | Outpatient (REF) | payer MEDICARE ==
[2020-10-09 17:56] LABS: HEMATOCRIT 43.5 % (42.0-52.0); HEMOGLOBIN 14.3 g/dl (13.5-17.5); MEAN CORPUSCULAR HEMOGLOBIN 31.4 pg (27.0-33.0); MEAN CORPUSCULAR HGB CONC 32.9 g/dl (32.0-36.5); MEAN CORPUSCULAR VOLUME 95.4 fl (80.0-96.0); PLATELET COUNT, AUTOMATED 241 10^3/uL (150-450); RED BLOOD COUNT 4.56 10^6/uL (4.30-6.10); WHITE BLOOD COUNT 5.2 10^3/uL (4.0-10.0)
[2020-10-09 18:22] LABS: ALBUMIN 3.3 GM/DL (3.2-5.2); ALT/SGPT 19 U/L (12-78); BILIRUBIN,TOTAL 0.3 MG/DL (0.2-1.0); BLOOD UREA NITROGEN 19 MG/DL (7-18); C REACTIVE PROTEIN QUANTITATIV 1.92 MG/DL (0.00-0.30); CALCIUM LEVEL 9.3 MG/DL (8.8-10.2); CARBON DIOXIDE LEVEL 26 MEQ/L (21-32); CHLORIDE LEVEL 110 MEQ/L (98-107); CREATININE FOR GFR 1.02 MG/DL (0.70-1.30); GLOMERULAR FILTRATION RATE > 60.0 (>49); GLUCOSE, FASTING 80 MG/DL (70-100); POTASSIUM SERUM 4.2 MEQ/L (3.5-5.1); SODIUM LEVEL 141 MEQ/L (136-145); TOTAL PROTEIN 6.7 GM/DL (6.4-8.2)
[2020-10-09 19:24] LABS: ERYTHROCYTE SEDIMENTATION RATE 20 mm/hr (0-20)
== END ==
LOC: M LAB REF 17:17
PROVIDERS: ATTEND Internal Medicine Nephrology
DX: J85.1 Abscess of lung with pneumonia (principal); J44.9 Chronic obstructive pulmonary disease, unspecified

== ENCOUNTER → 2020-10-15 | Outpatient (CLI) | payer MEDICARE ==
--- NOTE | 2020-10-15 11:18 | REP ---
INDICATION: EMPHASEMA LUNG COMPARISON: 09/12/2020 TECHNIQUE: Axial noncontrast images from the thoracic inlet to the upper abdomen with coronal and sagittal reformations. This CT examination was performed using the following dose reduction techniques: Automated exposure control, adjustment of mA and/or kv according to the patient's size, and use of iterative reconstruction technique. FINDINGS: Advanced chronic COPD/emphysematous changes with scattered scarring again noted and essentially unchanged. The large masslike consolidation involving the right lower lobe and associated pleural reaction on prior examination is considerably decreased in size, but still prevalent. No new areas of consolidation or mass noted. Mediastinum demonstrates atherosclerotic changes to the thoracic aorta and coronary arteries similar to prior examination without aortic aneurysm or cardiomegaly. No pericardial effusion. Nonspecific mediastinal lymph nodes measure up to approximately 9 mm short axis diameter. Osseous structures are intact. Limited upper abdomen demonstrates stable bilateral adrenal adenomas. IMPRESSION: 1. Large masslike consolidation in the right lower lobe has decreased from prior examination. Continued follow-up to resolution is warranted. 2. Stable chronic advanced COPD/emphysematous changes with scattered scarring. <Electronically signed by Izaiah Bassett > 10/15/20 1112
== END ==
LOC: M RAD 08:37
PROVIDERS: ATTEND Internal Medicine Infectious Disease
DX: J86.9 Pyothorax without fistula (principal)

== ENCOUNTER → 2020-10-16 | Outpatient (REF) | payer MEDICARE ==
[2020-10-16 19:09] LABS: HEMATOCRIT 44.5 % (42.0-52.0); HEMOGLOBIN 15.1 g/dl (13.5-17.5); MEAN CORPUSCULAR HEMOGLOBIN 32.1 pg (27.0-33.0); MEAN CORPUSCULAR HGB CONC 33.9 g/dl (32.0-36.5); MEAN CORPUSCULAR VOLUME 94.5 fl (80.0-96.0); PLATELET COUNT, AUTOMATED 229 10^3/uL (150-450); RED BLOOD COUNT 4.71 10^6/uL (4.30-6.10); WHITE BLOOD COUNT 5.3 10^3/uL (4.0-10.0)
[2020-10-16 19:35] LABS: ALBUMIN 3.6 GM/DL (3.2-5.2); ALT/SGPT 20 U/L (12-78); BILIRUBIN,TOTAL 0.3 MG/DL (0.2-1.0); BLOOD UREA NITROGEN 17 MG/DL (7-18); C REACTIVE PROTEIN QUANTITATIV 1.12 MG/DL (0.00-0.30); CARBON DIOXIDE LEVEL 27 MEQ/L (21-32); CHLORIDE LEVEL 109 MEQ/L (98-107); CREATININE FOR GFR 0.95 MG/DL (0.70-1.30); GLOMERULAR FILTRATION RATE > 60.0 (>49); GLUCOSE, FASTING 112 MG/DL (70-100); POTASSIUM SERUM 4.2 MEQ/L (3.5-5.1); SODIUM LEVEL 141 MEQ/L (136-145); TOTAL PROTEIN 6.7 GM/DL (6.4-8.2)
[2020-10-16 19:54] LABS: ERYTHROCYTE SEDIMENTATION RATE 12 mm/hr (0-20)
== END ==
LOC: M LAB REF 18:38
PROVIDERS: ATTEND Internal Medicine Nephrology
DX: J85.1 Abscess of lung with pneumonia (principal); J44.9 Chronic obstructive pulmonary disease, unspecified

== ENCOUNTER → 2020-10-22 | Outpatient (REF) | payer MEDICARE ==
[2020-10-22 18:38] LABS: HEMATOCRIT 43.6 % (42.0-52.0); HEMOGLOBIN 14.8 g/dl (13.5-17.5); MEAN CORPUSCULAR HEMOGLOBIN 32.2 pg (27.0-33.0); MEAN CORPUSCULAR HGB CONC 33.9 g/dl (32.0-36.5); MEAN CORPUSCULAR VOLUME 94.8 fl (80.0-96.0); PLATELET COUNT, AUTOMATED 236 10^3/uL (150-450); WHITE BLOOD COUNT 5.9 10^3/uL (4.0-10.0)
[2020-10-22 18:55] LABS: ALBUMIN 3.6 GM/DL (3.2-5.2); ALT/SGPT 21 U/L (12-78); BILIRUBIN,TOTAL 0.4 MG/DL (0.2-1.0); BLOOD UREA NITROGEN 21 MG/DL (7-18); C REACTIVE PROTEIN QUANTITATIV 1.27 MG/DL (0.00-0.30); CALCIUM LEVEL 9.3 MG/DL (8.8-10.2); CARBON DIOXIDE LEVEL 26 MEQ/L (21-32); CHLORIDE LEVEL 111 MEQ/L (98-107); CREATININE FOR GFR 0.96 MG/DL (0.70-1.30); GLOMERULAR FILTRATION RATE > 60.0 (>49); GLUCOSE, FASTING 92 MG/DL (70-100); POTASSIUM SERUM 4.3 MEQ/L (3.5-5.1); SODIUM LEVEL 142 MEQ/L (136-145); TOTAL PROTEIN 6.8 GM/DL (6.4-8.2)
[2020-10-22 19:59] LABS: ERYTHROCYTE SEDIMENTATION RATE 12 mm/hr (0-20)
== END ==
LOC: M LAB REF 18:17
PROVIDERS: ATTEND Internal Medicine Nephrology
DX: J85.1 Abscess of lung with pneumonia (principal); J44.9 Chronic obstructive pulmonary disease, unspecified

== ENCOUNTER → 2020-11-28 | Outpatient (CLI) | payer MEDICARE ==
--- NOTE | 2020-11-28 12:23 | REP ---
INDICATION: ABN FINDINGS OF LUNG FIELD. COMPARISON: 10/15/2020 as well as other prior exams. TECHNIQUE: CT chest performed without the use of intravenous contrast. Sagittal and coronal reconstruction images are performed. FINDINGS: Lungs: Diffuse bilateral emphysematous and fibrotic changes are again noted. There is a calcified granuloma in the right upper lobe. Opacified right lower lobe bronchioles are somewhat more aerated centrally. There is significant improvement of the right infrahilar band of consolidation adjacent to these bronchials. There is no significant change in the more peripheral posterior right lower lobe consolidation peripherally. Posterior subpleural nodular opacity in the left lower lobe is stable measuring 8 mm. Mediastinum: No gross adenopathy. There is small calcified lymph node in the right paratracheal region. [place]: No gross adenopathy. There is a small calcified lymph node in the right hilum. Axilla: No gross adenopathy. Pleura: No effusion. Heart: Not enlarged. Thoracic aorta: No aneurysm. Upper abdominal structures: Few tiny calcified granulomas are seen in the liver. There are stable bilateral adrenal adenomas.. There is a small hiatal hernia. Visualized osseous structures: There are mild degenerative changes of the spine without compression deformity.. IMPRESSION: Opacified right lower lobe bronchioles are more aerated than on the prior study. There is significant improvement of the band of consolidation in the right infrahilar region centrally. There is no significant change in the more peripheral consolidation in the posterior aspect of the right lower lobe. Otherwise stable exam as discussed above. <Electronically signed by Neal De La Cruz > 11/28/20 1225
== END ==
LOC: M RAD 11:11
PROVIDERS: ATTEND Internal Medicine Pulmonary Disease
DX: R91.8 Other nonspecific abnormal finding of lung field (principal)

== ENCOUNTER → 2021-03-04 | Outpatient (CLI) | payer MEDICARE ==
--- NOTE | 2021-03-04 10:53 | REP ---
INDICATION: ABN FINDING OF LUNG. COMPARISON: CT chest without IV contrast, 09/12/2020, 10/15/2020 and 11/29/2019. None. TECHNIQUE: Imaging protocol: Computed tomography of the chest without contrast. Contiguous axial projection images were obtained through the chest. 2D sagittal and coronal reconstructions were performed. Radiation optimization: All CT scans at this facility use at least one of these dose optimization techniques: automated exposure control; mA and/or kV adjustment per patient size (includes targeted exams where dose is matched to clinical indication); or iterative reconstruction. FINDINGS: Lower neck: The thyroid gland is normal. There is no supraclavicular lymphadenopathy. Mediastinum: There are benign calcified right paratracheal and right hilar lymph nodes. Heart/thoracic aorta: The heart size is normal. There is no pericardial effusion. There is calcific vascular disease of the thoracic aorta and coronary arteries. Upper abdomen: There is calcific vascular disease of the abdominal aorta. There are bilateral adrenal adenomas, measuring 2.1 x 2.0 cm, on the right, and 2.8 x 1.4 cm, on the left. Thoracic esophagus: There is a small hiatal hernia. Chest wall and axilla: The soft tissues of the chest wall appear normal. There is no axillary lymphadenopathy. There are no significant bony abnormalities of the chest. Lung parenchyma: There is severe upper lobe predominant centrilobular emphysema. There is stable apical pleuroparenchymal scarring, bilaterally. There is a lateral pleural-parenchymal scar in the upper lobe of the right lung. There is diffuse tubular bronchiectasis. In the basilar segments of the lower lobes of both lungs, there are a few containing mucus plugs. There is peribronchial scarring/atelectasis and residual pleural based atelectasis in the posterior basilar segment of the lower lobe of the right lung. There has been some improved aeration of the lower lobe the right lung when compared with the prior exam. There is stable linear scarring in the posterior basilar segment of the lower lobe of the left lung. There is a stable 6 x 3 mm peripheral soft tissue density nodule in the superior segment of the lower lobe of the left lung, consistent with a pleural lymph node. There is a benign calcified granuloma in the upper lobe the right lung. There are no pleural effusions. IMPRESSION: 1. Emphysema. 2. Diffuse bronchiectasis with mucous plugging in lower lobe bronchi, bilaterally. 3. There is residual peripheral airspace and peribronchial consolidation in the lower lobe of the right lung. 4. Other findings as noted, not significantly changed. <Electronically signed by Aj Ramirez > 03/04/21 [id number]
== END ==
LOC: M RAD 10:13
PROVIDERS: ATTEND Internal Medicine Pulmonary Disease
DX: R91.8 Other nonspecific abnormal finding of lung field (principal)

== ENCOUNTER → 2021-07-01 | Outpatient (CLI) | payer MEDICARE ==
[~2021-07-01] MED LIST changes: -LEVO500T3 PO; +LEVO500T4 PO
[2021-07-01 12:57] LABS: BASO # 0.1 10^3/uL (0.0-0.2); BASO % 0.6 % (0.0-1.0); EOS % 0.3 % (0.0-3.0); HEMATOCRIT 47.5 % (42.0-52.0); HEMOGLOBIN 16.3 g/dl (13.5-17.5); LYMPH # 1.2 10^3/uL (1.5-5.0); LYMPH % 12.1 % (24.0-44.0); MEAN CORPUSCULAR HEMOGLOBIN 32.7 pg (27.0-33.0); MEAN CORPUSCULAR HGB CONC 34.3 g/dl (32.0-36.5); MEAN CORPUSCULAR VOLUME 95.4 fl (80.0-96.0); MONO # 0.9 10^3/uL (0.0-0.8); MONO % 8.9 % (2.0-8.0); NEUTROPHILS # 7.9 10^3/uL (1.5-8.5); NEUTROPHILS % 77.8 % (36.0-66.0); PLATELET COUNT, AUTOMATED 246 10^3/uL (150-450); RED BLOOD COUNT 4.98 10^6/uL (4.30-6.10); WHITE BLOOD COUNT 10.1 10^3/uL (4.0-10.0)
[2021-07-01 13:24] LABS: ALBUMIN 3.8 GM/DL (3.2-5.2); ALT/SGPT 19 U/L (12-78); BILIRUBIN,TOTAL 0.8 MG/DL (0.2-1.0); BLOOD UREA NITROGEN 16 MG/DL (7-18); CALCIUM LEVEL 9.7 MG/DL (8.8-10.2); CARBON DIOXIDE LEVEL 26 MEQ/L (21-32); CHLORIDE LEVEL 109 MEQ/L (98-107); CHOLESTEROL LEVEL 184 MG/DL (<200); CHOLESTEROL RISK RATIO 3.471 (<5); CREATININE FOR GFR 1.05 MG/DL (0.70-1.30); GLOMERULAR FILTRATION RATE > 60.0 (>49); GLUCOSE, FASTING 93 MG/DL (70-100); HDL CHOLESTEROL 53 MG/DL (>40); LDL CHOLESTEROL 114 MG/DL (<100); NON-HDL-C 131 MG/DL; POTASSIUM SERUM 4.6 MEQ/L (3.5-5.1); SODIUM LEVEL 141 MEQ/L (136-145); TOTAL PROTEIN 6.8 GM/DL (6.4-8.2); TRIGLYCERIDES LEVEL 86 MG/DL (<150)
== END ==
LOC: M WUC 10:34
PROVIDERS: ATTEND Family Medicine
DX: R03.0 Elevated blood-pressure reading, without diagnosis of hypertension (principal); Z79.899 Other long term (current) drug therapy

== ENCOUNTER → 2021-09-18 | Outpatient (CLI) | payer MEDICARE | LOC: M PLAIMG 11:13 | PROVIDERS: ATTEND Internal Medicine Pulmonary Disease | DX: J47.9 Bronchiectasis, uncomplicated (principal); R91.8 Other nonspecific abnormal finding of lung field ==

== ENCOUNTER → 2022-03-24 | Outpatient (CLI) | payer MEDICARE ==
[~2022-03-24] MED LIST changes: -D31000TA2 PO; +LEVO1TAB39 PO; -LEVO500T4 PO; +VITA100093 PO
== END ==
LOC: M RAD 10:47
PROVIDERS: ATTEND Internal Medicine Pulmonary Disease
DX: R91.8 Other nonspecific abnormal finding of lung field (principal)

== ENCOUNTER → 2022-08-14 | Outpatient (CLI) | payer MEDICARE ==
[2022-08-14 10:48] LABS: BASO # 0.1 10^3/uL (0.0-0.2); BASO % 1.4 % (0.0-1.0); EOS # 0.1 10^3/uL (0.0-0.5); EOS % 1.2 % (0.0-3.0); HEMATOCRIT 48.1 % (42.0-52.0); HEMOGLOBIN 16.3 g/dl (13.5-17.5); LYMPH # 1.2 10^3/uL (1.5-5.0); LYMPH % 15.6 % (24.0-44.0); MEAN CORPUSCULAR HEMOGLOBIN 33.3 pg (27.0-33.0); MEAN CORPUSCULAR HGB CONC 33.9 g/dl (32.0-36.5); MEAN CORPUSCULAR VOLUME 98.2 fl (80.0-96.0); MONO # 0.8 10^3/uL (0.0-0.8); MONO % 10.2 % (2.0-8.0); NEUTROPHILS # 5.2 10^3/uL (1.5-8.5); NEUTROPHILS % 71.3 % (36.0-66.0); PLATELET COUNT, AUTOMATED 219 10^3/uL (150-450); WHITE BLOOD COUNT 7.4 10^3/uL (4.0-10.0)
[2022-08-14 11:15] LABS: ALBUMIN 4.1 G/DL (3.2-5.2); ALKALINE PHOSPHATASE 77 U/L (46-116); ALT/SGPT 16 U/L (7.0-40); AST/SGOT 15 U/L (<34); BILIRUBIN,TOTAL 0.9 MG/DL (0.3-1.2); BLOOD UREA NITROGEN 27 MG/DL (9-23); CALCIUM LEVEL 9.6 MG/DL (8.3-10.6); CARBON DIOXIDE LEVEL 26 MMOL/L (20-31); CHLORIDE LEVEL 108 MMOL/L (98-107); CHOLESTEROL LEVEL 174 MG/DL (<200); CHOLESTEROL RISK RATIO 3.55 (<5); CREATININE FOR GFR 1.15 MG/DL (0.70-1.30); GLOMERULAR FILTRATION RATE > 60.0 (>49); GLUCOSE, FASTING 93 MG/DL (74-106); LDL CHOLESTEROL 109.6 MG/DL (<100); NON-HDL-C 125 MG/DL; POTASSIUM SERUM 4.6 MMOL/L (3.5-5.1); SODIUM LEVEL 141 MMOL/L (136-145); TOTAL PROTEIN 6.7 G/DL (5.7-8.2); TRIGLYCERIDES LEVEL 77 MG/DL (<150)
== END ==
LOC: M WUC 09:00
PROVIDERS: ATTEND Family Medicine
DX: R03.0 Elevated blood-pressure reading, without diagnosis of hypertension (principal); E78.00 Pure hypercholesterolemia, unspecified

== ENCOUNTER → 2023-04-07 | Outpatient (CLI) | payer MEDICARE | LOC: M RAD 11:44 | PROVIDERS: ATTEND Internal Medicine Pulmonary Disease | DX: R91.8 Other nonspecific abnormal finding of lung field (principal) ==

== ENCOUNTER → 2023-04-15 | Outpatient (CLI) | payer MEDICARE ==
[2023-04-15 13:01] LABS: BASO # 0.1 10^3/uL (0.0-0.2); EOS # 0.1 10^3/uL (0.0-0.5); EOS % 0.7 % (0.0-3.0); HEMATOCRIT 46.7 % (42.0-52.0); HEMOGLOBIN 15.8 g/dl (13.5-17.5); LYMPH % 11.7 % (24.0-44.0); MEAN CORPUSCULAR HEMOGLOBIN 32.9 pg (27.0-33.0); MEAN CORPUSCULAR HGB CONC 33.8 g/dl (32.0-36.5); MEAN CORPUSCULAR VOLUME 97.3 fl (80.0-96.0); MONO # 0.8 10^3/uL (0.0-0.8); MONO % 8.5 % (2.0-8.0); NEUTROPHILS # 6.9 10^3/uL (1.5-8.5); NEUTROPHILS % 77.8 % (36.0-66.0); PLATELET COUNT, AUTOMATED 278 10^3/uL (150-450); WHITE BLOOD COUNT 8.8 10^3/uL (4.0-10.0)
[2023-04-15 13:08] LABS: ALBUMIN 3.9 G/DL (3.2-5.2); ALKALINE PHOSPHATASE 86 U/L (46-116); ALT/SGPT 18 U/L (7.0-40); AST/SGOT 9 U/L (<34); BLOOD UREA NITROGEN 17 MG/DL (9-23); CALCIUM LEVEL 9.5 MG/DL (8.3-10.6); CARBON DIOXIDE LEVEL 26 MMOL/L (20-31); CHLORIDE LEVEL 108 MMOL/L (98-107); CREATININE FOR GFR 0.96 MG/DL (0.70-1.30); GLOMERULAR FILTRATION RATE > 60.0 (>49); GLUCOSE, FASTING 101 MG/DL (74-106); POTASSIUM SERUM 4.1 MMOL/L (3.5-5.1); SODIUM LEVEL 143 MMOL/L (136-145); TOTAL PROTEIN 6.8 G/DL (5.7-8.2)
[2023-04-15 13:10] LABS: THYROID STIMULATING HORMONE 1.323 uIU/ML (0.55-4.78)
== END ==
LOC: M WUC 09:53
PROVIDERS: ATTEND Family Medicine
DX: R63.4 Abnormal weight loss (principal)

== ENCOUNTER 2023-07-23 10:17 | Day surgery (SDC) | payer MEDICARE ==
[~2023-07-23] VITALS: Ht 177.8 cm; Wt 57.7 kg
[~2023-07-23 10:17] MED LIST changes: +ALBU8.5H INH; +NS 1,000 ML IV ONE
[2023-07-23] MEDS ORDERED: propofoL 200 MG/20 ML VIAL As Ordered ONE (11:07)
[2023-07-23] MEDS ORDERED: fentaNYL 100 MCG/2 ML INJECTION As Ordered ONE (11:07)
[2023-07-23] MEDS ORDERED: PHENYLephrine 500MCG 5ML (100MCG/ML) SYRINGE As Ordered ONE ×2 (11:14→11:36)
[2023-07-23 11:47] VITALS: TEMP 96.7
[2023-07-23 12:10] VITALS: BP 134/74; O2SAT 97
== END 2023-07-23 12:25 | disposition home or self-care (01) ==
LOC: M OPP 10:17
PROVIDERS: ATTEND Surgery
DX: Z86.010 Personal history of colon polyps (principal); D12.6 Benign neoplasm of colon, unspecified; K57.30 Diverticulosis of large intestine without perforation or abscess without bleeding; K21.01 Gastro-esophageal reflux disease with esophagitis, with bleeding; K29.71 Gastritis, unspecified, with bleeding; K22.70 Barrett's esophagus without dysplasia; K31.89 Other diseases of stomach and duodenum; R63.4 Abnormal weight loss; Z87.891 Personal history of nicotine dependence; Z79.51 Long term (current) use of inhaled steroids; Z79.1 Long term (current) use of non-steroidal anti-inflammatories (NSAID)
CPT/HCPCS: 43239; 45385; 88305; J2371; J3010

== ENCOUNTER 2023-10-19 08:04 | Inpatient (IN) | payer MEDICARE ==
[~2023-10-19] VITALS: Ht 177.8 cm; Wt 56.1 kg
[~2023-10-19 08:04] MED LIST changes: -NS 1,000 ML IV ONE
[2023-10-19] MEDS ORDERED: PRED20TA PO (08:17)
[2023-10-19] MEDS ORDERED: AZIT-12 PO (08:17)
[2023-10-19 11:54] LABS: BASO % 0.4 % (0.0-1.0); HEMATOCRIT 49.9 % (42.0-52.0); HEMOGLOBIN 17.2 g/dl (13.5-17.5); LYMPH # 1.1 10^3/uL (1.5-5.0); MEAN CORPUSCULAR HEMOGLOBIN 33.6 pg (27.0-33.0); MEAN CORPUSCULAR HGB CONC 34.5 g/dl (32.0-36.5); MEAN CORPUSCULAR VOLUME 97.5 fl (80.0-96.0); MONO # 1.5 10^3/uL (0.0-0.8); MONO % 17.8 % (2.0-8.0); NEUTROPHILS # 5.6 10^3/uL (1.5-8.5); NEUTROPHILS % 68.3 % (36.0-66.0); PLATELET COUNT, AUTOMATED 217 10^3/uL (150-450); RED BLOOD COUNT 5.12 10^6/uL (4.30-6.10); WHITE BLOOD COUNT 8.1 10^3/uL (4.0-10.0)
[2023-10-19] MEDS: IPRATROPIUM 0.5MG/ALBUTEROL 2.5MG INH SOL UD 3ML (DUONEB) NEB SCH ×2 (11:57→20:32)
[2023-10-19] MEDS ORDERED: TIOT18CA INH (11:57)
[2023-10-19] MEDS ORDERED: HOME MED LIST COMPLETE! XX SCH (12:00)
[2023-10-19] MEDS ORDERED: ISOVUE-370 76% 100ML VIAL As Ordered ONE (12:38)
[2023-10-19] MEDS: NS 500 ML IV ONE (12:41)
[2023-10-19] MEDS: cefTRIAXone SOD 1 GM in D5W MINI-BAG PLUS 50 ML IV ONE (13:50)
[2023-10-19] MEDS: IPRATROPIUM 0.5MG/ALBUTEROL 2.5MG INH SOL UD 3ML (DUONEB) NEB ONE (15:37)
[2023-10-19] MEDS: methylPREDNISolone 125MG 2ML VIAL IV ONE (16:45)
[2023-10-19] MEDS ORDERED: MAALOX 30 ML SUSP *UDC PO PRN (17:20)
[2023-10-19] MEDS ORDERED: MOM 30ML SUSPENSION UDC PO PRN (17:20)
[2023-10-19] MEDS ORDERED: guaiFENesin DM *SUGAR FREE* 5ML**DIABETIC TUSSIN DM PO PRN (17:25)
[2023-10-19 18:26] LABS: BLOOD UREA NITROGEN 27 MG/DL (9-23); CARBON DIOXIDE LEVEL 25 MMOL/L (20-31); CHLORIDE LEVEL 111 MMOL/L (98-107); CREATININE FOR GFR 0.86 MG/DL (0.70-1.30); GLOMERULAR FILTRATION RATE > 60.0 (>42); GLUCOSE, FASTING 102 MG/DL (74-106); POTASSIUM SERUM 3.8 MMOL/L (3.5-5.1); SODIUM LEVEL 141 MMOL/L (136-145)
[2023-10-19 18:35] LABS: PROCALCITONIN <0.04 ng/ml
[2023-10-19] MEDS: ACETYLCYSTEINE 20% 4 ML VIAL (200MG/ML) INH SCH (20:00)
[2023-10-19] MEDS: BUDESONIDE 0.5 MG/2 ML INHALATION SUSPENSION NEB SCH (20:32)
[2023-10-19] MEDS ORDERED: OSELTAMIVIR PHOSPHATE 75 MG CAP (TAMIFLU) PO SCH (21:00)
[2023-10-19 21:11] VITALS: BP 167/91; TEMP 98.2; O2SAT 94
[2023-10-19] MEDS: OSELTAMIVIR PHOSPHATE 75 MG CAP (TAMIFLU) PO ONE (21:19)
[2023-10-19] MEDS: DOXYCYCLINE HYCLATE 100MG TABLET PO SCH (21:19)
[2023-10-19 23:35] VITALS: BP 128/74; TEMP 97.8; O2SAT 95
[2023-10-20] VITALS (13 sets, daily range): BP systolic 108–164; BP diastolic 68–90; TEMP 97.2–98.3; O2SAT 91–95
[2023-10-20 05:41] LABS: BASO % 0.2 % (0.0-1.0); LYMPH # 0.4 10^3/uL (1.5-5.0); LYMPH % 8.7 % (24.0-44.0); MEAN CORPUSCULAR HEMOGLOBIN 33.9 pg (27.0-33.0); MEAN CORPUSCULAR HGB CONC 35.2 g/dl (32.0-36.5); MEAN CORPUSCULAR VOLUME 96.2 fl (80.0-96.0); MONO # 0.3 10^3/uL (0.0-0.8); MONO % 6.7 % (2.0-8.0); NEUTROPHILS # 3.8 10^3/uL (1.5-8.5); NEUTROPHILS % 83.7 % (36.0-66.0); PLATELET COUNT, AUTOMATED 186 10^3/uL (150-450); RED BLOOD COUNT 4.43 10^6/uL (4.30-6.10); WHITE BLOOD COUNT 4.5 10^3/uL (4.0-10.0)
[2023-10-20 05:54] LABS: HEMATOCRIT 42.6 % (42.0-52.0)
[2023-10-20 06:14] LABS: BLOOD UREA NITROGEN 31 MG/DL (9-23); CALCIUM LEVEL 8.8 MG/DL (8.3-10.6); CARBON DIOXIDE LEVEL 24 MMOL/L (20-31); CHLORIDE LEVEL 108 MMOL/L (98-107); CREATININE FOR GFR 0.86 MG/DL (0.70-1.30); GLOMERULAR FILTRATION RATE > 60.0 (>42); GLUCOSE, FASTING 145 MG/DL (74-106); MAGNESIUM LEVEL 1.7 MG/DL (1.8-2.4); POTASSIUM SERUM 4.3 MMOL/L (3.5-5.1); SODIUM LEVEL 138 MMOL/L (136-145)
[2023-10-20] MEDS: MAG SULF 1GM/100ML (MAG RUN) 1 GM in IV 1 EA IV ONE (09:01)
[2023-10-20] MEDS: cefTRIAXone SOD 2 GM in D5W MINI-BAG PLUS 50 ML IV SCH (09:01)
[2023-10-20] MEDS: methylPREDNISolone 40MG 1ML VIAL IV SCH (09:02)
[2023-10-20] MEDS: ENOXAPARIN 40MG/0.4ML SYRINGE (J1650 PER 10MG) SC SCH (09:02)
[2023-10-20] MEDS: OSELTAMIVIR PHOSPHATE 30MG CAPSULE PO SCH (09:14)
[2023-10-21] VITALS (33 sets, daily range): BP systolic 92–170; BP diastolic 50–92; TEMP 97.3–98.4; O2SAT 88–98
[2023-10-21 05:43] LABS: BASO % 0.2 % (0.0-1.0); HEMATOCRIT 41.8 % (42.0-52.0); HEMOGLOBIN 14.9 g/dl (13.5-17.5); LYMPH # 0.8 10^3/uL (1.5-5.0); LYMPH % 10.3 % (24.0-44.0); MEAN CORPUSCULAR HEMOGLOBIN 33.6 pg (27.0-33.0); MEAN CORPUSCULAR HGB CONC 35.6 g/dl (32.0-36.5); MEAN CORPUSCULAR VOLUME 94.4 fl (80.0-96.0); MONO % 12.5 % (2.0-8.0); NEUTROPHILS # 6.2 10^3/uL (1.5-8.5); NEUTROPHILS % 76.4 % (36.0-66.0); PLATELET COUNT, AUTOMATED 175 10^3/uL (150-450); RED BLOOD COUNT 4.43 10^6/uL (4.30-6.10); WHITE BLOOD COUNT 8.1 10^3/uL (4.0-10.0)
[2023-10-21 06:16] LABS: BLOOD UREA NITROGEN 35 MG/DL (9-23); CALCIUM LEVEL 8.6 MG/DL (8.3-10.6); CARBON DIOXIDE LEVEL 25 MMOL/L (20-31); CHLORIDE LEVEL 112 MMOL/L (98-107); CREATININE FOR GFR 0.88 MG/DL (0.70-1.30); GLOMERULAR FILTRATION RATE > 60.0 (>42); GLUCOSE, FASTING 111 MG/DL (74-106); MAGNESIUM LEVEL 1.9 MG/DL (1.8-2.4); POTASSIUM SERUM 4.1 MMOL/L (3.5-5.1); SODIUM LEVEL 141 MMOL/L (136-145)
[2023-10-21] MEDS: METOPROLOL 5 MG/5 ML VIAL IV STA (08:02)
[2023-10-21] MEDS: METOPROLOL TART 50 MG TAB PO SCH (09:37)
[2023-10-21] MEDS: predniSONE 20 MG TAB PO SCH (09:38)
[2023-10-21] MEDS: ACETAMINOPHEN TAB 650MG DOSE (2X325MG) PO PRN (10:43)
[2023-10-21] MEDS ORDERED: ELIQ5TAB PO (11:58)
[2023-10-21 12:43] LABS: INR 1.06; PROTHROMBIN TIME 13.5 SECONDS (12.5-14.5)
[2023-10-21 12:58] LABS: ALBUMIN 2.9 G/DL (3.2-5.2); BILIRUBIN,DIRECT 0.1 MG/DL (<0.4); BILIRUBIN,TOTAL 0.3 MG/DL (0.3-1.2); TOTAL PROTEIN 5.7 G/DL (5.7-8.2)
[2023-10-21 15:08] LABS: MYCOPLASMA PNEUMONIAE IgG 172 U/mL (0-99); MYCOPLASMA PNEUMONIAE IgM <770 U/mL (0-769)
[2023-10-21] MEDS: APIXABAN 5 MG TAB (ELIQUIS) PO SCH (21:11)
[2023-10-22] VITALS (17 sets, daily range): BP systolic 128–153; BP diastolic 80–85; TEMP 97.3–98.3; O2SAT 93–98
[2023-10-22 05:52] LABS: BASO % 0.1 % (0.0-1.0); EOS % 0.1 % (0.0-3.0); HEMATOCRIT 40.4 % (42.0-52.0); HEMOGLOBIN 14.2 g/dl (13.5-17.5); LYMPH % 13.3 % (24.0-44.0); MEAN CORPUSCULAR HEMOGLOBIN 33.5 pg (27.0-33.0); MEAN CORPUSCULAR HGB CONC 35.1 g/dl (32.0-36.5); MEAN CORPUSCULAR VOLUME 95.3 fl (80.0-96.0); MONO # 0.9 10^3/uL (0.0-0.8); MONO % 11.4 % (2.0-8.0); NEUTROPHILS # 5.5 10^3/uL (1.5-8.5); NEUTROPHILS % 73.8 % (36.0-66.0); PLATELET COUNT, AUTOMATED 188 10^3/uL (150-450); RED BLOOD COUNT 4.24 10^6/uL (4.30-6.10); WHITE BLOOD COUNT 7.5 10^3/uL (4.0-10.0)
[2023-10-22 06:20] LABS: BLOOD UREA NITROGEN 41 MG/DL (9-23); CALCIUM LEVEL 8.7 MG/DL (8.3-10.6); CARBON DIOXIDE LEVEL 26 MMOL/L (20-31); CHLORIDE LEVEL 113 MMOL/L (98-107); CREATININE FOR GFR 0.98 MG/DL (0.70-1.30); GLOMERULAR FILTRATION RATE > 60.0 (>42); GLUCOSE, FASTING 90 MG/DL (74-106); MAGNESIUM LEVEL 1.7 MG/DL (1.8-2.4); SODIUM LEVEL 143 MMOL/L (136-145)
[2023-10-22] MEDS: MAG SULF 1GM/100ML (MAG RUN) 1 GM in IV 1 EA IV ONE (09:44)
[2023-10-22] MEDS ORDERED: PRED10TA2 PO (11:58)
[2023-10-22] MEDS ORDERED: DOXY100T PO (11:58)
[2023-10-22] MEDS ORDERED: LOPR1TAB6 PO (11:58)
[2023-10-22] MEDS ORDERED: OSEL30CA PO (18:18)
[2023-10-23 13:11] LABS: BODY FLUID CULTURE Not indicated. (.); LEGIONELLA ANTIGEN URINE Negative (Negative); ORGANISM ID Not indicated. (.); SPECIMEN SOURCE Urine (.); URINE STREP PNEUMONIAE ANTIGEN Negative (Negative)
== END 2023-10-22 14:54 | disposition home or self-care (01) | DRG 194 ==
LOC: M ED 08:04 → M ED INP 17:18 → ENRESERV 20:06 → M PCU 21:02
PROVIDERS: ADMIT Student in an Organized Health Care Education/Training Program; ATTEND Student in an Organized Health Care Education/Training Program
DX: J10.01 Influenza due to other identified influenza virus with the same other identified influenza virus pneumonia (principal); J44.1 Chronic obstructive pulmonary disease with (acute) exacerbation; J98.11 Atelectasis; J44.0 Chronic obstructive pulmonary disease with (acute) lower respiratory infection; K21.9 Gastro-esophageal reflux disease without esophagitis; H91.93 Unspecified hearing loss, bilateral; I48.91 Unspecified atrial fibrillation; J47.9 Bronchiectasis, uncomplicated; Z90.2 Acquired absence of lung [part of]; Z86.711 Personal history of pulmonary embolism; Z87.442 Personal history of urinary calculi; Z90.49 Acquired absence of other specified parts of digestive tract; Z79.899 Other long term (current) drug therapy

== ENCOUNTER 2023-11-07 12:33 | Observation (INO) | payer MEDICARE ==
[~2023-11-07] VITALS: Ht 177.8 cm; Wt 57.7 kg
[~2023-11-07 12:33] MED LIST changes: +AZIT-12 PO; +LOPR1TAB6 PO; +OSEL30CA PO; +PRED20TA PO; +TIOT18CA INH
[2023-11-07] MEDS: NS 1,000 ML IV ONE (13:51)
[2023-11-07 13:58] LABS: BASO % 0.5 % (0.0-1.0); EOS % 0.6 % (0.0-3.0); HEMATOCRIT 46.5 % (42.0-52.0); HEMOGLOBIN 16.1 g/dl (13.5-17.5); LYMPH # 0.4 10^3/uL (1.5-5.0); LYMPH % 6.8 % (24.0-44.0); MEAN CORPUSCULAR HEMOGLOBIN 33.9 pg (27.0-33.0); MEAN CORPUSCULAR HGB CONC 34.6 g/dl (32.0-36.5); MEAN CORPUSCULAR VOLUME 97.9 fl (80.0-96.0); MONO # 0.9 10^3/uL (0.0-0.8); MONO % 13.5 % (2.0-8.0); NEUTROPHILS # 4.9 10^3/uL (1.5-8.5); NEUTROPHILS % 77.5 % (36.0-66.0); PLATELET COUNT, AUTOMATED 172 10^3/uL (150-450); RED BLOOD COUNT 4.75 10^6/uL (4.30-6.10); WHITE BLOOD COUNT 6.3 10^3/uL (4.0-10.0)
[2023-11-07 14:11] LABS: PROTHROMBIN TIME 12.9 SECONDS (12.5-14.5)
[2023-11-07 14:24] LABS: ALBUMIN 3.1 G/DL (3.2-5.2); ALKALINE PHOSPHATASE 79 U/L (46-116); ALT/SGPT 26 U/L (7.0-40); AST/SGOT 21 U/L (<34); BILIRUBIN,DIRECT 0.3 MG/DL (<0.4); BILIRUBIN,TOTAL 1.1 MG/DL (0.3-1.2); BLOOD UREA NITROGEN 23 MG/DL (9-23); CALCIUM LEVEL 9.7 MG/DL (8.3-10.6); CARBON DIOXIDE LEVEL 27 MMOL/L (20-31); CHLORIDE LEVEL 107 MMOL/L (98-107); CK-MB VALUE MASS < 1.0 NG/ML (<3.6); CPK CREATINE PHOSPHOKINASE 31 U/L (46-171); CREATININE FOR GFR 1.22 MG/DL (0.70-1.30); GLOMERULAR FILTRATION RATE > 60.0 (>42); GLUCOSE, FASTING 101 MG/DL (74-106); MB/CK RELATIVE INDEX 3.22 (< OR =4); POTASSIUM SERUM 4.4 MMOL/L (3.5-5.1); SODIUM LEVEL 135 MMOL/L (136-145); TOTAL PROTEIN 6.1 G/DL (5.7-8.2)
[2023-11-07 14:25] LABS: FREE T4 1.33 NG/DL (0.89-1.76)
[2023-11-07 14:26] LABS: THYROID STIMULATING HORMONE 1.459 uIU/ML (0.55-4.78)
[2023-11-07] MEDS ORDERED: ISOVUE-370 76% 100ML VIAL As Ordered ONE (14:27)
[2023-11-07 14:35] LABS: PROCALCITONIN 0.04 ng/ml
[2023-11-07 15:09] LABS: CK-MB VALUE MASS < 1.0 NG/ML (<3.6)
[2023-11-07 15:12] LABS: CPK CREATINE PHOSPHOKINASE 24 U/L (46-171); MB/CK RELATIVE INDEX 4.16 (< OR =4)
[2023-11-07] MEDS ORDERED: REMDESIVIR 200 MG in NS 250 ML IV ONE (16:00)
[2023-11-07] MEDS: REMDESIVIR 200 MG in NS 250 ML IV ONE (18:35)
[2023-11-07] MEDS: dexAMETHasone 20MG/5ML VIAL IV ONE (18:35)
[2023-11-07 18:59] LABS: C REACTIVE PROTEIN QUANTITATIV 4.6 MG/DL (<1.0); MAGNESIUM LEVEL 1.8 MG/DL (1.8-2.4)
[2023-11-07 19:05] LABS: FERRITIN 381.7 NG/ML (10.5-307.3)
[2023-11-07 19:09] LABS: PROCALCITONIN 0.04 ng/ml
[2023-11-07 19:29] LABS: D-DIMER QUANT 1.55 ug/mL (<0.5); INR 1.02; PROTHROMBIN TIME 13.1 SECONDS (12.5-14.5)
[2023-11-07] MEDS ORDERED: SPIR1CAP INH (19:30)
[2023-11-07] MEDS ORDERED: VITAD1000T PO (19:30)
[2023-11-07] MEDS ORDERED: METO50TA7 PO (19:30)
[2023-11-07] MEDS ORDERED: HOME MED LIST COMPLETE! XX SCH (19:35)
[2023-11-07] MEDS: SALMETEROL DISKUS 50MCG INHALER (SEREVENT) INH SCH (20:00)
[2023-11-07] MEDS ORDERED: ACETYLCYSTEINE 10% 30ML VIAL INH SCH (20:00)
[2023-11-07] MEDS: IPRATROPIUM HFA INHALER 12.9 GRAMS (ATROVENT HFA) INH SCH (20:26)
[2023-11-07] MEDS: METOPROLOL TART 50 MG TAB PO SCH (21:16)
[2023-11-07] MEDS: APIXABAN 5 MG TAB (ELIQUIS) PO SCH (21:16)
[2023-11-07 22:18] VITALS: BP 135/78; TEMP 97.9; O2SAT 95
[2023-11-08 06:00] VITALS: BP 120/76; TEMP 97.5; O2SAT 96
[2023-11-08 07:00] LABS: HEMATOCRIT 42.2 % (42.0-52.0); HEMOGLOBIN 14.6 g/dl (13.5-17.5); MEAN CORPUSCULAR HEMOGLOBIN 33.3 pg (27.0-33.0); MEAN CORPUSCULAR HGB CONC 34.6 g/dl (32.0-36.5); MEAN CORPUSCULAR VOLUME 96.3 fl (80.0-96.0); PLATELET COUNT, AUTOMATED 167 10^3/uL (150-450); RED BLOOD COUNT 4.38 10^6/uL (4.30-6.10); WHITE BLOOD COUNT 3.3 10^3/uL (4.0-10.0)
[2023-11-08 07:25] LABS: ALBUMIN 2.7 G/DL (3.2-5.2); ALKALINE PHOSPHATASE 69 U/L (46-116); ALT/SGPT 26 U/L (7.0-40); AST/SGOT 16 U/L (<34); BILIRUBIN,TOTAL 0.7 MG/DL (0.3-1.2); BLOOD UREA NITROGEN 23 MG/DL (9-23); CALCIUM LEVEL 8.4 MG/DL (8.3-10.6); CARBON DIOXIDE LEVEL 23 MMOL/L (20-31); CHLORIDE LEVEL 107 MMOL/L (98-107); CREATININE FOR GFR 0.93 MG/DL (0.70-1.30); GLOMERULAR FILTRATION RATE > 60.0 (>42); GLUCOSE, FASTING 139 MG/DL (74-106); POTASSIUM SERUM 4.5 MMOL/L (3.5-5.1); SODIUM LEVEL 136 MMOL/L (136-145); TOTAL PROTEIN 5.6 G/DL (5.7-8.2)
[2023-11-08] MEDS: TIOTROPIUM INHALER/CAPSULE (SPIRIVA) INH SCH (07:42)
[2023-11-08 08:56] VITALS: BP 125/76
[2023-11-08 09:00] VITALS: BP 125/76; TEMP 97.7; O2SAT 96
[2023-11-08] MEDS ORDERED: ELIQ5TAB PO (11:09)
[2023-11-08] MEDS ORDERED: ELIQ2.5T PO (11:19)
[2023-11-08 11:30] VITALS: O2SAT 96
[2023-11-08 11:36] VITALS: O2SAT 90
[2023-11-08 11:37] VITALS: O2SAT 93
[2023-11-08] MEDS ORDERED: REMDESIVIR 100 MG in NS 250 ML IV SCH (20:00)
== END 2023-11-08 12:41 | disposition home or self-care (01) ==
LOC: M ED 13:07 → M ED INP 17:09 → ENRESERV 20:31 → M MSPAV 22:18
PROVIDERS: ADMIT Internal Medicine; ATTEND Internal Medicine
DX: U07.1 COVID-19 (principal); R06.02 Shortness of breath; T17.900A Unspecified foreign body in respiratory tract, part unspecified causing asphyxiation, initial encounter; Y92.098 Other place in other non-institutional residence as the place of occurrence of the external cause; J47.9 Bronchiectasis, uncomplicated; R53.1 Weakness; Z87.09 Personal history of other diseases of the respiratory system; R91.1 Solitary pulmonary nodule; J43.9 Emphysema, unspecified; J44.9 Chronic obstructive pulmonary disease, unspecified; R26.81 Unsteadiness on feet; I10 Essential (primary) hypertension; K21.9 Gastro-esophageal reflux disease without esophagitis; H91.93 Unspecified hearing loss, bilateral; I48.91 Unspecified atrial fibrillation; Z68.1 Body mass index [BMI] 19.9 or less, adult; Z90.2 Acquired absence of lung [part of]; Z86.711 Personal history of pulmonary embolism; Z87.442 Personal history of urinary calculi; Z90.89 Acquired absence of other organs; Z90.49 Acquired absence of other specified parts of digestive tract; Z79.899 Other long term (current) drug therapy; D71 Functional disorders of polymorphonuclear neutrophils
CPT/HCPCS: 36415; 71045; 71260; 80048; 80053; 80076; 82550; 82553; 82728; 83605; 83615; 83735; 83880; 84145; 84439; 84443; 84484; 85025; 85027; 85379; 85384; 85610; 85730; 86140; 87040; 87486; 87581; 87633; 87798; 93005; 93041; 94640; 94667; 94760; 96361; 96365; 96366; 96375; 97161; 99285; G0378; J0248; J1100; Q9967

== ENCOUNTER 2023-12-20 18:52 | Emergency (ER) | payer MEDICARE ==
[~2023-12-20] VITALS: Ht 177.8 cm; Wt 56.8 kg
[~2023-12-20 18:52] MED LIST changes: +ELIQ2.5T PO; +METO50TA7 PO; +SPIR1CAP INH; +VITAD1000T PO
[2023-12-20] MEDS ORDERED: ELIQ5TAB PO (19:09)
[2023-12-20] MEDS ORDERED: TIOT18CA (19:09)
[2023-12-20] MEDS ORDERED: PRED10TA2 (19:09)
[2023-12-20] MEDS ORDERED: DULC10SU2 PR (19:09)
[2023-12-20] MEDS ORDERED: BREO1INH3 (19:09)
[2023-12-20 19:25] LABS: BASO % 0.3 % (0.0-1.0); EOS % 0.1 % (0.0-3.0); HEMATOCRIT 42.5 % (42.0-52.0); LYMPH # 0.8 10^3/uL (1.5-5.0); LYMPH % 7.6 % (24.0-44.0); MEAN CORPUSCULAR HEMOGLOBIN 33.9 pg (27.0-33.0); MEAN CORPUSCULAR HGB CONC 35.3 g/dl (32.0-36.5); MEAN CORPUSCULAR VOLUME 95.9 fl (80.0-96.0); MONO # 0.9 10^3/uL (0.0-0.8); MONO % 8.4 % (2.0-8.0); NEUTROPHILS # 9.1 10^3/uL (1.5-8.5); NEUTROPHILS % 82.9 % (36.0-66.0); PLATELET COUNT, AUTOMATED 245 10^3/uL (150-450); RED BLOOD COUNT 4.43 10^6/uL (4.30-6.10)
[2023-12-20 19:38] LABS: INR 1.38; PARTIAL THROMBOPLASTIN TIME 33.7 SECONDS (24.8-34.2); PROTHROMBIN TIME 16.5 SECONDS (12.5-14.5)
[2023-12-20 19:53] LABS: LIPASE 32 U/L (12-53)
[2023-12-20 20:00] LABS: ALBUMIN 3.1 G/DL (3.2-5.2); ALKALINE PHOSPHATASE 80 U/L (46-116); ALT/SGPT 22 U/L (7.0-40); AST/SGOT 18 U/L (<34); BILIRUBIN,DIRECT 0.4 MG/DL (<0.4); BILIRUBIN,TOTAL 1.4 MG/DL (0.3-1.2); BLOOD UREA NITROGEN 34 MG/DL (9-23); CALCIUM LEVEL 9.8 MG/DL (8.3-10.6); CARBON DIOXIDE LEVEL 22 MMOL/L (20-31); CHLORIDE LEVEL 107 MMOL/L (98-107); CK-MB VALUE MASS < 1.0 NG/ML (<3.6); CPK CREATINE PHOSPHOKINASE 25 U/L (46-171); CREATININE FOR GFR 1.26 MG/DL (0.70-1.30); FREE T4 1.42 NG/DL (0.89-1.76); GLOMERULAR FILTRATION RATE > 60.0 (>42); GLUCOSE, FASTING 157 MG/DL (74-106); MAGNESIUM LEVEL 1.8 MG/DL (1.8-2.4); POTASSIUM SERUM 4.4 MMOL/L (3.5-5.1); SODIUM LEVEL 138 MMOL/L (136-145); THYROID STIMULATING HORMONE 1.073 uIU/ML (0.55-4.78); TOTAL PROTEIN 6.3 G/DL (5.7-8.2)
[2023-12-20] MEDS: DIGOXIN INJ 0.5 MG/2 ML AMP IV ONE ×2 (20:53→22:26)
[2023-12-20 20:54] LABS: CK-MB VALUE MASS < 1.0 NG/ML (<3.6)
[2023-12-20 20:57] LABS: CPK CREATINE PHOSPHOKINASE 23 U/L (46-171); MB/CK RELATIVE INDEX 4.34 (< OR =4)
[2023-12-21 00:46] VITALS: BP 156/83
[2023-12-21] MEDS ORDERED: DIGO0.123 PO (00:53)
[2023-12-21 01:15] VITALS: TEMP 97.6; O2SAT 96
== END 2023-12-21 01:35 | disposition home or self-care (01) ==
LOC: M ED 18:52
DX: I48.0 Paroxysmal atrial fibrillation (principal); R00.0 Tachycardia, unspecified; I10 Essential (primary) hypertension; J44.9 Chronic obstructive pulmonary disease, unspecified; Z79.51 Long term (current) use of inhaled steroids; Z79.52 Long term (current) use of systemic steroids; Z79.899 Other long term (current) drug therapy
CPT/HCPCS: 71045; 80048; 80076; 82550; 82553; 83690; 83735; 83880; 84439; 84443; 84484; 85025; 85610; 85730; 93005; 93041; 94760; 96374; 96375; 99285; J1160

== ENCOUNTER → 2024-01-22 | Outpatient (CLI) | payer MEDICARE ==
[~2024-01-22] MED LIST changes: +BREO1INH3; +DIGO0.123 PO; +DULC10SU2 PR; +PRED10TA2; +TIOT18CA
== END ==
LOC: M EKG 08:50
PROVIDERS: ATTEND Internal Medicine Cardiovascular Disease
DX: I48.0 Paroxysmal atrial fibrillation (principal)

== ENCOUNTER → 2024-01-25 | Outpatient (CLI) | payer MEDICARE | LOC: M PLAIMG 14:06 | PROVIDERS: ATTEND Internal Medicine Cardiovascular Disease | DX: I48.0 Paroxysmal atrial fibrillation (principal) ==

== ENCOUNTER → 2024-01-27 | Outpatient (REF) | payer MEDICARE | LOC: M LAB REF 17:02 | PROVIDERS: ATTEND Family Medicine | DX: R31.0 Gross hematuria (principal) ==

== ENCOUNTER → 2024-03-17 | Outpatient (CLI) | payer MEDICARE | LOC: M PLAIMG 10:12 | PROVIDERS: ATTEND Internal Medicine Pulmonary Disease | DX: J47.9 Bronchiectasis, uncomplicated (principal); R91.8 Other nonspecific abnormal finding of lung field ==

== ENCOUNTER → 2024-07-19 | Outpatient (CLI) | payer MEDICARE | LOC: M PLAIMG 09:17 | PROVIDERS: ATTEND Internal Medicine Pulmonary Disease | DX: J43.9 Emphysema, unspecified (principal) ==

== ENCOUNTER → 2024-08-02 | Outpatient (CLI) | payer MEDICARE ==
[2024-08-02 12:57] LABS: CALCIUM LEVEL 10.3 MG/DL (8.3-10.6); CREATININE FOR GFR 1.29 MG/DL (0.70-1.30); GLOMERULAR FILTRATION RATE 58.6 (>42); MAGNESIUM LEVEL 2.2 MG/DL (1.8-2.4)
== END ==
LOC: M WUC 10:29
PROVIDERS: ATTEND Family Medicine
DX: I48.0 Paroxysmal atrial fibrillation (principal)

== ENCOUNTER → 2024-09-06 | Outpatient (CLI) | payer MEDICARE | LOC: M EKG 09:25 | PROVIDERS: ATTEND Internal Medicine Cardiovascular Disease | DX: I48.0 Paroxysmal atrial fibrillation (principal) ==

== ENCOUNTER 2024-10-06 12:58 | Emergency (ER) | payer MEDICARE ==
[~2024-10-06] VITALS: Ht 177.8 cm; Wt 63.5 kg
[~2024-10-06 12:58] MED LIST changes: -BREO1INH3; +BREO1INH3 INH; -PRED10TA2; -TIOT18CA
[2024-10-06] MEDS ORDERED: MAGN64TASA PO (13:10)
[2024-10-06] MEDS ORDERED: NEBI10TA2 PO (13:10)
[2024-10-06 14:07] LABS: BASO # 0.1 10^3/uL (0.0-0.2); EOS % 0.1 % (0.0-3.0); HEMATOCRIT 46.6 % (42.0-52.0); HEMOGLOBIN 15.7 g/dl (13.5-17.5); LYMPH # 0.5 10^3/uL (1.5-5.0); LYMPH % 5.4 % (24.0-44.0); MEAN CORPUSCULAR HEMOGLOBIN 33.4 pg (27.0-33.0); MEAN CORPUSCULAR HGB CONC 33.7 g/dl (32.0-36.5); MEAN CORPUSCULAR VOLUME 99.1 fl (80.0-96.0); MONO # 0.3 10^3/uL (0.0-0.8); MONO % 3.6 % (2.0-8.0); NEUTROPHILS % 88.3 % (36.0-66.0); PLATELET COUNT, AUTOMATED 232 10^3/uL (150-450); WHITE BLOOD COUNT 9.1 10^3/uL (4.0-10.0)
[2024-10-06 14:19] LABS: INR 1.28; PROTHROMBIN TIME 16.2 SECONDS (12.5-14.5)
[2024-10-06 14:30] LABS: CK-MB VALUE MASS 1.3 NG/ML (<3.6)
[2024-10-06 14:32] LABS: ALBUMIN 3.5 G/DL (3.2-5.2); ALKALINE PHOSPHATASE 74 U/L (40-129); ALT/SGPT 22 U/L (7.0-40); AST/SGOT 17 U/L (<34); BILIRUBIN,DIRECT 0.3 MG/DL (<0.4); BILIRUBIN,TOTAL 1.1 MG/DL (0.3-1.2); BLOOD UREA NITROGEN 30 MG/DL (9-23); CALCIUM LEVEL 9.7 MG/DL (8.3-10.6); CARBON DIOXIDE LEVEL 26 MMOL/L (20-31); CHLORIDE LEVEL 111 MMOL/L (98-107); CREATININE FOR GFR 1.22 MG/DL (0.70-1.30); GLOMERULAR FILTRATION RATE > 60.0 (>42); GLUCOSE, FASTING 135 MG/DL (74-106); POTASSIUM SERUM 5.3 MMOL/L (3.5-5.1); SODIUM LEVEL 146 MMOL/L (136-145); TOTAL PROTEIN 6.6 G/DL (5.7-8.2)
[2024-10-06 14:33] LABS: THYROID STIMULATING HORMONE 0.618 uIU/ML (0.55-4.78)
[2024-10-06 14:47] LABS: CPK CREATINE PHOSPHOKINASE 52 U/L (46-171)
[2024-10-06] MEDS ORDERED: ISOVUE-370 76% 100ML VIAL As Ordered ONE (14:47)
[2024-10-06] MEDS: DEXTROSE 50% 50ML SYRINGE IV STA (14:59)
[2024-10-06] MEDS: HumuLIN R (REGULAR) INSULIN (NovoLIN R) **100U/ML** PER UNIT IV ONE (15:00)
[2024-10-06] MEDS: PATIROMER SORBITEX CALCIUM 8.4 GM POWDER PACKET (VELTASSA) PO ONE (15:08)
[2024-10-06] MEDS: CALCIUM GLUCONATE 1,000 MG in DEXTROSE 5% (D5W) MINI-BAG PLU 100 ML IV ONE (15:08)
[2024-10-06 15:33] LABS: CK-MB VALUE MASS 1.3 NG/ML (<3.6)
[2024-10-06 15:35] LABS: MB/CK RELATIVE INDEX 2.76 (< OR =4)
[2024-10-06] MEDS ORDERED: ALBU2.5V10 NEB (16:19)
[2024-10-06] MEDS ORDERED: DOK100TA2 PO (16:19)
[2024-10-06] MEDS ORDERED: HOME MED LIST COMPLETE! XX SCH (16:20)
[2024-10-06] MEDS: cefTRIAXone SOD 1 GM in DEXTROSE 5% (D5W) ADV/MINI-BAG 50 ML IV ONE (16:48)
[2024-10-06] MEDS: AZITHROMYCIN 250MG TABLET PO ONE (16:48)
[2024-10-06] MEDS ORDERED: PROT1TAB2 PO (17:37)
[2024-10-06 18:00] VITALS: BP 189/80; TEMP 97.9; O2SAT 94
== END 2024-10-06 18:16 | disposition home or self-care (01) ==
LOC: M ED 12:58
DX: R06.02 Shortness of breath (principal); E87.5 Hyperkalemia; I45.10 Unspecified right bundle-branch block; I48.91 Unspecified atrial fibrillation; I10 Essential (primary) hypertension; J44.9 Chronic obstructive pulmonary disease, unspecified; Z87.891 Personal history of nicotine dependence; Z79.51 Long term (current) use of inhaled steroids; Z79.01 Long term (current) use of anticoagulants; Z79.52 Long term (current) use of systemic steroids; Z79.899 Other long term (current) drug therapy
CPT/HCPCS: 71046; 71275; 80048; 80076; 82550; 82553; 83880; 84443; 84484; 85025; 85610; 87040; 87486; 87581; 87633; 87798; 93005; 93041; 94760; 96365; 96366; 96375; 99285; J0612; J0696; J1815; Q9967

== ENCOUNTER → 2025-05-05 | Outpatient (CLI) | payer MEDICARE ==
[~2025-05-05] MED LIST changes: +ALBU2.5V10 NEB; +DOK100TA2 PO; -FLOM0.4C39 PO; +MAGN64TASA PO; +NEBI10TA2 PO; +PROT1TAB2 PO; +TAMS-18 PO
== END ==
LOC: M RAD 16:37
PROVIDERS: ATTEND Internal Medicine Pulmonary Disease
DX: R91.8 Other nonspecific abnormal finding of lung field (principal); J43.9 Emphysema, unspecified